=== PATIENT | female | born 1940 | race Caucasian/White ===

== ENCOUNTER 2017-11-12 10:15 | Emergency (ER) | payer MEDICARE, SELFPAY ==
[2017-11-12 10:18] VITALS: BP 130/71; PULSE 71; RESP 14; TEMP 37.1; O2SAT 95; BMI 23.9
--- NOTE | 2017-11-12 10:27 | RAD_ITS ---
STUDY: X-RAY - LEFT KNEE REASON FOR EXAM: Female, 77 years old. Painful knee. TECHNIQUE: AP and lateral view(s) of the knee. COMPARISON: None. FINDINGS: Normal visualized distal femur. Normal visualized proximal tibia and fibula. Normal proximal tibiofibular articulation. Normal medial femorotibial compartment. There is severe degenerative arthrosis of the lateral femorotibial compartment with severe joint space narrowing. There is severe degenerative arthrosis of the patellofemoral articulation. Soft tissue swelling RAD/Knee 1 or 2 Views IMPRESSION: Degenerative arthrosis. Soft tissue swelling. Electronically Signed: Zak Eden MD at 11:17 EDT Tel [phone], Service support ,
--- NOTE | 2017-11-12 10:35 | ED.DCSUM_ITS ---
- ER Visit Summary Date of Service: 11/12/17 Chief Complaint: Left knee pain status post fall History of Present Illness: The patient is a 77 F who states she was in her bedroom when her knee buckled. She experienced significant pain. She states she dislocated her patella 45 years ago. She states she was unable to get up and paramedics were summoned. She is on Coumadin. She denies head trauma. She denies headache. She denies nausea vomiting. She denies neck pain. Denies paresthesia, anesthesia moderates. She does have history of osteoporosis. Please read written note for complete detail Physical Examination: Vital signs are marked for slight elevation blood pressure 130/71. Head is atraumatic normocephalic. Pupils are equal round reactive. Extraocular muscles are intact. TMs are pearly white with landmarks noted. Nares patent with no drainage. Posterior pharynx without erythema or exudate. Uvula is midline. There is no dysphonia or dysphasia. Trachea is midline. There is no stridor with auscultation of the neck. Heart is regular without murmur, gallop or rub. S1 and S2 are normal. Lungs are clear to auscultation with good movement of air bilaterally. Examination of the lower extremities reveals swelling of the left knee. The patella is not ballotable. There may be an effusion. She has joint line tenderness. She is able to extend to 180? and hold against gravity. She is only able to flex to 160?. Unable to perform Patrick test and modified Connie's test. Attempt to perform varus valgus stress testing causes significant discomfort. There may be slight shortening of the left lower extremity. There is bilateral lymphedema with venous stasis dermatologic changes noted. Feet are warm with normal capillary refill. Pulses are diminished. Test Results: 4 view x-ray of the knee was ordered. Patient was only able to tolerate two-view x-ray. There is significant degenerative arthritis with bone on bone laterally. There is no evidence of fracture, subluxation or dislocation of the patella. Emergency Department Course and Treatment: She was medicated with 4 mg of Zofran and 4 mg morphine IV push. X-ray of the knee was obtained to evaluate for fracture. Nurse was asked to ambulate patient with walker since there is no evidence of fracture. She was able to ambulate successfully with walker. Patient was reexamined. She is now able to flex to approximately 100?. There is no laxity with varus valgus stress testing. Patrick's test was negative. Modified Connie's test was negative as well. Treatment Plan: Patient states she does not want to take getting stronger than Tylenol. She was discharged home with appropriate home-going instructions Disposition: To home in stable condition Impression: 1. Traumatic left knee injury with significant osteoarthritis This note was generated with [employer] dictation software. It may contain incorrect words, spelling, and punctuation that were not noted in review of the chart prior to signing ED Disposition - Plan for ED Patient: Disposition: Home or Assisted Living Chief Complaint: Lower Extremity Injury Instructions: ED Sprain Knee Referrals: Karen Garcia MD [Primary Care Provider] - Carlo Diamond MD [STAFF PHYSICIAN] - 1 Week if not improving
[2017-11-12] MEDS: Ondansetron 4 MG/2 ML Vial IV (10:49)
--- NOTE | 2017-11-12 11:16 | ED.RN ---
PT AMBULATES USING A WALKER TO THE RESTROOM WITH THE ASSISTANCE OF 2 RN'S. PT TAKES HER TIME BUT DOES WELL.
[2017-11-12 12:16] VITALS: BP 125/59; PULSE 86; RESP 16; O2SAT 95
== END 2017-11-12 12:17 | disposition home or self-care (01) ==
PROVIDERS: Emergency Provider Emergency Medicine; Family Provider Internal Medicine; PCP Internal Medicine
DX: M17.12 Unilateral primary osteoarthritis, left knee (principal); S89.92XA Unspecified injury of left lower leg, initial encounter; W19.XXXA Unspecified fall, initial encounter; Y93.9 Activity, unspecified; Y92.9 Unspecified place or not applicable; Y99.9 Unspecified external cause status; M25.462 Effusion, left knee; I89.0 Lymphedema, not elsewhere classified; R03.0 Elevated blood-pressure reading, without diagnosis of hypertension; M81.0 Age-related osteoporosis without current pathological fracture; Z79.01 Long term (current) use of anticoagulants; Z79.82 Long term (current) use of aspirin; Z79.899 Other long term (current) drug therapy; I25.2 Old myocardial infarction
CPT/HCPCS: 73560; 96374; 96375; 99285; A4216; J2405

== ENCOUNTER 2018-03-05 17:02 | Emergency (ER) | payer MEDICARE, SELFPAY ==
[2018-03-05 17:04] VITALS: BP 145/79; PULSE 98; RESP 16; TEMP 36.4; O2SAT 94
[2018-03-05 17:10] VITALS: BP 145/79; PULSE 97; RESP 16; TEMP 36.4; O2SAT 93; BMI 34.9
[2018-03-05 17:21] VITALS: O2SAT 91
--- NOTE | 2018-03-05 17:21 | CT_ITS ---
STUDY: CT BRAIN WITHOUT CONTRAST REASON FOR EXAM: Female, 78 years old. Fall RADIATION DOSAGE (If Supplied By Facility): CTDIvol = ( 44.99 ) mGy, DLP = ( 779.24 ) mGycm TECHNIQUE: Transaxial CT imaging of the brain was performed without administration of intravenous contrast material. Individualized dose optimization techniques were used for this CT. COMPARISON: 10/29/2016 FINDINGS: There is no acute bleed or infarct. There are stable mild chronic ischemic changes. The ventricles are normal in configuration. There is no hydrocephalus. The visualized paranasal sinuses are clear. The mastoid air cells are well aerated. There is no skull fracture. CT/Brain/Head without Contrast IMPRESSION: No acute intracranial abnormality. Stable mild chronic ischemic changes. Electronically Signed: Hugh Merritt, at 18:57 EDT Tel , Service support ,
--- NOTE | 2018-03-05 17:21 | RAD_ITS ---
STUDY: X-RAY - PELVIS AND RIGHT HIP REASON FOR EXAM: Female, 78 years old. Fall. Pain. TECHNIQUE: Radiological exam, hip, unilateral, with pelvis when performed; 2 or 3 views. COMPARISON: None. FINDINGS: There is no evidence of fracture or dislocation in the pelvis or right hip. There are mild degenerative changes noted in the lower spine and in the hips. RAD/Hip 2-3 Views with Pelvis IMPRESSION: No fracture or dislocation in the pelvis or right hip. Mild degenerative changes. Electronically Signed: Hugh Merritt, at 18:26 EDT Tel , Service support ,
--- NOTE | 2018-03-05 17:21 | EKG12_ITS ---
Test Reason : FALL Blood Pressure : / mmHG Vent. Rate : 091 BPM Atrial Rate : 091 BPM P-R Int : 146 ms QRS Dur : 088 ms QT Int : 384 ms P-R-T Axes : 041 004 000 degrees QTc Int : 472 ms Normal sinus rhythm Nonspecific ST and T wave abnormality Abnormal ECG Confirmed by RAUL RODRIGUEZ, LIZZETTE ([id number]), content editor STEFANIE CHARLES ([id number]) on 03/07/2018 3:11:01 PM Referred By: ESTRELLA Confirmed By:LIZZETTE CARTER MD
--- NOTE | 2018-03-05 17:21 | CT_ITS ---
STUDY: CT CERVICAL SPINE WITHOUT CONTRAST REASON FOR EXAM: Female, 78 years old. Fall RADIATION DOSAGE (If Supplied By Facility): CTDIvol = ( 21.26 ) mGy, DLP = ( 428.75 ) mGycm TECHNIQUE: High resolution transaxial imaging was performed without contrast material. Sagittal and coronal images were reconstructed. Individualized dose optimization techniques were used for this CT. COMPARISON: None available. FINDINGS: There is no evidence of fracture or dislocation in the cervical spine. The dens is intact. Alignment is normal. The vertebral body heights are well-maintained. There are mild multilevel degenerative changes. The visualized paraspinal soft tissues are within normal limits. CT/Spine Cervical without Contras IMPRESSION: No fracture or dislocation in the cervical spine. Mild degenerative changes. Electronically Signed: Hugh Merritt, at 19:01 EDT Tel , Service support ,
[2018-03-05] MEDS: Morphine 4 MG/ML Syringe IM (17:44)
[2018-03-05] MEDS: 0.9% Normal Saline 1,000 ML 150 ML IV (17:44)
[2018-03-05] MEDS: Ondansetron 4 MG/2 ML Vial IV (17:45)
[2018-03-05 18:04] LABS: Absolute Lymphocyte Count 1.52 X10^3/ul (0.83-4.51); Absolute Neutrophil Count 5.2 X10^3/uL (2.0-7.7); Basophil# 0.04 X10^3/uL; Basophil% 0.4 % (0-1); Eosinophil# 1.17 X10^3/uL; Eosinophils% 12.9 % (0-5); Hematocrit 40.6 % (37-47); Hemoglobin 12.8 g/dl (12.0-15.0); Lymphocyte # 1.52 X10^3/ul (4.0); Lymphocyte % 16.8 % (19-41); Mean Corp Hgb Conc 31.5 g/gl (32-36); Mean Corpuscular Hgb 29.7 pg (27.0-32.0); Mean Corpuscular Volume 94.2 fL (81-99); Mean Platelet Vol. 10.8 fl (6.2-12.0); Monocyte# 1.07 X10^3/uL; Monocyte% 11.8 % (0-10); Neutrophil # 5.24 X10^3/uL (2.7-7.7); Neutrophil % 57.8 % (47-70); POSITIVE COUNT NO; POSITIVE DIFFERENTIAL NO; POSITIVE MORPHOLOGY NO; Platelet Count 185 K/mm3 (150-450); RBC Distribution Width CV 14.8 % (11.6-14.6); RBC Distribution Width SD 49.3 fl (35.1-43.9); Red Blood Count 4.31 M/mm3 (4.2-5.4); White Blood Count 9.1 K/mm3 (4.4-11.0)
[2018-03-05 18:06] LABS: International Normalized Ratio 1.7; Prothrombin Time (Protime)PT. 19.7 SECONDS (11.7-14.9)
--- NOTE | 2018-03-05 18:10 | RAD_ITS ---
STUDY: X-RAY CHEST REASON FOR EXAM: Female, 78 years old. Fall TECHNIQUE: Frontal view of the chest COMPARISON: 06/28/2017 FINDINGS: There is a stable calcified granuloma in the right lower lobe. The lungs are otherwise clear. There are no pleural effusions. There is no pneumothorax. The heart is mildly enlarged, but stable in size. The visualized osseous structures are within normal limits. RAD/Chest 1 View (Portable) IMPRESSION: No acute thoracic pathology. Electronically Signed: Hugh Merritt, at 18:49 EDT Tel , Service support ,
[2018-03-05 18:16] LABS: Anion Gap 7 (5-15); BUN 22 mg/dL (7-18); Calcium,Total 8.2 mg/dL (8.5-10.1); Chloride 112 mmol/L (98-107); Creatinine, Serum 1.16 mg/dL (0.55-1.02); EST Glomerular Filtration Rate 48 mL/min (>60); Est Glom Filt Rate - Afr Amer 58 mL/min (>60); Estimated Creatinine Clearance 34.13 ml/min; Glucose 101 mg/dL (74-106); Potassium 3.7 mmol/L (3.5-5.1); Sodium Level 145 mmol/L (136-145)
[2018-03-05 19:16] VITALS: BP 127/72; PULSE 94; RESP 23; O2SAT 96
--- NOTE | 2018-03-05 19:16 | ED.VISSUMM ---
- ER Visit Summary Date of Service: 03/05/18 Chief Complaint: Fall History of Present Illness: The patient is a [address] Abby Garcia. She reports that she woke up from a nap and was feeling short of breath. She went to sit up in a chair and actually missed the chair and fell onto her buttocks. She reports that she did hit her head. No loss of consciousness. She is on Coumadin. She complains of neck pain Zeta 10 severity. Low back pain is 6 out of 10 severity. Right hip pain is 6 out of 10 severity. She denies any shoulder, wrist, or left hip pain. Patient reports that she has chest pain that began this morning. She reports that it comes and goes. Last proximal 15 minutes of time. It is increased with deep breaths. States is 10 out of 10 at worst and 6 out of 10 currently. Physical Examination: Vitals: Stable. Afebrile. Head: Abrasions to her forehead on the right and to her right maxilla. There is minimal dried blood in her right nare. There is no septal hematoma. Neck: Mild diffuse tenderness palpation. No point tenderness. Back: No vertebral tenderness. General: A&O x 3. NAD. Cardiovascular exam: Regular rate and rhythm with a 2 out of 6 systolic murmur. Respiratory exam: Chest nontender. No crepitus. Clear to auscultation bilaterally. No wheezes or stridor. Abdominal exam: Soft, nontender, nondistended, normal bowel sounds. No pain in RUQ or LUQ specifically. No peritoneal signs. Extremity: Mild tenderness palpation over the right greater trochanter. No pain with internal/external rotation of her hip. No pain with range of motion. Test Results: EKG is sinus at 91 with no acute changes. Is unchanged since May 2017. Troponins negative. INR is 1.7. Chem-7 more for calcium 8.2, BUN 20, creatinine 1.16, glucose 112. CBC is more for lymphocytes 17 monocytes of 12. Chest x-ray shows chronic changes. Right hip/pelvis x-ray shows degenerative changes and no acute disease. CT of the C-spine shows degenerative changes. CT brain shows stable mild chronic ischemic changes. No acute disease. Emergency Department Course and Treatment: Patient states that with a dose of morphine and Zofran IV. She is resting comfortably. Treatment Plan: Patient feels well and would like to go home. She reports that she does have known coronary disease and she is opted medical management of this. She states that she has not taken her dose of Coumadin yet today. Patient be discharged instructions to follow-up Dr. Garcia in 1-2 days if not improving. Return to the emergency department for any worsening symptoms. Disposition: To home in improved and stable condition. Impression: 1. Mechanical fall. 2. Facial abrasions. 3. Cervical strain. 4. Coagulopathy on Coumadin. 5. Atypical chest pain. This note was generated with [employer] dictation software. It may contain incorrect words, spelling, and punctuation that were not noted in review of the chart prior to signing ED Disposition - Plan for ED Patient: Disposition: Home or Assisted Living Chief Complaint: Fall Instructions: ED Mechanical Fall Referrals: Karen Garcia MD [Primary Care Provider] - 1-2 Days if not improving
[2018-03-05 19:29] VITALS: BP 127/72; PULSE 98; RESP 17; O2SAT 98
== END 2018-03-05 19:29 | disposition home or self-care (01) ==
LOC: ED 18:37
PROVIDERS: Emergency Provider Emergency Medicine; Family Provider Internal Medicine; PCP Internal Medicine
DX: S16.1XXA Strain of muscle, fascia and tendon at neck level, initial encounter (principal); S00.81XA Abrasion of other part of head, initial encounter; R07.89 Other chest pain; M25.551 Pain in right hip; M54.5 Low back pain; W07.XXXA Fall from chair, initial encounter; Y93.9 Activity, unspecified; Y92.9 Unspecified place or not applicable; Y99.9 Unspecified external cause status; R79.1 Abnormal coagulation profile; T45.515A Adverse effect of anticoagulants, initial encounter; I48.92 Unspecified atrial flutter; M19.90 Unspecified osteoarthritis, unspecified site; Z79.82 Long term (current) use of aspirin; Z79.01 Long term (current) use of anticoagulants; Z79.899 Other long term (current) drug therapy; Z86.718 Personal history of other venous thrombosis and embolism
CPT/HCPCS: 70450; 71045; 72125; 73502; 80048; 84484; 85025; 85610; 93005; 96361; 96372; 96374; 99285; J7030; J2405

== ENCOUNTER 2018-05-30 05:29 | Inpatient (IN) | payer MEDICARE, SELFPAY ==
[2018-05-30 05:30] VITALS: BP 169/88; PULSE 86; RESP 20; TEMP 36.7; O2SAT 96; BMI 30.7
--- NOTE | 2018-05-30 05:40 | EKG12_ITS ---
Test Reason : WEAKNESS Blood Pressure : / mmHG Vent. Rate : 076 BPM Atrial Rate : 076 BPM P-R Int : 150 ms QRS Dur : 080 ms QT Int : 384 ms P-R-T Axes : 029 -01 000 degrees QTc Int : 432 ms Sinus rhythm with marked sinus arrhythmia Otherwise normal ECG Confirmed by RAUL RODRIGUEZ, LIZZETTE ([id number]), editor map STEFANIE CHARLES ([id number]) on 05/31/2018 2:41:16 PM Referred By: AMOL Confirmed By:LIZZETTE CARTER MD
[2018-05-30 06:06] LABS: Bacteria 0 SEEN /hpf (None Seen); Mucous, Urine 0 SEEN /hpf (<or=2+); Red Blood Cells-Urine 0 SEEN /hpf (0-5)
[2018-05-30 06:07] LABS: Color, Urine Yellow (Yellow); Glucose, Dipstick Normal (Normal); Ketone-Dipstick Negative (Negative); Leukocyte Esterase-Dipstick 500 /ul (Negative); Nitrite-Dipstick Negative (Negative); Occult Blood-Urine 25 /ul (Negative); Protein-Dipstick 15 mg/dl (Negative); Urine Bilirubin Dipstick Negative (Negative); Urine Clarity Sl. Cloudy (Clear); Urine Urobilinogen Normal (Normal)
--- NOTE | 2018-05-30 06:08 | RAD_ITS ---
STUDY: X-RAY CHEST REASON FOR EXAM: Female, 78 years old. Weakness. TECHNIQUE: PA and lateral chest. COMPARISON: March 05, 2018. FINDINGS: Severe kyphosis. Heart is mildly enlarged. Retrocardiac density on the lateral view. No effusions. No pneumothorax. There is no demonstrated abnormality of the visualized soft tissue structures of the upper abdomen. RAD/Chest PA and Lateral IMPRESSION: Mild cardiomegaly unchanged. Cannot exclude left lower lobe pneumonia. Severe kyphosis.. Electronically Signed: Abhay Rutledge MD at 6:28 EDT , Service support ,
[2018-05-30 06:13] LABS: Absolute Lymphocyte Count 2.17 X10^3/ul (0.83-4.51); Absolute Neutrophil Count 3.5 X10^3/uL (2.0-7.7); Basophil# 0.03 X10^3/uL; Basophil% 0.4 % (0-1); Eosinophil# 0.33 X10^3/uL; Eosinophils% 4.7 % (0-5); Hematocrit 44.5 % (37-47); Lymphocyte # 2.17 X10^3/ul (4.0); Lymphocyte % 30.8 % (19-41); Mean Corp Hgb Conc 31.5 g/gl (32-36); Mean Corpuscular Hgb 29.4 pg (27.0-32.0); Mean Corpuscular Volume 93.5 fL (81-99); Mean Platelet Vol. 11.4 fl (6.2-12.0); Monocyte# 0.97 X10^3/uL; Monocyte% 13.8 % (0-10); Neutrophil # 3.54 X10^3/uL (2.7-7.7); Neutrophil % 50.3 % (47-70); Platelet Count 190 K/mm3 (150-450); RBC Distribution Width CV 14.4 % (11.6-14.6); RBC Distribution Width SD 49.3 fl (35.1-43.9); Red Blood Count 4.76 M/mm3 (4.2-5.4)
[2018-05-30 06:15] LABS: POSITIVE COUNT NO; POSITIVE DIFFERENTIAL NO; POSITIVE MORPHOLOGY NO
[2018-05-30 06:19] LABS: Squamous Epithelial Cells - UA 25-50 SEEN /hpf (5-10); White Blood Cells 25-50 SEEN /hpf (0-5)
[2018-05-30 06:21] LABS: AST(SGOT) 33 U/L (15-37); Alanine Aminotransfer ALT/SGPT 31 U/L (13-56); Albumin, Serum 3.4 g/dL (3.2-5.0); Alkaline Phosphatase 62 U/L (45-117); Anion Gap 8 (5-15); BUN 20 mg/dL (7-18); BUN/Creat Ratio 17.1 RATIO (10-20); Calcium,Total 9.2 mg/dL (8.5-10.1); Chloride 108 mmol/L (98-107); Creatinine, Serum 1.17 mg/dL (0.55-1.02); EST Glomerular Filtration Rate 48 mL/min (>60); Est Glom Filt Rate - Afr Amer 58 mL/min (>60); Estimated Creatinine Clearance 33.84 ml/min; Globulin 3.4 g/dL (2.2-4.2); Glucose 96 mg/dL (74-106); Potassium 4.4 mmol/L (3.5-5.1); Protein, Total 6.8 g/dL (6.4-8.2); Sodium Level 143 mmol/L (136-145)
--- NOTE | 2018-05-30 06:53 | ED.DCSUM_ITS ---
- ER Visit Summary Date of Service: 05/30/18 Chief Complaint: Weakness History of Present Illness: The patient is a 78 F who states that around 130 tonight she became weak. She noted some urinary frequency. She denies any pain. She states that she does not sleep well at night was already up at that time. EMS states they have run on her several times for lift assistance but rarely needs to transport her. She denies any fevers, vomiting, diarrhea, or focal weakness. Recently started on a low-sodium diet due to leg swelling. No new medications though she takes Lasix as needed. She is on Coumadin Physical Examination: Afebrile vital signs are stable Gen: Well-nourished well-developed patient keeps her eyes closed most of the time while being examined Head: Normocephalic atraumatic Eyes: Perrl EOMI ENT: TMs clear no rhinorrhea moist mucous membranes Neck: Supple no lymphadenopathy no JVD nontender CVS: Regular rate rhythm no murmurs normal S1-S2 Respiratory: No distress clear to auscultation bilaterally chest nontender Abdomen: Soft nontender nondistended normal bowel sounds no masses Back: Nontender Extremity: Nontender no edema Skin: Normal color no rash Neuro: alert orientated ?3 CN II-XII intact normal strength sensation reflexes gait cerebellar Psych: Normal affect normal mood Test Results: Troponin negative. EKG sinus rhythm at a rate of 76. Chest x-ray is read by radiology as possible infiltrate.. Urinalysis 25-50 white cells but also heavily contaminated with epithelial cells no bacteria. Emergency Department Course and Treatment: As far as the chest x-ray patient has no cough lung sounds are clear she is without fever. I do not think she has pneumonia at the current time. Urinalysis contaminated but no overt infection. Nursing had the patient set up her blood pressure was fine but the patient states she is too weak to stand. Question whether or not this could be depression as the patient does not sleep very well is up most of the night. We will be admitting for observation. Impression: 1. Weakness 2. Failure to thrive This note was generated with [employer] dictation software. It may contain incorrect words, spelling, and punctuation that were not noted in review of the chart prior to signing ED Disposition - Plan for ED Patient: Chief Complaint: Weakness Referrals: Karen Garcia MD [Primary Care Provider] -
--- NOTE | 2018-05-30 07:13 | CT_ITS ---
STUDY: CT BRAIN WITHOUT CONTRAST REASON FOR EXAM: Female, 78 years old. Weakness and dizziness. RADIATION DOSAGE (If Supplied By Facility): CTDIvol = ( 44.99 ) mGy, DLP = ( 762.36 ) mGycm TECHNIQUE: Transaxial CT imaging of the brain was performed without administration of intravenous contrast material. Individualized dose optimization techniques were used for this CT. COMPARISON: Comparison is made with prior study dated March 05, 2018. FINDINGS: Normal soft tissue structures. Normal calvarium. There is mild cerebral atrophy with widening of the extra-axial spaces and ventricular dilatation. Normal white matter tracts of the cerebral hemispheres. Normal basal ganglia and thalami. Normal brainstem. Normal cerebellum. There is no intracranial hemorrhage. There are no findings of an acute ischemic infarction. Normal visualized paranasal sinuses. CT/Brain/Head without Contrast IMPRESSION: Chronic involutional changes of the brain. Electronically Signed: Zak Eden MD at 8:19 EDT Tel [phone], Service support ,
[2018-05-30 07:27] VITALS: BP 134/68; BP 154/76; PULSE 75; PULSE 79
--- NOTE | 2018-05-30 07:51 | NURSING ---
DR RICH CARMICHAEL
--- NOTE | 2018-05-30 08:04 | NURSING ---
MED SURG FAILURE TO THRIVE RICH
--- NOTE | 2018-05-30 08:10 | HP.PCM_ITS ---
Problem List (1) General weakness Status: Acute (2) UTI Status: Acute (3) Hyperlipidemia Status: Chronic Qualifiers: Hyperlipidemia type: pure hypercholesterolemia Qualified Code(s): E78.00 - Pure hypercholesterolemia, unspecified; E78.0 - Pure hypercholesterolemia (4) Paroxysmal atrial fibrillation Status: Chronic (5) Acute embolism and thrombosis of vein Status: Chronic (6) Diastolic dysfunction Status: Acute (7) H/O eye surgery Status: Resolved (8) H/O lumpectomy Status: Resolved Comment: breast (9) History of tonsillectomy Status: Resolved (10) Atherosclerotic heart disease of [place] coronary artery without angina pectoris Status: Resolved Qualifiers: [place] vs. transplanted heart: [place] heart Qualified Code(s): I25.10 - Atherosclerotic heart disease of [place] coronary artery without angina pectoris (11) Failure to thrive Status: Acute (12) Hematoma and contusion Status: Acute (13) Syncope Status: Acute Qualifiers: Syncope type: unspecified Qualified Code(s): R55 - Syncope and collapse (14) Dizziness, nonspecific Status: Chronic (15) History of urinary calculi Status: Chronic (16) Peptic ulcer Status: Chronic (17) Osteoporosis Status: Chronic (18) History of venous thromboembolism Status: Chronic (19) SVT (supraventricular tachycardia) Status: Acute (20) NSTEMI (non-ST elevated myocardial infarction) Status: Acute (21) Angina pectoris Status: Acute (22) Osteoarthritis Status: Chronic (23) Coagulopathy Status: Acute (24) Vertebral compression fracture Status: Acute History of Present Illness Date of Admission: 05/30/18 Chief Complaint: Generalized weakness The patient is a 78 year old F with multiple comorbidities including venous thromboembolism, coronary artery disease paroxysmal A. fib, history of SVT on Coumadin, osteoarthritis/osteoporosis and peptic ulcer came to ER with generalized weakness for 2-3 days. She woke up at 1:30 AM today and started feeling increased frequency and burning micturition. She had flulike symptoms about 2-3 weeks ago that has resolved but he still has postnasal dripping and weakness. Denies fever but chills. As per EMS, she required left assistance and in ED she could not stand up. Orthostatic vitals were negative. She took 1 week of Lasix by PCP Dr. Abbott which she completed last Wednesday. She was transferred to [facility] in December 2016 for evaluation of bypass surgery for multivessel coronary artery disease she was told she is too weak and had developed venous thromboembolism too. She follows Dr. Mora, last seen about 2-3 months ago and she is not operative candidate for CABG. In ED, UA is positive of pyuria, LE positive, WBC 25-50 but epithelial cells 25- 50 too suggestive of contaminated or not optimal urine sample. [] Past Medical History Past Medical History (Chronic Problems): Chronic Problems (Last Updated 12/14/17 @ 12:54 by Josee Rojas) Hyperlipidemia (Chronic) Paroxysmal atrial fibrillation (Chronic) Acute embolism and thrombosis of vein (Chronic) Dizziness, nonspecific (Chronic) History of urinary calculi (Chronic) Peptic ulcer (Chronic) Osteoporosis (Chronic) History of venous thromboembolism (Chronic) Osteoarthritis (Chronic) Medical History: Medical History (Last Updated 12/14/17 @ 12:54 by Josee Rojas) Hyperlipidemia (Chronic) E78.5 Paroxysmal atrial fibrillation (Chronic) I48.0 Acute embolism and thrombosis of vein (Chronic) I82.90 Diastolic dysfunction (Acute) I51.9 Atherosclerotic heart disease of [place] coronary artery without angina pectoris (Resolved) I25.10 Failure to thrive (Acute) [id number] Hematoma and contusion (Acute) T14.8 Syncope (Acute) R55 Dizziness, nonspecific (Chronic) R42 History of urinary calculi (Chronic) Z87.442 Peptic ulcer (Chronic) K27.9 Osteoporosis (Chronic) M81.0 History of venous thromboembolism (Chronic) Z86.718 SVT (supraventricular tachycardia) (Acute) I47.1 NSTEMI (non-ST elevated myocardial infarction) (Acute) I21.4 Angina pectoris (Acute) I20.9 Osteoarthritis (Chronic) M19.90 Coagulopathy (Acute) Vertebral compression fracture (Acute) M48.50XA Allergies codeine Adverse Reaction (Verified 05/30/18 05:36) Other Home Medications: Ambulatory Orders Medication Instructions Recorded Ascorbic Acid [Vitamin C] 500 mg PO DAILY@0800 01/26/16 Calcium Carbonate/Vitamin D3 1 tablet PO DAILY 01/26/16 [Calcium 600-Vit D3 800 Tablet] Meclizine HCl [Antivert] 12.5 mg PO PRN PRN 01/26/16 Multivitamin [Daily Multiple 1 tab PO DAILY 01/26/16 Vitamin] Omeprazole 20 mg PO DAILY 01/26/16 Acetaminophen [Tylenol] 500 mg PO Q4H PRN PRN #30 tab 06/11/16 Cholecalciferol (Vitamin D3) 1,000 unit PO DAILY 06/11/16 [Vitamin D3] Sertraline HCl [Zoloft] 25 mg PO DAILY 11/11/16 Warfarin [Coumadin] 1 mg PO MOWEFR 11/11/16 Warfarin [Coumadin ([facility]KC)] 2 mg PO SUTUTHSA 01/07/17 Aspirin [Adult Low Dose Aspirin EC] 81 mg PO DAILY 06/28/17 Atorvastatin Calcium 80 mg PO DAILY 06/28/17 Isosorbide Mononitrate [Isosorbide 30 mg PO DAILY 06/28/17 Mononitrate ER] Metoprolol Succinate [Toprol Xl] 50 mg PO DAILY #30 tab.er.24h 06/28/17 tramadol 50 mg tablet 50 mg PO QDAY PRN tab 09/21/17 furosemide 20 mg tablet 20 mg PO QDAY PRN 02/14/18 Surgical History: Surgical History (Last Reviewed 02/14/18 @ 11:10 by Josee Rojas) H/O eye surgery (Resolved) Z98.890 H/O lumpectomy (Resolved) Z98.890 breast History of tonsillectomy (Resolved) Z90.89 Surgical History: no surgical history, tonsillectomy, - - Lumpectomy of the breast, eye muscle surgery Psychiatric History: No pertinent psych hx RATE EXAMINER History: No pertinent RATE EXAMINER history Smoking Status: Never smoker - *Family History Maternal Family History: Family History (Last Reviewed 02/14/18 @ 11:10 by Josee Rojas) Mother Diabetes Father CAD (coronary artery disease) Brother CAD (coronary artery disease) History Items: Diabetes Paternal Family History: Family History (Last Reviewed 02/14/18 @ 11:10 by Josee Rojas) Mother Diabetes Father CAD (coronary artery disease) Brother CAD (coronary artery disease) History Items: Cancer Sibling Family History: Family History (Last Reviewed 02/14/18 @ 11:10 by Josee Rojas) Mother Diabetes Father CAD (coronary artery disease) Brother CAD (coronary artery disease) History Items: DVT Review of Systems Constitutional: Reports: Chills, Malaise, Weakness HEENT: Reports: Post Nasal Drip. Denies: Head Aches, Sinus Congestion Cardiovascular: Reports: Edema. Denies: Chest Pain, Palpitations Respiratory: Reports: Cough - Tonic. Denies: Shortness of breath at rest, Sputum production Gastrointestinal: Denies: Abdominal Pain, Nausea, Vomiting Genitourinary: Reports: Dysuria, Frequency, Incontinence Musculoskeletal: Denies: Joint Pain, Joint Tenderness Skin: Denies: Rash, Wounds Neurological: Denies: Numbness, Tingling, Focal weakness Psychiatric: Denies: Anxiety, Depression, Homicidal Ideations, Suicidal Ideations Hematologic/ Lymphatic: Denies: Easy Bruising, Easy Bleeding VTE Information - Inpt Only VTE Present on Admission: No VTE Mechan Device Prophylaxis: None VTE Pharm Prophylaxis ordered?: Yes Patient Problems: Active and Suspected Problems (Last Updated 12/14/17 @ 12:54 by Josee Rojas) General weakness (Acute) UTI (Acute) - Physical Exam General: Alert, Oriented x3, Cooperative HEENT: Atraumatic, PERRLA, EOMI, Normocephalic Oral: Dry Mucosa Neck: Supple, No JVD, Negative Carotid Bruits Lungs: Clear to auscultation, No rhonchi, No wheeze, No rales, Diminished Cardiovascular: Regular rate, Regular Rhythm, Normal S1, Normal S2, No murmurs, - Abdomen: Bowel Sounds Present, Soft, Non Tender, Non-Distended Extremities: Capillary Refill Less than 3 Seconds, Edema Skin: No rashes, No breakdown Musculoskeletal: No Tenderness to Palpation of Joints or Extremities, Arthritic Changes, Muscle Wasting Neurological: Cranial nerves II-XII grossly intact, Deep Tendon Reflexes 2+/4 and Symmetrical, Neuro grossly intact Psych/Mental Status: Normal Affect, Appropriate Vital Signs Temp Pulse Resp BP Pulse Ox 98.0 F 75 20 H 134/68 H 96 05/30/18 05:30 05/30/18 07:27 05/30/18 05:30 05/30/18 07:27 05/30/18 05:30 Oxygen Delivery Method Room Air Weight: 173 lb 1.006 oz Body Mass Index (BMI) 30.7 Laboratory Tests Past 24 Hrs 05/30/18 05/30/18 05/30/18 05:38 05:38 06:00 WBC 7.0 RBC 4.76 Hgb 14.0 Hct 44.5 MCV 93.5 MCH 29.4 MCHC 31.5 L RDW 14.4 RDW Differential 49.3 H Plt Count 190 MPV 11.4 Immature Gran % (Auto) 0.000 Neut % (Auto) 50.3 Lymph % (Auto) 30.8 Martin % (Auto) 13.8 H Eos % (Auto) 4.7 Baso % (Auto) 0.4 Absolute Neuts (auto) 3.5 Absolute Lymphs (auto) 2.17 Total Counted Not Reportable Sodium 143 Potassium 4.4 Chloride 108 H Carbon Dioxide 27.0 Anion Gap 8 BUN 20 H Creatinine 1.17 H Estim Creat Clear Calc 33.84 Est GFR (MDRD) Af Amer 58 L Est GFR (MDRD) Non-Af 48 L BUN/Creatinine Ratio 17.1 Glucose 96 Calcium 9.2 Total Bilirubin 0.90 AST 33 ALT 31 Alkaline Phosphatase 62 Troponin I 0.021 Total Protein 6.8 Albumin 3.4 Globulin 3.4 Albumin/Globulin Ratio 1.0 Urine Color Yellow Urine Clarity Sl. Cloudy Urine pH 6.0 Ur Specific [place] 1.010 Urine Protein 15 H Urine Glucose (UA) Normal Urine Ketones Negative Urine Occult Blood 25 H Urine Nitrite Negative Urine Bilirubin Negative Urine Urobilinogen Normal Ur Leukocyte Esterase 500 H Urine RBC 0 SEEN Urine WBC 25-50 SEEN Ur Squamous Epith Cells 25-50 SEEN Urine Bacteria 0 SEEN Urine Mucus 0 SEEN Assessment/Plan All Active Problems (Last Updated 12/14/17 @ 12:54 by Josee Rojas) General weakness (Acute) UTI (Acute) Diastolic dysfunction (Acute) H/O eye surgery (Resolved) H/O lumpectomy (Resolved) History of tonsillectomy (Resolved) Atherosclerotic heart disease of [place] coronary artery without angina pectoris (Resolved) Failure to thrive (Acute) Hematoma and contusion (Acute) Syncope (Acute) SVT (supraventricular tachycardia) (Acute) NSTEMI (non-ST elevated myocardial infarction) (Acute) Angina pectoris (Acute) Coagulopathy (Acute) Vertebral compression fracture (Acute) The patient is a 78 year old F with multiple comorbidities including venous thromboembolism, coronary artery disease paroxysmal A. fib, history of SVT on Coumadin, osteoarthritis/osteoporosis and peptic ulcer came to ER with generalized weakness for 2-3 days. She woke up at 1:30 AM today and started feeling increased frequency and burning micturition. She had flulike symptoms about 2-3 weeks ago that has resolved but he still has postnasal dripping and weakness. Denies fever but chills. As per EMS, she required left assistance and in ED she could not stand up. Orthostatic vitals were negative in ED. She took 1 week of Lasix by PCP Dr. Abbott which she completed last Wednesday. She was transferred to [facility] in December 2016 for evaluation of bypass surgery for multivessel coronary artery disease she was told she is too weak and had developed venous thromboembolism too. She follows Dr. Mora, last seen about 2-3 months ago and she is not operative candidate for CABG. In ED, UA is positive of pyuria, LE positive, WBC 25-50 but epithelial cells 25- 50 too suggestive of contaminated or not optimal urine sample. [] 1. Generalized weakness, most probably multiple etiologies including recent treatment with Lasix, flulike symptoms and/or UTI: Patient is being admitted to regular MedSurg floor. We will treat for underlying condition. Respiratory panel ordered. IV fluid normal saline. 2. UTI: Repeat UA with urine culture probably from straight catheterization.. Start on IV ceftriaxone. Bladder scan postvoid to rule out urinary retention/postvoid residual. 3. CAD. Patient had non-STEMI in December 2016 and had cardiac cath which showed multivessel CAD. Not optimal candidate for CABG. Continue home cardiac medications. 4. PSVT/paroxysmal A. fib on Coumadin : PT/INR pending. Adjust Coumadin accordingly. Currently normal sinus rhythm. 5. Other chronic comorbidities include dyslipidemia, peptic ulcer, osteoporosis/osteoarthritis, vertebral compression fracture, history of urinary calculi: Multiple comorbidities complicates the present care and expect difficult and delay recovery DVT: Already on Coumadin. Code Visit Inpatient E&M: [id number] Init Hosp L3
[2018-05-30 08:34] LABS: International Normalized Ratio 3.3; Prothrombin Time (Protime)PT. 33.8 SECONDS (11.7-14.9)
[2018-05-30 08:52] VITALS: BMI 29.6
[2018-05-30 08:59] VITALS: BP 149/82; PULSE 80; RESP 18; TEMP 36.8; O2SAT 96
[2018-05-30 09:24] LABS: Erythrocyte Sedimentation Rate 10 mm/hr (0-30)
[2018-05-30 09:51] LABS: Mucous, Urine 0 SEEN /hpf (<or=2+); Red Blood Cells-Urine 0 SEEN /hpf (0-5)
[2018-05-30 09:53] LABS: Color, Urine Yellow (Yellow); Glucose, Dipstick Normal (Normal); Ketone-Dipstick Negative (Negative); Leukocyte Esterase-Dipstick 500 /ul (Negative); Nitrite-Dipstick Negative (Negative); Occult Blood-Urine 10 /ul (Negative); Protein-Dipstick Negative (Negative); Urine Bilirubin Dipstick Negative (Negative); Urine Clarity Sl. Cloudy (Clear); Urine Urobilinogen Normal (Normal); Urine pH 6.5 (5.0 - 8.0)
[2018-05-30 09:59] LABS: Bacteria 2+ /hpf (None Seen); Squamous Epithelial Cells - UA 0-5 SEEN /hpf (5-10); White Blood Cells 5-10 SEEN /hpf (0-5)
[2018-05-30] MEDS: 0.9% Normal Saline 1,000 ML 75 ML IV (10:37)
[2018-05-30] MEDS: 0.9% NaCl Peripheral Flush Adult/Peds IV (10:37)
[2018-05-30] MEDS: Acetaminophen 325 MG Tablet 650 MG PO (10:37)
[2018-05-30 10:50] VITALS: O2SAT 93
[2018-05-30] MEDS: Ceftriaxone 1 GM/50 ML BAG IV (11:16)
--- NOTE | 2018-05-30 11:45 | CASEMGMT ---
Addendum entered by Garima Hoffman 05/30/18 14:13: 1300: HANNA FOSTER in room to talk with pt about her wishes for discharge. Pt states she is agreeable to SNF and states she would like to go to [place], as she has been there in the past and liked it there. Pt states she is also interested in going to an Assisted Living facility after she leaves [place] and her 1st choices for AL is [facility]. Ricardo BRITO, made aware of pt's wishes. Original Note: SEE HANNA FOSTER ASSESS LINK: D/C PLAN: TBD. Home w/HHC vs SNF. Pt undecided at this time. HANNA FOSTER Face to Face with patient for initial transition planning/care coordination assessment. HANNA FOSTER introduced self and role at [facility]. Patient resting in bed, alert and oriented. Patient willing to participate in assessment and is able to answer all questions appropriately. Care providers, pharmacy, and demographics verified. Pt states she has Passport services and that she received the following: Nurse 2 x's/week, Home Health Aide 7 days a week from 8AM to 12 noon daily, and meals from [employer] 4 x's/week. Pt also reports that her neighbor comes to check on her every afternoon and her KEON/POA, Elinalina helps accounting systems manager her bills/finances. She also states she uses [facility] van for transportation. Pt states she would like to return home with continued services but she confirms that she has been falling @ home and it is becoming increasingly difficult for her @ home. Pt states she may be agreeable to going to a SNF short-term, but has concerns d/t her brother is ill and is on hospice. Pt's director of career services from [facility], Toshia Meehan, came into room while HANNA FOSTER talking with pt and informed pt that her KEON/POA, Suseke, has voiced to her concerns of pt returning home d/t she (Suseke) is unavailable to help her (patient) as much d/t her brother's illness. Pt stated she will consider SNF and does state she thinks this would be the safest for her. HANNA FOSTER informed pt she would give her some time to think about it and return to room to talk with her later. CM to follow for discharge planning needs that may arise. Crispin TOMAS RN, CM
--- NOTE | 2018-05-30 12:51 | CASEMGMT ---
Addendum entered by Mandy Shah 05/30/18 14:44: HCPOA and Living Will form placed on pt's chart. Original Note: Addendum entered by Mandy Shah 05/30/18 14:40: SW received message from Keyla at [facility] stating she is able to accept pt and will submit for pre-cert. Original Note: Social Work Note RN KRISTIN Hoffman updated this worker that pt is interested in [facility] at discharge for skilled services and then transition from [facility] for assisted living. SW faxed referral to Keyla at [facility]. Plan: [facility] pending acceptance and pre-cert Mandy Shah ELECTRICAL ENGINEERING TECHNOLOGIST, DREDGE BOAT ENGINEER
[2018-05-30 14:19] VITALS: BP 129/50; PULSE 79; RESP 16; TEMP 36.7; O2SAT 98
--- NOTE | 2018-05-30 15:00 | CASEMGMT ---
Social Work Note Per previous notes, pt's CM for [facility] is Earnestine Fang. SW placed a call to Earnestine and left her a message regarding pt's admission into [facility] and the discharge plan to get pt to [facility] pending pre-cert. Mandy Shah FURNACE ERECTOR, ERADICATOR
--- NOTE | 2018-05-30 15:40 | CHAPLAIN ---
Type of Pastoral Visit _x__ Initial Visit ___ Follow-up Visit ___ On-call Visit ___ General Patient Visit ___ Spiritual Assessment ___ Family Conference ___ Bereavement ___ Rapid Response ___ Code Blue ___ Other (describe below) Pastoral Care Referral From ___ Patient ___ Family ___ Nurse ___ Physician ___ Director Of Field Sales ___ Stage Hand ___ Other (describe below) Sacrament/Intervention ___ Active listening ___ Anointing ___ Yarsani ___ Bereavement ___ Communion ___ Taylor exploration ___ ___ Life review ___ Prayer ___ Reconciliation ___ Sacrament of Sick ___ Supportive presence ___ Wedding ___ Other (describe below) Pastoral Comments patient is asleep; calling card is left in room
[2018-05-30 20:25] VITALS: BP 150/77; PULSE 79; RESP 16; TEMP 36.6; O2SAT 96
[2018-05-30] MEDS: Atorvastatin Calcium 80 MG Tablet PO (21:27)
[2018-05-31 02:24] VITALS: BP 139/74; PULSE 82; RESP 16; TEMP 36.8; O2SAT 95
[2018-05-31] MEDS: Acetaminophen 325 MG Tablet 650 MG PO ×3 (02:31→21:08)
[2018-05-31 06:06] LABS: International Normalized Ratio 3.4; Prothrombin Time (Protime)PT. 34.2 SECONDS (11.7-14.9)
[2018-05-31 06:31] LABS: Anion Gap 9 (5-15); BUN 14 mg/dL (7-18); BUN/Creat Ratio 12.6 RATIO (10-20); Calcium,Total 8.8 mg/dL (8.5-10.1); Chloride 107 mmol/L (98-107); Creatinine, Serum 1.11 mg/dL (0.55-1.02); EST Glomerular Filtration Rate 51 mL/min (>60); Est Glom Filt Rate - Afr Amer 61 mL/min (>60); Estimated Creatinine Clearance 35.67 ml/min; Glucose 94 mg/dL (74-106); Potassium 4.2 mmol/L (3.5-5.1); Sodium Level 142 mmol/L (136-145)
[2018-05-31 07:40] VITALS: O2SAT 93
[2018-05-31 08:24] VITALS: BP 136/63; PULSE 111; RESP 16; TEMP 37.1; O2SAT 93
[2018-05-31] MEDS: Multivitamins,Therapeutic Tablet 1 TABLET PO (09:10)
[2018-05-31] MEDS: Calcium Carb/Vitamin D 1 TABLET Tablet PO (09:10)
[2018-05-31] MEDS: Ascorbic Acid 500 MG Tablet PO (09:10)
[2018-05-31] MEDS: Aspirin E.C. 81 MG Tablet PO (09:10)
[2018-05-31] MEDS: Isosorbide Mononitrate 30 MG Tablet PO (09:10)
[2018-05-31 09:11] VITALS: PULSE 110
[2018-05-31] MEDS: Pantoprazole Sodium 20 MG Tablet PO (09:11)
[2018-05-31] MEDS: Metoprolol(XL)Succ 50 MG Tablet PO (09:11)
[2018-05-31] MEDS: Sertraline 50 MG Tablet 25 MG PO (09:11)
[2018-05-31] MEDS: Ceftriaxone 1 GM/50 ML BAG IV (09:17)
[2018-05-31] MEDS: 0.9% NaCl Peripheral Flush Adult/Peds IV ×2 (09:17→21:08)
--- NOTE | 2018-05-31 09:24 | PN_ITS ---
Patient Problems: Active and Suspected Problems (Last Updated 12/14/17 @ 12:54 by Josee Rojas) General weakness (Acute) UTI (Acute) Subjective: Patient did not had fever. Patient complain of increased frequency going to bathroom every hour yesterday; most probably secondary to Lasix. Patient denies burning micturition or urgency. Respiratory panel negative. Vitals/I&O's: Vital Signs Temp Pulse Resp BP Pulse Ox 98.8 F 110 H 16 136/63 H 93 05/31/18 08:24 05/31/18 09:11 05/31/18 08:24 05/31/18 08:24 05/31/18 08:24 Oxygen Delivery Method Room Air Weight: 167 lb 5.294 oz Body Mass Index (BMI) 29.6 Intake and Output for Last 24 Hours 05/29/18 05/30/18 05/31/18 23:59 23:59 23:59 Intake Total 1144 / 1144 Output Total 75 / 75 Balance 1144 / 1144 -75 / -75 General: Alert, Oriented x3, Cooperative HEENT: Atraumatic, PERRLA, EOMI, Normocephalic Neck: Supple, No JVD, Negative Carotid Bruits Lungs: Clear to auscultation, No rhonchi, No wheeze, Diminished Cardiovascular: Regular rate, Normal S1, Normal S2, Murmur Abdomen: Bowel Sounds Present, Soft, Non Tender, Non-Distended Extremities: Capillary Refill Less than 3 Seconds, Edema Skin: No rashes, No breakdown Musculoskeletal: No Tenderness to Palpation of Joints or Extremities Neurological: Cranial nerves II-XII grossly intact Psych/Mental Status: Normal Affect, Appropriate Microbiology Past 72 Hours 05/30/18 10:55 Mucosa - Nose Respiratory Panel (PCR) - Final Laboratory Results 05/30/18 05:38: ESR 10 05/30/18 09:35: Urine Color Yellow, Urine Clarity Sl. Cloudy, Urine pH 6.5, Ur Specific [place] 1.010, Urine Protein Negative, Urine Glucose (UA) Normal, Urine Ketones Negative, Urine Occult Blood 10 H, Urine Nitrite Negative, Urine B ilirubin Negative, Urine Urobilinogen Normal, Ur Leukocyte Esterase 500 H, Urine RBC 0 SEEN, Urine WBC 5-10 SEEN, Ur Squamous Epith Cells 0-5 SEEN, Urine Bacteria 2+, Urine Mucus 0 SEEN 05/31/18 05:40: Sodium 142, Potassium 4.2, Chloride 107, Carbon Dioxide 26.0, Anion Gap 9, BUN 14, Creatinine 1.11 H, Estim Creat Clear Calc 35.67, Est GFR (MDRD) Af Amer 61, Est GFR (MDRD) Non-Af 51 L, BUN/Creatinine Ratio 12.6, Glucose 94, Calcium 8.8 05/31/18 05:40: PT 34.2 H, INR 3.4 Current Medications Acetaminophen (Tylenol) 650 mg PO Q6H PRN PRN PRN Reason: Mild Pain (scale 0-3)/T>100.7 Last Admin: 05/31/18 05:38 Dose: 325 mg Ascorbic Acid (Vitamin C) 500 mg PO DAILY@0800 [facility] Last Admin: 05/31/18 09:10 Dose: 500 mg Aspirin (Ecotrin) 81 mg PO DAILYCM [facility] Last Admin: 05/31/18 09:10 Dose: 81 mg Atorvastatin Calcium (Lipitor) 80 mg PO QHS [facility] Last Admin: 05/30/18 21:27 Dose: 80 mg Calcium/Vitamin D (Os-Sedrick 500mg + D) 1 tablet PO DAILYCM [facility] Last Admin: 05/31/18 09:10 Dose: 1 tablet Cholecalciferol (Vitamin D) 1,000 unit PO DAILY [facility] Last Admin: 05/31/18 09:11 Dose: 1,000 unit Furosemide (Lasix) 40 mg PO DAILY [facility] Last Admin: 05/31/18 09:11 Dose: Not Given Ceftriaxone Sodium (Rocephin) 1 gm in 50 mls @ 100 mls/hr IV Q24 [facility] Last Admin: 05/31/18 09:17 Dose: 100 mls/hr Influenza Virus Vaccine Quadrival (Fluarix/Fluzone) 0.5 ml IM .ONCE ONE Stop: 05/31/18 10:01 Last Admin: 05/31/18 09:16 Dose: 0.5 ml Isosorbide Mononitrate (Imdur) 30 mg PO DAILY [facility] Last Admin: 05/31/18 09:10 Dose: 30 mg Magnesium Hydroxide (Milk Of Magnesia) 30 ml PO DAILY PRN PRN PRN Reason: Constipation Meclizine HCl (Antivert) 12.5 mg PO 4X/DAY PRN PRN PRN Reason: DIZZINESS Metoprolol Succinate (Toprol Xl (Beta Vanna)) 50 mg PO DAILY [facility] Last Admin: 05/31/18 09:11 Dose: 50 mg Morphine Sulfate () 1 - 2 mg IV Q4H PRN PRN PRN Reason: Moderate Pain (pain scale 4-5) Multivitamins ([facility]itamin) [facility] Last Admin: 05/31/18 09:10 Dose: 1 tablet Ondansetron HCl (Zofran) 4 mg IV Q8H PRN PRN PRN Reason: NAUSEA Oxycodone HCl (Oxyir) 5 mg PO Q4H PRN PRN PRN Reason: Moderate Pain (pain scale 4-5) Pantoprazole Sodium (Protonix) 20 mg PO DAILY [facility] Last Admin: 05/31/18 09:11 Dose: 20 mg Promethazine HCl (Phenergan) 12.5 mg IV Q6H PRN PRN PRN Reason: NAUSEA/VOMITING Sertraline HCl (Zoloft) 25 mg PO DAILY [facility] Last Admin: 05/31/18 09:11 Dose: 25 mg Sodium Chloride () 5 - 30 ml IV UD PRN PRN Reason: SALINE FLUSH Last Admin: 05/31/18 09:17 Dose: 10 ml Tramadol HCl (Ultram) 50 mg PO DAILY PRN PRN Reason: PAIN Medical Necessity - Tobacco Use Smoking Status: Never smoker Assessment/Plan All Active Problems (Last Updated 12/14/17 @ 12:54 by Josee Rojas) General weakness (Acute) UTI (Acute) Diastolic dysfunction (Acute) H/O eye surgery (Resolved) H/O lumpectomy (Resolved) History of tonsillectomy (Resolved) Atherosclerotic heart disease of [place] coronary artery without angina pectoris (Resolved) Failure to thrive (Acute) Hematoma and contusion (Acute) Syncope (Acute) SVT (supraventricular tachycardia) (Acute) NSTEMI (non-ST elevated myocardial infarction) (Acute) Angina pectoris (Acute) Coagulopathy (Acute) Vertebral compression fracture (Acute) The patient is a 78 year old F with multiple comorbidities including venous thromboembolism, coronary artery disease paroxysmal A. fib, history of SVT on Coumadin, osteoarthritis/osteoporosis and peptic ulcer came to ER with generalized weakness for 2-3 days. She woke up at 1:30 AM today and started feeling increased frequency and burning micturition. She had flulike symptoms about 2-3 weeks ago that has resolved but he still has postnasal dripping and weakness. Denies fever but chills. As per EMS, she required left assistance and in ED she could not stand up. Orthostatic vitals were negative in ED. She took 1 week of Lasix by PCP Dr. Abbott which she completed last Wednesday. She was transferred to [facility] in December 2016 for evaluation of bypass surgery for multivessel coronary artery disease she was told she is too weak and had developed venous thromboembolism too. She follows Dr. Mora, last seen about 2-3 months ago and she is not operative candidate for CABG. In ED, UA is positive of pyuria, LE positive, WBC 25-50 but epithelial cells 25- 50 too suggestive of contaminated or not optimal urine sample. [] 1. Generalized weakness, most probably multiple etiologies including recent treatment with Lasix, flulike symptoms and/or UTI: Patient is being admitted to regular MedSurg floor. We will treat for underlying condition. Respiratory panel negative. 2. UTI: Repeat UA shows WBC 5-10 cells, bacteria 2+, negative RBC and nitrite. 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 Any IV ceftriaxone. Bladder scan postvoid to rule out urinary retention/postvoid residual. 3. CAD. Patient had non-STEMI in December 2016 and had cardiac cath which showed multivessel CAD. Not optimal candidate for CABG. Continue home cardiac medications. Chronic diastolic heart failure: 2D echo done in November 2016 shows EF 65% with a stage I diastolic dysfunction, moderate concentric LVH with no regional wall motion abnormality. Normal RV size and systolic function. Normal right and left atria. Mild to moderate MR, no aortic stenosis. Mild TR, RVSP 30 mmHg. Decrease the Lasix to 20 mg daily. 4. PSVT/paroxysmal A. fib on Coumadin : INR is still high 3.4. Adjust Coumadin accordingly. Currently normal sinus rhythm. 5. Other chronic comorbidities include dyslipidemia, peptic ulcer, osteoporosis/osteoarthritis, vertebral compression fracture, history of urinary calculi: Multiple comorbidities complicates the present care and expect difficult and delay recovery DVT prophylaxis: Already on Coumadin. Discharge planning: Precertification for SNF placement pending. Continue PT and OT. Code Visit Inpatient E&M: 99619 Subs Hosp L3
--- NOTE | 2018-05-31 09:56 | CASEMGMT ---
Social Work Note SW faxed updated clinicals to Keyla at [facility]. Plan: [facility] pending pre-cert Mandy Shah BOILER ERECTOR, GAS FITTER HELPER
[2018-05-31 13:56] VITALS: BP 102/57; PULSE 81; RESP 16; TEMP 36.6; O2SAT 95
--- NOTE | 2018-05-31 15:18 | CHAPLAIN ---
Type of Pastoral Visit _x__ Initial Visit ___ Follow-up Visit ___ On-call Visit ___ General Patient Visit ___ Spiritual Assessment ___ Family Conference ___ Bereavement ___ Rapid Response ___ Code Blue ___ Other (describe below) Pastoral Care Referral From _x__ Patient ___ Family ___ Nurse ___ Physician ___ Entry Writer ___ Tax Accounting Manager ___ Other (describe below) Sacrament/Intervention _x__ Active listening ___ Anointing ___ Catholic ___ Bereavement ___ Communion ___ Taylor exploration ___ _x__ Life review _x__ Prayer ___ Reconciliation ___ Sacrament of Sick _x__ Supportive presence ___ Wedding ___ Other (describe below) Pastoral Comments patient talks about her decisions that will be important to make in coming days - namely about selling her [place] and [place]; pt only has an elderly brother and [id number] for family; pt is member of [facility]
--- NOTE | 2018-05-31 16:26 | CASEMGMT ---
Social Work Note SW placed a call to Keyla at [facility]. Per Keyla she hasn't heard from pt's insurance yet. 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
[2018-05-31 21:00] VITALS: BP 141/74; PULSE 79; RESP 16; TEMP 36.9; O2SAT 97
[2018-05-31] MEDS: Menthol/Lanolin/Calamine/Znox 113 GM Tube 1 APPLIC TOPICAL (21:07)
[2018-05-31] MEDS: Atorvastatin Calcium 80 MG Tablet PO (21:08)
[2018-06-01 02:15] VITALS: BP 145/73; PULSE 94; RESP 16; TEMP 36.9; O2SAT 93
[2018-06-01 06:41] LABS: International Normalized Ratio 2.8; Prothrombin Time (Protime)PT. 29.4 SECONDS (11.7-14.9)
[2018-06-01] MEDS: Acetaminophen 325 MG Tablet 650 MG PO (06:46)
[2018-06-01 09:00] LABS: BNP,B-Type NATRIURETIC PEPTIDE 120.9 pg/mL (0-100)
[2018-06-01 09:04] VITALS: O2SAT 93
[2018-06-01 10:04] VITALS: BP 143/70; PULSE 97; RESP 18; TEMP 36.9; O2SAT 94
[2018-06-01 10:05] VITALS: PULSE 97
[2018-06-01] MEDS: Metoprolol(XL)Succ 50 MG Tablet PO (10:05)
[2018-06-01] MEDS: Ascorbic Acid 500 MG Tablet PO (10:05)
[2018-06-01] MEDS: Pantoprazole Sodium 20 MG Tablet PO (10:05)
[2018-06-01] MEDS: Calcium Carb/Vitamin D 1 TABLET Tablet PO (10:05)
[2018-06-01] MEDS: Isosorbide Mononitrate 30 MG Tablet PO (10:06)
[2018-06-01] MEDS: Sertraline 50 MG Tablet 25 MG PO (10:06)
[2018-06-01] MEDS: Multivitamins,Therapeutic Tablet 1 TABLET PO (10:06)
[2018-06-01] MEDS: Aspirin E.C. 81 MG Tablet PO (10:06)
[2018-06-01] MEDS: 0.9% NaCl Peripheral Flush Adult/Peds IV (10:08)
[2018-06-01] MEDS: Furosemide 20 MG Tablet PO (10:08)
[2018-06-01] MEDS: Ceftriaxone 1 GM/50 ML BAG IV (10:08)
--- NOTE | 2018-06-01 10:43 | DCINST_ITS ---
- Discharge Diagnoses Current Active Problems: Current Active and Chronic Problems (Last Updated 12/14/17 @ 12:54 by Josee Rojas) General weakness (Acute) UTI (Acute) You will use the following diet at home:: Cardiac Your food should be the consistency of: Regular Discharge Activity: May Not Drive Weight Bearing Status: Weight bearing as tolerated Call your doctor if you observe: Fever of 101 or Higher, Inability to urinate, Shortness of breath, Fainting spells, Swelling in the ankles Allergies/Adverse Reactions: Allergies codeine Adverse Reaction (Verified 05/30/18 05:36) Other Medications to take at Discharge Ascorbic Acid [Vitamin C] 500 mg PO DAILY@0800 01/26/16 Calcium Carbonate/Vitamin D3 [Calcium 600-Vit D3 800 Tablet] 1 tablet PO DAILY 01/26/16 Meclizine HCl [Antivert] 12.5 mg PO PRN PRN 01/26/16 Multivitamin [Daily Multiple Vitamin] 1 tab PO DAILY 01/26/16 Omeprazole 20 mg PO DAILY 01/26/16 Acetaminophen [Tylenol] 500 mg PO Q4H PRN PRN #30 tab 06/11/16 Cholecalciferol (Vitamin D3) [Vitamin D3] 1,000 unit PO DAILY 06/11/16 Sertraline HCl [Zoloft] 25 mg PO DAILY 11/11/16 Warfarin [Coumadin] 1 mg PO MOWEFR 11/11/16 Warfarin [Coumadin] 2 mg PO SUTUTHSA 01/07/17 Aspirin [Adult Low Dose Aspirin EC] 81 mg PO DAILY 06/28/17 Atorvastatin Calcium 80 mg PO DAILY 06/28/17 Isosorbide Mononitrate [Isosorbide Mononitrate ER] 30 mg PO DAILY 06/28/17 Metoprolol Succinate [Toprol Xl] 50 mg PO DAILY #30 tab.er.24h 06/28/17 tramadol 50 mg tablet 50 mg PO QDAY PRN tab 09/21/17 furosemide 20 mg tablet 20 mg PO QDAY PRN 02/14/18 Amoxicillin/Potassium Clav [Augmentin 500-125 Tablet] 1 each PO BID #4 tablet 06/01/18 Primary Care Physician: Karen Garcia MD [Primary Care Provider] - Please follow up with your Primary Care Physician in: in 2 weeks Test Results: Test results from this visit will be discussed in further detail at your follow- up appointment, if applicable.
--- NOTE | 2018-06-01 10:44 | PCM.DC.SUM ---
Discharge Date and Diagnosis Date of Admission: 05/30/18 Date of Discharge: 06/01/18 - Primary Discharge Diagnosis Active and Suspected Problems (Last Updated 12/14/17 @ 12:54 by Josee Rojas) General weakness (Acute) Acute E. 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 UTI (Acute) - Secondary Discharge Diagnosis Chronic Problems (Last Updated 12/14/17 @ 12:54 by Josee Rojas) Hyperlipidemia (Chronic) Paroxysmal atrial fibrillation (Chronic) Acute embolism and thrombosis of vein (Chronic) Dizziness, nonspecific (Chronic) History of urinary calculi (Chronic) Peptic ulcer (Chronic) Osteoporosis (Chronic) History of venous thromboembolism (Chronic) Osteoarthritis (Chronic) Hospital Course and Treatment Operations: None Summary of Care Provided: [] The patient is a 78 year old F with multiple comorbidities including venous thromboembolism, coronary artery disease paroxysmal A. fib, history of SVT on Coumadin, osteoarthritis/osteoporosis and peptic ulcer came to ER with generalized weakness for 2-3 days. She woke up at 1:30 AM today and started feeling increased frequency and burning micturition. She had flulike symptoms about 2-3 weeks ago that has resolved but he still has postnasal dripping and weakness. Denies fever but chills. As per EMS, she required left assistance and in ED she could not stand up. Orthostatic vitals were negative in ED. She took 1 week of Lasix by PCP Dr. Abbott which she completed last Wednesday. She was transferred to [facility] in December 2016 for evaluation of bypass surgery for multivessel coronary artery disease she was told she is too weak and had developed venous thromboembolism too. She follows Dr. Mora, last seen about 2-3 months ago and she is not operative candidate for CABG. In ED, UA is positive of pyuria, LE positive, WBC 25-50 but epithelial cells 25-50 too suggestive of contaminated or not optimal urine sample. Seen and examined today. Patient increased frequency of urination has improved. No burning micturition. Patient wants to go home and declined for SNF. Patient has history of frequent fall and she understands but is still adamant going home. Discussed with shoe parts caser. []General: Alert, Oriented x3, Cooperative HEENT: Atraumatic, PERRLA, EOMI, Normocephalic Neck: Supple, No JVD, Negative Carotid Bruits Lungs: Clear to auscultation, No rhonchi, No wheeze, Cardiovascular: Regular rate, Normal S1, Normal S2, Murmur Abdomen: Bowel Sounds Present, Soft, Non Tender, Non-Distended. No suprapubic tenderness. Extremities: Capillary Refill Less than 3 Seconds, Edema has improved. Skin: No rashes, No breakdown Musculoskeletal: No Tenderness to Palpation of Joints or Extremities Neurological: Cranial nerves II-XII grossly intact Psych/Mental Status: Normal Affect, Appropriate 1. Generalized weakness, most probably multiple etiologies including recent treatment with Lasix, flulike symptoms and/or UTI: Patient is being admitted to regular MedSur floor. We will treat for underlying condition. Respiratory panel negative. 2. UTI: Repeat UA shows WBC 5-10 cells, bacteria 2+, negative RBC and nitrite. Urine culture shows E. 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 It is sensitive to ceftriaxone. Patient discharged on Augmentin for 2 more days complete a total of 5 days of antibiotics. 3. CAD. Patient had non-STEMI in December 2016 and had cardiac cath which showed multivessel CAD. Not optimal candidate for CABG. Continue home cardiac medications. Chronic diastolic heart failure: 2D echo done in November 2016 shows EF 65% with a stage I diastolic dysfunction, moderate concentric LVH with no regional wall motion abnormality. Normal RV size and systolic function. Normal right and left atria. Mild to moderate MR, no aortic stenosis. Mild TR, RVSP 30 mmHg. Decrease the Lasix to 20 mg daily. Patient leg swelling is good on Lasix 20 mg daily. 4. PSVT/paroxysmal A. fib on Coumadin : INR is still high 3.4. Adjust Coumadin accordingly. Currently normal sinus rhythm. 5. Other chronic comorbidities include dyslipidemia, peptic ulcer, osteoporosis/osteoarthritis, vertebral compression fracture, history of urinary calculi: Multiple comorbidities complicates the present care and expect difficult and delay recovery DVT prophylaxis: Already on Coumadin. Discharge medication reconciliation done. Discharge follow-up instructions completed. Total time spent, exact 35 minutes on discharge meds reconciliation, examination, review of imaging and blood test and discussion with the patient on follow-up instructions. Discharge Activity: May Not Drive Weight Bearing Status: Weight bearing as tolerated Call your doctor if you observe: Fever of 101 or Higher, Inability to urinate, Shortness of breath, Fainting spells, Swelling in the ankles Home Medications: Medications to take at Discharge Ascorbic Acid [Vitamin C] 500 mg PO DAILY@0800 01/26/16 Calcium Carbonate/Vitamin D3 [Calcium 600-Vit D3 800 Tablet] 1 tablet PO DAILY 01/26/16 Meclizine HCl [Antivert] 12.5 mg PO PRN PRN 01/26/16 Multivitamin [Daily Multiple Vitamin] 1 tab PO DAILY 01/26/16 Omeprazole 20 mg PO DAILY 01/26/16 Acetaminophen [Tylenol] 500 mg PO Q4H PRN PRN #30 tab 06/11/16 Cholecalciferol (Vitamin D3) [Vitamin D3] 1,000 unit PO DAILY 06/11/16 Sertraline HCl [Zoloft] 25 mg PO DAILY 11/11/16 Warfarin [Coumadin] 1 mg PO MOWEFR 11/11/16 Warfarin [Coumadin] 2 mg PO SUTUTHSA 01/07/17 Aspirin [Adult Low Dose Aspirin EC] 81 mg PO DAILY 06/28/17 Atorvastatin Calcium 80 mg PO DAILY 06/28/17 Isosorbide Mononitrate [Isosorbide Mononitrate ER] 30 mg PO DAILY 06/28/17 Metoprolol Succinate [Toprol Xl] 50 mg PO DAILY #30 tab.er.24h 06/28/17 tramadol 50 mg tablet 50 mg PO QDAY PRN tab 09/21/17 furosemide 20 mg tablet 20 mg PO QDAY PRN 02/14/18 Amoxicillin/Potassium Clav [Augmentin 500-125 Tablet] 1 each PO BID #4 tablet 06/01/18 Following Prescrptions Were Given to Patient: Amoxicillin/Potassium Clav [Augmentin 500-125 Tablet] 1 each PO BID #4 tablet Primary Care Physician: Karen Garcia MD [Primary Care Provider] - Please follow up with your Primary Care Physician in: in 2 weeks Medical Necessity - Tobacco Use Smoking Status: Never smoker Meaningful Use Info Meaningful Use Diagnoses (Choose all that apply): None applicable Code Visit Inpatient E&M: 80244 Disch Hosp
--- NOTE | 2018-06-01 11:01 | CASEMGMT ---
Addendum entered by Aurora Cantrell 06/01/18 11:29: Call to [facility] van services and transportation set with [facility] for 11:45 slate picker. Pt is aware and agreeable of d/c plan. Nursing notified. Pt sister in law Jerome notified of d/c plan and agreeable. CARMEN Tafoya Original Note: Social Work SW met with pt in room. Pt stating that she has considered her options and has changed her mind and wants to return home. SW spoke with pt regarding concerns about recent falls at home. Pt acknowledges that this has been a problem but that her brother is very ill and she wants to be home. SW reminded pt that her sister in previously stated she cannot provide assist at this time due to ill health of . Pt is aware of this but feels that passport services already in place and neighbors help are adequate amount of assistance. With permission from pt, phone call placed to in law [place]. Informed of pt change of plans. Jerome verbalizes understanding of pt desires and states pt is able to make her own decisions. Dr. Fong aware and d/c planned for today. Pt and Jerome aware. Pt is receiving home health care home from [facility] to [facility] home health and is agreeable to add PT/OT. Referral made to Aliya at [facility] to [facility] and they are able to provide home health SN/PT/OT. Phone call to Ruba at [facility] and notified of d/c home with request to restart aid services tomorrow 06/02/18. Message left with Earnestine Carrillo and Mendez Melendrez at [facility] informing of pt d/c home today. Phone call to Keyla at [facility] and informed that pt is planning on returning home. Pt sister in law Lolly is unable to provide transportation. Pt states she has used the hospital van in the past or will use a taxi to return home. SW will followup for transportation when d/c orders obtained. Plan: Home with home health SN/PT/OT, passport aides CARMEN Tafoya
--- NOTE | 2018-06-02 16:10 | CASEMGMT ---
HANNA CM DC CALL NOTE DC DATE: 06/01/18 DISPOSITION: Home with Passport services LACE/STRATA: 07/02 Call to pt's phone. Message left with call back information if pt has questions re: dc instructions, prescriptions or f/u. A.Sean BSN RN AC
== END 2018-06-01 11:41 | disposition home health service (06) | DRG 690 ==
LOC: ED 06:20 → MS3 08:14
PROVIDERS: Admitting Provider Internal Medicine; Emergency Provider Emergency Medicine; Family Provider Internal Medicine; PCP Internal Medicine; Visit Provider Internal Medicine
DX: N39.0 Urinary tract infection, site not specified (principal); I50.32 Chronic diastolic (congestive) heart failure; B96.20 Unspecified Escherichia coli [E. coli] as the cause of diseases classified elsewhere; Z23 Encounter for immunization; I25.10 Atherosclerotic heart disease of native coronary artery without angina pectoris; E78.5 Hyperlipidemia, unspecified; R42 Dizziness and giddiness; M19.90 Unspecified osteoarthritis, unspecified site; R53.1 Weakness; I48.0 Paroxysmal atrial fibrillation; M81.0 Age-related osteoporosis without current pathological fracture; Z86.718 Personal history of other venous thrombosis and embolism; I25.2 Old myocardial infarction; Z79.01 Long term (current) use of anticoagulants; Z87.442 Personal history of urinary calculi; K27.9 Peptic ulcer, site unspecified, unspecified as acute or chronic, without hemorrhage or perforation
CPT/HCPCS: 36415; 70450; 71046; 80048; 80053; 81001; 83880; 84484; 85025; 85610; 85652; 87077; 87086; 87088; 87186; 87493; 87633; 93005; 97162; 97165; 97530; 99285; J7030; 90686; A4216; G8978; G8979; G8987; G8988

== ENCOUNTER 2019-05-28 10:48 | Observation (INO) | payer MEDICARE, SELFPAY ==
[2019-03-10 10:55] VITALS: BMI 29.7
[2019-05-28 10:50] VITALS: BP 109/73; PULSE 72; RESP 16; TEMP 36.8; O2SAT 95; BMI 31.1
--- NOTE | 2019-05-28 11:06 | RAD_ITS ---
STUDY: X-RAY - LEFT KNEE REASON FOR EXAM: Female, 79 years old. Pain, limited range of motion. No known injury. TECHNIQUE: 4 view(s) of the knee. COMPARISON: 2 views of the left knee November 12, 2017. FINDINGS: There is periarticular spurring of the lateral femoral condyle. In at least 1 view, this becomes confluent with inferolateral periarticular osteophytes of the patella, such that it is difficult to exclude actual bridging osteophytes between the femoral condyle and patella. Paratracheal or spurring of the lateral tibial plateau is less conspicuous today, likely due to difference in positioning compared to prior study. Normal visualized proximal fibula. Periarticular spurring also seen at the base of the patella, and there is cortical spurring at the patellar insertion of the quadriceps tendon. There is no demonstrated destructive osseous lesion or acute fracture. Normal medial femorotibial compartment. There is stable degenerative arthrosis of the lateral femorotibial compartment with severe joint space narrowing. There is stable severe degenerative arthrosis of the patellofemoral articulation and stable lateral patellar subluxation relative to the intercondylar notch. Normal proximal tibiofibular articulation. There is a soft tissue prominence in the suprapatellar region suggesting a small volume joint effusion. 2 small degenerative calcifications are noted in the tissues along the anterolateral margin of the patella. There are also small calcifications in the subcutaneous tissues anterior to the proximal tibia that are mildly increased in size. RAD/Knee 4 or More Views IMPRESSION: Degenerative arthrosis of left knee, as described, again most prominent in the lateral femorotibial and femoral patellar compartments. A small suprapatellar joint effusion is suggested. Electronically Signed: Hemant Fraser MD at 13:29 EDT , Service support ,
--- NOTE | 2019-05-28 11:08 | ED.VISSUMM ---
- ER Visit Summary Date of Service: 05/28/19 Chief Complaint: Left knee pain History of Present Illness: The patient is a 79 F who presents to the emergency department with left knee pain. This is been ongoing issue for greater than 5 years. She was told to have a knee replacement and she declined. She tells me she typically uses a walker and takes Tylenol for her arthritis. She does not take any immunosuppressive's. She is on Coumadin for prior DVT/A. fib. She has not had any recent trauma to the knee. She states yesterday she is able to ambulate on it but today she cannot. Physical Examination: Afebrile vital signs stable Gen: Well-nourished well-developed Head: Normocephalic atraumatic Eyes: Perrl EOMI ENT: TMs clear no rhinorrhea moist mucous membranes Neck: Supple no lymphadenopathy no JVD nontender CVS: Regular rate rhythm no murmurs normal S1-S2 Respiratory: No distress clear to auscultation bilaterally chest nontender Abdomen: Soft nontender nondistended normal bowel sounds no masses Back: Nontender Extremity: Arthritic changes to the hands. There is no significant swelling that is different from the left side to the right side. Patient flinches with pain when I placed my hand lightly on the skin stating that it is very painful for me to do that. There are no rashes. Skin: Normal color no rash Neuro: alert orientated ?3 CN II-XII intact normal strength sensation Psych: Normal affect normal mood Test Results: INR was 3.3. X-rays of the knee were obtained. This demonstrated significant arthritic and degenerative changes. Emergency Department Course and Treatment: She received a dose IM Toradol. I asked that she hold her Coumadin tonight. Its been 3 years since she last saw orthopedics. I recommend that she follow-up with them again discussed options for her knee. We will place her on prednisone as well as a few [place] if she chooses to use it recommend that she continue to rest the knee and use her walker. I did discuss potential side effects of the medications with her. Spoke with the patient at least 3 times and asked if she felt comfortable going home and each time she assured me that she did. She listed several reasons as to how she would feel safe and the care that she would be able to have. Neighbor arrives who tells me that she has a lot of concerns about her going home such as how she going to get to the bathroom and get up and feed herself. I informed the neighbor that I also had shared his concerns but the patient did not wish to stay in the hospital. Now the patient does wish to stay. Patient was informed that she will need to meet with social work in the morning to discuss options such as 24-hour in-home care versus snf/rehab. Impression: 1. Left knee osteoarthritis 2. Coumadin coagulopathy This note was generated with [employer] dictation software. It may contain incorrect words, spelling, and punctuation that were not noted in review of the chart prior to signing ED Disposition - Plan for ED Patient: Disposition: Home or Assisted Living Prescriptions: Prednisone [Deltasone] 40 mg PO DAILY #10 tab Transmission Status: [id number] Hydrocodone Bitart/Apap 5-325 [[place] 5MG-325MG] 1 tab PO Q6H PRN PRN 3 Days #10 tab PRN Reason: Pain Transmission Status: Re[id number] Referrals: Karen Garcia MD [Primary Care Provider] - 3-5 Days if not improving Additional Instructions: Your INR today was 3.3. I recommend that you hold your Coumadin dose tonight. Take the prednisone with food. I would make an appointment with your orthopedic surgeon to discuss options for your knee Follow-up with Dr. Garcia to recheck your INR I would call them tomorrow.
[2019-05-28 11:43] LABS: International Normalized Ratio 3.3; Prothrombin Time (Protime)PT. 33.6 SECONDS (11.7-14.9)
[2019-05-28] MEDS: Ketorolac 30 MG/ML Syringe IM (12:41)
[2019-05-28 12:42] VITALS: BP 124/73; PULSE 85; RESP 16; O2SAT 95
--- NOTE | 2019-05-28 12:50 | ED.RN ---
Aundrea called on behalf of pt to pick her up. Aundrea asked about pt mobility in the home. She was told that due to not have permission to discuss medical information I couldn't discuss that with her. She was instructed that once she arrived we could discuss that with the patient present. Aundrea stated i'll be on my way. rafy perez, rn [id number]
[2019-05-28 13:40] VITALS: BP 109/57; PULSE 84; RESP 16; O2SAT 98
--- NOTE | 2019-05-28 13:40 | ED.RN ---
Aundrea arrives with concerns for patient mobility. rn urology and dr villa. rafy perez, rn [id number]
[2019-05-28 14:23] VITALS: BP 112/85; PULSE 89; RESP 16; O2SAT 95
[2019-05-28 15:12] VITALS: BMI 28.7
[2019-05-28 15:21] VITALS: BP 123/84; PULSE 71; RESP 16; TEMP 36.8; O2SAT 97
[2019-05-28] MEDS: Acetaminophen 500 MG Tablet PO ×2 (15:42→21:45)
[2019-05-28] MEDS: Warfarin 0.5 MG Tablet PO (17:15)
--- NOTE | 2019-05-28 17:43 | HP.PCM_ITS ---
Problem List (1) Left knee pain Status: Acute (2) Debility Status: Acute History of Present Illness Date of Admission: 05/28/19 Chief Complaint: Left knee pain, debility The patient is a 79 year old F who was seen in the emergency room at [facility] after being brought in due to left knee pain and inability to bear weight on the left knee. Patient denied any trauma to the left knee or any injury to the left knee. She states the left knee has been causing her arthritic pain for quite some time and today she was not able to ambulate. Patient lives by herself and has kettle room helper come in to help her during the day but there is no one to stay with the patient 24 hours a day. Work-up in the emergency room included x-rays of the left knee which showed degenerative arthrosis of the left knee most prominent in the lateral femorotibial and femoral patellar compartments. Only an INR was obtained due to the fact the patient was on Coumadin-this was elevated at 3.3. Discussions were carried out with the patient and her caregiver, patient agreed she could no longer stay by herself at home and agreed to be placed in the hospital for short-term mcfp placement. Patient was placed in observation status on MedSur 3, she will be seen by for consultation regarding her left knee. He was notified by phone and will see the patient tomorrow. Past Medical History Past Medical History (Chronic Problems): Chronic Problems (Last Updated 05/28/19 @ 17:57 by John Washburn DO) Pure hypercholesterolemia (Chronic) Ischemic cardiomyopathy (Chronic) Paroxysmal atrial fibrillation (Chronic) Diastolic dysfunction (Chronic) Dizziness, nonspecific (Chronic) Peptic ulcer (Chronic) Osteoporosis (Chronic) SVT (supraventricular tachycardia) (Chronic) Osteoarthritis (Chronic) Coagulopathy (Chronic) Medical History: Medical History (Last Reviewed 03/10/19 @ 10:56 by Corinne Watson) Pure hypercholesterolemia (Chronic) E78.00 Ischemic cardiomyopathy (Chronic) I25.5 Paroxysmal atrial fibrillation (Chronic) I48.0 Diastolic dysfunction (Chronic) I51.9 Atherosclerotic heart disease of [place] coronary artery without angina pectoris (Resolved) I25.10 Failure to thrive (Resolved) [id number] Syncope (Resolved) R55 Dizziness, nonspecific (Chronic) R42 Peptic ulcer (Chronic) K27.9 Osteoporosis (Chronic) M81.0 SVT (supraventricular tachycardia) (Chronic) I47.1 NSTEMI (non-ST elevated myocardial infarction) (Resolved) I21.4 Angina pectoris (Resolved) I20.9 Osteoarthritis (Chronic) M19.90 Coagulopathy (Chronic) Vertebral compression fracture (Resolved) M48.50XA History of urinary calculi Z87.442 History of venous thromboembolism Z86.718 Acute embolism and thrombosis of vein (Resolved) I82.90 Hematoma and contusion (Resolved) T14.8 Allergies codeine Adverse Reaction (Verified 03/10/19 10:55) Other Home Medications: Ambulatory Orders Medication Instructions Recorded Ascorbic Acid [Vitamin C] 500 mg PO DAILY@0800 01/26/16 Calcium Carbonate/Vitamin D3 1 tab PO DAILY 01/26/16 [Calcium 600-Vit D3 800 Tablet] Meclizine HCl [Antivert] 12.5 mg PO PRN PRN 01/26/16 Multivitamin [Daily Multiple 1 tab PO DAILY 01/26/16 Vitamin] Omeprazole 20 mg PO DAILY 01/26/16 Acetaminophen [Tylenol] 500 mg PO Q4H PRN PRN #30 tab 06/11/16 Cholecalciferol (Vitamin D3) 1,000 unit PO DAILY 06/11/16 [Vitamin D3] Sertraline HCl [Zoloft] 25 mg PO DAILY 11/11/16 Warfarin [Coumadin] 1 mg PO MOWEFR 11/11/16 Warfarin [Coumadin] 2 mg PO SUTUTHSA 01/07/17 Aspirin [Adult Low Dose Aspirin EC] 81 mg PO DAILY 06/28/17 Atorvastatin Calcium 80 mg PO DAILY 06/28/17 Isosorbide Mononitrate [Isosorbide 30 mg PO DAILY 06/28/17 Mononitrate ER] Metoprolol Succinate [Toprol Xl] 50 mg PO DAILY #30 tab.er.24h 06/28/17 tramadol 50 mg tablet 50 mg PO QDAY PRN tab 09/21/17 furosemide 20 mg tablet 20 mg PO QDAY PRN 02/14/18 Hydrocodone Bitart/Apap 5-325 1 tab PO Q6H PRN PRN 3 Days #10 tab 05/28/19 [[place] 5MG-325MG] Prednisone [Deltasone] 40 mg PO DAILY #10 tab 05/28/19 Surgical History: Surgical History (Last Reviewed 03/10/19 @ 10:56 by Corinne Watson) H/O eye surgery Z98.890 H/O lumpectomy Z98.890 breast History of tonsillectomy Z90.89 Surgical History: no surgical history, tonsillectomy, - - Lumpectomy of the breast, eye muscle surgery Psychiatric History: No pertinent psych hx DEPARTURE CLERK History: No pertinent DEPARTURE CLERK history Lives: Alone Smoking Status: Never smoker Tobacco Use: Non-smoker Alcohol: None Drugs: None - *Family History Maternal Family History: Family History (Last Reviewed 03/10/19 @ 10:56 by Corinne Watson) Mother Diabetes Father CAD (coronary artery disease) Brother CAD (coronary artery disease) History Items: Diabetes Paternal Family History: Family History (Last Reviewed 03/10/19 @ 10:56 by Corinne Watson) Mother Diabetes Father CAD (coronary artery disease) Brother CAD (coronary artery disease) History Items: Cancer Sibling Family History: Family History (Last Reviewed 03/10/19 @ 10:56 by Corinne Watson) Mother Diabetes Father CAD (coronary artery disease) Brother CAD (coronary artery disease) History Items: DVT Review of Systems Constitutional: Denies: Anorexia, Chills, Fever, Night Sweats, Weakness, Weight Change Eyes: Denies: Blurred vision, Cataracts, Conjunctivae Inflammation, Double vision, Drainage HEENT: Denies: Difficulty Swallowing, Dysphasia, Ear Pain, Eye Pain, Hearing Changes, Nasal bleeding, Nasal Congestion, Post Nasal Drip Cardiovascular: Denies: Chest Pain, Claudication, Chest Pressure, Chest Tightness, Edema, Heaviness, Palpitations Respiratory: Denies: Cough, Hemoptysis, Pleuritic Pain, Shortness of Breath, Shortness of breath at rest, Shortness of breath upon exertion Gastrointestinal: Denies: Abdominal Pain, Constipation, Diarrhea, Hematemesis, Hematochezia, Nausea, Melena, Vomiting Genitourinary: Denies: Dysuria, Frequency, Hematuria, Hesitancy, Urgency Musculoskeletal: Reports: Joint Pain - Left knee pain, Joint stiffness - Left knee stiffness, Joint Tenderness - Left knee tenderness. Denies: Back Pain, Foot Pain, Hand Pain, Joint swelling Skin: Denies: Dryness, Pruritis, Rash Neurological: Denies: Blurred vision, Double vision, Slurred speech, Difficulty swallowing, Focal weakness, Headaches, Numbness, Tingling Psychiatric: Denies: Anxiety, Depression, Homicidal Ideations, Suicidal Ideations Endocrine: Denies: Change in Body Habitus, Heat/ Cold Intolerance, Polydipsia, Polyuria Hematologic/ Lymphatic: Denies: Adenopathy, Anemia, Easy Bruising, Easy Bleeding, Petechiae, Purpura VTE Information - Inpt Only VTE Present on Admission: No VTE Mechan Device Prophylaxis: None VTE Pharm Prophylaxis ordered?: No Reason prophylaxis not ordered:: Treatment Not Indicated - Patient on chronic Coumadin Patient Problems: Active and Suspected Problems (Last Updated 05/28/19 @ 17:57 by John Washburn DO) Left knee pain (Acute) Debility (Acute) - Physical Exam General: Alert, Oriented x3, Cooperative, No apparent distress, Well developed, Well nourished HEENT: Atraumatic, PERRLA, EOMI, Normocephalic Oral: Moist Mucosa Neck: Supple, No JVD, Negative Carotid Bruits, Trachea Midline, Thyroid Normal Size and Texture Lungs: Clear to auscultation, Normal air movement, No rhonchi, No wheeze, No rales Cardiovascular: No murmurs, PMI Normal, Irregular Rate, No rub noted Abdomen: Bowel Sounds Present, Soft, Non Tender, Non-Distended, No hernias noted Extremities: No clubbing, No cyanosis, No edema, Capillary Refill Less than 3 Seconds Skin: No rashes, No breakdown Musculoskeletal: Arthritic Changes - Arthritic changes are noted over the left knee, Tenderness - Left knee is tender to palpation, enlargement of the left knee is noted in keeping with chronic arthritis, - - There is decreased range of motion to flexion in the left knee due to pain Neurological: Cranial nerves II-XII grossly intact, Neuro grossly intact, Sensory exam intact to light touch and pain Psych/Mental Status: Normal Affect, Appropriate, Alert and oriented to time, place, person, mood and affect Vital Signs Temp Pulse Resp BP Pulse Ox 98.3 F 71 16 123/84 H 97 05/28/19 15:21 05/28/19 15:21 05/28/19 15:21 05/28/19 15:21 05/28/19 15:21 Oxygen Delivery Method Room Air Weight: 73.55 kg Body Mass Index (BMI) 28.7 Laboratory Tests Past 24 Hrs 05/28/19 11:25 PT 33.6 H INR 3.3 Assessment/Plan All Active Problems (Last Updated 05/28/19 @ 17:57 by John Washburn DO) Left knee pain (Acute) Debility (Acute) General weakness (Acute) Atherosclerotic heart disease of [place] coronary artery without angina pectoris (Resolved) Failure to thrive (Resolved) Syncope (Resolved) NSTEMI (non-ST elevated myocardial infarction) (Resolved) Angina pectoris (Resolved) Vertebral compression fracture (Resolved) Acute embolism and thrombosis of vein (Resolved) Hematoma and contusion (Resolved) UTI (Resolved) #1 severe osteoarthritis of the left knee with inability to perform ADLs at home-patient will be placed in the observation status on MedSurg 3, she will be seen by PT and OT, she will need temporary placement in a mcfp facility-patient is agreed to go to [facility] for skilled care if they have an opening there. Patient will be seen in consultation by Dr. Jimenez and I talked with him by phone today and he will see the patient sometime tomorrow. We will place the patient on IV Decadron to see if this helps her knee pain. #2 chronic atrial fibrillation-patient is on warfarin chronically, I have adjusted her dose and will recheck her INR tomorrow #3 hyperlipidemia #4 coronary artery disease-patient is not a surgical candidate for intervention- patient had a stress test in December 2016 which was negative for stress-induced myocardial ischemia, reported ejection fraction at that time was 60%. Patient follows up with Dr. Mora #5 ischemic cardiomyopathy #6 chronic debility secondary to severe osteoarthritis-PT and OT will see the patient, she will need temporary placement in a mcfp facility Final note: I discussed the patient's CODE STATUS with her, she would like to be a DNR CC arrest with no intubation. Code Visit OBSV E&M: 43302 Initial observation care L3
[2019-05-28 21:41] VITALS: BP 104/50; PULSE 72; RESP 18; TEMP 36.7; O2SAT 94
[2019-05-28] MEDS: dexAMETHasone 4 MG/ML Vial IV (21:45)
[2019-05-29 04:12] VITALS: BP 144/76; PULSE 87; RESP 16; TEMP 36.8; O2SAT 94
[2019-05-29] MEDS: Acetaminophen 500 MG Tablet PO (04:20)
[2019-05-29] MEDS: dexAMETHasone 4 MG/ML Vial IV ×2 (05:20→14:24)
[2019-05-29] MEDS: 0.9% NaCl Peripheral Flush Adult/Peds IV ×2 (05:21→14:24)
[2019-05-29 05:34] LABS: Absolute Lymphocyte Count 0.62 X10^3/uL (0.83-4.51); Absolute Neutrophil Count 5.3 X10^3/uL (2.0-7.7); Basophil# 0.01 X10^3/uL; Basophil% 0.2 % (0-1); Eosinophil# 0.01 X10^3/uL; Eosinophils% 0.2 % (0-5); Hematocrit 43.8 % (37-47); Hemoglobin 13.9 g/dL (12.0-15.0); Lymphocyte # 0.62 X10^3/ul (4.0); Lymphocyte % 10.1 % (19-41); Mean Corp Hgb Conc 31.7 g/dL (32-36); Mean Corpuscular Hgb 30.3 pg (27.0-32.0); Mean Corpuscular Volume 95.4 fL (81-99); Mean Platelet Vol. 10.7 fl (6.2-12.0); Monocyte# 0.14 X10^3/uL; Monocyte% 2.3 % (0-10); NRBC Flagged by Analyzer 0 % (0-5); Neutrophil # 5.34 X10^3/uL (2.7-7.7); Neutrophil % 86.9 % (47-70); Platelet Count 179 K/mm3 (150-450); RBC Distribution Width CV 13.1 % (11.6-14.6); RBC Distribution Width SD 46.1 fl (35.1-43.9); Red Blood Count 4.59 M/mm3 (4.2-5.4); White Blood Count 6.1 K/mm3 (4.4-11.0)
[2019-05-29 05:44] LABS: Prothrombin Time (Protime)PT. 37.2 SECONDS (11.7-14.9)
[2019-05-29 06:17] LABS: AST(SGOT) 26 U/L (15-37); Alanine Aminotransfer ALT/SGPT 20 U/L (13-56); Alkaline Phosphatase 56 U/L (45-117); Anion Gap 7 (5-15); BUN 23 mg/dL (7-18); BUN/Creat Ratio 20.4 RATIO (10-20); Calcium,Total 9.1 mg/dL (8.5-10.1); Chloride 110 mmol/L (98-107); Creatinine, Serum 1.13 mg/dL (0.55-1.02); EST Glomerular Filtration Rate 50 mL/min (>60); Est Glom Filt Rate - Afr Amer 60 mL/min (>60); Estimated Creatinine Clearance 34.49 ml/min; Globulin 3.1 g/dL (2.2-4.2); Glucose 139 mg/dL (74-106); Potassium 4.5 mmol/L (3.5-5.1); Protein, Total 6.1 g/dL (6.4-8.2); Sodium Level 141 mmol/L (136-145)
[2019-05-29 06:22] LABS: International Normalized Ratio 3.7
[2019-05-29] MEDS: Aspirin E.C. 81 MG Tablet PO (08:04)
[2019-05-29] MEDS: Atorvastatin Calcium 80 MG Tablet PO (08:04)
[2019-05-29] MEDS: Isosorbide Mononitrate 30 MG Tablet PO (08:04)
[2019-05-29] MEDS: Pantoprazole Sodium 20 MG Tablet PO (08:04)
[2019-05-29] MEDS: Sertraline 50 MG Tablet 25 MG PO (08:05)
[2019-05-29 08:06] VITALS: PULSE 93
[2019-05-29] MEDS: Metoprolol(XL)Succ 50 MG Tablet PO (08:06)
[2019-05-29 08:07] VITALS: BP 134/81; PULSE 91; RESP 18; TEMP 36.8; O2SAT 96
[2019-05-29 08:26] VITALS: RESP 16; O2SAT 95
[2019-05-29 08:39] VITALS: BP 126/57; PULSE 95; RESP 16; TEMP 36.8; O2SAT 96
--- NOTE | 2019-05-29 09:38 | CASEMGMT ---
Addendum entered by Mandy Shah 05/29/19 12:10: SW received call from Josee at [facility] stating she is able to accept pt and has submitted for pre-cert. Pt updated. Plan: [facility] pending pre-cert Addendum entered by Mandy Shah 05/29/19 11:00: SW faxed PT/OT evaluations to [facility] Addendum entered by Mandy Sahh 05/29/19 10:39: SW met with pt to confirm discharge plans. SW introduced self and role at [facility]. Pt is alert and orientated x3. Pt confirms that he would like to go to SNF for short term rehabilitation. Pt states her first choice is [facility]. SW provided pt with list of SNF that accept pt's insurance and informed pt that this worker will have to check with [facility] to determine if they accept pt's insurance. Pt states that if [facility] doesn't accept pt's insurance than her second choice is [facility]. SW explained referral process and that pt will need pre-cert. Pt states understanding. SW placed a call to Josee at [facility] and updated her on referral. SW faxed referral to [facility] and will fax PT/OT evaluations once available. Plan: SNF pending acceptance and pre-cert Original Note: Social Work Note Pt received call from Nancy Arriola pt's CM at [facility]. DARYL updated Nancy that pt was admitted to [facility] on 05/28/2019 with Debility. Nancy asked to be contacted when pt is discharge and provided number [phone]. Mandy Shah IMPROVEMENT SPECIALIST, [employer]
--- NOTE | 2019-05-29 11:25 | PCM.CONS.GEN ---
Reason for Consult Date of Consultation: 05/29/19 Reason for Consultation: Left knee pain History of Present Illness: The patient is a 79 year old F [with chronic left knee pain secondary to OA, was unable to bear weight on knee this weekend due to pain even though she uses a walker at home. She denies F/C/N/V. She reports that on Wednesday, the pain was excruciating and radiated down her leg. She denies previous injections. She was admitted to the hospital by the hospitalist due to inability to care for herself and orthopedic consult was sought. At the time of my evaluation, she was sitting in a chair eating lunch. She has been up with PT this morning and said that went relatively well.] Past Medical History Past Medical History (Chronic Problems): Chronic Problems (Last Updated 05/28/19 @ 17:57 by John Washburn DO) Pure hypercholesterolemia (Chronic) Ischemic cardiomyopathy (Chronic) Paroxysmal atrial fibrillation (Chronic) Diastolic dysfunction (Chronic) Dizziness, nonspecific (Chronic) Peptic ulcer (Chronic) Osteoporosis (Chronic) SVT (supraventricular tachycardia) (Chronic) Osteoarthritis (Chronic) Coagulopathy (Chronic) Medical History: Medical History (Last Updated 05/28/19 @ 17:57 by John Washburn DO) Pure hypercholesterolemia (Chronic) E78.00 Ischemic cardiomyopathy (Chronic) I25.5 Paroxysmal atrial fibrillation (Chronic) I48.0 Diastolic dysfunction (Chronic) I51.9 Atherosclerotic heart disease of [place] coronary artery without angina pectoris (Resolved) I25.10 Failure to thrive (Resolved) [id number] Syncope (Resolved) R55 Dizziness, nonspecific (Chronic) R42 Peptic ulcer (Chronic) K27.9 Osteoporosis (Chronic) M81.0 SVT (supraventricular tachycardia) (Chronic) I47.1 NSTEMI (non-ST elevated myocardial infarction) (Resolved) I21.4 Angina pectoris (Resolved) I20.9 Osteoarthritis (Chronic) M19.90 Coagulopathy (Chronic) Vertebral compression fracture (Resolved) M48.50XA History of urinary calculi Z87.442 History of venous thromboembolism Z86.718 Acute embolism and thrombosis of vein (Resolved) I82.90 Hematoma and contusion (Resolved) T14.8 Allergies codeine Adverse Reaction (Verified 03/10/19 10:55) Other Home Medications: Ambulatory Orders Medication Instructions Recorded Ascorbic Acid [Vitamin C] 500 mg PO DAILY@0800 01/26/16 Calcium Carbonate/Vitamin D3 1 tab PO DAILY 01/26/16 [Calcium 600-Vit D3 800 Tablet] Meclizine HCl [Antivert] 12.5 mg PO PRN PRN 01/26/16 Multivitamin [Daily Multiple 1 tab PO DAILY 01/26/16 Vitamin] Omeprazole 20 mg PO DAILY 01/26/16 Acetaminophen [Tylenol] 500 mg PO Q4H PRN PRN #30 tab 06/11/16 Cholecalciferol (Vitamin D3) 1,000 unit PO DAILY 06/11/16 [Vitamin D3] Sertraline HCl [Zoloft] 25 mg PO DAILY 11/11/16 Warfarin [Coumadin] 1 mg PO MOWEFR 11/11/16 Warfarin [Coumadin] 2 mg PO SUTUTHSA 01/07/17 Aspirin [Adult Low Dose Aspirin EC] 81 mg PO DAILY 06/28/17 Atorvastatin Calcium 80 mg PO DAILY 06/28/17 Isosorbide Mononitrate [Isosorbide 30 mg PO DAILY 06/28/17 Mononitrate ER] Metoprolol Succinate [Toprol Xl] 50 mg PO DAILY #30 tab.er.24h 06/28/17 tramadol 50 mg tablet 50 mg PO QDAY PRN tab 09/21/17 furosemide 20 mg tablet 20 mg PO QDAY PRN 02/14/18 Hydrocodone Bitart/Apap 5-325 1 tab PO Q6H PRN PRN 3 Days #10 tab 05/28/19 [[place] 5MG-325MG] Prednisone [Deltasone] 40 mg PO DAILY #10 tab 05/28/19 Surgical History: Surgical History (Last Reviewed 03/10/19 @ 10:56 by Corinne Watson) H/O eye surgery Z98.890 H/O lumpectomy Z98.890 breast History of tonsillectomy Z90.89 Surgical History: no surgical history, tonsillectomy, - - Lumpectomy of the breast, eye muscle surgery Psychiatric History: No pertinent psych hx 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: No pertinent BONSAI CULTURIST history Lives: Alone Smoking Status: Never smoker Tobacco Use: Non-smoker Alcohol: None Drugs: None - *Family History Maternal Family History: Family History (Last Reviewed 03/10/19 @ 10:56 by Corinne Watson) Mother Diabetes Father CAD (coronary artery disease) Brother CAD (coronary artery disease) History Items: Diabetes Paternal Family History: Family History (Last Reviewed 03/10/19 @ 10:56 by Corinne Watson) Mother Diabetes Father CAD (coronary artery disease) Brother CAD (coronary artery disease) History Items: Cancer Sibling Family History: Family History (Last Reviewed 03/10/19 @ 10:56 by Corinne Watson) Mother Diabetes Father CAD (coronary artery disease) Brother CAD (coronary artery disease) History Items: DVT Patient Problems: Active and Suspected Problems (Last Updated 05/28/19 @ 17:57 by John Washburn DO) Left knee pain (Acute) Debility (Acute) Objective: PMHx, PSHx, Family Hx, ROS, Allergies and medications reviewed as per the intake H&P. - Physical Exam General: Alert, Oriented x3, No apparent distress Musculoskeletal: Tenderness - diffusely about the left knee. ROM 0-80. No warmth, erythema or significant effusion Neurological: Neuro grossly intact Comment: Radiographs of left knee reviewed Vital Signs Temp Pulse Resp BP Pulse Ox 98.3 F 95 16 126/57 H 96 05/29/19 08:39 05/29/19 08:39 05/29/19 08:39 05/29/19 08:39 05/29/19 08:39 Oxygen Delivery Method Room Air Weight: 162 lb 2.389 oz Body Mass Index (BMI) 28.7 Intake and Output for Last 24 Hours 05/27/19 05/28/19 05/29/19 23:59 23:59 23:59 Intake Total 200 / 450 450 / 450 Balance 200 / 450 450 / 450 Laboratory Tests Past 24 Hrs 05/28/19 05/29/19 05/29/19 11:25 05:20 05:20 WBC 6.1 RBC 4.59 Hgb 13.9 Hct 43.8 MCV 95.4 MCH 30.3 MCHC 31.7 L RDW Std Deviation 46.1 H RDW Coeff of [place] 13.1 Plt Count 179 MPV 10.7 Immature Gran % (Auto) 0.300 Neut % (Auto) 86.9 H Lymph % (Auto) 10.1 L [place] % (Auto) 2.3 Eos % (Auto) 0.2 Baso % (Auto) 0.2 Absolute Neuts (auto) 5.3 Absolute Lymphs (auto) 0.62 L Nucleated RBC % 0 PT 33.6 H 37.2 H INR 3.3 3.7 H* Sodium Potassium Chloride Carbon Dioxide Anion Gap BUN Creatinine Estim Creat Clear Calc Est GFR (MDRD) Af Amer Est GFR (MDRD) Non-Af BUN/Creatinine Ratio Glucose Calcium Total Bilirubin AST ALT Alkaline Phosphatase Total Protein Albumin Globulin Albumin/Globulin Ratio 05/29/19 05:20 WBC RBC Hgb Hct MCV MCH MCHC RDW Std Deviation RDW Coeff of [place] Plt Count MPV Immature Gran % (Auto) Neut % (Auto) Lymph % (Auto) [place] % (Auto) Eos % (Auto) Baso % (Auto) Absolute Neuts (auto) Absolute Lymphs (auto) Nucleated RBC % PT INR Sodium 141 Potassium 4.5 Chloride 110 H Carbon Dioxide 24.0 Anion Gap 7 BUN 23 H Creatinine 1.13 H Estim Creat Clear Calc 34.49 Est GFR (MDRD) Af Amer 60 Est GFR (MDRD) Non-Af 50 L BUN/Creatinine Ratio 20.4 H Glucose 139 H Calcium 9.1 Total Bilirubin 0.80 AST 26 ALT 20 Alkaline Phosphatase 56 Total Protein 6.1 L Albumin 3.0 L Globulin 3.1 Albumin/Globulin Ratio 1.0 Assessment/Plan All Active Problems (Last Updated 05/28/19 @ 17:57 by John Washburn DO) Left knee pain (Acute) Debility (Acute) General weakness (Acute) Atherosclerotic heart disease of [place] coronary artery without angina pectoris (Resolved) Failure to thrive (Resolved) Syncope (Resolved) NSTEMI (non-ST elevated myocardial infarction) (Resolved) Angina pectoris (Resolved) Vertebral compression fracture (Resolved) Acute embolism and thrombosis of vein (Resolved) Hematoma and contusion (Resolved) UTI (Resolved) Acute exacerbation of severe lateral and patellofemoral OA left knee, moderate medial compartment OA Continue pain management, PT and walker ambulation with plans for ECF placement Ultimately, the patient would probably benefit from a TKR. However, she has multiple co-morbidities which may preclude elective TKR Will follow as an outpatient and consider options.
--- NOTE | 2019-05-29 11:43 | PCM.PN.HOSP ---
Patient Problems: Active and Suspected Problems (Last Updated 05/28/19 @ 17:57 by John Washburn DO) Left knee pain (Acute) Debility (Acute) Subjective: Patient pain is better. Patient has been up from the bed to recliner. Patient did well with physical therapist. Vitals/I&O's: Vital Signs Temp Pulse Resp BP Pulse Ox 98.3 F 95 16 126/57 H 96 05/29/19 08:39 05/29/19 08:39 05/29/19 08:39 05/29/19 08:39 05/29/19 08:39 Oxygen Delivery Method Room Air Weight: 162 lb 2.389 oz Body Mass Index (BMI) 28.7 Intake and Output for Last 24 Hours 05/27/19 05/28/19 05/29/19 23:59 23:59 23:59 Intake Total 200 / 450 450 / 450 Balance 200 / 450 450 / 450 General: Alert, Oriented x3, Cooperative HEENT: Atraumatic, PERRLA, EOMI, Normocephalic Neck: Supple, No JVD, Negative Carotid Bruits Lungs: Clear to auscultation, Normal air movement, No rhonchi, No wheeze, No rales Cardiovascular: Regular rate, Regular Rhythm, Normal S1, Normal S2, No murmurs Abdomen: Bowel Sounds Present, Soft, Non Tender, Non-Distended Extremities: No edema, Capillary Refill Less than 3 Seconds Skin: No rashes, No breakdown Musculoskeletal: Arthritic Changes, Tenderness - Tenderness present on the left knee over patella and lateral aspect. Radiation to greater trochanter of left hip. Neurological: Cranial nerves II-XII grossly intact, Deep Tendon Reflexes 2+/4 and Symmetrical, Neuro grossly intact Psych/Mental Status: Normal Affect, Appropriate Laboratory Results 05/28/19 11:25: PT 33.6 H, INR 3.3 05/29/19 05:20: WBC 6.1, RBC 4.59, Hgb 13.9, Hct 43.8, MCV 95.4, MCH 30.3, MCHC 31.7 L, RDW Std Deviation 46.1 H, RDW Coeff of Porfirio 13.1, Plt Count 179, MPV 10.7, Immature Gran % (Auto) 0.300, Neut % (Auto) 86.9 H, Lymph % (Auto) 10.1 L, Gilmer % (Auto) 2.3, Eos % (Auto) 0.2, Baso % (Auto) 0.2, Absolute Neuts (auto) 5.3, Absolute Lymphs (auto) 0.62 L, Nucleated RBC % 0 05/29/19 05:20: PT 37.2 H, INR 3.7 H* 05/29/19 05:20: Sodium 141, Potassium 4.5, Chloride 110 H, Carbon Dioxide 24.0, Anion Gap 7, BUN 23 H, Creatinine 1.13 H, Estim Creat Clear Calc 34.49, Est GFR (MDRD) Af Amer 60, Est GFR (MDRD) Non-Af 50 L, BUN/Creatinine Ratio 20.4 H, Glucose 139 H, Calcium 9.1, Total Bilirubin 0.80, AST 26, ALT 20, Alkaline Phosphatase 56, Total Protein 6.1 L, Albumin 3.0 L, Globulin 3.1, Albumin/Globulin Ratio 1.0 Current Medications Acetaminophen (Tylenol) 500 mg PO Q4H PRN PRN PRN Reason: Pain Score 1-10/10 Last Admin: 05/29/19 04:20 Dose: 500 mg Documented by: Aspirin (Ecotrin) 81 mg PO DAILY@0800 [facility] Last Admin: 05/29/19 08:04 Dose: 81 mg Documented by: Atorvastatin Calcium (Lipitor) 80 mg PO DAILY [facility] Last Admin: 05/29/19 08:04 Dose: 80 mg Documented by: Calcium/Vitamin D (Os-Sedrick 500mg + D) 1 tablet PO DAILY@1200 [facility] Dexamethasone Sodium Phosphate (Decadron) 4 mg IV Q8 [facility] Last Admin: 05/29/19 05:20 Dose: 4 mg Documented by: Furosemide (Lasix) 20 mg PO DAILY PRN PRN PRN Reason: edema Isosorbide Mononitrate (Imdur) 30 mg PO DAILY [facility] Last Admin: 05/29/19 08:04 Dose: 30 mg Documented by: Metoprolol Succinate (Toprol Xl (Beta Vanna)) 50 mg PO DAILY [facility] Last Admin: 05/29/19 08:06 Dose: 50 mg Documented by: Pantoprazole Sodium (Protonix) 20 mg PO DAILY [facility] Last Admin: 05/29/19 08:04 Dose: 20 mg Documented by: Sertraline HCl (Zoloft) 25 mg PO DAILY [facility] Last Admin: 05/29/19 08:05 Dose: 25 mg Documented by: Sodium Chloride () 10 - 40 ml IV UD PRN PRN Reason: SALINE FLUSH Last Admin: 05/29/19 05:21 Dose: 10 ml Documented by: Tramadol HCl (Ultram) 50 mg PO Q6H PRN PRN PRN Reason: Pain Score 4-5/10 Medical Necessity - Tobacco Use Smoking Status: Never smoker Tobacco Use: Non-smoker Assessment/Plan All Active Problems (Last Updated 05/28/19 @ 17:57 by John Washburn DO) Left knee pain (Acute) Debility (Acute) General weakness (Acute) Atherosclerotic heart disease of douglas coronary artery without angina pectoris (Resolved) Failure to thrive (Resolved) Syncope (Resolved) NSTEMI (non-ST elevated myocardial infarction) (Resolved) Angina pectoris (Resolved) Vertebral compression fracture (Resolved) Acute embolism and thrombosis of vein (Resolved) Hematoma and contusion (Resolved) UTI (Resolved) This is a 79-year-old female who was admitted for severe left knee pain, inability to bear weight even on walker. Says she lost her balance but held the sink and hung over it to prevent fall. Due to inability to take care for herself and severe pain she was admitted. Left knee x-ray shows severe lateral femorotibial and femoral patellar compartment and moderate medial femorotibial compartment. #1 severe osteoarthritis of the left knee, and with inability to perform ADLs at home-patient is being admitted on MedSurg. PT and OT. Patient seen by Dr. Jimenez. Advised to follow-up in the office for further discuss other options but seems ultimately will need TKR. Discussed with the social security specialist and disability case manager. Pre-CERT applied for SNF placement #2 chronic atrial fibrillation-INR 3.7. Hold Coumadin. #3 hyperlipidemia #4 coronary artery disease-patient is not a surgical candidate for intervention-patient had a stress test in December 2016 which was negative for stress-induced myocardial ischemia, reported ejection fraction at that time was 60%. Patient follows up with Dr. Mora #5 ischemic cardiomyopathy DVT prophylaxis: INR supratherapeutic. Advanced directive/CODE STATUS: Patient is DNR CC arrest with no intubation. Code Visit Inpatient E&M: 77377 Subs Hosp L2
[2019-05-29] MEDS: Calcium Carb/Vitamin D 1 TABLET Tablet PO (12:03)
--- NOTE | 2019-05-29 13:59 | CHAPLAIN ---
Type of Pastoral Visit _x__ Initial Visit ___ Follow-up Visit ___ On-call Visit ___ General Patient Visit ___ Spiritual Assessment ___ Family Conference ___ Bereavement ___ Rapid Response ___ Code Blue ___ Other (describe below) Pastoral Care Referral From _x__ Patient ___ Family ___ Nurse ___ Physician ___ Loan Collector ___ Pet Food Deboner ___ Other (describe below) Sacrament/Intervention _x__ Active listening ___ Anointing ___ Anabaptist ___ Bereavement ___ Communion ___ Taylor exploration ___ _x__ Life review _x__ Prayer ___ Reconciliation ___ Sacrament of Sick _x__ Supportive presence ___ Wedding ___ Other (describe below) Pastoral Comments
[2019-05-29 14:02] VITALS: BP 105/55; PULSE 87; RESP 18; TEMP 36.7; O2SAT 96
--- NOTE | 2019-05-29 15:47 | CASEMGMT ---
Case Management Progress Note: This travel writer to bedside and introduced self and role. Explained and reviewed ZAMORA form with patient in regards to treatment for Mechanical Fall. Notified and made aware that outpatient billing is determined by her insurance policy and status during hospital stay is reviewed for changes in condition that may warrant inpatient stay. Patient states understanding and form was signed and placed in patient chart. Copy provided to patient, denies any questions or concerns. Lashae Lazar RNCM
--- NOTE | 2019-05-29 15:48 | PCM.TXEXTCAR ---
- Diet 05/28/19 15:12 Diet: Regular Diet Food consistency:: Regular Liquid Consistency:: Regular/Thin - Routine Orders/Code Status Suppository Type: Dulcolax 10mg Suppository Frequency: Daily PRN Routine Lab Work: INR - daily from 05/30/19 until INR is 2.5 AND then resume coumadin lower dose than patient's usual home dose - Therapies Weight Bearing: Weight bearing as tolerated Extremity Affected:: Bilateral Lower Physical Therapy: Eval and Treat Occupational Therapy: Eval and Treat - Allergies/Procedures Done in Hospital Allergies/Adverse Reactions: Allergies codeine Adverse Reaction (Verified 03/10/19 10:55) Other - Type of Care/Length of Stay Estimated LOS: Convalescent Care Less Than 30 days Type of Care Needed: Skilled Rehab Potential: Good Prognosis: Good - Additional Orders/Day of Discharge Day of Discharge: 05/29/19 - Dietary and Speech Recommendations Dietitian Recommendations/Changes: Rec diet change to Cardiac d/t pmhx - Follow Up Care Primary Care Physician: Karen Garcia MD [Primary Care Provider] - 3-5 Days if not improving Please follow up with your Primary Care Physician in: in 1-2 week Please Follow Up With: Ankit Jimenez, When: in 2 week
--- NOTE | 2019-05-29 15:50 | PCM.DC.SUM ---
Discharge Date and Diagnosis - Problem List Patient Problems: Active and Suspected Problems (Last Updated 05/28/19 @ 17:57 by John Washburn DO) Left knee pain (Acute) Debility (Acute) Date of Admission: 05/28/19 Date of Discharge: 05/29/19 - Primary Discharge Diagnosis Active and Suspected Problems (Last Updated 05/28/19 @ 17:57 by John Washburn DO) Left knee pain (Acute) Debility (Acute) - Secondary Discharge Diagnosis Chronic Problems (Last Updated 05/28/19 @ 17:57 by John Washburn DO) Pure hypercholesterolemia (Chronic) Ischemic cardiomyopathy (Chronic) Paroxysmal atrial fibrillation (Chronic) Diastolic dysfunction (Chronic) Dizziness, nonspecific (Chronic) Peptic ulcer (Chronic) Osteoporosis (Chronic) SVT (supraventricular tachycardia) (Chronic) Osteoarthritis (Chronic) Coagulopathy (Chronic) Hospital Course and Treatment Operations: None Summary of Care Provided: [] This is a 79-year-old female who was admitted for severe left knee pain, inability to bear weight even on walker. Says she lost her balance but held the sink and hung over it to prevent fall. Due to inability to take care for herself and severe pain she was admitted. Left knee x-ray shows severe lateral femorotibial and femoral patellar compartment and moderate medial femorotibial compartment. #1 severe osteoarthritis of the left knee, and with inability to perform ADLs at home-patient is being admitted on MedSurg. PT and OT. Patient seen by Dr. Jimenez. Advised to follow-up in the office for further discuss other options but seems ultimately will need TKR. Discussed with the social work nurse and medical case manager. Patient was a started on IV Decadron, pain medication, Tylenol and tramadol. Patient got pre-CERT for SNF. #2 chronic atrial fibrillation-INR 3.7. Hold Coumadin. #3 hyperlipidemia #4 coronary artery disease-patient is not a surgical candidate for intervention-patient had a stress test in December 2016 which was negative for stress-induced myocardial ischemia, reported ejection fraction at that time was 60%. Patient follows up with Dr. Mora #5 ischemic cardiomyopathy DVT prophylaxis: INR supratherapeutic. Advanced directive/CODE STATUS: Patient is DNR CC arrest with no intubation. Discharge medication reconciliation done. Discharge follow-up instructions completed. Discharge process discussed with the patient and all questions were answered to patient's satisfaction. Patient already had prescription for Brightwaters sent to [facility] pharmacy by ER physician. Prescription given for tapering dose of prednisone. Follow-up with orthopedic surgeon, Dr. Jimenez in 2 weeks. Total time spent, exact 35 minutes on discharge meds reconciliation, examination, review of imaging and blood test and discussion with the patient on follow-up instructions. Patient Problems: Active and Suspected Problems (Last Updated 05/28/19 @ 17:57 by John Washburn DO) Left knee pain (Acute) Debility (Acute) Subjective: please see progress note of today. - Physical Exam Vital Signs Temp Pulse Resp BP Pulse Ox 98.1 F 87 18 105/55 L 96 05/29/19 14:02 05/29/19 14:02 05/29/19 14:02 05/29/19 14:02 05/29/19 14:02 Oxygen Delivery Method Room Air Weight: 162 lb 2.389 oz Body Mass Index (BMI) 28.7 Intake and Output for Last 24 Hours 05/27/19 05/28/19 05/29/19 23:59 23:59 23:59 Intake Total 200 / 450 950 / 950 Balance 200 / 450 950 / 950 Laboratory Tests Past 24 Hrs 05/29/19 05/29/19 05/29/19 05:20 05:20 05:20 WBC 6.1 RBC 4.59 Hgb 13.9 Hct 43.8 MCV 95.4 MCH 30.3 MCHC 31.7 L RDW Std Deviation 46.1 H RDW Coeff of Porfirio 13.1 Plt Count 179 MPV 10.7 Immature Gran % (Auto) 0.300 Neut % (Auto) 86.9 H Lymph % (Auto) 10.1 L Routt % (Auto) 2.3 Eos % (Auto) 0.2 Baso % (Auto) 0.2 Absolute Neuts (auto) 5.3 Absolute Lymphs (auto) 0.62 L Nucleated RBC % 0 PT 37.2 H INR 3.7 H* Sodium 141 Potassium 4.5 Chloride 110 H Carbon Dioxide 24.0 Anion Gap 7 BUN 23 H Creatinine 1.13 H Estim Creat Clear Calc 34.49 Est GFR (MDRD) Af Amer 60 Est GFR (MDRD) Non-Af 50 L BUN/Creatinine Ratio 20.4 H Glucose 139 H Calcium 9.1 Total Bilirubin 0.80 AST 26 ALT 20 Alkaline Phosphatase 56 Total Protein 6.1 L Albumin 3.0 L Globulin 3.1 Albumin/Globulin Ratio 1.0 Home Medications: Medications to take at Discharge Ascorbic Acid [Vitamin C] 500 mg PO DAILY@0800 01/26/16 Calcium Carbonate/Vitamin D3 [Calcium 600-Vit D3 800 Tablet] 1 tab PO DAILY 01/26/16 Meclizine HCl [Antivert] 12.5 mg PO PRN PRN 01/26/16 Multivitamin [Daily Multiple Vitamin] 1 tab PO DAILY 01/26/16 Omeprazole 20 mg PO DAILY 01/26/16 Acetaminophen [Tylenol] 500 mg PO Q4H PRN PRN #30 tab 06/11/16 Cholecalciferol (Vitamin D3) [Vitamin D3] 1,000 unit PO DAILY 06/11/16 Sertraline HCl [Zoloft] 25 mg PO DAILY 11/11/16 Aspirin [Adult Low Dose Aspirin EC] 81 mg PO DAILY 06/28/17 Atorvastatin Calcium 80 mg PO DAILY 06/28/17 Isosorbide Mononitrate [Isosorbide Mononitrate ER] 30 mg PO DAILY 06/28/17 Metoprolol Succinate [Toprol Xl] 50 mg PO DAILY #30 tab.er.24h 06/28/17 tramadol 50 mg tablet 50 mg PO QDAY PRN tab 09/21/17 furosemide 20 mg tablet 20 mg PO QDAY PRN 02/14/18 Hydrocodone Bitart/Apap 5-325 [Brightwaters 5MG-325MG] 1 tab PO Q6H PRN PRN 3 Days #10 tab 05/28/19 Prednisone 10 mg PO DAILY #30 tab 05/29/19 Warfarin [Coumadin] 1 mg PO MOWEFR #0 05/29/19 Warfarin [Coumadin] 2 mg PO SUTUTHSA #0 05/29/19 Following Prescrptions Were Given to Patient: Hydrocodone Bitart/Apap 5-325 [Brightwaters 5MG-325MG] 1 tab PO Q6H PRN PRN 3 Days #10 tab PRN Reason: Pain Transmission Status: Received by [id number] Prednisone 10 mg PO DAILY #30 tab Prescription Printed Primary Care Physician: Karen Garcia MD [Primary Care Provider] - 3-5 Days if not improving Please follow up with your Primary Care Physician in: in 1-2 week Please Follow Up With: Ankit Jimenez, DO When: in 2 week Medical Necessity - Tobacco Use Smoking Status: Never smoker Tobacco Use: Non-smoker Meaningful Use Info Meaningful Use Diagnoses (Choose all that apply): None applicable Code Visit Inpatient E&M: 57699 Disch Hosp
--- NOTE | 2019-05-29 16:09 | CASEMGMT ---
Social Work Note SW received message from Josee at [facility] stating pre-cert has been obtained and pt can discharge to SNF today. Physician updated. Pt is discharging to [facility] today. SW in to update pt on approval to go to [facility] today. DARYL asked pt about transportation. DARYL informed pt that pt could be transported medically by Wheelchair van but wheelchair vans are usually done running by this time of day and it would be private pay. SW informed pt that cot could be arranged but pt would get bigger bill as cot is not medically needed for transport. Pt asked this worker to call her neighbor/friend Hawa. SW placed a call to pt's friend Hawa. Hawa states she works till around 7:00pm tonight and wouldn't be able to transport pt until after that time. DARYL explained that pt will get billed for either cot or wheelchair van transport and it is unlikely that wheelchair van will be available at this time. Hawa states she will call her Orion to see if he is able to transport and give this worker a call back. DARYL faxed discharge paperwork to [facility] including transfer to extended care facility, signed medication list and any scripts. Original in SNF folder and copy on pt's chart. DARYL completed PAS/RR in HENS and original in SNF folder and copy on pt's chart. DARYL received call from pt's friend Hawa who states her Orion also works late tonight and won't be able to transport pt. Hawa informed this worker that pt's sister in law Holly may be able to transport pt and provided number [phone]. DARYL in to speak with pt. DARYL asked pt about [facility] transporting pt. Pt states Holly is on medications right now and she is not able to transport pt. DARYL placed a call to [facility] and their transportation has left for the day. DARYL placed a call to [facility] and their wheelchair vans have left for the day. DARYL placed a call to Josee at [facility] and her transportation has left for the day. DARYL placed a call back to Hawa and updated her that Holly is not able to transport pt and that this worker is not able to find transportation for pt. Hawa states she gets off work around 7:00pm and she will come to [facility] to transport pt around 7:30-8:00pm kristine. SW placed a call to Josee at [facility] and updated her on transportation time. RN updated on transportation time. Plan: Pt to discharge to [facility] today skilled with pt's friend transporting around 7:30-8:00pm kristine BARAKAT, WETLAND SCIENTIST
--- NOTE | 2019-05-29 16:17 | NURSING ---
[facility] placed to [facility], report given to nurse whom will be taking over care for this patient
--- NOTE | 2019-05-30 09:34 | CASEMGMT ---
Social Work Note SW placed a call to pt's CM Nancy Arriola at [facility] and left her a message informing her that pt was discharged to [facility] yesterday. Mandy Shha PERFORATING MACHINE OPERATOR, LEAD PERFORMANCE SUPPORT ANALYST
== END 2019-05-29 17:45 | disposition skilled nursing facility (03) ==
LOC: ED 12:19 → MS3 14:36
PROVIDERS: Admitting Provider Internal Medicine; Emergency Provider Emergency Medicine; Family Provider Internal Medicine; PCP Internal Medicine; Referring Provider Internal Medicine; Visit Provider Internal Medicine
DX: M25.562 Pain in left knee (principal); E78.00 Pure hypercholesterolemia, unspecified; I48.0 Paroxysmal atrial fibrillation; D68.8 Other specified coagulation defects; M17.12 Unilateral primary osteoarthritis, left knee; I25.10 Atherosclerotic heart disease of native coronary artery without angina pectoris; I25.2 Old myocardial infarction; Z86.718 Personal history of other venous thrombosis and embolism; Z79.01 Long term (current) use of anticoagulants; Z79.899 Other long term (current) drug therapy; Z79.82 Long term (current) use of aspirin; I25.5 Ischemic cardiomyopathy
CPT/HCPCS: 36415; 73564; 80053; 85025; 85610; 96372; 96374; 96376; 97162; 97166; 97802; 99218; 99285; A4216; G0378

== ENCOUNTER 2019-07-03 04:27 | Emergency (ER) | payer MEDICARE, SELFPAY ==
[2019-05-28 15:12] VITALS: BMI 28.7
[2019-07-03 04:30] VITALS: BP 142/71; PULSE 105; RESP 21; TEMP 36.7; O2SAT 92; BMI 28.8
[2019-07-03 04:35] VITALS: BP 147/76; PULSE 94; RESP 21; TEMP 36.8; O2SAT 95
[2019-07-03 04:36] VITALS: BMI 28.8
--- NOTE | 2019-07-03 04:37 | NURSING ---
discussed with MD about pt coming in for stroke like symptoms. MD stated no need to activate stroke alert at this time.
--- NOTE | 2019-07-03 04:37 | ED.RN ---
called [facility] for [facility] paperwork, [facility] staff nurse, stated they will fax it over
[2019-07-03 04:41] LABS: Bedside Glucose 90 mg/dL (70-110)
--- NOTE | 2019-07-03 04:54 | RAD_ITS ---
STUDY: X-RAY CHEST REASON FOR EXAM: Female, 79 years old. Weakness, facial droop TECHNIQUE: Portable chest COMPARISON: 05/30/2018 FINDINGS: There is a stable moderate-sized hiatal hernia. There is scattered mild pulmonary scarring unchanged. There is no demonstrated pleural abnormality. Normal size heart. Normal mediastinum and jarrett. Normal visualized pulmonary arteries. Normal visualized aortic arch and descending thoracic aorta. There is significant generalized osteopenia. There is thoracic kyphosis. There are multilevel mid thoracic spine compression deformities evaluation is limited since a lateral view was not performed. There is no demonstrated abnormality of the visualized soft tissue structures of the upper abdomen. RAD/Chest 1 View (Portable) IMPRESSION: No change from prior Moderate-sized hiatal hernia Scattered pulmonary scarring Generalized osteopenia, thoracic kyphosis with multilevel mid thoracic spine compression deformities, evaluation is limited since a lateral view was not performed Electronically Signed: Luis Kimble, at 5:26 EST Tel , Service support ,
--- NOTE | 2019-07-03 04:54 | CT_ITS ---
STUDY: CT BRAIN WITHOUT CONTRAST REASON FOR EXAM: Female, 79 years old. Left arm weakness, facial droop, drowsiness RADIATION DOSAGE (If Supplied By Facility): CTDIvol = ( 44.99 ) mGy, DLP = ( 796.11 ) mGycm TECHNIQUE: Transaxial CT imaging of the brain was performed without administration of intravenous contrast material. Individualized dose optimization techniques were used for this CT. COMPARISON: CT head 05/30/2018 FINDINGS: Normal soft tissue structures. Normal calvarium. There are stable mild central and cortical involutional changes. Normal white matter tracts of the cerebral hemispheres. Normal basal ganglia and thalami. Normal brainstem. Normal cerebellum. There is no intracranial hemorrhage. There are no findings of an acute ischemic infarction. Normal visualized paranasal sinuses. There are stable significant degenerative changes at C1-C2. There is mild hypertrophy of the transverse ligament, mild basilar invagination. There is stable mild effacement on the brainstem. CT/Brain/Head without Contrast IMPRESSION: Stable central and cortical involutional changes, if there is clinical concern for acute infarct MRI brain follow-up could be performed stable significant degenerative changes at C1-C2. There is mild hypertrophy of the transverse ligament, mild basilar invagination, stable mild effacement on the brainstem. Electronically Signed: Luis Kimble, at 5:38 EST Tel , Service support ,
--- NOTE | 2019-07-03 04:55 | EKG12_ITS ---
Test Reason : CP Blood Pressure : / mmHG Vent. Rate : 101 BPM Atrial Rate : 101 BPM P-R Int : 144 ms QRS Dur : 078 ms QT Int : 358 ms P-R-T Axes : 033 010 006 degrees QTc Int : 464 ms Sinus tachycardia Otherwise normal ECG Confirmed by SAROJ RODRIGUEZ, ROSELINE ([id number]), material expeditor LACEY SANTOS ([id number]) on 07/05/2019 11:00:20 AM Referred By: IESHA Confirmed By:ROSELINE KYLE MD
[2019-07-03] MEDS: 0.9% Normal Saline 1,000 ML 1000 ML IV (05:03)
[2019-07-03 05:04] LABS: Absolute Lymphocyte Count 1.63 X10^3/uL (0.83-4.51); Absolute Neutrophil Count 5.2 X10^3/uL (2.0-7.7); Basophil# 0.05 X10^3/uL; Basophil% 0.6 % (0-1); Eosinophil# 0.38 X10^3/uL; Eosinophils% 4.5 % (0-5); Hematocrit 38.4 % (37-47); Hemoglobin 12.4 g/dL (12.0-15.0); Lymphocyte # 1.63 X10^3/ul (4.0); Lymphocyte % 19.5 % (19-41); Mean Corp Hgb Conc 32.3 g/dL (32-36); Mean Corpuscular Hgb 30.8 pg (27.0-32.0); Mean Corpuscular Volume 95.5 fL (81-99); Mean Platelet Vol. 9.8 fl (6.2-12.0); Monocyte# 1.07 X10^3/uL; Monocyte% 12.8 % (0-10); NRBC Flagged by Analyzer 0 % (0-5); Platelet Count 221 K/mm3 (150-450); RBC Distribution Width CV 13.5 % (11.6-14.6); RBC Distribution Width SD 47.5 fl (35.1-43.9); Red Blood Count 4.02 M/mm3 (4.2-5.4); White Blood Count 8.4 K/mm3 (4.4-11.0)
[2019-07-03 05:24] LABS: Anion Gap 7 (5-15); BUN 19 mg/dL (7-18); BUN/Creat Ratio 18.8 RATIO (10-20); Calcium,Total 8.3 mg/dL (8.5-10.1); Chloride 110 mmol/L (98-107); Creatinine, Serum 1.01 mg/dL (0.55-1.02); EST Glomerular Filtration Rate 56 mL/min (>60); Est Glom Filt Rate - Afr Amer 68 mL/min (>60); Estimated Creatinine Clearance 38.59 ml/min; Glucose 93 mg/dL (74-106); Potassium 3.9 mmol/L (3.5-5.1); Sodium Level 145 mmol/L (136-145)
[2019-07-03 05:27] LABS: International Normalized Ratio 1.5
--- NOTE | 2019-07-03 05:30 | ED.RN ---
stated DNRCC is not valid at this time bec it is not signed by a physician.
--- NOTE | 2019-07-03 05:30 | ED.RN ---
verified with if NIH assessment is needed; stated NIH assessments are not necessary at this time.
[2019-07-03 05:33] LABS: Color, Urine Yellow (Yellow); Glucose, Dipstick Normal (Normal); Ketone-Dipstick Negative (Negative); Leukocyte Esterase-Dipstick 500 /ul (Negative); Mucous, Urine 0 SEEN /hpf (<or=2+); Nitrite-Dipstick Negative (Negative); Occult Blood-Urine 25 /ul (Negative); Protein-Dipstick 15 mg/dl (Negative); Urine Bilirubin Dipstick Negative (Negative); Urine Clarity Sl. Cloudy (Clear); Urine Urobilinogen Normal (Normal)
[2019-07-03 05:35] VITALS: BP 145/71; PULSE 94; RESP 19; TEMP 36.8; O2SAT 95
[2019-07-03 05:43] LABS: Red Blood Cells-Urine 0-5 SEEN /hpf (0-5); Squamous Epithelial Cells - UA 5-10 SEEN /hpf (5-10); White Blood Cells 25-50 SEEN /hpf (0-5)
[2019-07-03 05:44] LABS: Bacteria 3+ /hpf (None Seen)
[2019-07-03 06:00] VITALS: BP 149/74; PULSE 93; RESP 20; TEMP 36.8; O2SAT 98
--- NOTE | 2019-07-03 06:22 | ED.DCSUM_ITS ---
- ER Visit Summary Date of Service: 07/03/19 Chief Complaint: Patient states her left arm was tingling. History of Present Illness: The patient is a 79 F history of A. fib and kidney stones. She is a DNR Comfort Care status. She is reportedly on Coumadin. Sent in from the shelter for evaluation. Patient herself denies any significant complaints there is some tingling in her left arm. Physical Examination: Older female no acute distress vital signs stable afebrile. Initial blood pressure 142/71. She does not look septic or toxic. Pulse ox 90% on room air no hypoxia. H EENT exam unremarkable. Moist wheeze members. Questionable facial droop but I think this is why she is holding her mouth. Neck nontender no lymphadenopathy. Lungs clear to auscultation. Heart regular rhythm no murmur. Abdomen is soft and nontender normal bowel sounds no peritoneal signs. Extremities moves all 4. She does have 1+ edema bilaterally. Nontender. Neurologically she is awake and alert. She is moving all 4 extremities. She has no focal weakness. Her NIH score is 0. Test Results: Chest x-ray no acute abnormality. Hiatal hernia chronic changes read both by myself and the radiologist. CT scan of the brain without contrast shows chronic changes. No acute stroke or bleed. EKG sinus tachycardia rate of 101 no acute signs of OK or ischemia. CBC White count 8. Hemoglobin 12. No bands. Electrolytes unremarkable normal creatinine and gap. PT/INR INR 1.5. UA 25-50 whites no reds 5 depth 0 cells 3+ bacteria culture will be sent she had no urinary symptoms I am not apt to treat this at this time. This may be contaminant. Troponin normal. Emergency Department Course and Treatment: Patient treated with IV fluids. I did speak to the shelter facility and 1 of their nurses. They stated that she had a transient mental status change was in her baseline is why they sent her and be evaluated. She is reportedly a DNR Comfort Care. Patient is baseline currently she is awake and alert she is talking she is moving all of her extremities her neurologic exam remains normal here. Account with her being discharged back to the extended care facility. I discussed all that with the nurse there. Family is at this time is not showing up yet. Treatment Plan: Follow-up with her primary care physician and/or the medical records auditor of the shelter. Disposition: Discharge Impression: Transient mental status change uncertain etiology resolved This note was generated with Heartbeat dictation software. It may contain incorrect words, spelling, and punctuation that were not noted in review of the chart prior to signing ED Disposition - Plan for ED Patient: Referrals: Karen Garcia MD [Primary Care Provider] -
--- NOTE | 2019-07-03 06:33 | ED.DEP ---
ED Disposition - Plan for ED Patient: Disposition: Home or Assisted Living Referrals: Karen Garcia MD [Primary Care Provider] - As soon as possible Additional Instructions: Fluids and rest. Follow-up with your primary care physician or the medical territory manager in the next 1 to 2 days to ensure she is doing well. Continue her current medications.
--- NOTE | 2019-07-03 06:42 | ED.RN ---
[facility], spoke with Leah pt's dayshift nurse. discharge instructions are fluids, rest, and follow up with PCP. pt's condition has improved since arrival.
== END 2019-07-03 07:47 | disposition home or self-care (01) ==
PROVIDERS: Emergency Provider Emergency Medicine; Family Provider Internal Medicine; PCP Internal Medicine
DX: R41.82 Altered mental status, unspecified (principal); R60.0 Localized edema; R00.0 Tachycardia, unspecified; K44.9 Diaphragmatic hernia without obstruction or gangrene; I48.91 Unspecified atrial fibrillation; Z79.01 Long term (current) use of anticoagulants; Z79.82 Long term (current) use of aspirin; Z79.899 Other long term (current) drug therapy; Z87.442 Personal history of urinary calculi; Z66 Do not resuscitate
CPT/HCPCS: 36415; 70450; 71045; 80048; 81001; 82962; 84484; 85025; 85610; 93005; 96360; 99285; J7030; P9612

== ENCOUNTER 2019-09-26 15:48 | Observation (INO) | payer MEDICARE, MEDICAID, SELFPAY ==
[2019-09-22 15:45] VITALS: BMI 30.9
[2019-09-26] VITALS (13 sets, daily range): BP systolic 113–143; BP diastolic 58–82; PULSE 76–83; RESP 16–20; TEMP 36.4–36.7; O2SAT 91–98; BMI 31.3; BMI 29.9
--- NOTE | 2019-09-26 15:53 | CT_ITS ---
STUDY: CT BRAIN WITHOUT CONTRAST REASON FOR EXAM: Female, 79 years old. POSS STROKE. LKW: 1 HOUR AGO. SLUMPED TO RIGHT. RADIATION DOSAGE (If Supplied By Facility): CTDIvol = ( 44.99 ) mGy, DLP = ( 762.36 ) mGycm TECHNIQUE: Transaxial CT imaging of the brain was performed without administration of intravenous contrast material. Individualized dose optimization techniques were used for this CT. COMPARISON: Comparison is made with prior study dated July 03, 2019. FINDINGS: Normal soft tissue structures. There is hyperostosis frontalis internus. There is mild cerebral atrophy with widening of the extra-axial spaces and ventricular dilatation. Normal white matter tracts of the cerebral hemispheres. Normal basal ganglia and thalami. Normal brainstem. Normal cerebellum. There is no intracranial hemorrhage. There are no findings of an acute ischemic infarction. Atherosclerotic calcification of the cavernous portions of the internal carotid arteries bilaterally. Normal visualized paranasal sinuses. CT/Brain/Head without Contrast IMPRESSION: Chronic involutional changes of the brain. N.B. : The above information has been verbally conveyed by Zak Eden to Era Diez on 09/26/2019 16:07:17 (ET). Electronically Signed: Zak Eden, at 16:09 EST , Service support ,
--- NOTE | 2019-09-26 15:53 | EKG12_ITS ---
Test Reason : STROKE TEAM Blood Pressure : / mmHG Vent. Rate : 074 BPM Atrial Rate : 074 BPM P-R Int : 158 ms QRS Dur : 084 ms QT Int : 410 ms P-R-T Axes : 034 012 011 degrees QTc Int : 455 ms Normal sinus rhythm with sinus arrhythmia Normal ECG Confirmed by MELISSA ARIAS ([id number]), editor continuity and script RUDOLPH DAVIS ([id number]) on 09/28/2019 10:34:36 AM Referred By: MARYURI Confirmed By:MELISSA ARIAS
--- NOTE | 2019-09-26 16:08 | NURSING ---
STROKE ALERT CALLED [id number]
[2019-09-26 16:12] LABS: Absolute Lymphocyte Count 1.91 X10^3/uL (0.83-4.51); Absolute Neutrophil Count 5.4 X10^3/uL (2.0-7.7); Basophil# 0.04 X10^3/uL; Basophil% 0.4 % (0-1); Eosinophil# 0.24 X10^3/uL; Eosinophils% 2.7 % (0-5); Hematocrit 40.1 % (37-47); Hemoglobin 12.5 g/dL (12.0-15.0); Lymphocyte # 1.91 X10^3/ul (4.0); Lymphocyte % 21.3 % (19-41); Mean Corp Hgb Conc 31.2 g/dL (32-36); Mean Corpuscular Hgb 29.8 pg (27.0-32.0); Mean Corpuscular Volume 95.5 fL (81-99); Mean Platelet Vol. 11.3 fl (6.2-12.0); Monocyte# 1.37 X10^3/uL; Monocyte% 15.3 % (0-10); NRBC Flagged by Analyzer 0 % (0-5); Neutrophil # 5.36 X10^3/uL (2.7-7.7); Platelet Count 193 K/mm3 (150-450); RBC Distribution Width CV 13.6 % (11.6-14.6); RBC Distribution Width SD 47.7 fl (35.1-43.9)
--- NOTE | 2019-09-26 16:24 | CHAPLAIN ---
responded to offer support for this Stroke Alert; pt came in from [facility] and there are no family members present
[2019-09-26 16:26] LABS: Anion Gap 3 (5-15); BUN 20 mg/dL (7-18); Calcium,Total 8.8 mg/dL (8.5-10.1); Chloride 108 mmol/L (98-107); Creatinine, Serum 1.11 mg/dL (0.55-1.02); EST Glomerular Filtration Rate 51 mL/min (>60); Est Glom Filt Rate - Afr Amer 61 mL/min (>60); Estimated Creatinine Clearance 36.65 ml/min; Glucose 101 mg/dL (74-106); Potassium 4.3 mmol/L (3.5-5.1); Sodium Level 142 mmol/L (136-145)
[2019-09-26 16:29] LABS: International Normalized Ratio 2.5; Partial Thromboplast Time 33.1 Seconds (24.1-36.2); Prothrombin Time (Protime)PT. 27.1 SECONDS (11.7-14.9)
--- NOTE | 2019-09-26 16:40 | ED.RN ---
RN GOT IN TOUCH WITH SISTER IN LAW SHAWANDA AT [phone]. PHONE TRANSFERRED TO DR. WAHL TO DISCUSS PLAN OF CARE.
--- NOTE | 2019-09-26 16:44 | ED.DCSUM_ITS ---
History of Present Illness Chief Complaint: Neuro S/Sx Informant: [employer], SN[facility] Onset: Today Context: Sudden Onset Timing: Continuous Quality and Location: Right Facial Droop, Expressive Aphasia Narrative: Patient is a 79-year-old female presenting from the [facility] for concern of a stroke. Patient was seen normal at 3 PM for afternoon rounds. A nurse went by her room about 30 minutes after that and saw that she was slumped over in her chair. Patient had a significant facial droop was not speaking. 911 was called and patient was brought to the emergency room. Of note patient does have a DNR CC but nursing facility cannot get a hold of her sister who is her next of kin so they brought her to the emergency room. 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 Surgical History: no surgical history, tonsillectomy, - - Lumpectomy of the breast, eye muscle surgery Lives: [facility] Smoking Status: Never smoker - Family History Maternal Family History: Family History (Last Reviewed 09/26/19 @ 17:24 by NADYA Vazquez) Mother Diabetes Father CAD (coronary artery disease) Brother CAD (coronary artery disease) Family History: Reports: Diabetes Paternal Family History: Family History (Last Reviewed 09/26/19 @ 17:24 by NADYA Vazquez) Mother Diabetes Father CAD (coronary artery disease) Brother CAD (coronary artery disease) Family History: Reports: Cancer Sibling Family History: Family History (Last Reviewed 09/26/19 @ 17:24 by NADYA Vazquez) Mother Diabetes Father CAD (coronary artery disease) Brother CAD (coronary artery disease) Family History: Reports: DVT Review of Systems ROS: Unable to Obtain - Patient nonverbal STROKE Vital Signs/Narrative: Vital Signs Temp Pulse Resp BP Pulse Ox 09/26/19 16:09 98 09/26/19 16:07 18 98 09/26/19 16:05 98.1 F 77 20 H 142/76 H 98 09/26/19 15:51 76 20 H 142/76 H 94 Inital Vital Signs reviewed: Yes - NIHSS Initial 1a Level of Consciousness: 0 1b LOC Questions (Score 2 if aphasic/stupor): 2 1c LOC Commands (Only score 1st attempt): 0 2 Best Gaze (If aphasic, use reflexive mvmts.): 0 3 Visual: 0 - Blinks to threat 4 Facial Palsy: 2 - right 5 Motor Arm Right (UN = amputation/fusion): 1 5 Motor Arm Left: 0 6 Motor Leg Right: 3 6 Motor Leg Left: 2 7 Limb ataxia (Only + if out of proportion): 0 8 Sensory (Aphasia/stupor=0 or 1, coma=2): 0 9 Best Language: 3 10 Dysarthria (mute, coma=2, intubated=UN): 0 11 Extinction and Inattention (only scored if +): 0 Total Score: 13 General: Well nourished, Well developed, - - Patient listing to the right Head: Normocephalic, Atraumatic Eyes: Perrl, EOMI ENT: Moist mucous membranes, No rhinorrhea, TM's clear Neck: Supple, Nontender Cardiovascular: Regular rate, Regular rhythm, No murmurs Respiratory: No distress, CTA bilaterally, Chest nontender Abdomen: Soft, Nontender, Nondistended, Normal bowel sounds Back: Nontender, Normal Inspection Extremities: Nontender, No edema Skin: Normal color, No rash Neurological: Alert, Right side facial droop, - - Patient is unable to state any words, she has some sounds that she makes to try to answer questions that are incomprehensible. See NIH above Diagnostic/Tx/Re-eval Clinical Impression(s) from Imaging Studies Brain CT 09/26/19 15:53 IMPRESSION: Chronic involutional changes of the brain. N.B. : The above information has been verbally conveyed by Zak Eden to Era Diez on 09/26/2019 16:07:17 (ET). Electronically Signed: Zak Eden, at 16:09 EST , Service support , ADDENDUM: 09/26/19 1616 IMPRESSION: Chronic involutional changes of the brain. N.B. : The above information has been verbally conveyed by Zak Eden to Era Diez on 09/26/2019 16:07:17 (ET). Electronically Signed: Zak Karey, at 16:09 EST , Service support , Laboratory Data 09/26/19 09/26/19 09/26/19 15:52 15:52 15:52 WBC 9.0 RBC 4.20 Hgb 12.5 Hct 40.1 MCV 95.5 MCH 29.8 MCHC 31.2 L RDW Std Deviation 47.7 H RDW Coeff of Porfirio 13.6 Plt Count 193 MPV 11.3 Immature Gran % (Auto) 0.300 Neut % (Auto) 60.0 Lymph % (Auto) 21.3 Toombs % (Auto) 15.3 H Eos % (Auto) 2.7 Baso % (Auto) 0.4 Absolute Neuts (auto) 5.4 Absolute Lymphs (auto) 1.91 Nucleated RBC % 0 PT 27.1 H INR 2.5 APTT 33.1 Sodium 142 Potassium 4.3 Chloride 108 H Carbon Dioxide 31.0 Anion Gap 3 L BUN 20 H Creatinine 1.11 H Estim Creat Clear Calc 36.65 Est GFR (MDRD) Af Amer 61 Est GFR (MDRD) Non-Af 51 L BUN/Creatinine Ratio 18.0 Glucose 101 Calcium 8.8 Troponin I < 0.015 Chest X-Ray - ED: 1 View - Rhythm Strip Rhythm Strip: Sinus Rhythm Rate: 74 Ectopy: None - EKG Initial EKG Interpretation: Sinus Rhythm - Medical Decision Making Stroke Team Activated: Yes Reviewed Inclusion/Exclusion criteria: Yes IV Alteplase (t-PA) Administered: No - Patient not a TPA candidate secondary to INR of 2.5 from Coumadin therapy She is evaluated for mental status change. She has a right-sided facial droop, expressive aphasia and weakness of her right arm and bilateral legs. I think some of her NIH is elevated because of her difficulty following commands. Her NIH initially for me is 13. Stroke alert is called. CT brain does not show any acute infarct. Discussed with neurologist at 1615 who recommends TPA only if patient's INR is below 1.7. I did get a hold of patient's sister who is her only living relative and medical power of [place] attorney. She states that patient is a DNR CC. She would like the patient to be evaluated further for her stroke but does not want her to have TPA or other invasive procedures. I think this is reasonable. Given patient's significant neurologic deficits on presentation patient might also ultimately require a hospice evaluation. Patient does not have any changes while in the emergency room however when she goes up to the medical floor she is started to have improvement of her NIH. Patient is given aspirin in the emergency room. Patient is otherwise stable in the emergency room. She is admitted to Dr. Fong ED Disposition - Plan for ED Patient: Disposition: [facility] Diagnosis: CVA (cerebral vascular accident)
[2019-09-26] MEDS: Aspirin 300 MG Suppository RECTAL ×2 (16:52→17:11)
--- NOTE | 2019-09-26 16:56 | NURSING ---
DR VILLANUEVA FOR DR WAHL
--- NOTE | 2019-09-26 17:01 | NURSING ---
PCU STROKE RICH
--- NOTE | 2019-09-26 17:17 | PCM.HP.STD ---
<Ariel Grant - Last Filed: 09/26/19 17:17> Problem List (1) CVA (cerebral vascular accident) Status: Acute (2) Ischemic cardiomyopathy Status: Chronic (3) Paroxysmal atrial fibrillation Status: Chronic (4) Peptic ulcer Status: Chronic (5) Osteoporosis Status: Chronic (6) SVT (supraventricular tachycardia) Status: Chronic (7) Vertebral compression fracture Status: Resolved History of Present Illness Date of Admission: 09/26/19 Chief Complaint: right sided weakness The patient is a 79 year old F with pmhx of CAD, SVT, pAfib, VTE, osteoarthritis, compression fracture, who presented to the ER from SNF after being found to be slumped over in a chair at about 3pm today. She was nonresponsive with right facial droop. In the ER CT was obtained with no stroke, [facility] tele stroke was consulted and deemed her not a TPA candidate. She is anticoagulated with warfarin with INR 2.5 and she is on aspirin. Currently she is miminally response. She is A/Ox1. She c/o right eye blurry vision and back pain. She has right facial droop and upper and lower right extremity weakness. Pt is DNRCC at the SNF, Sister is POA and wants her admitted and worked up for stroke. [] Past Medical History Past Medical History (Chronic Problems): Chronic Problems (Last Reviewed 09/22/19 @ 16:01 by Shanell Zayas) Pure hypercholesterolemia (Chronic) Ischemic cardiomyopathy (Chronic) Paroxysmal atrial fibrillation (Chronic) Diastolic dysfunction (Chronic) Dizziness, nonspecific (Chronic) Peptic ulcer (Chronic) Osteoporosis (Chronic) SVT (supraventricular tachycardia) (Chronic) Osteoarthritis (Chronic) Coagulopathy (Chronic) Medical History: Medical History (Last Reviewed 09/22/19 @ 16:01 by Shanell Zayas) Pure hypercholesterolemia (Chronic) E78.00 Ischemic cardiomyopathy (Chronic) I25.5 Paroxysmal atrial fibrillation (Chronic) I48.0 Diastolic dysfunction (Chronic) I51.9 Atherosclerotic heart disease of torres martinez coronary artery without angina pectoris (Resolved) I25.10 Failure to thrive (Resolved) [id number] Syncope (Resolved) R55 Dizziness, nonspecific (Chronic) R42 Peptic ulcer (Chronic) K27.9 Osteoporosis (Chronic) M81.0 SVT (supraventricular tachycardia) (Chronic) I47.1 NSTEMI (non-ST elevated myocardial infarction) (Resolved) I21.4 Angina pectoris (Resolved) I20.9 Osteoarthritis (Chronic) M19.90 Coagulopathy (Chronic) Vertebral compression fracture (Resolved) M48.50XA History of urinary calculi Z87.442 History of venous thromboembolism Z86.718 Acute embolism and thrombosis of vein (Resolved) I82.90 Hematoma and contusion (Resolved) T14.8 Allergies codeine Adverse Reaction (Verified 09/26/19 16:05) Other Home Medications: Ambulatory Orders Medication Instructions Recorded Ascorbic Acid [Vitamin C] 500 mg PO DAILY@0800 01/26/16 Acetaminophen [Tylenol] 500 mg PO Q4H PRN PRN #30 tab 06/11/16 Cholecalciferol (Vitamin D3) 1,000 unit PO DAILY 06/11/16 [Vitamin D3] Aspirin [Adult Low Dose Aspirin EC] 81 mg PO DAILY 06/28/17 Isosorbide Mononitrate [Isosorbide 30 mg PO DAILY 06/28/17 Mononitrate ER] furosemide 20 mg tablet 20 mg PO DAILY 09/22/19 hydrocodone 5 mg-acetaminophen 325 1 tab PO Q6H PRN PRN 09/22/19 mg tablet sertraline 50 mg tablet 50 mg PO DAILY 09/22/19 Atorvastatin Calcium 80 mg PO QHS 09/26/19 Calcium Carbonate/Vitamin D3 1 tab PO DAILY 09/26/19 [Calcium 600 + Vit D Caplet] Metoprolol Succinate [Toprol Xl] 50 mg PO DAILY 09/26/19 Mv-Min/Iron/Folic/Calcium/Vitk 1 tab PO DAILY 09/26/19 [Women's Multivitamin Tablet] Omeprazole 20 mg PO DAILY 09/26/19 Warfarin [Coumadin] 1 mg PO SUTUTHSA 09/26/19 Warfarin [Coumadin] 2 mg PO MOWEFR 09/26/19 Surgical History: Surgical History (Last Reviewed 09/22/19 @ 16:01 by Shanell Zayas) H/O eye surgery Z98.890 H/O lumpectomy Z98.890 breast History of tonsillectomy Z90.89 Surgical History: no surgical history, tonsillectomy, - - Lumpectomy of the breast, eye muscle surgery Psychiatric History: No pertinent psych hx ENVIRONMENTAL 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 SCIENTIST History: No pertinent ENVIRONMENTAL RESEARCH SCIENTIST history Lives: [facility] Smoking Status: Never smoker Tobacco Use: Non-smoker Alcohol: None Drugs: None - *Family History Maternal Family History: Family History (Last Reviewed 09/26/19 @ 17:24 by NADYA Vazquez) Mother Diabetes Father CAD (coronary artery disease) Brother CAD (coronary artery disease) History Items: Diabetes Paternal Family History: Family History (Last Reviewed 09/26/19 @ 17:24 by NADYA Vazquez) Mother Diabetes Father CAD (coronary artery disease) Brother CAD (coronary artery disease) History Items: Cancer Sibling Family History: Family History (Last Reviewed 09/26/19 @ 17:24 by NADYA Vazquez) Mother Diabetes Father CAD (coronary artery disease) Brother CAD (coronary artery disease) History Items: DVT Review of Systems Constitutional: Denies: Chills, Fever, Weight Change Eyes: Reports: Blurred vision, Vision Change. Denies: Double vision HEENT: Denies: Head Aches, Sinus Congestion, Sinus Drainage Cardiovascular: Denies: Chest Pain, Palpitations Respiratory: Denies: Cough, Shortness of breath at rest, Sputum production Gastrointestinal: Denies: Abdominal Pain, Nausea, Vomiting Genitourinary: Denies: Dysuria Musculoskeletal: Reports: Back Pain. Denies: Joint Pain, Joint Tenderness Skin: Denies: Rash, Wounds Neurological: Reports: Blurred vision, Confusion, Focal weakness. Denies: Headaches Psychiatric: Denies: Anxiety, Depression, Homicidal Ideations, Suicidal Ideations Hematologic/ Lymphatic: Denies: Easy Bruising, Easy Bleeding VTE Information - Inpt Only VTE Present on Admission: No VTE Mechan Device Prophylaxis: None VTE Pharm Prophylaxis ordered?: Yes Patient Problems: Active and Suspected Problems (Last Reviewed 09/22/19 @ 16:01 by Shanell Zayas) CVA (cerebral vascular accident) (Acute) - Physical Exam Vitals/I&O's: Vital Signs Temp Pulse Resp BP Pulse Ox 98.1 F 77 18 139/77 H 98 09/26/19 16:05 09/26/19 16:30 09/26/19 16:30 09/26/19 16:30 09/26/19 16:30 Oxygen Flow Rate (L/min) 2 Oxygen Delivery Method Nasal Cannula Weight: 182 lb 8.684 oz Body Mass Index (BMI) 31.3 Finger Stick Blood Glucose 109 General: Alert, Cooperative, Confused, Lethargic HEENT: Atraumatic, PERRLA, EOMI, Normocephalic Neck: Supple, No JVD, Negative Carotid Bruits Lungs: Clear to auscultation, Normal air movement Cardiovascular: Regular rate, No murmurs Abdomen: Bowel Sounds Present, Soft, Non Tender Extremities: Capillary Refill Less than 3 Seconds, Edema - BL LE edema Skin: No rashes, No breakdown Musculoskeletal: No Tenderness to Palpation of Joints or Extremities Neurological: Facial Droop, Slurred Speech, - - severe right upper and lower extremity weakness, 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 Psych/Mental Status: Normal Affect, Appropriate, - - lethargic, a/ox1 Laboratory Results 09/26/19 15:52: WBC 9.0, RBC 4.20, Hgb 12.5, Hct 40.1, MCV 95.5, MCH 29.8, MCHC 31.2 L, RDW Std Deviation 47.7 H, RDW Coeff of Porfirio 13.6, Plt Count 193, MPV 11.3, Immature Gran % (Auto) 0.300, Neut % (Auto) 60.0, Lymph % (Auto) 21.3, Hopkins % (Auto) 15.3 H, Eos % (Auto) 2.7, Baso % (Auto) 0.4, Absolute Neuts (auto) 5.4, Absolute Lymphs (auto) 1.91, Nucleated RBC % 0 09/26/19 15:52: PT 27.1 H, INR 2.5, APTT 33.1 09/26/19 15:52: Sodium 142, Potassium 4.3, Chloride 108 H, Carbon Dioxide 31.0, Anion Gap 3 L, BUN 20 H, Creatinine 1.11 H, Estim Creat Clear Calc 36.65, Est GFR (MDRD) Af Amer 61, Est GFR (MDRD) Non-Af 51 L, BUN/Creatinine Ratio 18.0, Glucose 101, Calcium 8.8, Troponin I < 0.015 Assessment/Plan All Active Problems (Last Reviewed 09/22/19 @ 16:01 by Shanell Zayas) CVA (cerebral vascular accident) (Acute) Left knee pain (Acute) Debility (Acute) General weakness (Acute) Atherosclerotic heart disease of torres martinez coronary artery without angina pectoris (Resolved) Failure to thrive (Resolved) Syncope (Resolved) NSTEMI (non-ST elevated myocardial infarction) (Resolved) Angina pectoris (Resolved) Vertebral compression fracture (Resolved) Acute embolism and thrombosis of vein (Resolved) Hematoma and contusion (Resolved) UTI (Resolved) 1. Acute CVA - marked right sided weakness, right blurry vision, right facial droop, confused, minimally responsive. Pt INR 2.5., on aspirin. Obtain MRI brain, MRA head and neck, echo. PTOTST evals. Sister: BARBARA wants her worked up for stroke. continue asa/statin/coumadin 2. Hx pAfib - EKG with sinus arrhythmia. coumadin therapeutic. somewhat tachy in ER. Continue coumadin, metoprolol 3. Hx pSVT - as above 4. Hx DVT - on coumadin, therapeutic 5. Hx CAD, ischemic CM - asprin/statin/imdur/lasix/metoprolol 6. HLD - statin DVT ppx: INR therapeutic DC planning: return to SNF, consider hospice depending on her clinical course This patient was seen by Ariel Grant PA-C under the supervision of Dr. Fong. <Josias Fong - Last Filed: 09/26/19 18:43> History of Present Illness The patient is a 79 year old F with multiple comorbidities as mentioned above including paroxysmal A. fib on Coumadin was brought in to ER from [facility] for right-sided weakness, aphasia and facial droop. Patient is DNR CC at SNF. In ED, she was noted to have NIH stroke scale 15 and [facility] Tele-neurologist consulted. Patient is not candidate for TPA because of INR 2.5, DNR CC as confirmed by patient's [id number] by ER physician. Patient herself does not want TPA. Patient is further admitted. Patient has right-sided blurry vision, chronic and wears glasses. Past Medical History Medical History: Medical History (Last Reviewed 09/22/19 @ 16:01 by Shanell Zayas) Pure hypercholesterolemia (Chronic) E78.00 Ischemic cardiomyopathy (Chronic) I25.5 Paroxysmal atrial fibrillation (Chronic) I48.0 Diastolic dysfunction (Chronic) I51.9 Atherosclerotic heart disease of torres martinez coronary artery without angina pectoris (Resolved) I25.10 Failure to thrive (Resolved) [id number] Syncope (Resolved) R55 Dizziness, nonspecific (Chronic) R42 Peptic ulcer (Chronic) K27.9 Osteoporosis (Chronic) M81.0 SVT (supraventricular tachycardia) (Chronic) I47.1 NSTEMI (non-ST elevated myocardial infarction) (Resolved) I21.4 Angina pectoris (Resolved) I20.9 Osteoarthritis (Chronic) M19.90 Coagulopathy (Chronic) Vertebral compression fracture (Resolved) M48.50XA History of urinary calculi Z87.442 History of venous thromboembolism Z86.718 Acute embolism and thrombosis of vein (Resolved) I82.90 Hematoma and contusion (Resolved) T14.8 Allergies codeine Adverse Reaction (Verified 09/26/19 18:30) makes my mouth sore Surgical History: Surgical History (Last Reviewed 09/22/19 @ 16:01 by Shanell Zayas) H/O eye surgery Z98.890 H/O lumpectomy Z98.890 breast History of tonsillectomy Z90.89 - *Family History Maternal Family History: Family History (Last Reviewed 09/26/19 @ 17:24 by NADYA Vazquez) Mother Diabetes Father CAD (coronary artery disease) Brother CAD (coronary artery disease) Paternal Family History: Family History (Last Reviewed 09/26/19 @ 17:24 by NADYA Vazquez) Mother Diabetes Father CAD (coronary artery disease) Brother CAD (coronary artery disease) Sibling Family History: Family History (Last Reviewed 09/26/19 @ 17:24 by NADYA Vazquez) Mother Diabetes Father CAD (coronary artery disease) Brother CAD (coronary artery disease) Review of Systems Unable to obtain accurate/complete ROS d/t: Drowsy, lethargy VTE Information - Inpt Only VTE Present on Admission: - Drowsy, lethargy. VTE Mechan Device Prophylaxis: None VTE Pharm Prophylaxis ordered?: Yes - Physical Exam Vitals/I&O's: Vital Signs Temp Pulse Resp BP Pulse Ox 98.1 F 82 18 143/82 H 97 09/26/19 16:05 09/26/19 17:22 09/26/19 17:22 09/26/19 17:22 09/26/19 17:22 Oxygen Flow Rate (L/min) 2 Oxygen Delivery Method Room Air Weight: 169 lb 3.2 oz Body Mass Index (BMI) 29.9 Finger Stick Blood Glucose 109 General: No apparent distress, Confused, Disoriented, Lethargic HEENT: Atraumatic, PERRLA, EOMI, Normocephalic, - - On 1 to 1 visual confrontation, there is decreased acuity of vision on the right side visual field but seems chronic as wears glassed. There is no obvious loss of vision. Neck: Supple, No JVD, Negative Carotid Bruits Lungs: Clear to auscultation, No rhonchi, No wheeze, No rales, Diminished - Entry diminished in bilateral lung bases Cardiovascular: Regular rate, Normal S1, Normal S2, No murmurs, Irregular Rate - Sinus arrhythmia on EKG Abdomen: Bowel Sounds Present, Soft, Non Tender, Non-Distended Extremities: No clubbing, Edema Neurological: - - severe right upper and lower extremity weakness, 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 On floor, NIH stroke scale was done. NIHSS 9. Mainly severe aphasia and mild to moderate dysarthria Laboratory Results 09/26/19 15:52: WBC 9.0, RBC 4.20, Hgb 12.5, Hct 40.1, MCV 95.5, MCH 29.8, MCHC 31.2 L, RDW Std Deviation 47.7 H, RDW Coeff of Porfirio 13.6, Plt Count 193, MPV 11.3, Immature Gran % (Auto) 0.300, Neut % (Auto) 60.0, Lymph % (Auto) 21.3, Hopkins % (Auto) 15.3 H, Eos % (Auto) 2.7, Baso % (Auto) 0.4, Absolute Neuts (auto) 5.4, Absolute Lymphs (auto) 1.91, Nucleated RBC % 0 09/26/19 15:52: PT 27.1 H, INR 2.5, APTT 33.1 09/26/19 15:52: Sodium 142, Potassium 4.3, Chloride 108 H, Carbon Dioxide 31.0, Anion Gap 3 L, BUN 20 H, Creatinine 1.11 H, Estim Creat Clear Calc 36.65, Est GFR (MDRD) Af Amer 61, Est GFR (MDRD) Non-Af 51 L, BUN/Creatinine Ratio 18.0, Glucose 101, Calcium 8.8, Troponin I < 0.015 Current Medications Acetaminophen (Tylenol) 500 mg PO Q4H PRN PRN PRN Reason: Pain Score 1-10/10 Aspirin (Aspirin) 300 mg RECTAL DAILY PRN PRN Reason: IF UNABLE TO TAKE PO ASPIRIN Aspirin (Ecotrin) 81 mg PO DAILY@0800 [facility] Atorvastatin Calcium (Lipitor) 80 mg PO QHS [facility] Furosemide (Lasix) 20 mg PO DAILY [facility] Glucagon () 1 mg IM .X1 PRN PRN Reason: Hypoglycemia Sodium Chloride () 1,000 mls @ 100 mls/hr IV .Q10H [facility] Dextrose (Dextrose 10%-Water) 250 mls @ 999 mls/hr IV .Q16M PRN; Protocol PRN Reason: HYPOGLYCEMIA Morphine Sulfate () 1 mg IV Q3H PRN PRN PRN Reason: Pain Score 6-10/10 Ondansetron HCl (Zofran) 4 mg IV Q6H PRN PRN PRN Reason: NAUSEA Pantoprazole Sodium (Protonix) 20 mg PO DAILY [facility] Sertraline HCl (Zoloft) 50 mg PO DAILY [facility] Sodium Chloride () 10 - 40 ml IV UD PRN PRN Reason: SALINE FLUSH Warfarin Sodium (Coumadin (Pbkc)) 1 mg PO SuTuThSa@1700 [facility] Warfarin Sodium (Coumadin (Pbkc)) 2 mg PO MoWeFr@1700 [facility] Assessment/Plan This patient was seen in conjunction with Ariel COVINGTON. I have independently interviewed and examined the patient and reviewed pertinent history, examination findings, laboratory and plan of management. I have reviewed the note and agree with the documented findings with the few additional points. In brief, patient is admitted for right-sided weakness, severe aphasia and dysarthria. Patient has left-sided facial droop and angle of the mouth pulled on the right side. Continue aspirin statin and Coumadin as patient has history of paroxysmal A. fib. Stroke protocol with PT, OT and speech evaluation. Patient failed initial swallow evaluation. Will keep n.p.o. EKG reviewed. Normal sinus rhythm with sinus arrhythmia at 74 bpm. Previous EKG of 07/03/2019 sinus tachycardia. I have discussed my assessment with Ariel COVINGTON and orders have been reviewed. Living will/CODE STATUS/advance directive: Patient has prison paper which shows DNR CC. Patient later on woke up on PCU floor and confirmed that she is DNR CC and does not artificial life support including intubation, tube feed, ventilator and/chest compression. Patient is DNR CC. Code Visit Inpatient E&M: 77837 Init Hosp L3
--- NOTE | 2019-09-26 17:18 | RAD_ITS ---
STUDY: X-RAY CHEST REASON FOR EXAM: Female, 79 years old. WEAKNESS TECHNIQUE: Single AP portable view of the chest. COMPARISON: Prior study of 07/03/2019 FINDINGS: There is a limited inspiration. There is a small calcified granuloma of the right lung base. There is no demonstrated pleural abnormality. There is mild cardiac enlargement. There are calcified right hilar nodes. There is a retrocardiac double density suggestive of hiatal hernia. Normal visualized pulmonary arteries. Normal visualized aortic arch and descending thoracic aorta. Normal visualized thoracic spine. Normal visualized ribs, clavicles, and shoulders. There is no demonstrated abnormality of the visualized soft tissue structures of the upper abdomen. RAD/Chest 1 View IMPRESSION: Limited inspiration. Small calcified granuloma of the right lung base. Calcified right hilar nodes. There is a retrocardiac double density suggestive of hiatal hernia. No acute cardiopulmonary disease process is seen. Findings are stable in interval. Electronically Signed: Zuhair Medina MD at 18:11 EST , Service support ,
--- NOTE | 2019-09-26 18:07 | ECHOD_ITS ---
Reason For Study: TIA/CVA Procedure This was a 2D Doppler, Color Flow transthoracic echocardiogram. Exam performed portable in patient room. Left Ventricle Severe concentric left ventricular hypertrophy. The estimated ejection fraction is 75 %. Stage 2 diastolic dysfunction. No regional wall motion abnormalities noted. Right Ventricle Normal size and thickness. Normal systolic function. Atria The left atrium is severely enlarged. The right atrium is moderately enlarged. Normal atrial septum. Bubble contrast study negative for right to left interatrial shunt. Mitral Valve Mild diffuse mitral valve thickening. Moderate mitral annular calcification extending into the posterior leaflet. Trivial mitral valve insufficiency. Tricuspid Valve Normal tricuspid valve. Mild (1+) tricuspid valve insufficiency. Right ventricular systolic pressure estimated to be 42 mmHg. Mild pulmonary hypertension. Aortic Valve Trisinus/trileaflet aortic valve. Mild diffuse aortic valve thickening. Pulmonic Valve Normal pulmonic valve. Trivial pulmonic valve insufficiency. Great Vessels Normal aortic root. Normal arch. Normal inferior vena cava. Inferior vena cava collapse with sniff. Pericardium/Pleural No pericardial effusion. Medication Performed a rapid injection of agitated mix of 9 cc saline and 1cc air to assess for atrial septal defect. MMode/2D Measurements & Calculations LVIDd: 4.0 cm IVSd: 1.8 cm LVOT diam: 2.0 cm LVIDs: 2.3 cm LVPWd: 1.1 cm RVDd: 3.3 cm FS: 40.9 % LVOT area: 3.0 cm2 Ao root diam: 3.0 cm LAV(MOD-bp): 116.1 ml LA A4 area: 33.8 cm2 LAV(MOD-bp) Indexed: 63.8 ml/m2 LAV(MOD-sp2): 90.1 ml LAV(MOD-sp4): 135.3 ml LA dimension(2D): 4.9 cm RA A4 area: 21.3 cm2 Time Measurements MV dec time: 0.14 sec Doppler Measurements & Calculations MV E max damir: 104.4 cm/sec Lat Peak E' Damir: 8.0 cm/sec Med Peak E' Damir: 5.0 cm/sec MV A max damir: 74.5 cm/sec E/E' lat: 13.1 E/E' med: 20.7 MV E/A: 1.4 Ao V2 max: 186.2 cm/sec LV V1 max: 142.5 cm/sec SV(LVOT): 83.8 ml Ao max P.9 mmHg LV V1 max P.1 mmHg Ao V2 mean: 124.7 cm/sec LV V1 mean P.0 mmHg Ao mean P.0 mmHg LV V1 mean: 93.3 cm/sec Ao V2 VTI: 37.9 cm LV V1 VTI: 27.9 cm PAPITO(I,D): 2.2 cm2 PAPITO(V,D): 2.3 cm2 PA V2 max: 111.8 cm/sec TR max damir: 295.7 cm/sec TR max P.1 mmHg Interpretation Summary Severe concentric left ventricular hypertrophy. The estimated ejection fraction is 75 %. Stage 2 diastolic dysfunction. The left atrium is severely enlarged. The right atrium is moderately enlarged. Bubble contrast study negative for right to left interatrial shunt. Mild diffuse mitral valve thickening. Trivial mitral valve insufficiency. Mild (1+) tricuspid valve insufficiency. Right ventricular systolic pressure estimated to be 42 mmHg. Mild pulmonary hypertension. Compared to echo report dated 01/07/2017, LV function has remained the same, but RVSP has increasd from 33 to 42 mm Hg. Ordering Physician: Ariel Grant Referring Physician: Karen Garcia Performed By: Marry White, RENAY, RVT
--- NOTE | 2019-09-26 18:07 | MRI_ITS ---
HISTORY: STROKE. New RIGHT facial droop and weakness TECHNIQUE: Routine brain MR protocol was performed without gadolinium. Nondiagnostic series. 283 images. COMPARISON: Most recent comparison CT scan of the brain is from 3-1/2 hours earlier. FINDINGS: # of images incl. paperwork: 283 Brain volume is mildly atrophic. Periventricular deep and subcortical white matter disease is minimal. Cerebellar tonsils extend 4-10 mm below the foramen magnum behind the medulla and cervical cord.. No acute stroke is present. Paranasal sinuses are clear. There are no masses, herniations, nor deviations. Orbits and globes are normal. The pituitary and sella turcica are not enlarged. Flow is present within major central intracranial arteries. MRI/Brain without Contrast IMPRESSION: No acute intracranial ischemia. Mild sequelae of chronic microvascular ischemia. 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 at 0414 Reported and signed by: Mike Rodriguez MD Electronically Signed: Mike Rodriguez MD at 4:13 EST Tel , Service support ,
[2019-09-26 19:06] LABS: Thyroid Stim Hormone (TSH) 0.96 uIU/mL (0.358-3.74)
[2019-09-26 20:36] LABS: Bedside Glucose 94 mg/dL (70-110)
[2019-09-26] MEDS: 0.9% Normal Saline 1,000 ML 100 ML IV (20:46)
[2019-09-26] MEDS: 0.9% Saline Lock 10 ML Syringe IV (20:47)
[2019-09-27] VITALS (7 sets, daily range): BP systolic 118–138; BP diastolic 56–72; PULSE 73–87; RESP 16; TEMP 36.4–37; O2SAT 93–95
[2019-09-27 01:15] LABS: Bedside Glucose 92 mg/dL (70-110)
[2019-09-27] MEDS: Acetaminophen 650 MG Suppository RECTAL (05:16)
[2019-09-27] MEDS: 0.9% Normal Saline 1,000 ML 100 ML IV (05:55)
[2019-09-27 06:07] LABS: International Normalized Ratio 2.7; Prothrombin Time (Protime)PT. 28.7 SECONDS (11.7-14.9)
[2019-09-27 06:21] LABS: Bedside Glucose 89 mg/dL (70-110)
[2019-09-27 06:35] LABS: Anion Gap 5 (5-15); BUN 15 mg/dL (7-18); BUN/Creat Ratio 16.7 RATIO (10-20); Calcium,Total 8.4 mg/dL (8.5-10.1); Chloride 111 mmol/L (98-107); Cholesterol 109 mg/dL (200); EST Glomerular Filtration Rate 65 mL/min (>60); Est Glom Filt Rate - Afr Amer 78 mL/min (>60); Glucose 86 mg/dL (74-106); High Density Lipoprotein 75 mg/dL; Potassium 3.9 mmol/L (3.5-5.1); Sodium Level 142 mmol/L (136-145); Triglycerides 65 mg/dL; Very Low Density Lipoprotein 13 mg/dL (5-40)
--- NOTE | 2019-09-27 09:18 | CASEMGMT ---
DARYL noted patient is from [place]. DARYL called Josee at [place] and patient is there on her Medicaid. She does not need a pre-cert to return. DARYL faxed updates to [place]. Plan: d/c back to [place] under intermediate level of care. Adwoa FIGUEROA SCIENCE INSTRUCTOR
[2019-09-27] MEDS: Furosemide 20 MG Tablet PO (11:08)
[2019-09-27] MEDS: Aspirin E.C. 81 MG Tablet PO (11:08)
[2019-09-27] MEDS: Sertraline 50 MG Tablet PO (11:08)
[2019-09-27] MEDS: Pantoprazole Sodium 20 MG Tablet PO (11:08)
[2019-09-27 11:31] LABS: Bedside Glucose 109 mg/dL (70-110)
--- NOTE | 2019-09-27 11:33 | CASEMGMT ---
LW/POA forms in echart, SW printed and will place in paper chart to be scanned into summary tab of [facility]. Pt's healthcare POA is Raphael Last. KAITLYNN Blanco
--- NOTE | 2019-09-27 11:37 | PCM.EXTCARCO ---
- Diet 09/27/19 11:04 Diet: Cardiac/Low Cholesterol Food consistency:: Puree Liquid Consistency:: Regular/Thin Is pt able to select menu?: Yes Diet Comments: seated@90 degrees during&30-60 min after intake, sm. bite/sip, slow rate - Routine Orders/Code Status Suppository Type: Dulcolax 10mg Suppository Frequency: Daily PRN Routine Lab Work: CBC - 5 days, BMP - 5 days Code Status: DNRCC - Therapies Physical Therapy: Eval and Treat Occupational Therapy: Eval and Treat Speech Therapy: Eval and Treat - Problem/Diagnosis (1) CVA (cerebral vascular accident) Status: Acute Current Visit: Yes (2) Ischemic cardiomyopathy Status: Chronic Current Visit: No (3) Paroxysmal atrial fibrillation Status: Chronic Current Visit: No (4) Peptic ulcer Status: Chronic Current Visit: No (5) Osteoporosis Status: Chronic Current Visit: No (6) SVT (supraventricular tachycardia) Status: Chronic Current Visit: No (7) Vertebral compression fracture Status: Resolved Current Visit: No - Allergies/Procedures Done in Hospital Allergies/Adverse Reactions: Allergies codeine Adverse Reaction (Verified 09/26/19 18:30) makes my mouth sore Procedures: None - Type of Care/Length of Stay Estimated LOS: Convalescent Care Less Than 30 days Type of Care Needed: Skilled Rehab Potential: Fair Prognosis: Fair - Additional Orders/Day of Discharge Day of Discharge: 09/27/19 - Dietary and Speech Recommendations Speech Linguistic Eval Summary: The patient is a 79 year old female with a past medical history significant for CAD, SVT, pAfib, VTE, osteoarthritis, compression fracture, who presented to the ED from SNF after being found to be slumped over in a chair, unresponsive w/ a right facial droop. MRI 09/26/2019 IMPRESSION: No acute intracranial ischemia. Mild sequelae of chronic microvascular ischemia. 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 Pt is alert and fully oriented to all except date/day of week (within one day +/-). Answered yes/no ?s w/ 7/8 accuracy, able to correct error w/ rewording. Executed single and multistep commands accurately. Auditory comprehension WNL. Able to name 19 items per category w/in a 60 second time constraint. No instances of anomia in conversation. No apraxia, aphasia or anomia identified. Mild dysarthria evident w/ imprecise slurred speech although fully intelligible. Reading comprehension at the word and sentence level both WNL. Patient initially indicated inability to recall, but was able to repeat back 02/14 details from a short story immediately after hearing it w/ prompting to attempt retelling and was able to answer yes/no ?s re: story w/ 02/02 accuracy, suggesting sufficient comprehesion/recall. Will follow for skilled intervention targeting oral motor strengthening and strategy use for improved speech intelligibility and facial symmetry. - Follow Up Care Primary Care Physician: Karen Garcia MD [Primary Care Provider] - Please follow up with your Primary Care Physician in: 1-2 weeks
--- NOTE | 2019-09-27 11:56 | PHA.DC.MR ---
Pharmacy Service has performed discharge medication reconciliation for this patient. Home Medications Ascorbic Acid [Vitamin C] 500 mg PO DAILY@0800 01/26/16 Acetaminophen [Tylenol] 500 mg PO Q4H PRN PRN #30 tab 06/11/16 Cholecalciferol (Vitamin D3) [Vitamin D3] 1,000 unit PO DAILY 06/11/16 Aspirin [Adult Low Dose Aspirin EC] 81 mg PO DAILY 06/28/17 Isosorbide Mononitrate [Isosorbide Mononitrate ER] 30 mg PO DAILY 06/28/17 furosemide 20 mg tablet 20 mg PO DAILY 09/22/19 hydrocodone 5 mg-acetaminophen 325 mg tablet 1 tab PO Q6H PRN PRN 09/22/19 sertraline 50 mg tablet 50 mg PO DAILY 09/22/19 Atorvastatin Calcium 80 mg PO QHS 09/26/19 Calcium Carbonate/Vitamin D3 [Calcium 600-Vit D3 400 Caplet] 1 tab PO DAILY 09/26/19 Metoprolol Succinate [Toprol Xl] 50 mg PO DAILY 09/26/19 Mv-Min/Iron/Folic/Calcium/Vitk [Women's Multivitamin Tablet] 1 tab PO DAILY 09/26/19 Omeprazole 20 mg PO DAILY 09/26/19 Warfarin [Coumadin] 1 mg PO SUTUTHSA 09/26/19 Warfarin [Coumadin] 2 mg PO MOWEFR 09/26/19 The patient's discharge medication list was reviewed for discrepancies and discrepancies were resolved.
--- NOTE | 2019-09-27 14:19 | CHAPLAIN ---
Type of Pastoral Visit _x__ Initial Visit ___ Follow-up Visit ___ On-call Visit ___ General Patient Visit ___ Spiritual Assessment ___ Family Conference ___ Bereavement ___ Rapid Response ___ Code Blue ___ Other (describe below) Pastoral Care Referral From _x__ Patient ___ Family ___ Nurse ___ Physician ___ Folder Seamer Automatic ___ Library Circulation Clerk ___ Other (describe below) Sacrament/Intervention _x__ Active listening ___ Anointing ___ Jewish ___ Bereavement ___ Communion ___ Taylor exploration ___ _x__ Life review _x__ Prayer ___ Reconciliation ___ Sacrament of Sick _x__ Supportive presence ___ Wedding ___ Other (describe below) Pastoral Comments
--- NOTE | 2019-09-27 14:35 | DS.PCM_ITS ---
Discharge Date and Diagnosis - Problem List Patient Problems: Active and Suspected Problems (Last Reviewed 09/22/19 @ 16:01 by Shanell No) CVA (cerebral vascular accident) (Acute) Date of Admission: 09/26/19 Date of Discharge: 09/27/19 - Primary Discharge Diagnosis Active and Suspected Problems (Last Reviewed 09/22/19 @ 16:01 by Shanell No) TIA pAfib hx SVT Hx Ischemic CM Hx CAD Hx VTE - Secondary Discharge Diagnosis Chronic Problems (Last Reviewed 09/22/19 @ 16:01 by Shanell No) Pure hypercholesterolemia (Chronic) Ischemic cardiomyopathy (Chronic) Paroxysmal atrial fibrillation (Chronic) Diastolic dysfunction (Chronic) Dizziness, nonspecific (Chronic) Peptic ulcer (Chronic) Osteoporosis (Chronic) SVT (supraventricular tachycardia) (Chronic) Osteoarthritis (Chronic) Coagulopathy (Chronic) Hospital Course and Treatment Imaging Results: Echo: Interpretation Summary Severe concentric left ventricular hypertrophy. The estimated ejection fraction is 75 %. Stage 2 diastolic dysfunction. The left atrium is severely enlarged. The right atrium is moderately enlarged. Bubble contrast study negative for right to left interatrial shunt. Mild diffuse mitral valve thickening. Trivial mitral valve insufficiency. Mild (1+) tricuspid valve insufficiency. Right ventricular systolic pressure estimated to be 42 mmHg. Mild pulmonary hypertension. Compared to echo report dated 01/07/2017, LV function has remained the same, but RVSP has increasd from [address]/Brain/Head without Contrast IMPRESSION: Chronic involutional changes of the brain. N.B. : The above information has been verbally conveyed by Zak Eden to Era Diez on 09/26/2019 16:07:17 (ET). RAD/Chest 1 View IMPRESSION: Limited inspiration. Small calcified granuloma of the right lung base. Calcified right hilar nodes. There is a retrocardiac double density suggestive of hiatal hernia. No acute cardiopulmonary disease process is seen. Findings are stable in interval. MRI/Brain without Contrast IMPRESSION: No acute intracranial ischemia. Mild sequelae of chronic microvascular ischemia. 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 Operations: None Procedures: 2-D Echocardiogram Summary of Care Provided: Hospital Course: The patient is a 79 year old F with pmhx as above, notably she is a SNF resident who is DNRCC who was [facility] and with right sided weakness, right facial droop, and unresponsive. She was brought to the ER by squad. Her sister expressed that despite her DNR CC status she wanted to determine if she had a stroke in order to help in the decision making process regarding her care. In the ER she was the same. She was on warfarin which was therapeutic and aspirin and was felt to not be a TPA candidate. CT head was negative. She was admitted for suspected stroke. She began to become more alert and regain her right sided weakness overnight. In the AM she had an MRI brain that did not show stroke. Echo was as above. In the morning she appeared near baseline. She was alert and oriented with improved right sided strength. She had residual right facial droop. She was felt to likely have had TIA. As she was properly anticoagulated on warfarin and already on aspirin, and on statin, so medications remained the same. Speech therapy recommended Pureed textures and thin liquids. She was discharged back to SNF in stable condition. She will need follow up with her PCP in 1-2 weeks. This patient was seen by Ariel Grant PA-C under the supervision of Dr. Trevino. [] Patient Problems: Active and Suspected Problems (Last Reviewed 09/22/19 @ 16:01 by Shanell Zayas) CVA (cerebral vascular accident) (Acute) - Physical Exam Vitals/I&O's: Vital Signs Temp Pulse Resp BP Pulse Ox 98.0 F 73 16 128/64 H 95 09/27/19 11:39 09/27/19 11:39 09/27/19 11:39 09/27/19 11:39 09/27/19 11:39 Oxygen Flow Rate (L/min) 2 Oxygen Delivery Method Room Air Weight: 169 lb 3.206 oz Body Mass Index (BMI) 29.9 Finger Stick Blood Glucose 109 Intake and Output for Last 24 Hours 09/25/19 09/26/19 09/27/19 23:59 23:59 23:59 Intake Total 0 / 0 1481.67 / 1481.67 Balance 0 / 0 1481.67 / 1481.67 General: Alert, Oriented x3, Cooperative HEENT: Atraumatic, PERRLA, EOMI, Normocephalic Neck: Supple, No JVD, Negative Carotid Bruits Lungs: Clear to auscultation, Normal air movement Cardiovascular: Regular rate, No murmurs Abdomen: Bowel Sounds Present, Soft, Non Tender Extremities: No edema, Capillary Refill Less than 3 Seconds Skin: No rashes, No breakdown Musculoskeletal: No Tenderness to Palpation of Joints or Extremities Neurological: Facial Droop, - - right facial droop Psych/Mental Status: Normal Affect, Appropriate Laboratory Results 09/26/19 15:52: WBC 9.0, RBC 4.20, Hgb 12.5, Hct 40.1, MCV 95.5, MCH 29.8, MCHC 31.2 L, RDW Std Deviation 47.7 H, RDW Coeff of Porfirio 13.6, Plt Count 193, MPV 11.3, Immature Gran % (Auto) 0.300, Neut % (Auto) 60.0, Lymph % (Auto) 21.3, [place] % (Auto) 15.3 H, Eos % (Auto) 2.7, Baso % (Auto) 0.4, Absolute Neuts (auto) 5.4, Absolute Lymphs (auto) 1.91, Nucleated RBC % 0 09/26/19 15:52: PT 27.1 H, INR 2.5, APTT 33.1 09/26/19 15:52: Sodium 142, Potassium 4.3, Chloride 108 H, Carbon Dioxide 31.0, Anion Gap 3 L, BUN 20 H, Creatinine 1.11 H, Estim Creat Clear Calc 36.65, Est GFR (MDRD) Af Amer 61, Est GFR (MDRD) Non-Af 51 L, BUN/Creatinine Ratio 18.0, Glucose 101, Calcium 8.8, Troponin I < 0.015 09/26/19 15:52: TSH 0.96 09/26/19 20:33: POC Glucose 94 09/27/19 01:11: POC Glucose 92 09/27/19 05:30: PT 28.7 H, INR 2.7 09/27/19 05:30: Sodium 142, Potassium 3.9, Chloride 111 H, Carbon Dioxide 26.0, Anion Gap 5, BUN 15, Creatinine 0.90, Estim Creat Clear Calc 43.30, Est GFR (MDRD) Af Amer 78, Est GFR (MDRD) Non-Af 65, BUN/Creatinine Ratio 16.7, Glucose 86, Calcium 8.4 L, Triglycerides 65, Cholesterol 109, LDL Cholesterol 21, VLDL Cholesterol 13, HDL Cholesterol 75 09/27/19 06:17: POC Glucose 89 09/27/19 11:24: POC Glucose 109 Current Medications Acetaminophen (Tylenol) 500 mg PO Q4H PRN PRN PRN Reason: Pain Score 1-10/10 Aspirin (Aspirin) 300 mg RECTAL DAILY PRN PRN Reason: IF UNABLE TO TAKE PO ASPIRIN Aspirin (Ecotrin) 81 mg PO DAILY@0800 [facility] Last Admin: 09/27/19 11:08 Dose: 81 mg Documented by: Atorvastatin Calcium (Lipitor) 80 mg PO QHS [facility] Last Admin: 09/26/19 21:18 Dose: Not Given Documented by: Furosemide (Lasix) 20 mg PO DAILY [facility] Last Admin: 09/27/19 11:08 Dose: 20 mg Documented by: Glucagon () 1 mg IM .X1 PRN PRN Reason: Hypoglycemia Dextrose (Dextrose 10%-Water) 250 mls @ 999 mls/hr IV .Q16M PRN; Protocol PRN Reason: HYPOGLYCEMIA Morphine Sulfate () 1 mg IV Q3H PRN PRN PRN Reason: Pain Score 6-10/10 Ondansetron HCl (Zofran) 4 mg IV Q6H PRN PRN PRN Reason: NAUSEA Pantoprazole Sodium (Protonix) 20 mg PO DAILY [facility] Last Admin: 09/27/19 11:08 Dose: 20 mg Documented by: Sertraline HCl (Zoloft) 50 mg PO DAILY [facility] Last Admin: 09/27/19 11:08 Dose: 50 mg Documented by: Sodium Chloride () 10 - 40 ml IV UD PRN PRN Reason: SALINE FLUSH Last Admin: 09/26/19 20:47 Dose: 10 ml Documented by: Warfarin Sodium (Coumadin (Pbkc)) 1 mg PO SuTuThSa@1700 [facility] Warfarin Sodium (Coumadin (Pbkc)) 2 mg PO MoWeFr@1700 [facility] Discharge Diet: Low fat/ Low Cholesterol, 2000 mg Sodium Diet Discharge Activity: Return to Normal Activity Home Medications: Medications to take at Discharge Ascorbic Acid [Vitamin C] 500 mg PO DAILY@0800 01/26/16 Acetaminophen [Tylenol] 500 mg PO Q4H PRN PRN #30 tab 06/11/16 Cholecalciferol (Vitamin D3) [Vitamin D3] 1,000 unit PO DAILY 06/11/16 Aspirin [Adult Low Dose Aspirin EC] 81 mg PO DAILY 06/28/17 Isosorbide Mononitrate [Isosorbide Mononitrate ER] 30 mg PO DAILY 06/28/17 furosemide 20 mg tablet 20 mg PO DAILY 09/22/19 hydrocodone 5 mg-acetaminophen 325 mg tablet 1 tab PO Q6H PRN PRN 09/22/19 sertraline 50 mg tablet 50 mg PO DAILY 09/22/19 Atorvastatin Calcium 80 mg PO QHS 09/26/19 Calcium Carbonate/Vitamin D3 [Calcium 600-Vit D3 400 Caplet] 1 tab PO DAILY 09/26/19 Metoprolol Succinate [Toprol Xl] 50 mg PO DAILY 09/26/19 Mv-Min/Iron/Folic/Calcium/Vitk [Women's Multivitamin Tablet] 1 tab PO DAILY 09/26/19 Omeprazole 20 mg PO DAILY 09/26/19 Warfarin [Coumadin] 1 mg PO SUTUTHSA 09/26/19 Warfarin [Coumadin] 2 mg PO MOWEFR 09/26/19 Primary Care Physician: Karen Garcia MD [Primary Care Provider] - Please follow up with your Primary Care Physician in: 1-2 weeks Disposition: Halfway facility Minutes spent on discharge:: 35 Patient Condition:: Stable Medical Necessity - Tobacco Use Smoking Status: Never smoker Tobacco Use: Non-smoker Meaningful Use Info Meaningful Use Diagnoses (Choose all that apply): None applicable
--- NOTE | 2019-09-27 14:40 | CASEMGMT ---
Patient is ready for discharge back to [facility]. DARYL faxed orders to [facility]. Called [facility] and they are going to pick patient up in the next half hour. DARYL notified patient, RN, and left a message for patient's friend listed on the demographics sheet. Plan: d/c back to [facility] under intermediate level of care. [facility] transported patient. Adwoa FIGUEROA MSW
--- NOTE | 2019-09-27 14:58 | NURSING ---
attempted to call report [facility] with no answer, message left to return call.
== END 2019-09-27 14:56 | disposition skilled nursing facility (03) ==
LOC: ED 16:14 → PCU 18:07
PROVIDERS: Physician Assistant; Admitting Provider Internal Medicine; Emergency Provider Emergency Medicine; PCP Internal Medicine; Visit Provider Family Medicine
DX: G45.9 Transient cerebral ischemic attack, unspecified (principal); R53.1 Weakness; H53.8 Other visual disturbances; R29.810 Facial weakness; R41.0 Disorientation, unspecified; I48.0 Paroxysmal atrial fibrillation; K21.9 Gastro-esophageal reflux disease without esophagitis; E78.5 Hyperlipidemia, unspecified; I25.2 Old myocardial infarction; I10 Essential (primary) hypertension; I08.1 Rheumatic disorders of both mitral and tricuspid valves; R47.01 Aphasia; I25.5 Ischemic cardiomyopathy; R29.713 NIHSS score 13; I25.10 Atherosclerotic heart disease of native coronary artery without angina pectoris; I47.1 Supraventricular tachycardia; G89.29 Other chronic pain; Z79.01 Long term (current) use of anticoagulants; Z79.82 Long term (current) use of aspirin; Z79.899 Other long term (current) drug therapy; Z86.718 Personal history of other venous thrombosis and embolism; M19.90 Unspecified osteoarthritis, unspecified site; Z87.11 Personal history of peptic ulcer disease
CPT/HCPCS: 36415; 70450; 70551; 71045; 80048; 80061; 82962; 84443; 84484; 85025; 85610; 85730; 92523; 92610; 93005; 93306; 94762; 96360; 96361; 97802; 99218; 99251; 99285; J7030; A4216; G0378; G0463

== ENCOUNTER 2020-04-27 08:37 | Emergency (ER) | payer MEDICARE, MEDICAID, SELFPAY ==
[2019-09-26 18:14] VITALS: BMI 29.9
[2020-04-27] VITALS (10 sets, daily range): BP systolic 107–130; BP diastolic 64–100; PULSE 78–145; RESP 19–26; TEMP 36.8; O2SAT 89–95; BMI 27.6
--- NOTE | 2020-04-27 08:44 | EKG12_ITS ---
Test Reason : Blood Pressure : / mmHG Vent. Rate : 091 BPM Atrial Rate : 091 BPM P-R Int : 120 ms QRS Dur : 076 ms QT Int : 382 ms P-R-T Axes : 046 009 002 degrees QTc Int : 469 ms Sinus rhythm with Premature supraventricular complexes Nonspecific T wave abnormality Prolonged QT Abnormal ECG Confirmed by SAROJ RODRIGUEZ, ROSELINE ([id number]), editor at large LACEY SANTOS ([id number]) on 04/29/2020 2:00:25 PM Referred By: Confirmed By:ROSELINE KYLE MD
--- NOTE | 2020-04-27 08:45 | ED.DCSUM_ITS ---
- ER Visit Summary Date of Service: 04/27/20 Chief Complaint: Chest pain History of Present Illness: The patient is a 80 F who presents with chest pain. Started when she woke up 2 and half hours ago. She describes a tightness in the left parasternal left chest area. Nothing really makes it worse and aspirin usually makes it better but not today. She does feel short of breath. She has had a recent cough with white sputum. She denies fevers. The pain in her chest radiates to her left arm. She does take Coumadin for paroxysmal A. fib. She lives in a long term and has been getting her medications as prescribed. Physical Examination: Vital signs reviewed. HEENT exam unremarkable. Heart is irregularly irregular without murmurs. Lungs are clear to auscultation but diminished sounds in the bases bilaterally. Abdomen is soft and nontender. Extremities reveal no edema. Peripheral pulses are equal. Skin exam normal. Neurologic exam normal. Test Results: EKG is sinus rhythm with rate of 91. There are nonspecific ST-T wave changes. Chest x-ray shows a right upper lobe infiltrate. White blood cell count normal. Troponin normal. INR 2.2. COVID testing negative. Emergency Department Course and Treatment: The patient was given aspirin by EMS. I gave her nitroglycerin here. Her chest x-ray does show evidence of an infiltrate. I will give her IV Levaquin. She did have an episode of supra ventricular tachycardia with a rate in the 140s. EKG does confirm a supraventricular tachycardia with PVCs. No ischemic changes. The patient self converted without any medications. I took her off oxygen as she was 89% on room air upon arrival. She is now 93 to 94% on room air. She has a DNR comfort care only in place. I feel it be prudent to get her back to the facility. I spoke with Dr. Rao, on-call for Dr. Dawson today. She would agree with this plan. I will give her oral Levaquin to take at the long term. She will follow-up with the physician there Treatment Plan: [] Disposition: Discharge Impression: Chest pain, right upper lobe pneumonia This note was generated with [employer] software. It may contain incorrect words, spelling, and punctuation that were not noted in review of the chart prior to signing ED Disposition - Plan for ED Patient: Disposition: Home or Assisted Living Instructions: ED Chest Pain NonCardiac Prescriptions: Levofloxacin [Levaquin] 750 mg PO DAILY #4 tab Prescription Printed Referrals: Karen Garcia MD [STAFF PHYSICIAN] -
[2020-04-27] MEDS: Nitroglycerin SL (ED/IMG/CATH) 0.4 MG TABLET SUBLINGUAL ×3 (08:59→09:19)
--- NOTE | 2020-04-27 09:00 | RAD_ITS ---
STUDY: X-RAY CHEST REASON FOR EXAM: Female, 80 years old. Chest pain that radiates down lt arm, lt breast. TECHNIQUE: Single AP portable view of the chest. COMPARISON: 09/26/2019 FINDINGS: Alveolar opacity in the upper right lung worrisome for right upper lobe pneumonia. There is no demonstrated pleural abnormality. Normal size heart. Large hiatal hernia. Normal visualized pulmonary arteries. Normal visualized aortic arch and descending thoracic aorta. Normal visualized thoracic spine. Normal visualized ribs, clavicles, and shoulders. There is no demonstrated abnormality of the visualized soft tissue structures of the upper abdomen. RAD/Chest 1 View (Portable) IMPRESSION: Suspect right upper lobe pneumonia. Electronically Signed: Charles Houston MD at 9:19 EDT Tel , Service support ,
[2020-04-27 09:01] LABS: Absolute Lymphocyte Count 2.23 X10^3/uL (0.83-4.51); Absolute Neutrophil Count 5.5 X10^3/uL (2.0-7.7); Basophil# 0.03 X10^3/uL; Basophil% 0.3 % (0-1); Eosinophil# 0.27 X10^3/uL; Eosinophils% 2.9 % (0-5); Hematocrit 41.2 % (37-47); Hemoglobin 13.1 g/dL (12.0-15.0); Lymphocyte # 2.23 X10^3/ul (4.0); Mean Corp Hgb Conc 31.8 g/dL (32-36); Mean Corpuscular Hgb 29.3 pg (27.0-32.0); Mean Corpuscular Volume 92.2 fL (81-99); Mean Platelet Vol. 11.4 fl (6.2-12.0); Monocyte# 1.22 X10^3/uL; Monocyte% 13.1 % (0-10); NRBC Flagged by Analyzer 0 % (0-5); Neutrophil # 5.53 X10^3/uL (2.7-7.7); Neutrophil % 59.5 % (47-70); Platelet Count 190 K/mm3 (150-450); RBC Distribution Width CV 13.5 % (11.6-14.6); RBC Distribution Width SD 46.3 fl (35.1-43.9); Red Blood Count 4.47 M/mm3 (4.2-5.4); White Blood Count 9.3 K/mm3 (4.4-11.0)
[2020-04-27 09:15] LABS: Anion Gap 5 (5-15); BUN 14 mg/dL (7-18); BUN/Creat Ratio 14.2 RATIO (10-20); Calcium,Total 8.7 mg/dL (8.5-10.1); Chloride 110 mmol/L (98-107); Creatinine, Serum 0.99 mg/dL (0.55-1.02); EST Glomerular Filtration Rate 58 mL/min (>60); Est Glom Filt Rate - Afr Amer 70 mL/min (>60); Estimated Creatinine Clearance 38.74 ml/min; Glucose 118 mg/dL (74-106); Potassium 3.6 mmol/L (3.5-5.1); Sodium Level 141 mmol/L (136-145)
[2020-04-27 09:20] LABS: International Normalized Ratio 2.2; Prothrombin Time (Protime)PT. 23.5 SECONDS (11.7-14.9)
[2020-04-27 10:14] LABS: Probe Check PASS; Specimen Processing Control PASS
--- NOTE | 2020-04-27 10:35 | EKG12_ITS ---
Test Reason : REPEAT Blood Pressure : / mmHG Vent. Rate : 142 BPM Atrial Rate : 150 BPM P-R Int : 000 ms QRS Dur : 088 ms QT Int : 314 ms P-R-T Axes : 000 007 -64 degrees QTc Int : 483 ms Supraventricular tachycardia with occasional Premature ventricular complexes Nonspecific ST and T wave abnormality Abnormal ECG Confirmed by SAROJ RODRIGUEZ, ROSELINE ([id number]), acquisitions editor STEFANIE CHARLES ([id number]) on 05/01/2020 8:54:17 AM Referred By: EMELINA Confirmed By:ROSELINE KYLE MD
[2020-04-27] MEDS: levoFLOXacin IV 750 MG/150 ML BAG 100 MG IV (10:51)
--- NOTE | 2020-04-27 11:39 | ED.RN ---
report called to anastasi[facility]. explained that it will be at least an hour before the pt returns, that there is an atb currently infusing and that the pt will return with a prescription to be filled.
== END 2020-04-27 13:05 | disposition home or self-care (01) ==
PROVIDERS: Emergency Provider Emergency Medicine; PCP Family Medicine
DX: R07.9 Chest pain, unspecified (principal); J18.9 Pneumonia, unspecified organism; I48.0 Paroxysmal atrial fibrillation; K21.9 Gastro-esophageal reflux disease without esophagitis; Z79.01 Long term (current) use of anticoagulants; Z79.82 Long term (current) use of aspirin; Z79.899 Other long term (current) drug therapy
CPT/HCPCS: 71045; 80048; 84484; 85025; 85610; 87635; 93005; 94799; 96365; 96366; 99285; J7050; U0003

== ENCOUNTER 2020-07-05 12:19 | Emergency (ER) | payer MEDICARE, MEDICAID, SELFPAY ==
[2020-06-25 10:06] VITALS: BMI 27.6
[2020-07-05 12:20] VITALS: BP 116/61; PULSE 78; RESP 16; TEMP 36.6; O2SAT 94; BMI 29.4
[2020-07-05 12:30] VITALS: BP 112/59; PULSE 74; O2SAT 94
--- NOTE | 2020-07-05 12:44 | EKG12_ITS ---
Test Reason : FALL Blood Pressure : / mmHG Vent. Rate : 072 BPM Atrial Rate : 072 BPM P-R Int : 146 ms QRS Dur : 082 ms QT Int : 390 ms P-R-T Axes : 098 037 010 degrees QTc Int : 427 ms Normal sinus rhythm Normal ECG Confirmed by SAROJ RODRIGUEZ, ROSELINE ([id number]), publications editor RUDOLPH DAVIS ([id number]) on 07/08/2020 2:33:27 PM Referred By: MR Confirmed By:ROSELINE KYLE MD
--- NOTE | 2020-07-05 12:44 | CT_ITS ---
STUDY: CT BRAIN WITHOUT CONTRAST REASON FOR EXAM: Female, 80 years old. LEFT SIDE WEAKNESS,RECENT FALL HX-CVA RADIATION DOSAGE (If Supplied By Facility): CTDIvol = ( 44.99 ) mGy, DLP = ( 779.24 ) mGycm TECHNIQUE: Transaxial CT imaging of the brain was performed without administration of intravenous contrast material. Individualized dose optimization techniques were used for this CT. COMPARISON: Comparison is made with prior study dated 09/18/2019. FINDINGS: Normal soft tissue structures. There is hyperostosis frontalis internus. There is mild cerebral atrophy with widening of the extra-axial spaces and ventricular dilatation. There are areas of decreased attenuation within the white matter tracts of the supratentorial brain, consistent with microvascular disease changes. Normal basal ganglia and thalami. Normal brainstem. Normal cerebellum. There is no intracranial hemorrhage. There are no findings of an acute ischemic infarction. Atherosclerotic calcification of the cavernous portions of the internal carotid arteries bilaterally. Normal visualized paranasal sinuses. CT/Brain/Head without Contrast IMPRESSION: Chronic involutional changes of the brain. Electronically Signed: Zak Eden, at 14:46 EST , Service support ,
[2020-07-05 13:57] VITALS: O2SAT 95
[2020-07-05 14:02] LABS: Absolute Lymphocyte Count 1.94 X10^3/uL (0.83-4.51); Absolute Neutrophil Count 5.7 X10^3/uL (2.0-7.7); Basophil# 0.04 X10^3/uL; Basophil% 0.4 % (0-1); Eosinophil# 0.22 X10^3/uL; Eosinophils% 2.4 % (0-5); Hematocrit 41.8 % (37-47); Hemoglobin 13.1 g/dL (12.0-15.0); Lymphocyte # 1.94 X10^3/ul (4.0); Lymphocyte % 21.6 % (19-41); Mean Corp Hgb Conc 31.3 g/dL (32-36); Mean Corpuscular Hgb 29.6 pg (27.0-32.0); Mean Corpuscular Volume 94.6 fL (81-99); Mean Platelet Vol. 10.8 fl (6.2-12.0); Monocyte# 1.06 X10^3/uL; Monocyte% 11.8 % (0-10); NRBC Flagged by Analyzer 0 % (0-5); Neutrophil % 63.5 % (47-70); Platelet Count 216 K/mm3 (150-450); RBC Distribution Width CV 14.3 % (11.6-14.6); RBC Distribution Width SD 50.1 fl (35.1-43.9); Red Blood Count 4.42 M/mm3 (4.2-5.4)
[2020-07-05 14:12] LABS: International Normalized Ratio 2.2; Prothrombin Time (Protime)PT. 23.6 SECONDS (11.7-14.9)
[2020-07-05 14:13] LABS: Partial Thromboplast Time 32.7 Seconds (24.1-36.2)
[2020-07-05 14:29] LABS: Anion Gap 2 (5-15); BUN 20 mg/dL (7-18); BUN/Creat Ratio 16.9 RATIO (10-20); Calcium,Total 9.1 mg/dL (8.5-10.1); Chloride 108 mmol/L (98-107); Creatinine, Serum 1.18 mg/dL (0.55-1.02); EST Glomerular Filtration Rate 47 mL/min (>60); Est Glom Filt Rate - Afr Amer 57 mL/min (>60); Estimated Creatinine Clearance 31.08 ml/min; Glucose 108 mg/dL (74-106); Sodium Level 141 mmol/L (136-145)
[2020-07-05 14:31] VITALS: BP 112/40; PULSE 70; RESP 18; O2SAT 96
--- NOTE | 2020-07-05 14:46 | ED.DCSUM_ITS ---
History of Present Illness Chief Complaint: Fall Narrative: Patient presenting for evaluation secondary to a fall with some left-sided weakness. Patient has an underlying history of ischemic cardiomyopathy A. fib she is anticoagulated with Coumadin. Patient reports that over the course of the last 2 weeks she has been dealing with some left-sided weakness. Associated with mainly in her arm. Patient has chronic debility and difficulty ambulating and is chronically in a wheelchair. Patient states that today she suffered a fall from her wheelchair. She was trying to readjust so that they could bring her her food tray, and she suffered a low-energy fall where she fell onto her bottom. She denies that she hit her head. There is no loss of consciousness. There was no presyncope associated with this, no chest pain, no shortness of breath. Patient denies any visual changes or speech difficulty. Patient does state that over the course of the last couple of days she has been dealing with intermittent mild epistaxis. This coming from her bilateral nostrils. She has not reported that she has had supratherapeutic INR as recently. Review of systems otherwise negative. Past Medical History - Allergies and Home Meds Allergies/Adverse Reactions: Allergies codeine Adverse Reaction (Verified 06/25/20 10:04) makes my mouth sore Primary Care Physician: Fawad Dawson MD [Primary Care Provider] - Past Medical History: - - Ischemic cardiomyopathy, A. fib, prior history of TIA Surgical History: no surgical history, tonsillectomy, - - Lumpectomy of the breast, eye muscle surgery Lives: Snf Smoking Status: Never smoker Alcohol: None Drugs: None - Family History Maternal Family History: Family History (Last Reviewed 06/25/20 @ 10:26 by Corinne COVINGTON PA) Mother Diabetes Father CAD (coronary artery disease) Brother CAD (coronary artery disease) Family History: Reports: Diabetes Paternal Family History: Family History (Last Reviewed 06/25/20 @ 10:26 by Corinne COVINGTON PA) Mother Diabetes Father CAD (coronary artery disease) Brother CAD (coronary artery disease) Family History: Reports: Cancer Sibling Family History: Family History (Last Reviewed 06/25/20 @ 10:26 by Corinne COVINGTON, PA) Mother Diabetes Father CAD (coronary artery disease) Brother CAD (coronary artery disease) Family History: Reports: DVT Review of Systems All systems negative except as indicated General: Denies: Chills, Fever, Sweats Eyes: Denies: Visual changes - bilaterally, Diplopia ENT: Reports: - - Epistaxis. Denies: Rhinorrhea, Sore throat Cardiovascular: Denies: Chest pain, Palpitations Respiratory: Denies: Dyspnea, Cough, Dyspnea on exertion Gastrointestinal: Denies: Abdominal pain, Nausea, Vomiting, Diarrhea, Melena, Hematochezia Genitourinary: Denies: Dysuria, Hematuria, Frequency Musculoskeletal: Denies: Back pain, Extremity Pain Skin: Denies: Rash, Wounds Neurological: Reports: Weakness Physical Exam Vital Signs/Narrative: Vital Signs Temp Pulse Resp BP Pulse Ox 07/05/20 14:31 70 18 112/40 L 96 07/05/20 13:57 95 07/05/20 12:30 74 112/59 L 94 07/05/20 12:20 97.8 F 78 16 116/61 94 Inital Vital Signs reviewed: Yes General: Well nourished, Well developed, No Acute Distress Head: Normocephalic, Atraumatic Eyes: Perrl, EOMI ENT: Moist mucous membranes, No rhinorrhea, - - No evidence of active bleeding Neck: Supple, Nontender, - - Or range of motion Cardiovascular: Regular rate, Regular rhythm, - - 2+ radial pulses bilaterally symmetric Respiratory: No distress, CTA bilaterally, Chest nontender Abdomen: Soft, Nontender, Nondistended, Normal bowel sounds Back: Nontender, Normal Inspection Extremities: Nontender, No edema Skin: Normal color, No rash Neurological: Alert, Oriented x3, - - NIH stroke scale is 1 secondary to left arm drift Psychological: Normal affect Diagnostic/Tx/Re-eval Clinical Impression(s) from Imaging Studies Brain CT 07/05/20 12:44 IMPRESSION: Chronic involutional changes of the brain. Electronically Signed: Zak Eden, at 14:46 EST , Service support , Laboratory Data 07/05/20 07/05/20 07/05/20 13:53 13:53 13:53 WBC 9.0 RBC 4.42 Hgb 13.1 Hct 41.8 MCV 94.6 MCH 29.6 MCHC 31.3 L RDW Std Deviation 50.1 H RDW Coeff of Porfirio 14.3 Plt Count 216 MPV 10.8 Immature Gran % (Auto) 0.300 Neut % (Auto) 63.5 Lymph % (Auto) 21.6 [place] % (Auto) 11.8 H Eos % (Auto) 2.4 Baso % (Auto) 0.4 Absolute Neuts (auto) 5.7 Absolute Lymphs (auto) 1.94 Nucleated RBC % 0 PT 23.6 H INR 2.2 APTT 32.7 Sodium 141 Potassium 4.0 Chloride 108 H Carbon Dioxide 31.0 Anion Gap 2 L BUN 20 H Creatinine 1.18 H Estim Creat Clear Calc 31.08 Est GFR (MDRD) Af Amer 57 L Est GFR (MDRD) Non-Af 47 L BUN/Creatinine Ratio 16.9 Glucose 108 H Calcium 9.1 Troponin I 0.037 - EKG Initial EKG Interpretation: - - Sinus rhythm at [address] segments, isolated T wave inversion noted in lead III, no other evidence of acute changes. No acute ischemia or arrhythmia. - Medical Decision Making Patient presented secondary to a fall with 2 weeks of left-sided weakness. Work-up was obtained. CT imaging per radiology shows chronic involutional changes, nothing acute. Laboratory work-up was found to be unremarkable, EKG unremarkable. Patient's INR was found to be therapeutic. Patient is DNR comfort care. She does have a mild amount of left-sided weakness she was in the hospital around a year ago with a full stroke work-up and she is on maximal medical therapy with Coumadin. I do not feel that she requires admission at this time. Patient will follow-up with primary care. Patient was discharged in stable condition. ED Disposition - Plan for ED Patient: Disposition: Home or Assisted Living Diagnosis: Left-sided weakness Instructions: ED Weakness [facility] Referrals: Fawad Dawson MD [Primary Care Provider] - As soon as possible
[2020-07-05 15:37] VITALS: BP 113/61; PULSE 67; RESP 16; O2SAT 96
[2020-07-05 16:09] VITALS: BP 113/61; PULSE 68; RESP 16; O2SAT 95
== END 2020-07-05 17:03 | disposition home or self-care (01) ==
PROVIDERS: Emergency Provider Emergency Medicine; PCP Family Medicine
DX: R53.1 Weakness (principal); R26.2 Difficulty in walking, not elsewhere classified; R53.81 Other malaise; W05.0XXA Fall from non-moving wheelchair, initial encounter; I48.91 Unspecified atrial fibrillation; I25.5 Ischemic cardiomyopathy; Z79.01 Long term (current) use of anticoagulants; Z79.82 Long term (current) use of aspirin; Z79.899 Other long term (current) drug therapy; Z86.73 Personal history of transient ischemic attack (TIA), and cerebral infarction without residual deficits
CPT/HCPCS: 70450; 80048; 84484; 85025; 85610; 85730; 93005; 99285

== ENCOUNTER 2020-07-26 05:29 | Inpatient (IN) | payer MEDICARE, MEDICAID, SELFPAY ==
[2020-07-26] VITALS (19 sets, daily range): BP systolic 88–129; BP diastolic 35–101; PULSE 86–137; RESP 16–20; TEMP 36.3–37.2; O2SAT 93–97; BMI 29.2; BMI 28.1; BMI 28.2
--- NOTE | 2020-07-26 05:45 | EKG12_ITS ---
Test Reason : DYSRHYTHMIA Blood Pressure : / mmHG Vent. Rate : 130 BPM Atrial Rate : 130 BPM P-R Int : 160 ms QRS Dur : 078 ms QT Int : 318 ms P-R-T Axes : 000 050 -55 degrees QTc Int : [address] & T wave abnormality, consider inferior ischemia Abnormal ECG Confirmed by RAUL RODRIGUEZ, LIZZETTE ([id number]), editorial assistant LACEY SANTOS ([id number]) on 07/30/2020 9:06:52 AM Referred By: Confirmed By:LIZZETTE CARTER MD
--- NOTE | 2020-07-26 05:48 | ED.DCSUM_ITS ---
- ER Visit Summary Date of Service: 07/26/20 Chief Complaint: Black stool History of Present Illness: The patient is a 80 F presenting with black stool. She states she has had multiple bowel movements in the past 24 hours that have been loose black stool. She had nausea and vomiting as well. She denies blood in her emesis. Denies abdominal pain. She states she feels mildly short of breath with cough. She has had lightheadedness with no syncope. She denies chest pain. Denies fever. Denies other complaints. She is on Coumadin for history of A. fib. Physical Examination: Blood pressure 88/74, temperature 97.6, heart rate 132, respiratory rate 18. Pulse ox 94% on room air. Alert no acute distress. HEENT exam pale conjunctive Neck is supple. Lungs are clear and equal bilaterally. Heart is irregular tachycardic Abdomen is soft nontender nondistended. No guarding or rebound Extremities are unremarkable. Skin is warm and dry. No focal neurologic deficit. Remainder of exam is unremarkable. Emergency Department Course and Treatment: Patient was given IV fluids. EKG is sinus tachycardia rate of [address] depression inferior laterally. CBC shows white count 11.6, hemoglobin 8.5, previous hemoglobin 13.1. BUN 55. INR 1.9. Troponin 0.09. Stool positive for occult blood. She was typed and crossed for 2 units PRBC. Her Covid is negative. She is given Protonix IV. Discussed with Dr Keene and hospitalist for admission. Disposition: Admission Impression: GI bleed This note was generated with [employer] dictation software. It may contain incorrect words, spelling, and punctuation that were not noted in review of the chart prior to signing ED Disposition - Plan for ED Patient: Referrals: Fawad Dawson MD [Primary Care Provider] -
[2020-07-26] MEDS: 0.9% Normal Saline 1,000 ML 1000 ML IV (05:57)
[2020-07-26 06:07] LABS: Absolute Lymphocyte Count 1.95 X10^3/uL (0.83-4.51); Absolute Neutrophil Count 8.2 X10^3/uL (2.0-7.7); Basophil# 0.03 X10^3/uL; Basophil% 0.3 % (0-1); Eosinophil# 0.16 X10^3/uL; Eosinophils% 1.4 % (0-5); Hematocrit 28.5 % (37-47); Hemoglobin 8.5 g/dL (12.0-15.0); Lymphocyte # 1.95 X10^3/ul (4.0); Lymphocyte % 16.8 % (19-41); Mean Corp Hgb Conc 29.8 g/dL (32-36); Mean Corpuscular Hgb 29.3 pg (27.0-32.0); Mean Corpuscular Volume 98.3 fL (81-99); Mean Platelet Vol. 10.6 fl (6.2-12.0); Monocyte# 1.24 X10^3/uL; Monocyte% 10.7 % (0-10); NRBC Flagged by Analyzer 0 % (0-5); Neutrophil # 8.22 X10^3/uL (2.7-7.7); Neutrophil % 70.5 % (47-70); Platelet Count 235 K/mm3 (150-450); RBC Distribution Width CV 14.4 % (11.6-14.6); RBC Distribution Width SD 51.8 fl (35.1-43.9); White Blood Count 11.6 K/mm3 (4.4-11.0)
[2020-07-26 06:30] LABS: International Normalized Ratio 1.9; Prothrombin Time (Protime)PT. 21.6 SECONDS (11.7-14.9)
[2020-07-26 06:39] LABS: ALB/GLOB Ratio 0.7 RATIO (0.9-2.4); AST(SGOT) 25 U/L (15-37); Alanine Aminotransfer ALT/SGPT 27 U/L (13-56); Albumin, Serum 2.5 g/dL (3.2-5.0); Alkaline Phosphatase 47 U/L (45-117); Anion Gap 5 (5-15); BUN 55 mg/dL (7-18); BUN/Creat Ratio 56.1 RATIO (10-20); Calcium,Total 8.5 mg/dL (8.5-10.1); Chloride 112 mmol/L (98-107); Creatinine, Serum 0.98 mg/dL (0.55-1.02); EST Glomerular Filtration Rate 58 mL/min (>60); Est Glom Filt Rate - Afr Amer 70 mL/min (>60); Estimated Creatinine Clearance 39.14 ml/min; Globulin 3.4 g/dL (2.2-4.2); Glucose 102 mg/dL (74-106); Potassium 5.1 mmol/L (3.5-5.1); Protein, Total 5.9 g/dL (6.4-8.2); Sodium Level 143 mmol/L (136-145)
[2020-07-26] MEDS: Ondansetron 4 MG/2 ML Vial IV (07:51)
--- NOTE | 2020-07-26 07:53 | PCM.HP.STD ---
Problem List (1) GI bleed Status: Acute Qualifiers: GI bleed type/associated pathology: anorectal hemorrhage Qualified Code(s): K62.5 - Hemorrhage of anus and rectum (2) Acute blood loss anemia Status: Acute (3) CVA (cerebral vascular accident) Status: Chronic Qualifiers: CVA mechanism: unspecified Qualified Code(s): I63.9 - Cerebral infarction, unspecified (4) Left knee pain Status: Chronic Qualifiers: Chronicity: chronic Qualified Code(s): M25.562 - Pain in left knee; G89.29 - Other chronic pain (5) Debility Status: Chronic (6) Pure hypercholesterolemia Status: Chronic (7) General weakness Status: Chronic (8) Ischemic cardiomyopathy Status: Chronic (9) Paroxysmal atrial fibrillation Status: Chronic (10) Diastolic dysfunction Status: Chronic (11) 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 Qualifiers: (12) Failure to thrive Status: Resolved Qualifiers: Failure to thrive age range: in adult Qualified Code(s): R62.7 - Adult failure to thrive (13) Syncope Status: Inactive Qualifiers: Syncope type: unspecified Qualified Code(s): R55 - Syncope and collapse (14) Dizziness, nonspecific Status: Chronic (15) Peptic ulcer Status: Chronic (16) Osteoporosis Status: Chronic (17) SVT (supraventricular tachycardia) Status: Chronic (18) NSTEMI (non-ST elevated myocardial infarction) Status: Resolved (19) Angina pectoris Status: Resolved (20) Osteoarthritis Status: Chronic (21) Coagulopathy Status: Chronic (22) Vertebral compression fracture Status: Resolved History of Present Illness Date of Admission: 07/26/20 Chief Complaint: melena The patient is a 80 year old F presents with black stool. Began yesterday patient has had 3 episodes. Last episode was around 5 AM. Wound was noted to be 8.5, back on July 05, hemoglobin was 13.1. Patient denies any abdominal pain, is feeling chilled. She does have a chronic shortness of breath but unchanged. Patient was checked for COVID-19 here and was negative. Patient is on warfarin and her INR was 1.9. Patient was ordered 2 units of packed red blood cells. Dr. Keene, general surgery, was contacted to the emergency room and would agree to see patient on consult. Patient was hypotensive in the emergency room but did respond to IV fluids. Patient does have a history of paroxysmal atrial fibrillation and has not yet taken her medications today. Patient denies any consumption of NSAIDs. [] Past Medical History Past Medical History (Chronic Problems): Chronic Problems (Last Reviewed 06/25/20 @ 10:26 by Corinne Hollis PA, PA) CVA (cerebral vascular accident) (Chronic) Left knee pain (Chronic) Debility (Chronic) Pure hypercholesterolemia (Chronic) General weakness (Chronic) Ischemic cardiomyopathy (Chronic) Paroxysmal atrial fibrillation (Chronic) Diastolic dysfunction (Chronic) Dizziness, nonspecific (Chronic) Peptic ulcer (Chronic) Osteoporosis (Chronic) SVT (supraventricular tachycardia) (Chronic) Osteoarthritis (Chronic) Coagulopathy (Chronic) Medical History: Medical History (Last Reviewed 07/26/20 @ 07:[address] Issa Holliday, DO) Pure hypercholesterolemia (Chronic) E78.00 Ischemic cardiomyopathy (Chronic) I25.5 Paroxysmal atrial fibrillation (Chronic) I48.0 Diastolic dysfunction (Chronic) I51.9 Atherosclerotic heart disease of [place] coronary artery without angina pectoris (Resolved) I25.10 Failure to thrive (Resolved) [id number] Syncope (Resolved) R55 Dizziness, nonspecific (Chronic) R42 Peptic ulcer (Chronic) K27.9 Osteoporosis (Chronic) M81.0 SVT (supraventricular tachycardia) (Chronic) I47.1 NSTEMI (non-ST elevated myocardial infarction) (Resolved) I21.4 Angina pectoris (Resolved) I20.9 Osteoarthritis (Chronic) M19.90 Coagulopathy (Chronic) Vertebral compression fracture (Resolved) M48.50XA History of urinary calculi Z87.442 History of venous thromboembolism Z86.718 Acute embolism and thrombosis of vein (Resolved) I82.90 Hematoma and contusion (Resolved) T14.8 Allergies codeine Adverse Reaction (Verified 07/26/20 05:30) makes my mouth sore Home Medications: Ambulatory Orders Medication Instructions Recorded Ascorbic Acid [Vitamin C] 500 mg PO DAILY@0800 01/26/16 Acetaminophen [Tylenol] 500 mg PO Q4H PRN PRN #30 tab 06/11/16 Aspirin [Adult Low Dose Aspirin EC] 81 mg PO DAILY 06/28/17 Isosorbide Mononitrate [Isosorbide 30 mg PO DAILY 06/28/17 Mononitrate ER] furosemide 20 mg tablet 20 mg PO DAILY 09/22/19 sertraline 50 mg tablet 50 mg PO DAILY 09/22/19 Atorvastatin Calcium 80 mg PO QHS 09/26/19 Calcium Carbonate/Vitamin D3 1 tab PO DAILY 09/26/19 [Calcium 600-Vit D3 400 Caplet] Metoprolol Succinate [Toprol Xl] 50 mg PO BID 09/26/19 Mv-Min/Iron/Folic/Calcium/Vitk 1 tab PO DAILY 09/26/19 [Women's Multivitamin Tablet] Omeprazole 20 mg PO DAILY 09/26/19 Warfarin [Coumadin] 1 mg PO SUMOWEFRSA 09/26/19 bisacodyl 10 mg rectal suppository 10 mg RC DAILY PRN 05/03/20 Lactobacillus Rhamnosus GG 1 ea PO BID 07/26/20 [Culturelle] Nitroglycerin 0.4 mg SL PRN PRN 07/26/20 Warfarin [Coumadin ([facility])] 1.5 mg PO TUTH 07/26/20 Surgical History: Surgical History (Last Reviewed 07/26/20 @ 07:[address] 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 Issa Holliday DO) Mother Diabetes Father CAD (coronary artery disease) Brother CAD (coronary artery disease) History Items: Diabetes Paternal Family History: Family History (Last Reviewed 07/26/20 @ 07:[address] Issa Holliday DO) Mother Diabetes Father CAD (coronary artery disease) Brother CAD (coronary artery disease) History Items: Cancer Sibling Family History: Family History (Last Reviewed 07/26/20 @ 07:[address] Issa Holliday DO) Mother Diabetes Father CAD (coronary artery disease) Brother CAD (coronary artery disease) History Items: DVT Review of Systems Constitutional: Denies: Anorexia, Night Sweats Eyes: Denies: Blurred vision, Double vision HEENT: Denies: Head Aches, Sinus Congestion, Sinus Drainage Cardiovascular: Denies: Chest Pain, Palpitations Respiratory: Reports: Cough - chronic, Shortness of Breath - chronic. Denies: Sputum production Gastrointestinal: Reports: Nausea, Melena. Denies: Abdominal Pain, Hematemesis, Hematochezia, Vomiting Genitourinary: Denies: Hematuria Musculoskeletal: Denies: Joint Pain, Joint Tenderness Skin: Denies: Rash, Wounds Hematologic/ Lymphatic: Reports: Easy Bruising, Hx of blood clot Comment: Patient also has a chronic debility and history of recurrent falls which is why she resides in a shelter. All review of systems were negative except as mentioned above in the history of present illness and the other review of systems. VTE Information - Inpt Only VTE Present on Admission: No VTE Mechan Device Prophylaxis: SCD's VTE Pharm Prophylaxis ordered?: No Reason prophylaxis not ordered:: Medical Contraindication - Physical Exam Vitals/I&O's: Vital Signs Temp Pulse Resp BP Pulse Ox 36.6 C 133 H 20 H 116/101 H 97 07/26/20 07:09 07/26/20 07:09 07/26/20 07:09 07/26/20 07:09 07/26/20 07:09 Oxygen Delivery Method Room Air Weight: 74.8 kg Body Mass Index (BMI) 29.2 Finger Stick Blood Glucose 108 Intake and Output for Last 24 Hours 07/24/20 07/25/20 07/26/20 23:59 23:59 23:59 Intake Total 1000 / 1000 Balance 1000 / 1000 General: Alert, Cooperative, No apparent distress, - - pale HEENT: Atraumatic, Normocephalic, - - no icterus Oral: Moist Mucosa, No Gingival or Mucosal Lesions/ Ulcerations Neck: No Nodes, Thyroid Normal Size and Texture Lungs: Clear to auscultation, Normal air movement, No rhonchi, No wheeze, No rales Cardiovascular: Regular rate, Regular Rhythm, Normal S1, Normal S2, No murmurs Abdomen: Bowel Sounds Present, Soft, Non Tender, Non-Distended, No Hepato-splenomegaly Extremities: No edema, No Calf Tenderness Skin: No rashes, No breakdown Musculoskeletal: No Tenderness to Palpation of Joints or Extremities, No Muscle Wasting Neurological: Muscle tone normal, - - no clonus Psych/Mental Status: Normal Affect, Appropriate Microbiology Past 72 Hours 07/26/20 05:55 Mucosa - Nose SARS-CoV-2 Antigen (Rapid) - Final 07/26/20 05:50 Stool Stool Occult Blood (PHAM) - Final Occult Blood Positive Laboratory Results 07/26/20 05:50: Crossmatch See Detail 07/26/20 05:55: WBC 11.6 H, RBC 2.90 L, Hgb 8.5 L, Hct 28.5 L, MCV 98.3, MCH 29.3, MCHC 29.8 L, RDW Std Deviation 51.8 H, RDW Coeff of Porfirio 14.4, Plt Count 235, MPV 10.6, Immature Gran % (Auto) 0.300, Neut % (Auto) 70.5 H, Lymph % (Auto) 16.8 L, [place] % (Auto) 10.7 H, Eos % (Auto) 1.4, Baso % (Auto) 0.3, Absolute Neuts (auto) 8.2 H, Absolute Lymphs (auto) 1.95, Nucleated RBC % 0 07/26/20 05:55: PT 21.6 H, INR 1.9 07/26/20 05:55: Sodium 143, Potassium 5.1, Chloride 112 H, Carbon Dioxide 26.0, Anion Gap 5, BUN 55 H, Creatinine 0.98, Estim Creat Clear Calc 39.14, Est GFR (MDRD) Af Amer 70, Est GFR (MDRD) Non-Af 58 L, BUN/Creatinine Ratio 56.1 H, Glucose 102, Calcium 8.5, Total Bilirubin 0.60, AST 25, ALT 27, Alkaline Phosphatase 47, Troponin I 0.090 H, Total Protein 5.9 L, Albumin 2.5 L, Globulin 3.4, Albumin/Globulin Ratio 0.7 L 07/26/20 05:55: Blood Type A POSITIVE, Antibody Screen NEGATIVE Assessment/Plan All Active Problems (Last Reviewed 06/25/20 @ 10:26 by Corinne Hollis PA, PA) GI bleed (Acute) Acute blood loss anemia (Acute) Atherosclerotic heart disease of [place] coronary artery without angina pectoris (Resolved) Failure to thrive (Resolved) NSTEMI (non-ST elevated myocardial infarction) (Resolved) Angina pectoris (Resolved) Vertebral compression fracture (Resolved) Acute embolism and thrombosis of vein (Resolved) Hematoma and contusion (Resolved) UTI (Resolved) 1. GI bleed: Has not had any since 5 AM with a melena. Patient does have a known history of peptic ulcer disease which could be recurrent but complicated by the patient's warfarin usage. INR was slightly subtherapeutic at 1.9. Given her coagulopathy, will give the patient 5 mg of vitamin K. Patient has already been started on pantoprazole IV and will continue with bolus dosing for now. General surgery on consultation and anticipate endoscopy with EGD at the minimum. 2. Acute blood loss anemia: Patient 1 from 13-8.5 within the month. Likely secondary to the acute GI bleed that she has sustained. Patient ordered 2 units of packed red blood cells in the emergency room. Will only transfuse 1 and monitor. We will cycle her H&H every 6 hours and transfuse additional as necessary. Goal hemoglobin would be above 8. 3. Coagulopathy: Secondary to warfarin. Vitamin K. 4. Likely exacerbated due to the GI bleed. Patient to resume her metoprolol succinate. Will have additional IV metoprolol as needed. 5. VTE prophylaxis: SCDs as chemical prophylaxis contraindicated in light of acute hemorrhage. 6 advanced care planning: At the patient's shelter she is DNR comfort care. Clarify with patient that she is not hospice. Specified more specifically if she would want CPR or intubation if this became necessary to which she said that she would not. Therefore I feel a more appropriate DNR status is DNR Comfort Care arrest no intubation and that is what she will be during this hospitalization. Inpatient E&M: [id number] Init Hosp L3
[2020-07-26] MEDS: Metoprolol(XL)Succ 50 MG Tablet PO (09:23)
[2020-07-26] MEDS: Acetaminophen 325 MG Tablet 650 MG PO (09:23)
--- NOTE | 2020-07-26 10:13 | PCM.CONS.GEN ---
Reason for Consult Date of Consultation: 07/26/20 History of Present Illness: The patient is a 80 year old F presented to the ER from assisted due to melena and was initially hypotensive did respond with fluids. Patient heart rate was also in the 130s patient also has A. fib. Patient was found to have a hemoglobin of 8.1 on admit prior to that was 13. Patient reports melanotic stools since yesterday. Patient denies ever having this in the past. Patient also denies any family history of colon cancer or previous EGD or colonoscopy. Patient denies any chronic abdominal pain nausea or vomiting. Patient was started on Protonix IV in the ER and is continued on the floor. Patient got 1 unit packed red blood cells and repeat hemoglobin scheduled. Past Medical History Past Medical History (Chronic Problems): Chronic Problems (Last Reviewed 07/26/20 @ 07:[address] Issa Holliday DO) CVA (cerebral vascular accident) (Chronic) Left knee pain (Chronic) Debility (Chronic) Pure hypercholesterolemia (Chronic) General weakness (Chronic) Ischemic cardiomyopathy (Chronic) Paroxysmal atrial fibrillation (Chronic) Diastolic dysfunction (Chronic) Dizziness, nonspecific (Chronic) Peptic ulcer (Chronic) Osteoporosis (Chronic) SVT (supraventricular tachycardia) (Chronic) Osteoarthritis (Chronic) Coagulopathy (Chronic) Medical History: Medical History (Last Reviewed 07/26/20 @ 07:[address] 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) I25.10 Failure to thrive (Resolved) [id number] Dizziness, nonspecific (Chronic) R42 Peptic ulcer (Chronic) K27.9 Osteoporosis (Chronic) M81.0 SVT (supraventricular tachycardia) (Chronic) I47.1 NSTEMI (non-ST elevated myocardial infarction) (Resolved) I21.4 Angina pectoris (Resolved) I20.9 Osteoarthritis (Chronic) M19.90 Coagulopathy (Chronic) Vertebral compression fracture (Resolved) M48.50XA Syncope (Inactive) R55 History of urinary calculi Z87.442 History of venous thromboembolism Z86.718 Acute embolism and thrombosis of vein (Resolved) I82.90 Hematoma and contusion (Resolved) T14.8 Allergies codeine Adverse Reaction (Verified 07/26/20 05:30) makes my mouth sore Home Medications: Ambulatory Orders Medication Instructions Recorded Ascorbic Acid [Vitamin C] 500 mg PO DAILY@0800 01/26/16 Acetaminophen [Tylenol] 500 mg PO Q4H PRN PRN #30 tab 06/11/16 Aspirin [Adult Low Dose Aspirin EC] 81 mg PO DAILY 06/28/17 Isosorbide Mononitrate [Isosorbide 30 mg PO DAILY 06/28/17 Mononitrate ER] furosemide 20 mg tablet 20 mg PO DAILY 09/22/19 sertraline 50 mg tablet 50 mg PO DAILY 09/22/19 Atorvastatin Calcium 80 mg PO QHS 09/26/19 Calcium Carbonate/Vitamin D3 1 tab PO DAILY 09/26/19 [Calcium 600-Vit D3 400 Caplet] Metoprolol Succinate [Toprol Xl] 50 mg PO BID 09/26/19 Mv-Min/Iron/Folic/Calcium/Vitk 1 tab PO DAILY 09/26/19 [Women's Multivitamin Tablet] Omeprazole 20 mg PO DAILY 09/26/19 Warfarin [Coumadin] 1 mg PO SUMOWEFRSA 09/26/19 Lactobacillus Rhamnosus GG 1 ea PO BID 07/26/20 [Culturelle] Nitroglycerin 0.4 mg SL PRN PRN 07/26/20 Warfarin [Coumadin (PBKC)] 1.5 mg PO TUTH 07/26/20 Surgical History: Surgical History (Last Reviewed 07/26/20 @ 07:[address] Issa Holliday DO) H/O eye surgery Z98.890 H/O lumpectomy Z98.890 breast History of tonsillectomy Z90.89 Surgical History: tonsillectomy, - - Lumpectomy of the breast, eye muscle surgery Psychiatric History: No pertinent psych hx [employer] History: No pertinent [employer] history Smoking Status: Never smoker - *Family History Maternal Family History: Family History (Last Reviewed 07/26/20 @ 07:[address] Issa Holliday DO) Mother Diabetes Father CAD (coronary artery disease) Brother CAD (coronary artery disease) History Items: Diabetes Paternal Family History: Family History (Last Reviewed 07/26/20 @ 07:[address] Issa Holliday DO) Mother Diabetes Father CAD (coronary artery disease) Brother CAD (coronary artery disease) History Items: Cancer Sibling Family History: Family History (Last Reviewed 07/26/20 @ 07:[address] Issa Holliday DO) Mother Diabetes Father CAD (coronary artery disease) Brother CAD (coronary artery disease) History Items: DVT Review of Systems Constitutional: Denies: Anorexia Eyes: Denies: Blurred vision HEENT: Denies: Difficulty Swallowing Cardiovascular: Denies: Chest Pain Respiratory: Denies: Cough Gastrointestinal: Reports: Melena. Denies: Abdominal Pain, Nausea, Vomiting Genitourinary: Denies: Dysuria Skin: Denies: Jaundice Neurological: Denies: Confusion Psychiatric: Denies: Depression Hematologic/ Lymphatic: Reports: Hx of blood clot Patient Problems: Active and Suspected Problems (Last Reviewed 07/26/20 @ 07:[address] Issa Holliday DO) GI bleed (Acute) Acute blood loss anemia (Acute) - Physical Exam Vitals/I&O's: Vital Signs Temp Pulse Resp BP Pulse Ox 98.4 F 133 H 20 H 123/85 H 94 07/26/20 09:17 07/26/20 09:24 07/26/20 09:17 07/26/20 09:17 07/26/20 09:17 Oxygen Delivery Method Room Air Weight: 158 lb 15.253 oz Body Mass Index (BMI) 28.1 Finger Stick Blood Glucose 108 Intake and Output for Last 24 Hours 07/24/20 07/25/20 07/26/20 23:59 23:59 23:59 Intake Total 1025 / 1025 Balance 1025 / 1025 General: Alert, Oriented x3, Cooperative, No apparent distress HEENT: Atraumatic Lungs: Normal air movement Cardiovascular: Regular rate Abdomen: Soft, Non Tender, Non-Distended, - - Rectal inspection did show melanotic stool Extremities: No clubbing, No cyanosis Neurological: Cranial nerves II-XII grossly intact Psych/Mental Status: Normal Affect Microbiology Past 72 Hours 07/26/20 05:55 Mucosa - Nose SARS-CoV-2 Antigen (Rapid) - Final 07/26/20 05:50 Stool Stool Occult Blood (PHAM) - Final Occult Blood Positive Laboratory Results 07/26/20 05:50: Crossmatch See Detail 07/26/20 05:55: WBC 11.6 H, RBC 2.90 L, Hgb 8.5 L, Hct 28.5 L, MCV 98.3, MCH 29.3, MCHC 29.8 L, RDW Std Deviation 51.8 H, RDW Coeff of Porfirio 14.4, Plt Count 235, MPV 10.6, Immature Gran % (Auto) 0.300, Neut % (Auto) 70.5 H, Lymph % (Auto) 16.8 L, Cochran % (Auto) 10.7 H, Eos % (Auto) 1.4, Baso % (Auto) 0.3, Absolute Neuts (auto) 8.2 H, Absolute Lymphs (auto) 1.95, Nucleated RBC % 0 07/26/20 05:55: PT 21.6 H, INR 1.9 07/26/20 05:55: Sodium 143, Potassium 5.1, Chloride 112 H, Carbon Dioxide 26.0, Anion Gap 5, BUN 55 H, Creatinine 0.98, Estim Creat Clear Calc 39.14, Est GFR (MDRD) Af Amer 70, Est GFR (MDRD) Non-Af 58 L, BUN/Creatinine Ratio 56.1 H, Glucose 102, Calcium 8.5, Total Bilirubin 0.60, AST 25, ALT 27, Alkaline Phosphatase 47, Troponin I 0.090 H, Total Protein 5.9 L, Albumin 2.5 L, Globulin 3.4, Albumin/Globulin Ratio 0.7 L 07/26/20 05:55: Blood Type A POSITIVE, Antibody Screen NEGATIVE Current Medications Acetaminophen (Acetaminophen 325 Mg Tablet) 650 mg PO Q6H PRN PRN PRN Reason: Pain Score 1-10/Temp > 100.7 F Last Admin: 07/26/20 09:23 Dose: 650 mg Documented by: Pantoprazole Sodium 40 mg/ (Sodium Chloride) 110 mls @ 330 mls/hr IV Q12 STANISLAW Sodium Chloride () 500 mls @ 15 mls/hr IV PRN PRN PRN Reason: Blood Transfusion Sodium Chloride () 250 mls @ 15 mls/hr IV .[id number] PRN PRN Reason: Saline Flush Sodium Chloride () 250 mls @ 15 mls/hr IV .[id number] PRN PRN Reason: Additional IVPB Infusion Metoprolol Succinate (Metoprolol(Xl)Succ 50 Mg Tablet) 50 mg PO BID STANISLAW Last Admin: 07/26/20 09:23 Dose: 50 mg Documented by: Metoprolol Tartrate (Metoprolol Tartrate 5 Mg/5 Ml Vial) 5 mg IV Q6H PRN PRN PRN Reason: HR greater than 120 Ondansetron HCl (Ondansetron 4 Mg/2 Ml Vial) 4 mg IV Q8H PRN PRN PRN Reason: NAUSEA/VOMITING Sodium Chloride (0.9% Saline Lock 10 Ml Syringe) 10 - 40 ml IV UD PRN PRN Reason: SALINE FLUSH Assessment/Plan All Active Problems (Last Reviewed 07/26/20 @ 07:[address] 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 Patient got 1 unit packed red blood cells hemoglobin was low 8 on admit, recheck pending. Patient's INR on admit was 1.9 she did receive some vitamin K. Plan to do an EGD tomorrow 8 AM. Discussed procedure with patient she was agreeable to proceed. Also discussed with patient that if better not finding of an EGD would plan for colonoscopy?patient states she has never had a colonoscopy. Continue Protonix IV. I have discussed the above with the patient. I have offered the patient EGD for evaluation. I have explained the risks/benefits of the procedure and described the procedure. I have discussed the risks with the patient, including but not limited to: infection, bleeding, perforation of the GI tract requiring emergency surgery, inability to complete the procedure, injury to any internal organs, complications of anesthesia, etc. - the patient understands and agrees to proceed. I have answered all the patient's questions to the patient's satisfaction and the patient has no further questions. Shruthi Keene M.D. Pager: [phone] [facility] [address] [place] [address], [address] [place] [address] Office: [phone] Procedure Criteria Procedure Type: Elective COVID Risk Discussion: The surgeon/proceduralist and patient have discussed in detail the risk of exposure to and/or potential harm posed by the COVID-19 virus with having a surgery/procedure at this time versus the risk of delaying the surgery/procedure. It is not possible to know either the risk of delaying the surgery or procedure or chance of getting an infection with perfect accuracy, but a joint decision was made between the patient and the surgeon/proceduralist to proceed at this time with the scheduled surgery/procedure as indicated on the consent form. Inpatient E&M: 11383 Init Hosp L3
[2020-07-26] MEDS: Phytonadione (Vit K1) 5 MG TABLET PO (10:22)
--- NOTE | 2020-07-26 12:02 | CASEMGMT ---
DARYL reviewed chart, pt is here from [facility]. DARYL called [facility], spoke w/Josee in admissions. She confirms pt is a shelter resident, precert not needed for her to return as it is waived at this time due to the COVID pandemic. DARYL faxed updates to Josee. Pt will need a negative COVID test within 72 hours of discharge. DARYL spoke w/pt, confirmed w/her the plan is for her to return to [facility] at discharge. Green sheet along with COVID form and transport forms placed on chart in event pt can discharge on the weekend. KAITLYNN Blanco
--- NOTE | 2020-07-26 12:05 | CASEMGMT ---
LW/POA forms scanned into summary tab of [facility] is listed as pt's POA for Healthcare. KAITLYNN Blanco
[2020-07-26 12:06] LABS: Hematocrit 29.7 % (37-47); Hemoglobin 9.1 g/dL (12.0-15.0); Mean Corp Hgb Conc 30.6 g/dL (32-36); Mean Corpuscular Hgb 29.8 pg (27.0-32.0); Mean Corpuscular Volume 97.4 fL (81-99); Platelet Count 201 K/mm3 (150-450); RBC Distribution Width CV 14.4 % (11.6-14.6); RBC Distribution Width SD 50.6 fl (35.1-43.9); Red Blood Count 3.05 M/mm3 (4.2-5.4); White Blood Count 12.2 K/mm3 (4.4-11.0)
[2020-07-26] MEDS: 0.9% Saline Lock 10 ML Syringe IV ×2 (13:26→21:05)
[2020-07-26] MEDS: Metoprolol Tartrate 5 MG/5 ML Vial IV (13:26)
[2020-07-26 15:27] LABS: Hematocrit 27.9 % (37-47); Hemoglobin 8.8 g/dL (12.0-15.0); Mean Corp Hgb Conc 31.5 g/dL (32-36); Mean Corpuscular Hgb 29.9 pg (27.0-32.0); Mean Corpuscular Volume 94.9 fL (81-99); Mean Platelet Vol. 10.6 fl (6.2-12.0); Platelet Count 188 K/mm3 (150-450); RBC Distribution Width CV 14.4 % (11.6-14.6); RBC Distribution Width SD 49.5 fl (35.1-43.9); Red Blood Count 2.94 M/mm3 (4.2-5.4); White Blood Count 11.5 K/mm3 (4.4-11.0)
[2020-07-26 21:15] LABS: Hematocrit 27.2 % (37-47); Hemoglobin 8.6 g/dL (12.0-15.0); Mean Corp Hgb Conc 31.6 g/dL (32-36); Mean Corpuscular Hgb 29.8 pg (27.0-32.0); Mean Corpuscular Volume 94.1 fL (81-99); Mean Platelet Vol. 10.6 fl (6.2-12.0); Platelet Count 199 K/mm3 (150-450); RBC Distribution Width CV 14.6 % (11.6-14.6); RBC Distribution Width SD 50.3 fl (35.1-43.9); Red Blood Count 2.89 M/mm3 (4.2-5.4); White Blood Count 9.8 K/mm3 (4.4-11.0)
[2020-07-27] VITALS (25 sets, daily range): BP systolic 101–129; BP diastolic 43–77; PULSE 72–136; RESP 16–22; TEMP 36.2–37; O2SAT 93–99
[2020-07-27 07:10] LABS: Anion Gap 5 (5-15); BUN 39 mg/dL (7-18); BUN/Creat Ratio 39.8 RATIO (10-20); Calcium,Total 8.1 mg/dL (8.5-10.1); Chloride 115 mmol/L (98-107); Creatinine, Serum 0.98 mg/dL (0.55-1.02); EST Glomerular Filtration Rate 58 mL/min (>60); Est Glom Filt Rate - Afr Amer 71 mL/min (>60); Estimated Creatinine Clearance 39.14 ml/min; Glucose 84 mg/dL (74-106); International Normalized Ratio 1.7; Partial Thromboplast Time 21.4 Seconds (24.1-36.2); Potassium 4.1 mmol/L (3.5-5.1); Prothrombin Time (Protime)PT. 19.7 SECONDS (11.7-14.9); Sodium Level 144 mmol/L (136-145)
[2020-07-27] MEDS: Lactated Ringers 1,000 ML 100 ML IV (07:58)
[2020-07-27 08:41] LABS: Absolute Lymphocyte Count 2.11 X10^3/uL (0.83-4.51); Absolute Neutrophil Count 5.8 X10^3/uL (2.0-7.7); Basophil# 0.03 X10^3/uL; Basophil% 0.3 % (0-1); Eosinophil# 0.18 X10^3/uL; Hematocrit 27.3 % (37-47); Hemoglobin 8.4 g/dL (12.0-15.0); Lymphocyte # 2.11 X10^3/ul (4.0); Lymphocyte % 23.1 % (19-41); Mean Corp Hgb Conc 30.8 g/dL (32-36); Mean Corpuscular Hgb 30.5 pg (27.0-32.0); Mean Corpuscular Volume 99.3 fL (81-99); Mean Platelet Vol. 11.3 fl (6.2-12.0); Monocyte# 0.98 X10^3/uL; Monocyte% 10.7 % (0-10); NRBC Flagged by Analyzer 0 % (0-5); Neutrophil # 5.79 X10^3/uL (2.7-7.7); Neutrophil % 63.5 % (47-70); Platelet Count 208 K/mm3 (150-450); RBC Distribution Width CV 14.8 % (11.6-14.6); RBC Distribution Width SD 52.3 fl (35.1-43.9); Red Blood Count 2.75 M/mm3 (4.2-5.4); White Blood Count 9.1 K/mm3 (4.4-11.0)
--- NOTE | 2020-07-27 08:52 | OP.CCLET_ITS ---
07/27/2020 Fawad Dawson MD [address] [id number] Re : Upper GI endoscopy procedure for Aminah Franciser Dear Dr. Dawson This procedure was performed on Monday, July 27, 2020. My impressions and recommendations are as follows: Impressions : - Z-line variable, 30 cm from the incisors. - Normal examined duodenum. - Erythematous mucosa in the gastric body. - 6 cm hiatal hernia superficial erosions at diaphragmatic narrowing. - No specimens collected. Recommendations : - [facility]. - Clear liquid diet. - Clear liquid diet. - Perform a colonoscopy tomorrow. - No aspirin, ibuprofen, naproxen, or other non-steroidal anti-inflammatory drugs. My findings are described in the full procedure note, which is enclosed. If I can be of further assistance, please feel free to contact me at Doctor phone number(s): , Work: . Sincerely, MD Shruthi Snow MD 07/27/2020 8:51:07 AM This report has been signed electronically.
--- NOTE | 2020-07-27 08:52 | OP.EGD_ITS ---
Patient Name: Aminah Last Procedure Date: 07/27/2020 7:38 AM Date of : 1940 Age: 80 Procedure: Upper GI endoscopy Indications: Melena Providers: Shruthi Keene MD Medicines: Monitored Anesthesia Care Patient Profile: This is a 80 year old female. Complications: No immediate complications. Procedure: Pre-Anesthesia Assessment: - Prior to the procedure, a History and Physical was performed, and patient medications and allergies were reviewed. The patient's tolerance of previous anesthesia was also reviewed. The risks and benefits of the procedure and the sedation options and risks were discussed with the patient. All questions were answered, and informed consent was obtained. Prior Anticoagulants: The patient has taken Coumadin (warfarin), last dose was 2 days prior to procedure. ASA Grade Assessment: Per anesthesia. After reviewing the risks and benefits, the patient was deemed in satisfactory condition to undergo the procedure. After obtaining informed consent, the endoscope was passed under direct vision. Throughout the procedure, the patient's blood pressure, pulse, and oxygen saturations were monitored continuously. The Endoscope was introduced through the mouth, and advanced to the second part of duodenum. 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 The patient tolerated the procedure well. Scope In: 8:03:05 AM Scope Out: 8:17:33 AM Total Procedure Duration Time 0 hours 14 minutes 28 seconds Findings: The Z-line was variable and was found 30 cm from the incisors. The examined duodenum was normal. Mildly erythematous mucosa without bleeding was found in the gastric body. A 6 cm hiatal hernia was found couple of superficial erosions at diaphragmatic narrowing. The proximal extent of the gastric folds (end of tubular esophagus) was 35 cm from the incisors. The hiatal narrowing was 30 cm from the incisors. The Z-line was 30 cm from the incisors. Impression: - Z-line variable, 30 cm from the incisors. - Normal examined duodenum. - Erythematous mucosa in the gastric body. - 6 cm hiatal hernia superficial erosions at diaphragmatic narrowing. - No specimens collected. Recommendation: - [facility]. - Clear liquid diet. - Clear liquid diet. - Perform a colonoscopy tomorrow. - No aspirin, ibuprofen, naproxen, or other non-steroidal anti-inflammatory drugs. Procedure Code(s): --- Professional --- 70310, Esophagogastroduodenoscopy, flexible, transoral; diagnostic, including collection of specimen(s) by brushing or washing, when performed (separate procedure) Diagnosis Code(s): --- Professional --- K22.8, Other specified diseases of esophagus K31.89, Other diseases of stomach and duodenum K44.9, Diaphragmatic hernia without obstruction or gangrene K25.9, Gastric ulcer, unspecified as acute or chronic, without hemorrhage or perforation K92.1, Melena (includes Hematochezia) CPT copyright 2017 [employer]. All rights reserved. The codes documented in this report are preliminary and upon belt conveyor drier review may be revised to meet current compliance requirements. MD Shruhti Snow MD 07/27/2020 8:51:07 AM This report has been signed electronically. Number of Addenda: 0 Note Initiated On: 07/27/2020 7:38 AM
[2020-07-27] MEDS: 0.9% Saline Lock 10 ML Syringe IV ×2 (09:13→13:00)
[2020-07-27] MEDS: Metoprolol(XL)Succ 50 MG Tablet PO ×2 (09:23→22:21)
[2020-07-27] MEDS: Phytonadione (Vit K1) 5 MG TABLET PO ×2 (09:58→15:32)
--- NOTE | 2020-07-27 11:19 | PN_ITS ---
<Ariel Grant - Last Filed: 07/27/20 11:19> Patient Problems: Active and Suspected Problems (Last Reviewed 07/26/20 @ 07:[address] Issa Holliday DO) GI bleed (Acute) Acute blood loss anemia (Acute) Reason for Visit: anemia Subjective: Patient resting comfortably in bed no acute distress post EGD. She does complain of mild shortness of breath and lightheadedness. She has no chest pain, abdominal pain, nausea, vomiting, fevers or chills. Vitals/I&O's: Vital Signs Temp Pulse Resp BP Pulse Ox 98.4 F 72 20 H 111/43 L 93 07/27/20 09:10 07/27/20 09:23 07/27/20 09:10 07/27/20 09:23 07/27/20 09:10 Oxygen Flow Rate (L/min) 2 Oxygen Delivery Method Room Air Weight: 157 lb 3.033 oz Body Mass Index (BMI) 28.1 Finger Stick Blood Glucose 108 Intake and Output for Last 24 Hours 07/25/20 07/26/20 07/27/20 23:59 23:59 23:59 Intake Total 1595.25 / 1595.25 653.75 / 653.75 Balance 1595.25 / 1595.25 653.75 / 653.75 General: Alert, Oriented x3, Cooperative HEENT: Atraumatic, PERRLA, EOMI, Normocephalic Neck: Supple, No JVD, Negative Carotid Bruits Lungs: Clear to auscultation, Normal air movement Cardiovascular: Regular rate, No murmurs Abdomen: Bowel Sounds Present, Soft, Non Tender Extremities: No edema, Capillary Refill Less than 3 Seconds Skin: No rashes, No breakdown, - - Generalized pallor Musculoskeletal: No Tenderness to Palpation of Joints or Extremities Neurological: Cranial nerves II-XII grossly intact Psych/Mental Status: Normal Affect, Appropriate, Alert and oriented to time, place, person, mood and affect Microbiology Past 72 Hours 07/26/20 05:55 Mucosa - Nose SARS-CoV-2 Antigen (Rapid) - Final 07/26/20 05:50 Stool Stool Occult Blood (PHAM) - Final Occult Blood Positive Laboratory Results 07/26/20 11:35: WBC 12.2 H, RBC 3.05 L, Hgb 9.1 L, Hct 29.7 L, MCV 97.4, MCH 29.8, MCHC 30.6 L, RDW Std Deviation 50.6 H, RDW Coeff of Porfirio 14.4, Plt Count 201, MPV 11.0 07/26/20 15:11: WBC 11.5 H, RBC 2.94 L, Hgb 8.8 L, Hct 27.9 L, MCV 94.9, MCH 29.9, MCHC 31.5 L, RDW Std Deviation 49.5 H, RDW Coeff of Porfirio 14.4, Plt Count 188, MPV 10.6 07/26/20 20:59: WBC 9.8, RBC 2.89 L, Hgb 8.6 L, Hct 27.2 L, MCV 94.1, MCH 29.8, MCHC 31.6 L, RDW Std Deviation 50.3 H, RDW Coeff of Porfirio 14.6, Plt Count 199, MPV 10.6 07/27/20 05:58: WBC 9.1, RBC 2.75 L, Hgb 8.4 L, Hct 27.3 L, MCV 99.3 H D, MCH 30.5, MCHC 30.8 L, RDW Std Deviation 52.3 H, RDW Coeff of Porfirio 14.8 H, Plt Count 208, MPV 11.3, Immature Gran % (Auto) 0.400, Neut % (Auto) 63.5, Lymph % (Auto) 23.1, Mitchell % (Auto) 10.7 H, Eos % (Auto) 2.0, Baso % (Auto) 0.3, Absolute Neuts (auto) 5.8, Absolute Lymphs (auto) 2.11, Nucleated RBC % 0 07/27/20 05:58: PT 19.7 H, INR 1.7, APTT 21.4 L 07/27/20 05:58: Sodium 144, Potassium 4.1, Chloride 115 H, Carbon Dioxide 24.0, Anion Gap 5, BUN 39 H, Creatinine 0.98, Estim Creat Clear Calc 39.14, Est GFR (MDRD) Af Amer 71, Est GFR (MDRD) Non-Af 58 L, BUN/Creatinine Ratio 39.8 H, Glucose 84, Calcium 8.1 L Current Medications Acetaminophen (Acetaminophen 325 Mg Tablet) 650 mg PO Q6H PRN PRN PRN Reason: Pain Score 1-10/Temp > 100.7 F Last Admin: 07/26/20 09:23 Dose: 650 mg Documented by: Bisacodyl (Bisacodyl 5 Mg Tablet) 20 mg PO 1400 ONE Stop: 07/27/20 12:01 Pantoprazole Sodium 40 mg/ (Sodium Chloride) 110 mls @ 330 mls/hr IV Q12 [facility] Last Infusion: 07/27/20 10:00 Dose: Infused Documented by: Sodium Chloride () 500 mls @ 15 mls/hr IV PRN PRN PRN Reason: Blood Transfusion Sodium Chloride () 250 mls @ 15 mls/hr IV .[id number] PRN PRN Reason: Saline Flush Last Infusion: 07/27/20 00:20 Dose: 0 mls/hr Documented by: Sodium Chloride () 250 mls @ 15 mls/hr IV .[id number] PRN PRN Reason: Additional IVPB Infusion Lactated Ringer's () 1,000 mls @ 100 mls/hr IV .Q10H [facility] Last Infusion: 07/27/20 08:49 Dose: Infused Documented by: Metoprolol Succinate (Metoprolol(Xl)Succ 50 Mg Tablet) 50 mg PO BID [facility] Last Admin: 07/27/20 09:23 Dose: 50 mg Documented by: Metoprolol Tartrate (Metoprolol Tartrate 5 Mg/5 Ml Vial) 5 mg IV Q6H PRN PRN PRN Reason: HR greater than 120 Last Admin: 07/26/20 13:26 Dose: 5 mg Documented by: Ondansetron HCl (Ondansetron 4 Mg/2 Ml Vial) 4 mg IV Q8H PRN PRN PRN Reason: NAUSEA/VOMITING Polyethylene Glycol (Polyethylene Glycol 3350 Bowel Prep) 0 bottle PO X1 ONE Stop: 07/27/20 14:01 Sodium Chloride (0.9% Saline Lock 10 Ml Syringe) 10 - 40 ml IV UD PRN PRN Reason: SALINE FLUSH Last Admin: 07/27/20 09:13 Dose: 10 ml Documented by: STROKE Vital Signs/Narrative: Vital Signs Temp Pulse Resp BP Pulse Ox 07/27/20 09:23 72 111/43 L 07/27/20 09:10 98.4 F 72 20 H 111/43 L 93 07/27/20 08:45 98.6 F 81 18 108/53 L 93 07/27/20 08:40 126 H 18 113/50 L 94 07/27/20 08:35 91 16 110/77 94 07/27/20 08:30 127 H 16 117/76 95 07/27/20 08:25 98.5 F 125 H 16 110/54 L 93 Medical Necessity - Tobacco Use Smoking Status: Never smoker Assessment/Plan All Active Problems (Last Reviewed 07/26/20 @ 07:[address] Issa Holliday, DO) GI bleed (Acute) Acute blood loss anemia (Acute) Atherosclerotic heart disease of [place] coronary artery without angina pectoris (Resolved) Failure to thrive (Resolved) NSTEMI (non-ST elevated myocardial infarction) (Resolved) Angina pectoris (Resolved) Vertebral compression fracture (Resolved) Acute embolism and thrombosis of vein (Resolved) Hematoma and contusion (Resolved) UTI (Resolved) 1. Acute blood loss anemia secondary to suspected lower GI bleed-occult positive. EGD performed and demonstrates erythematous stomach and hiatal hernia. She has a known history of hiatal hernia. She has been transfused with 1 unit of packed red blood cells at this point. Continue IV PPI. Patient is still symptomatic with lightheadedness and mild shortness of breath. Her aspirin and warfarin are discontinued. -Colonoscopy tomorrow -Indeterminate troponin likely secondary to demand ischemia due to significant anemia. 2. Coumadin coagulopathy-Coumadin is held and she has been given 2 doses of vitamin K to optimize her INR prior to colonoscopy. 3. History of CVA-aspirin held. Resume statin at discharge. 4. History of paroxysmal atrial fibrillation-as above warfarin held. Mild tachycardia, continue metoprolol. 5. History of CAD, ischemic cardiomyopathy-Lasix held, Imdur held, continue metoprolol. 6. History of ulcer-continue PPI, patient has been on omeprazole 20 mg daily as an outpatient. DVT prophylaxis: SCDs This patient was seen by Ariel Grant PA-C under the supervision of Doctor Mg. <Issa Holliday - Last Filed: 07/27/20 12:56> Subjective: No further melena/hematochezia. Vitals/I&O's: Vital Signs Temp Pulse Resp BP Pulse Ox 36.8 C 85 20 H 116/57 L 93 07/27/20 12:43 07/27/20 12:43 07/27/20 12:43 07/27/20 12:43 07/27/20 12:43 Oxygen Flow Rate (L/min) 2 Oxygen Delivery Method Room Air Weight: 71.3 kg Body Mass Index (BMI) 28.1 Finger Stick Blood Glucose 108 Intake and Output for Last 24 Hours 07/25/20 07/26/20 07/27/20 23:59 23:59 23:59 Intake Total 1595.25 / 1595.25 653.75 / 653.75 Balance 1595.25 / 1595.25 653.75 / 653.75 General: Alert, Cooperative HEENT: Atraumatic, Normocephalic Lungs: Clear to auscultation, Normal air movement, No rhonchi, No wheeze Cardiovascular: Regular rate, Regular Rhythm, Normal S1, Normal S2, No murmurs Abdomen: Bowel Sounds Present, Soft, Non Tender, Non-Distended Extremities: No edema, No Calf Tenderness Skin: No rashes, No breakdown, - Psych/Mental Status: Normal Affect, Appropriate Microbiology Past 72 Hours 07/26/20 05:55 Mucosa - Nose SARS-CoV-2 Antigen (Rapid) - Final 07/26/20 05:50 Stool Stool Occult Blood (PHAM) - Final Occult Blood Positive Laboratory Results 07/26/20 15:11: WBC 11.5 H, RBC 2.94 L, Hgb 8.8 L, Hct 27.9 L, MCV 94.9, MCH 29 .9, MCHC 31.5 L, RDW Std Deviation 49.5 H, RDW Coeff of Porfirio 14.4, Plt Count 188, MPV 10.6 07/26/20 20:59: WBC 9.8, RBC 2.89 L, Hgb 8.6 L, Hct 27.2 L, MCV 94.1, MCH 29.8, MCHC 31.6 L, RDW Std Deviation 50.3 H, RDW Coeff of Porfirio 14.6, Plt Count 199, MPV 10.6 07/27/20 05:58: WBC 9.1, RBC 2.75 L, Hgb 8.4 L, Hct 27.3 L, MCV 99.3 H D, MCH 30.5, MCHC 30.8 L, RDW Std Deviation 52.3 H, RDW Coeff of Porfirio 14.8 H, Plt Count 208, MPV 11.3, Immature Gran % (Auto) 0.400, Neut % (Auto) 63.5, Lymph % (Auto) 23.1, Mitchell % (Auto) 10.7 H, Eos % (Auto) 2.0, Baso % (Auto) 0.3, Absolute Neuts (auto) 5.8, Absolute Lymphs (auto) 2.11, Nucleated RBC % 0 07/27/20 05:58: PT 19.7 H, INR 1.7, APTT 21.4 L 07/27/20 05:58: Sodium 144, Potassium 4.1, Chloride 115 H, Carbon Dioxide 24.0, Anion Gap 5, BUN 39 H, Creatinine 0.98, Estim Creat Clear Calc 39.14, Est GFR (MDRD) Af Amer 71, Est GFR (MDRD) Non-Af 58 L, BUN/Creatinine Ratio 39.8 H, Glucose 84, Calcium 8.1 L Current Medications Acetaminophen (Acetaminophen 325 Mg Tablet) 650 mg PO Q6H PRN PRN PRN Reason: Pain Score 1-10/Temp > 100.7 F Last Admin: 07/27/20 11:39 Dose: 650 mg Documented by: Pantoprazole Sodium 40 mg/ (Sodium Chloride) 110 mls @ 330 mls/hr IV Q12 [facility] Last Infusion: 07/27/20 10:00 Dose: Infused Documented by: Sodium Chloride () 500 mls @ 15 mls/hr IV PRN PRN PRN Reason: Blood Transfusion Sodium Chloride () 250 mls @ 15 mls/hr IV .[id number] PRN PRN Reason: Saline Flush Last Infusion: 07/27/20 00:20 Dose: 0 mls/hr Documented by: Sodium Chloride () 250 mls @ 15 mls/hr IV .[id number] PRN PRN Reason: Additional IVPB Infusion Lactated Ringer's () 1,000 mls @ 100 mls/hr IV .Q10H [facility] Last Infusion: 07/27/20 08:49 Dose: Infused Documented by: Metoprolol Succinate (Metoprolol(Xl)Succ 50 Mg Tablet) 50 mg PO BID [facility] Last Admin: 07/27/20 09:23 Dose: 50 mg Documented by: Metoprolol Tartrate (Metoprolol Tartrate 5 Mg/5 Ml Vial) 5 mg IV Q6H PRN PRN PRN Reason: HR greater than 120 Last Admin: 07/26/20 13:26 Dose: 5 mg Documented by: Ondansetron HCl (Ondansetron 4 Mg/2 Ml Vial) 4 mg IV Q8H PRN PRN PRN Reason: NAUSEA/VOMITING Polyethylene Glycol (Polyethylene Glycol 3350 Bowel Prep) 0 bottle PO X1 ONE Stop: 07/27/20 14:01 Sodium Chloride (0.9% Saline Lock 10 Ml Syringe) 10 - 40 ml IV UD PRN PRN Reason: SALINE FLUSH Last Admin: 07/27/20 09:13 Dose: 10 ml Documented by: STROKE Vital Signs/Narrative: Vital Signs Temp Pulse Resp BP Pulse Ox 07/27/20 12:43 36.8 C 85 20 H 116/57 L 93 07/27/20 12:13 36.8 C 131 H 18 114/62 93 07/27/20 09:23 72 111/43 L 07/27/20 09:15 93 07/27/20 09:10 36.9 C 72 20 H 111/43 L 93 Assessment/Plan Patient seen and examined independently. Data reviewed. I agree with the above note by the physician doctor assistant. 1. GI bleed: * 07/27: EGD showed erythematous mucosa in gastric body and superficial erosions, but no clear bleeding source to explain a 5 g drop in Hg. Plan for colonscopy on 07/28 * Bleeding certainly exacerbated by coagulopathy, 2. Acute blood loss anemia: * stable * Patient 1 from 13-8.5 within the month. Likely secondary to the acute GI bleed that she has sustained. Patient ordered 2 units of packed red blood cells in the emergency room. Will only transfuse 1 and monitor. We will cycle her H&H every 6 hours and transfuse additional as necessary. * Goal hemoglobin would be above 8. 3. Coagulopathy: * Secondary to warfarin. Vitamin K. * Goal for colonoscopy on 07/28 will be 1.5 4. Afib w RVR * Improved * Likely exacerbated due to the acute anemia. * Patient to resume her metoprolol succinate. Will have additional IV metoprolol as needed. 5. VTE prophylaxis: SCDs as chemical prophylaxis contraindicated in light of acute hemorrhage. 6 advanced care planning: At the patient's skilled nursing she is DNR comfort care. Clarify with patient that she is not hospice. Specified more specifically if she would want CPR or intubation if this became necessary to which she said that she would not. Therefore I feel a more appropriate DNR status is DNR Comfort Care arrest no intubation and that is what she will be during this hospitalization. Inpatient E&M: 10270 Subs Hosp L2
[2020-07-27] MEDS: Acetaminophen 325 MG Tablet 650 MG PO ×2 (11:39→20:16)
[2020-07-27] MEDS: Bisacodyl 5 MG Tablet 20 MG PO (11:42)
[2020-07-27] MEDS: Metoprolol Tartrate 5 MG/5 ML Vial IV (13:00)
[2020-07-27 14:03] LABS: International Normalized Ratio 1.7; Prothrombin Time (Protime)PT. 19.1 SECONDS (11.7-14.9)
[2020-07-27] MEDS: Polyethylene Glycol 3350 BOWEL PREP PO (14:10)
[2020-07-27 18:34] LABS: Hematocrit 30.3 % (37-47); Hemoglobin 9.3 g/dL (12.0-15.0)
[2020-07-28] VITALS (13 sets, daily range): BP systolic 95–129; BP diastolic 34–70; PULSE 78–90; RESP 16–18; TEMP 36.2–37.1; O2SAT 92–100; BMI 27.8
--- NOTE | 2020-07-28 05:55 | EKG12_ITS ---
Test Reason : AM EKG Blood Pressure : / mmHG Vent. Rate : 082 BPM Atrial Rate : 082 BPM P-R Int : 144 ms QRS Dur : 082 ms QT Int : 390 ms P-R-T Axes : 058 044 009 degrees QTc Int : 455 ms Normal sinus rhythm Normal ECG Confirmed by SAROJ RODRIGUEZ, ROSELINE ([id number]), technical writer and editor LACEY SANTOS ([id number]) on 07/31/2020 9:52:47 AM Referred By: DR HURD Confirmed By:ROSELINE KYLE MD
[2020-07-28 06:14] LABS: Absolute Lymphocyte Count 1.64 X10^3/uL (0.83-4.51); Absolute Neutrophil Count 7.4 X10^3/uL (2.0-7.7); Basophil# 0.04 X10^3/uL; Basophil% 0.4 % (0-1); Eosinophil# 0.21 X10^3/uL; Eosinophils% 2.1 % (0-5); Hematocrit 29.3 % (37-47); Hemoglobin 9.1 g/dL (12.0-15.0); Lymphocyte # 1.64 X10^3/ul (4.0); Lymphocyte % 16.3 % (19-41); Mean Corp Hgb Conc 31.1 g/dL (32-36); Mean Corpuscular Hgb 29.7 pg (27.0-32.0); Mean Corpuscular Volume 95.8 fL (81-99); Mean Platelet Vol. 10.9 fl (6.2-12.0); Monocyte# 0.76 X10^3/uL; Monocyte% 7.5 % (0-10); NRBC Flagged by Analyzer 0 % (0-5); Neutrophil # 7.41 X10^3/uL (2.7-7.7); Neutrophil % 73.4 % (47-70); Platelet Count 187 K/mm3 (150-450); RBC Distribution Width CV 14.6 % (11.6-14.6); RBC Distribution Width SD 50.6 fl (35.1-43.9); Red Blood Count 3.06 M/mm3 (4.2-5.4); White Blood Count 10.1 K/mm3 (4.4-11.0)
[2020-07-28 06:23] LABS: International Normalized Ratio 1.5; Prothrombin Time (Protime)PT. 17.9 SECONDS (11.7-14.9)
[2020-07-28 06:24] LABS: Partial Thromboplast Time 27.2 Seconds (24.1-36.2)
--- NOTE | 2020-07-28 06:41 | PN.SURG_ITS ---
Patient Problems: Active and Suspected Problems (Last Reviewed 07/26/20 @ 07:[address] Issa Holliday, DO) GI bleed (Acute) Acute blood loss anemia (Acute) Subjective: Patient tolerated prep no more further bleeding, hemoglobin stable - Physical Exam Vitals/I&O's: Vital Signs Temp Pulse Resp BP Pulse Ox 98.8 F 90 18 100/51 L 92 07/28/20 05:40 07/28/20 05:40 07/28/20 05:40 07/28/20 05:40 07/28/20 05:40 Oxygen Flow Rate (L/min) 2 Oxygen Delivery Method Room Air Weight: 157 lb 3.033 oz Body Mass Index (BMI) 27.8 Finger Stick Blood Glucose 108 Intake and Output for Last 24 Hours 07/26/20 07/27/20 07/28/20 23:59 23:59 23:59 Intake Total 1595.25 / 1595.25 2203.75 / 2203.75 0 / 0 Balance 1595.25 / 1595.25 2203.75 / 2203.75 0 / 0 General: Alert, Cooperative, No apparent distress HEENT: Atraumatic Lungs: Normal air movement Cardiovascular: Tachycardic Abdomen: Soft, Non Tender, Non-Distended Extremities: No clubbing, No cyanosis, No edema Microbiology Past 72 Hours 07/26/20 05:55 Mucosa - Nose SARS-CoV-2 Antigen (Rapid) - Final 07/26/20 05:50 Stool Stool Occult Blood (PHAM) - Final Occult Blood Positive Laboratory Results 07/27/20 05:58: WBC 9.1, RBC 2.75 L, Hgb 8.4 L, Hct 27.3 L, MCV 99.3 H D, MCH 30.5, MCHC 30.8 L, RDW Std Deviation 52.3 H, RDW Coeff of Porfirio 14.8 H, Plt Count 208, MPV 11.3, Immature Gran % (Auto) 0.400, Neut % (Auto) 63.5, Lymph % (Auto) 23.1, Cherry % (Auto) 10.7 H, Eos % (Auto) 2.0, Baso % (Auto) 0.3, Absolute Neuts (auto) 5.8, Absolute Lymphs (auto) 2.11, Nucleated RBC % 0 07/27/20 05:58: PT 19.7 H, INR 1.7, APTT 21.4 L 07/27/20 05:58: Sodium 144, Potassium 4.1, Chloride 115 H, Carbon Dioxide 24.0, Anion Gap 5, BUN 39 H, Creatinine 0.98, Estim Creat Clear Calc 39.14, Est GFR (MDRD) Af Amer 71, Est GFR (MDRD) Non-Af 58 L, BUN/Creatinine Ratio 39.8 H, Glucose 84, Calcium 8.1 L 07/27/20 13:29: PT 19.1 H, INR 1.7 07/27/20 18:30: Hgb 9.3 L, Hct 30.3 L 07/28/20 05:52: WBC 10.1, RBC 3.06 L, Hgb 9.1 L, Hct 29.3 L, MCV 95.8, MCH 29.7, MCHC 31.1 L, RDW Std Deviation 50.6 H, RDW Coeff of Porfirio 14.6, Plt Count 187, MPV 10.9, Immature Gran % (Auto) 0.300, Neut % (Auto) 73.4 H, Lymph % (Auto) 16.3 L, Cherry % (Auto) 7.5, Eos % (Auto) 2.1, Baso % (Auto) 0.4, Absolute Neuts (auto) 7.4, Absolute Lymphs (auto) 1.64, Nucleated RBC % 0 07/28/20 05:52: Sodium Pending, Potassium Pending, Chloride Pending, Carbon Dioxide Pending, Anion Gap Pending, BUN Pending, Creatinine Pending, Est GFR (MDRD) Af Amer Pending, Est GFR (MDRD) Non-Af Pending, BUN/Creatinine Ratio Pending, Glucose Pending, Calcium Pending 07/28/20 05:52: PT 17.9 H, INR 1.5, APTT 27.2 Current Medications Acetaminophen (Acetaminophen 325 Mg Tablet) 650 mg PO Q6H PRN PRN PRN Reason: Pain Score 1-10/Temp > 100.7 F Last Admin: 07/27/20 20:16 Dose: 325 mg Documented by: Pantoprazole Sodium 40 mg/ (Sodium Chloride) 110 mls @ 330 mls/hr IV Q12 [facility] Last Infusion: 07/27/20 22:36 Dose: Infused Documented by: Sodium Chloride () 500 mls @ 15 mls/hr IV PRN PRN PRN Reason: Blood Transfusion Sodium Chloride () 250 mls @ 15 mls/hr IV .[id number] PRN PRN Reason: Saline Flush Last Infusion: 07/27/20 00:20 Dose: 0 mls/hr Documented by: Sodium Chloride () 250 mls @ 15 mls/hr IV .[id number] PRN PRN Reason: Additional IVPB Infusion Metoprolol Succinate (Metoprolol(Xl)Succ 50 Mg Tablet) 50 mg PO BID [facility] Last Admin: 07/27/20 22:21 Dose: 50 mg Documented by: Metoprolol Tartrate (Metoprolol Tartrate 5 Mg/5 Ml Vial) 5 mg IV Q6H PRN PRN PRN Reason: HR greater than 120 Last Admin: 07/26/20 13:26 Dose: 5 mg Documented by: Ondansetron HCl (Ondansetron 4 Mg/2 Ml Vial) 4 mg IV Q8H PRN PRN PRN Reason: NAUSEA/VOMITING Sodium Chloride (0.9% Saline Lock 10 Ml Syringe) 10 - 40 ml IV UD PRN PRN Reason: SALINE FLUSH Last Admin: 07/27/20 13:00 Dose: 10 ml Documented by: Medical Necessity - Tobacco Use Smoking Status: Never smoker Assessment/Plan All Active Problems (Last Reviewed 07/26/20 @ 07:[address] Issa Holliday, DO) GI bleed (Acute) Acute blood loss anemia (Acute) Atherosclerotic heart disease of [place] coronary artery without angina pectoris (Resolved) Failure to thrive (Resolved) NSTEMI (non-ST elevated myocardial infarction) (Resolved) Angina pectoris (Resolved) Vertebral compression fracture (Resolved) Acute embolism and thrombosis of vein (Resolved) Hematoma and contusion (Resolved) UTI (Resolved) 80-year-old female with melena, anemia, on Coumadin due to blood clots 1. Patient did complete her prep. We will proceed with colonoscopy today. As EGD did show some superficial irritation that may have bled at the diaphragm of her hiatal hernia, but was already healing during EGD. Shruthi Keene M.D. Pager: [phone] [facility] [address] [place] [address], [address] [place] [address] Office: [phone]
[2020-07-28 06:42] LABS: Anion Gap 5 (5-15); BUN 18 mg/dL (7-18); BUN/Creat Ratio 21.2 RATIO (10-20); Calcium,Total 8.5 mg/dL (8.5-10.1); Chloride 113 mmol/L (98-107); Creatinine, Serum 0.85 mg/dL (0.55-1.02); EST Glomerular Filtration Rate 69 mL/min (>60); Est Glom Filt Rate - Afr Amer 83 mL/min (>60); Estimated Creatinine Clearance 45.12 ml/min; Glucose 97 mg/dL (74-106); Potassium 3.6 mmol/L (3.5-5.1); Sodium Level 143 mmol/L (136-145)
[2020-07-28] MEDS: Lactated Ringers 1,000 ML 100 ML IV ×3 (08:00→10:37)
--- NOTE | 2020-07-28 09:20 | OP.CCLET_ITS ---
07/28/2020 Fawad Dawson MD [address] [phone] Re : Colonoscopy procedure for Aminah Wrightterer Dear Dr. Dawson This procedure was performed on Tuesday, July 28, 2020. My impressions and recommendations are as follows: Impressions : - Hemorrhoids found on perianal exam. - Diverticulosis in the sigmoid colon, in the descending colon, in the transverse colon and in the ascending colon. - Non-bleeding internal hemorrhoids. - The examination was otherwise normal. - No specimens collected. Recommendations : - [facility] same [facility]. - Resume previous diet. - Continue present medications. - No repeat colonoscopy due to current age (66 years or older). My findings are described in the full procedure note, which is enclosed. If I can be of further assistance, please feel free to contact me at Doctor phone number(s): , Work: . Sincerely, MD Shruthi Snow MD 07/28/2020 9:20:16 AM This report has been signed electronically.
--- NOTE | 2020-07-28 09:20 | OP.COLON_ITS ---
Patient Name: Aminah Last Procedure Date: 07/28/2020 7:09 AM Date of : 1940 Age: 80 Procedure: Colonoscopy Indications: Melena Providers: Shruthi Keene MD Medicines: Monitored Anesthesia Care Patient Profile: This is a 80 year old female. Last Colonoscopy: none. The patient's first colonoscopy is today. Complications: No immediate complications. Procedure: Pre-Anesthesia Assessment: - Prior to the procedure, a History and Physical was performed, and patient medications and allergies were reviewed. The patient's tolerance of previous anesthesia was also reviewed. The risks and benefits of the procedure and the sedation options and risks were discussed with the patient. All questions were answered, and informed consent was obtained. Prior Anticoagulants: The patient has taken Coumadin (warfarin), last dose was 3 days prior to procedure. ASA Grade Assessment: Per anesthesia. After reviewing the risks and benefits, the patient was deemed in satisfactory condition to undergo the procedure. After I obtained informed consent, the scope was passed under direct vision. Throughout the procedure, the patient's blood pressure, pulse, and oxygen saturations were monitored continuously. The colonoscope was introduced through the anus and advanced to the cecum, identified by the appendiceal orifice, ileocecal valve and palpation. The colonoscopy was technically difficult and complex due to a tortuous colon. The patient tolerated the procedure well. The quality of the bowel preparation was good. Scope In: 8:10:01 AM Scope Withdrawal Time 0 hours 10 minutes 30 seconds Scope Out: 8:50:58 AM Total Procedure Duration Time 0 hours 40 minutes 57 seconds Findings: Hemorrhoids were found on perianal exam. Many small and large-mouthed diverticula were found in the sigmoid colon, descending colon, transverse colon and ascending colon. Non-bleeding internal hemorrhoids were found. The hemorrhoids were Grade I (internal hemorrhoids that do not prolapse). The exam was otherwise without abnormality. Impression: - Hemorrhoids found on perianal exam. - Diverticulosis in the sigmoid colon, in the descending colon, in the transverse colon and in the ascending colon. - Non-bleeding internal hemorrhoids. - The examination was otherwise normal. - No specimens collected. Recommendation: - [facility] same day. - Resume previous diet. - Continue present medications. - No repeat colonoscopy due to current age (66 years or older). Procedure Code(s): --- Professional --- 36383, Colonoscopy, flexible; diagnostic, including collection of specimen(s) by brushing or washing, when performed (separate procedure) Diagnosis Code(s): --- Professional --- K64.0, First degree hemorrhoids K92.1, Melena (includes Hematochezia) K57.30, Diverticulosis of large intestine without perforation or abscess without bleeding CPT copyright 2017 [employer]. All rights reserved. The codes documented in this report are preliminary and upon television receiver analyzer review may be revised to meet current compliance requirements. MD Shruthi Snow MD 07/28/2020 9:20:16 AM This report has been signed electronically. Number of Addenda: 0 Note Initiated On: 07/28/2020 7:09 AM
[2020-07-28] MEDS: Metoprolol(XL)Succ 50 MG Tablet PO (09:36)
--- NOTE | 2020-07-28 13:16 | DCINST_ITS ---
- Discharge Diagnoses Current Active Problems: Current Active and Chronic Problems (Last Reviewed 07/26/20 @ 07:[address] Issa Holliday, DO) CVA (cerebral vascular accident) (Chronic) GI bleed (Acute) Acute blood loss anemia (Acute) Left knee pain (Chronic) Debility (Chronic) Pure hypercholesterolemia (Chronic) General weakness (Chronic) Ischemic cardiomyopathy (Chronic) Paroxysmal atrial fibrillation (Chronic) Diastolic dysfunction (Chronic) Dizziness, nonspecific (Chronic) Peptic ulcer (Chronic) Osteoporosis (Chronic) SVT (supraventricular tachycardia) (Chronic) Osteoarthritis (Chronic) Coagulopathy (Chronic) You will use the following diet at home:: Cardiac Your food should be the consistency of: Regular Discharge Activity: Return to Normal Activity Call your doctor if you observe: Fever of 101 or Higher, - - blood in stool. dark tarry stools Allergies/Adverse Reactions: Allergies codeine Adverse Reaction (Verified 07/26/20 05:30) makes my mouth sore Medications to take at Discharge Ascorbic Acid [Vitamin C] 500 mg PO DAILY@0800 01/26/16 Acetaminophen [Tylenol] 500 mg PO Q4H PRN PRN #30 tab 06/11/16 Isosorbide Mononitrate [Isosorbide Mononitrate ER] 30 mg PO DAILY 06/28/17 furosemide 20 mg tablet 20 mg PO DAILY 09/22/19 sertraline 50 mg tablet 50 mg PO DAILY 09/22/19 Atorvastatin Calcium 80 mg PO QHS 09/26/19 Calcium Carbonate/Vitamin D3 [Calcium 600-Vit D3 400 Caplet] 1 tab PO DAILY 09/26/19 Metoprolol Succinate [Toprol Xl] 50 mg PO BID 09/26/19 Mv-Min/Iron/Folic/Calcium/Vitk [Women's Multivitamin Tablet] 1 tab PO DAILY 09/26/19 Omeprazole 20 mg PO DAILY 09/26/19 Lactobacillus Rhamnosus GG [Culturelle] 1 ea PO BID 07/26/20 Nitroglycerin 0.4 mg SL PRN PRN 07/26/20 Pantoprazole Sodium [Protonix] 40 mg PO DAILY #30 tab 07/28/20 Warfarin [Coumadin] 1 mg PO SUMOWEFRSA #0 07/28/20 Warfarin [Coumadin] 1.5 mg PO TUTH #0 07/28/20 The following prescriptions were given: Pantoprazole Sodium [Protonix] 40 mg PO DAILY #30 tab Transmission Status: Pending to [facility]/pharmacy #[id number] Primary Care Physician: Fawad Dawson MD [Primary Care Provider] - Within 2 Weeks Test Results: Test results from this visit will be discussed in further detail at your follow- up appointment, if applicable. Proposed Discharge Date: 07/28/20
--- NOTE | 2020-07-28 13:17 | DS.PCM_ITS ---
Discharge Date and Diagnosis - Problem List Patient Problems: Active and Suspected Problems (Last Reviewed 07/26/20 @ 07:[address] Issa Holliday DO) GI bleed (Acute) Acute blood loss anemia (Acute) Date of Admission: 07/26/20 Date of Discharge: 07/28/20 - Primary Discharge Diagnosis Acute Problems: Active Problems (Last Reviewed 07/26/20 @ 07:[address] Issa Holliday DO) GI bleed (Acute) Acute blood loss anemia (Acute) - Secondary Discharge Diagnosis Chronic Problems: Chronic Problems (Last Reviewed 07/26/20 @ 07:[address] Issa Holliday DO) CVA (cerebral vascular accident) (Chronic) Left knee pain (Chronic) Debility (Chronic) Pure hypercholesterolemia (Chronic) General weakness (Chronic) Ischemic cardiomyopathy (Chronic) Paroxysmal atrial fibrillation (Chronic) Diastolic dysfunction (Chronic) Dizziness, nonspecific (Chronic) Peptic ulcer (Chronic) Osteoporosis (Chronic) SVT (supraventricular tachycardia) (Chronic) Osteoarthritis (Chronic) Coagulopathy (Chronic) Hospital Course and [facility] general [facility] Operations: None Procedures: Colonoscopy - Hemorrhoids. Diverticulosis throughout the colon. Internal hemorrhoids., EGD - Erythematous mucosa in the gastric body. Sick centimeter hiatal hernia with a superficial erosions. Summary of Care Provided: The patient is a 80 year old F presents with melena. Patient's hemoglobin dropped from 13.1-8.5. Patient was transfused 1 unit of packed red blood cells. Hemoglobin remained stable during this hospitalization and she had no further bleeding. Patient was started on pantoprazole. Patient was seen by general surgery performed an EGD and colonoscopy that showed no acute bleeding. Is unclear whether the patient may have bled from but certainly was exacerbated by the patient's underlying warfarin usage. Patient will remain off of warfarin for the next 2 weeks given the traumatic blood loss that she did sustain.. Patient will need follow-up CBC checks as outpatient. Otherwise patient is doing well and we discharged home in stable condition. [] Patient Problems: Active and Suspected Problems (Last Reviewed 07/26/20 @ 07:[address] Issa Holliday DO) GI bleed (Acute) Acute blood loss anemia (Acute) - Physical Exam Vitals/I&O's: Vital Signs Temp Pulse Resp BP Pulse Ox 36.4 C L 80 18 111/55 L 93 11/29/20 09:30 07/28/20 09:36 07/28/20 09:30 07/28/20 09:36 07/28/20 09:30 Oxygen Flow Rate (L/min) 2 Oxygen Delivery Method Room Air Weight: 71.3 kg Body Mass Index (BMI) 27.8 Finger Stick Blood Glucose 108 Intake and Output for Last 24 Hours 07/26/20 07/27/20 07/28/20 23:59 23:59 23:59 Intake Total 1595.25 / 1595.25 2203.75 / 2203.75 1746.67 / 1746.67 Output Total 50 / 50 Balance 1595.25 / 1595.25 2203.75 / 2203.75 1696.67 / 1696.67 General: Alert, No apparent distress HEENT: Atraumatic, Normocephalic Oral: Moist Mucosa, No Gingival or Mucosal Lesions/ Ulcerations Neck: No Nodes, Thyroid Normal Size and Texture Lungs: Clear to auscultation, Normal air movement, No rhonchi, No wheeze Cardiovascular: Regular rate, Regular Rhythm, Normal S1, Normal S2 Abdomen: Bowel Sounds Present, Soft, Non Tender, Non-Distended Microbiology Past 72 Hours 07/26/20 05:55 Mucosa - Nose SARS-CoV-2 Antigen (Rapid) - Final 07/26/20 05:50 Stool Stool Occult Blood (PHAM) - Final Occult Blood Positive Laboratory Results 07/27/20 13:29: PT 19.1 H, INR 1.7 07/27/20 18:30: Hgb 9.3 L, Hct 30.3 L 07/28/20 05:52: WBC 10.1, RBC 3.06 L, Hgb 9.1 L, Hct 29.3 L, MCV 95.8, MCH 29.7, MCHC 31.1 L, RDW Std Deviation 50.6 H, RDW Coeff of Porfirio 14.6, Plt Count 187, MPV 10.9, Immature Gran % (Auto) 0.300, Neut % (Auto) 73.4 H, Lymph % (Auto) 16.3 L, Gregg % (Auto) 7.5, Eos % (Auto) 2.1, Baso % (Auto) 0.4, Absolute Neuts (auto) 7.4, Absolute Lymphs (auto) 1.64, Nucleated RBC % 0 07/28/20 05:52: Sodium 143, Potassium 3.6, Chloride 113 H, Carbon Dioxide 25.0, Anion Gap 5, BUN 18, Creatinine 0.85, Estim Creat Clear Calc 45.12, Est GFR (MDRD) Af Amer 83, Est GFR (MDRD) Non-Af 69, BUN/Creatinine Ratio 21.2 H, Glucose 97, Calcium 8.5 07/28/20 05:52: PT 17.9 H, INR 1.5, APTT 27.2 Current Medications Acetaminophen (Acetaminophen 325 Mg Tablet) 650 mg PO Q6H PRN PRN PRN Reason: Pain Score 1-10/Temp > 100.7 F Last Admin: 07/27/20 20:16 Dose: 325 mg Documented by: Pantoprazole Sodium 40 mg/ (Sodium Chloride) 110 mls @ 330 mls/hr IV Q12 [facility] Last Infusion: 07/28/20 09:55 Dose: Infused Documented by: Sodium Chloride () 500 mls @ 15 mls/hr IV PRN PRN PRN Reason: Blood Transfusion Sodium Chloride () 250 mls @ 15 mls/hr IV .[id number] PRN PRN Reason: Saline Flush Last Infusion: 07/27/20 00:20 Dose: 0 mls/hr Documented by: Sodium Chloride () 250 mls @ 15 mls/hr IV .[id number] PRN PRN Reason: Additional IVPB Infusion Lactated Ringer's () 1,000 mls @ 100 mls/hr IV .Q10H [facility] Last Infusion: 07/28/20 11:59 Dose: 100 mls/hr Documented by: Metoprolol Succinate (Metoprolol(Xl)Succ 50 Mg Tablet) 50 mg PO BID [facility] Last Admin: 07/28/20 09:36 Dose: 50 mg Documented by: Metoprolol Tartrate (Metoprolol Tartrate 5 Mg/5 Ml Vial) 5 mg IV Q6H PRN PRN PRN Reason: HR greater than 120 Last Admin: 07/26/20 13:26 Dose: 5 mg Documented by: Ondansetron HCl (Ondansetron 4 Mg/2 Ml Vial) 4 mg IV Q8H PRN PRN PRN Reason: NAUSEA/VOMITING Sodium Chloride (0.9% Saline Lock 10 Ml Syringe) 10 - 40 ml IV UD PRN PRN Reason: SALINE FLUSH Last Admin: 07/27/20 13:00 Dose: 10 ml Documented by: Discharge Diet: Low fat/ Low Cholesterol Discharge Activity: Return to Normal Activity Call your doctor if you observe: Fever of 101 or Higher, - - blood in stool. dark tarry stools Home Medications: Medications to take at Discharge Ascorbic Acid [Vitamin C] 500 mg PO DAILY@0800 01/26/16 Acetaminophen [Tylenol] 500 mg PO Q4H PRN PRN #30 tab 06/11/16 Isosorbide Mononitrate [Isosorbide Mononitrate ER] 30 mg PO DAILY 06/28/17 furosemide 20 mg tablet 20 mg PO DAILY 09/22/19 sertraline 50 mg tablet 50 mg PO DAILY 09/22/19 Atorvastatin Calcium 80 mg PO QHS 09/26/19 Calcium Carbonate/Vitamin D3 [Calcium 600-Vit D3 400 Caplet] 1 tab PO DAILY 09/26/19 Metoprolol Succinate [Toprol Xl] 50 mg PO BID 09/26/19 Mv-Min/Iron/Folic/Calcium/Vitk [Women's Multivitamin Tablet] 1 tab PO DAILY 09/26/19 Omeprazole 20 mg PO DAILY 09/26/19 Lactobacillus Rhamnosus GG [Culturelle] 1 ea PO BID 07/26/20 Nitroglycerin 0.4 mg SL PRN PRN 07/26/20 Pantoprazole Sodium [Protonix] 40 mg PO DAILY #30 tab 07/28/20 Warfarin [Coumadin] 1 mg PO SUMOWEFRSA #0 07/28/20 Warfarin [Coumadin] 1.5 mg PO TUTH #0 07/28/20 Following Prescriptions Were Given to Patient: Pantoprazole Sodium [Protonix] 40 mg PO DAILY #30 tab Transmission Status: Pending to [id number] Primary Care Physician: Fawad Dawson MD [Primary Care Provider] - Within 2 Weeks Disposition: Home Minutes spent on discharge:: 32 Patient Condition:: Good Medical Necessity - Tobacco Use Smoking Status: Never smoker Meaningful Use Info Meaningful Use Diagnoses (Choose all that apply): None applicable Inpatient E&M: 18263 Disch Hosp
--- NOTE | 2020-07-28 13:27 | PCM.TXEXTCAR ---
- Diet 07/28/20 09:22 Diet: Cardiac - Heart Healthy Is pt able to select menu?: Yes Diet Comments: except medication - Routine Orders/Code Status Code Status: DNRCC-A - no intubation - Problem/Diagnosis (1) GI bleed Status: Acute (2) Acute blood loss anemia Status: Acute (3) CVA (cerebral vascular accident) Status: Chronic (4) Left knee pain Status: Chronic (5) Debility Status: Chronic (6) Pure hypercholesterolemia Status: Chronic (7) General weakness Status: Chronic (8) Ischemic cardiomyopathy Status: Chronic (9) Paroxysmal atrial fibrillation Status: Chronic (10) Diastolic dysfunction Status: Chronic (11) Atherosclerotic heart disease of [place] coronary artery without angina pectoris Status: Resolved (12) Failure to thrive Status: Resolved (13) Dizziness, nonspecific Status: Chronic (14) Peptic ulcer Status: Chronic (15) Osteoporosis Status: Chronic (16) SVT (supraventricular tachycardia) Status: Chronic (17) NSTEMI (non-ST elevated myocardial infarction) Status: Resolved (18) Angina pectoris Status: Resolved (19) Osteoarthritis Status: Chronic (20) Coagulopathy Status: Chronic (21) Vertebral compression fracture Status: Resolved - Allergies/Procedures Done in Hospital Allergies/Adverse Reactions: Allergies codeine Adverse Reaction (Verified 07/26/20 05:30) makes my mouth sore Procedures: Colonoscopy, EGD - Type of Care/Length of Stay Estimated LOS: More Than 30 Days Type of Care Needed: Intermediate/Assisted Living Rehab Potential: Fair Prognosis: Fair - Additional Orders/Day of Discharge Day of Discharge: 07/28/20 - Follow Up Care Primary Care Physician: Fawad Dawson MD [Primary Care Provider] - Within 2 Weeks
--- NOTE | 2020-07-28 13:28 | NURSING ---
Tolu Last notified of return to [place] today.
--- NOTE | 2020-08-11 02:25 | ED.RN ---
CHART OPENED TO PRINT STICKERS FOR THE [facility] REPORT
== END 2020-07-28 15:15 | disposition intermediate care facility (04) | DRG 378 ==
LOC: ED 06:32 → PCU 07:38
PROVIDERS: Physician Assistant; Surgery; Emergency Provider Emergency Medicine; PCP Family Medicine
PROC: 0DJ08ZZ Inspection of Upper Intestinal Tract, Via Natural or Artificial Opening Endoscopic (ICD-10-PCS; CPT 43235; principal; 2020-07-27 07:55)
PROC: 0DJD8ZZ Inspection of Lower Intestinal Tract, Via Natural or Artificial Opening Endoscopic (ICD-10-PCS; CPT 45378; principal; 2020-07-28 08:00)
DX: K25.4 Chronic or unspecified gastric ulcer with hemorrhage (principal); D62 Acute posthemorrhagic anemia; I47.1 Supraventricular tachycardia; D68.9 Coagulation defect, unspecified; K44.9 Diaphragmatic hernia without obstruction or gangrene; K57.30 Diverticulosis of large intestine without perforation or abscess without bleeding; K64.0 First degree hemorrhoids; Z79.01 Long term (current) use of anticoagulants; I48.0 Paroxysmal atrial fibrillation; I25.5 Ischemic cardiomyopathy; I25.119 Atherosclerotic heart disease of native coronary artery with unspecified angina pectoris; E78.00 Pure hypercholesterolemia, unspecified; I25.2 Old myocardial infarction; R62.7 Adult failure to thrive; M19.90 Unspecified osteoarthritis, unspecified site; T45.515A Adverse effect of anticoagulants, initial encounter; Z66 Do not resuscitate
CPT/HCPCS: 36415; 80048; 80053; 82274; 84484; 85014; 85018; 85025; 85027; 85610; 85730; 86850; 86900; 86901; 86920; 87426; 93005; 97162; 97530; 99285; J7030; J7050; J7120; P9016; A4216; J2405; J3490

== ENCOUNTER 2021-08-20 23:14 | Inpatient (IN) | payer MEDICARE, MEDICAID, SELFPAY ==
[2021-08-20 23:15] VITALS: BP 121/75; PULSE 94; RESP 20; TEMP 36.7; O2SAT 94; BMI 24.9
--- NOTE | 2021-08-20 23:22 | CT_ITS ---
STUDY: CT BRAIN WITHOUT CONTRAST REASON FOR EXAM: Female, 81 years old. Altered level of consciousness RADIATION DOSAGE (If Supplied By Facility): CTDIvol = ( 44.99 ) mGy, DLP = ( 762.36 ) mGycm TECHNIQUE: Transaxial CT imaging of the brain was performed without administration of intravenous contrast material. Individualized dose optimization techniques were used for this CT. COMPARISON: 07/05/2020 FINDINGS: Normal soft tissue structures. Normal calvarium. Normal size ventricles and extra-axial spaces for the patient''s age. Normal white matter tracts of the cerebral hemispheres. Normal basal ganglia and thalami. Normal brainstem. Normal cerebellum. There is no intracranial hemorrhage. There are no findings of an acute ischemic infarction. Normal visualized paranasal sinuses. CT/Brain/Head without Contrast IMPRESSION: No acute abnormal intracranial finding. Electronically Signed: Fawad Schilling MD at 23:55 EST Tel , Service support ,
--- NOTE | 2021-08-20 23:23 | EKG12_ITS ---
Test Reason : ALT LOC Blood Pressure : / mmHG Vent. Rate : 092 BPM Atrial Rate : 092 BPM P-R Int : 166 ms QRS Dur : 082 ms QT Int : 380 ms P-R-T Axes : 065 027 -02 degrees QTc Int : 469 ms Sinus rhythm with Premature atrial complexes Nonspecific ST abnormality Abnormal ECG Confirmed by SAROJ RODRIGUEZ, ROSELINE ([id number]), production editor LACEY SANTOS ([id number]) on 08/25/2021 10:16:11 AM Referred By: VIANCA Confirmed By:ROSELINE KYLE MD
--- NOTE | 2021-08-20 23:24 | EX.ED.DYSGE1 ---
HPI History of Present Illness Chief Complaint: Alt LOC Detail of Chief Complaint: Chest pain and altered level of consciousness Informant: patient and EMS Narrative Narrative: Patient presents to the emergency department via EMS from detention. Patient started complaining of chest pain about an hour ago. She complained of some numbness in her left hand. On EMS arrival she was unresponsive and would not awaken to sternal rub. On arrival of the emergency department she is answering questions. She complains of a headache. She has mild chest discomfort. Still has numbness of the left hand. Patient has no prior history of stroke and is currently anticoagulated with apixaban. She denies urinary symptoms. She denies abdominal pain. Prior similar symptoms: No PFSH [facility] Medical History (Updated 08/21/21 @ 01:[address] Kallie Louis, ) Acute embolism and thrombosis of vein Angina pectoris Anxiety Atherosclerotic heart disease of [place] coronary artery without angina pectoris Cerebral ischemia Coagulopathy Combined forms of age-related cataract, bilateral Congestive heart disease Diastolic dysfunction Dizziness, nonspecific Failure to thrive Gastro-esophageal reflux disease without esophagitis Hematoma and contusion Hemiplegia and hemiparesis following cerebral infarction affecting right dominant side History of urinary calculi History of venous thromboembolism Hypertensive heart disease with heart failure Ischemic cardiomyopathy Major depression Non-ST elevation (NSTEMI) myocardial infarction NSTEMI (non-ST elevated myocardial infarction) Osteoarthritis Osteoporosis Paroxysmal atrial fibrillation Peptic ulcer Pure hypercholesterolemia SVT (supraventricular tachycardia) Syncope Ventricular tachycardia Vertebral compression fracture Home Medications acetaminophen 500 mg PO Q4H PRN PRN #30 tab 06/11/16 [Rx Last Taken 09/24/19] isosorbide mononitrate 30 mg PO DAILY 06/28/17 [History Last Taken 07/25/20] furosemide 20 mg tablet 20 mg PO DAILY 09/22/19 [History Last Taken 07/25/20] sertraline 50 mg tablet 25 mg PO DAILY 09/22/19 [History Last Taken 07/25/20] atorvastatin 80 mg PO QHS 09/26/19 [History Last Taken 07/25/20] calcium carbonate-vitamin D3 1 tab PO DAILY 09/26/19 [History Last Taken 07/25/20] lj-la-tsvv-FA-Ca carb-vit K 1 tab PO DAILY 09/26/19 [History Last Taken 07/25/20] nitroglycerin 0.4 mg SL PRN PRN 07/26/20 [History Last Taken Unknown] pantoprazole 40 mg PO DAILY #30 tab 07/28/20 [Rx Last Taken Unknown] ferrous sulfate 325 mg (65 mg iron) tablet,delayed release 325 mg PO DAILY 10/09/20 [History Last Taken Unknown] sodium chloride 3 % nasal mist 2 spray INTRANASAL PRN PRN 10/09/20 [History Last Taken Unknown] apixaban 5 mg tablet 5 mg PO BID 04/08/21 [History Last Taken Unknown] metoprolol succinate 25 mg tablet,extended release 24 hr 25 mg PO BID #180 tab 04/08/21 [Rx Last Taken Unknown] Allergy/AdvReac Type Severity Reaction Status Date / Time codeine AdvReac makes my Verified 08/20/21 23:32 mouth sore Family History (Reviewed 04/08/21 @ 10:44 by Ivan Michaud [employer]OULDER [employer]ER, LOCKSTITCH SHOULDER JOINER-C) Mother Diabetes Father CAD (coronary artery disease) Brother CAD (coronary artery disease) Surgical History (Reviewed 04/08/21 @ 10:44 by Ivan Michaud [employer] SHOULDER [employer]ER, LOCKSTITCH SHOULDER JOINER-C) H/O eye surgery H/O lumpectomy History of tonsillectomy Social History Smoking Status: Never smoker alcohol intake: never caffeine: No ROS ROS ED Constitutional Constitutional ED: Reports systems reviewed and no addt'l complaints, except as documented; Denies body ache(s), change in weight or chills Eyes Eyes: Denies acute decrease in peripheral vision, change in vision, double vision or loss of vision ENT ENT ED: Reports none; Denies ear pain, lip swelling, loss taste/smell, neck pain, otalgia or sore throat Cardiovascular Cardiovascular: Reports none and chest pain; Denies abdominal pain, chest pain with activity, leg edema, lightheadedness, palpitations, rapid heart rate or syncope Respiratory/Chest Respiratory/Chest: Reports none; Denies change in mental status, dry cough, dyspnea, hemoptysis, shortness of breath at rest or shortness of breath with exertion Gastrointestinal Gastrointestinal: Reports none; Denies abdominal pain, change in stool character, diarrhea, hematemesis, hematochezia, melena, rectal bleeding or vomiting Genitourinary Genitourinary ED: Reports none; Denies abdominal discomfort, anuria, dysuria, genital pain or polyuria Musculoskeletal Musculoskeletal: Reports none; Denies arthralgias, back pain, difficulty walking, extremity pain, muscle weakness or myalgias Integumentary Reports none; Denies abscess or rash Neurologic Neurologic: Reports none, headache(s) and paresthesias; Denies abnormal gait, confusion, focal weakness, frequent falls, loss of vision, numbness, radicular pain, vertigo or weakness Psychiatric Psychiatric: Reports systems reviewed and no addt'l complaints, except as documented and none; Denies behavioral changes, confusion, difficulty concentrating, hallucinations, suicidal ideation, tactile hallucinations or visual hallucinations Endocrine Endocrinology: Denies none, cold intolerance, excessive sweating, fatigue or heat intolerance Hematologic/Lymphatic Hematologic/Lymphatic: Reports none; Denies anemia, easy bleeding or easy bruising Allergic/Immunologic Allergic/Immunologic ED: Denies as per HPI, none, lip swelling, mouth swelling, throat swelling, tongue swelling or hives EXAM Physical Exam Const Vital Signs: 08/20/21 23:15 08/21/21 00:14 08/21/21 01:00 Temperature 98.1 F 97.7 F L Temperature Source Temporal Temporal Pulse Rate 94 103 H 96 Respiratory Rate 20 H 21 H 20 H Blood Pressure 121/75 H 128/69 H 128/75 H Blood Pressure Mean 90 88 92 Pulse Ox 94 97 95 Oxygen Delivery Method Room Air Room Air Room Air Positive well nourished and well developed General Appearance ED: well developed and NAD HEENT Reports TM's clear and moist mucous membranes normocephalic and atraumatic; Negative for trauma or tenderness Tympanic Membrane ED: Yes TM's clear Eyes PERRL and EOMs intact bilaterally General Eye ED: Negative for pale conjunctiva or scleral icterus Neck no lymphadenopathy, supple and no JVD General: Negative for tenderness Chest Wall inspection of chest normal and palpation of chest normal Chest: Negative for tenderness Resp normal respiratory effort and clear to auscultation bilaterally Effort and Inspection: Negative for respiratory distress or pain with movement Auscultation: Negative for rhonchi, wheezes or diminished lung sounds Cardio regular rate, regular rhythm, S1 normal heart sound, S2 normal heart sound and no murmurs Peripheral Pulses: pulses 2+ throughout GI normal to inspection, nondistended, normoactive bowel sounds, soft to palpation, non-tender, non-distended and no masses Back/Spine no CVA tenderness and no thoracic nor lumbar tenderness Extremity normal to inspection General Extremety ED: Negative for edema General Extremity: Negative for edema Neuro oriented x3, CN's II-XII intact bilaterally, no sensory deficits noted and gait normal Neuro Narrative: No facial droop noted. No obvious focal weakness noted. Sensorium / Orientation: awake, alert, oriented to person, oriented to place and oriented to time Motor Exam: strength 5/5 throughout and strength abnormal Psych mental status grossly normal Skin no rashes or lesions noted and no wounds MDM MDM MDM Narrative Medical decision making narrative: IV line established on arrival. Patient placed on a residential monitor. Lab work-up unremarkable. Heart score was a 7. Clinically I feel patient does not have pneumonia. Lab Data Attestation: I reviewed the patient's lab results. Labs: Laboratory Results - last 24 hr 08/20/21 08/20/21 08/21/21 23:00 23:00 01:30 WBC 9.8 RBC 4.34 Hgb 10.4 L Hct 34.5 L MCV 79.5 L MCH 24.0 L MCHC 30.1 L RDW Std Deviation 52.5 H RDW Coeff of Porfirio 18.0 H Plt Count 212 MPV 11.1 Immature Gran % (Auto) 0.300 Neut % (Auto) 50.1 Lymph % (Auto) 34.5 [place] % (Auto) 12.5 H Eos % (Auto) 2.2 Baso % (Auto) 0.4 Absolute Neuts (auto) 4.9 Absolute Lymphs (auto) 3.39 Nucleated RBC % 0 Sodium 143 Potassium 4.1 Chloride 109 H Carbon Dioxide 25.0 Anion Gap 9 BUN 19 H Creatinine 1.02 Estim Creat Clear Calc 43.49 Est GFR (MDRD) Af Amer 67 Est GFR (MDRD) Non-Af 56 L BUN/Creatinine Ratio 18.6 Glucose 85 Calcium 8.6 Troponin I High Sens 18 Urine Color Red Urine Clarity Turbid Urine pH 6.0 Ur Specific [place] 1.020 Urine Protein 500 H Urine Glucose (UA) Normal Urine Ketones Negative Urine Occult Blood 250 H Urine Nitrite Negative Urine Bilirubin Negative Urine Urobilinogen Normal Ur Leukocyte Esterase 500 H Urine RBC > 100 SEEN Urine WBC >100 SEEN Ur Squamous Epith Cells 0-5 SEEN Ur Transition Epith Cell 0-5 SEEN Urine Bacteria 3+ Hyaline Casts 0-5 SEEN Urine Mucus 0 SEEN Radiography Chest X-Ray - ED: 1 View Diagnostic Testing: Clinical Impression(s) from Imaging Studies Brain CT 08/20/21 23:22 IMPRESSION: No acute abnormal intracranial finding. Electronically Signed: Fawad Schilling MD at 23:55 EST Tel , Service support , Chest X-Ray 08/20/21 23:40 IMPRESSION: Findings suggest left lower lung pneumonia and small pleural effusion. Electronically Signed: Fawad Schilling MD at 23:58 EST Tel , Service support , 1 view chest x-ray obtained interpreted by myself as increased markings to the left lower lobe. Radiology felt left lower lobe findings suggest pneumonia and small pleural effusion. EKG Initial EKG: Attestation: I personally reviewed and interpreted this EKG as follows: Interpretation: Sinus Rhythm Comments: Sinus rhythm with a ventricular rate of 92 bpm with no specific changes noted in inferior leads. When compared with prior EKG from July 28, 2020 no significant changes noted. Prior EKG tracings: available for review Prior: Unchanged Discharge Plan Dx/Rx/DC Orders Clinical Impression: Chest pain, Acute alteration in mental status, Acute UTI Disposition Disposition: Acute Care [facility]
--- NOTE | 2021-08-20 23:40 | RAD_ITS ---
STUDY: X-RAY CHEST REASON FOR EXAM: Female, 81 years old. Chest pain TECHNIQUE: Portable, upright, AP chest radiograph COMPARISON: 04/27/2020 FINDINGS: Dense left lung base and retrocardiac opacification. Right lung calcified granulomas. Small left pleural effusion. There is borderline cardiomegaly. Normal mediastinum and jarrett. There is prominence of the pulmonary hilar arteries and peripheral pulmonary arteries, consistent with congestive heart failure (CHF). Normal visualized aortic arch and descending thoracic aorta. There is no demonstrated abnormality of the visualized soft tissue structures of the upper abdomen. RAD/Chest 1 View (Portable) IMPRESSION: Findings suggest left lower lung pneumonia and small pleural effusion. Electronically Signed: Fawad Schilling MD at 23:58 EST Tel , Service support ,
[2021-08-20 23:44] LABS: Absolute Lymphocyte Count 3.39 X10^3/uL (0.83-4.51); Absolute Neutrophil Count 4.9 X10^3/uL (2.0-7.7); Basophil# 0.04 X10^3/uL; Basophil% 0.4 % (0-1); Eosinophil# 0.22 X10^3/uL; Eosinophils% 2.2 % (0-5); Hematocrit 34.5 % (37-47); Hemoglobin 10.4 g/dL (12.0-15.0); Lymphocyte # 3.39 X10^3/ul (0.83-4.51); Lymphocyte % 34.5 % (19-41); Mean Corp Hgb Conc 30.1 g/dL (32-36); Mean Corpuscular Volume 79.5 fL (81-99); Mean Platelet Vol. 11.1 fl (6.2-12.0); Monocyte# 1.23 X10^3/uL; Monocyte% 12.5 % (0-10); NRBC Flagged by Analyzer 0 % (0-5); Neutrophil # 4.91 X10^3/uL (2.7-7.7); Neutrophil % 50.1 % (47-70); Platelet Count 212 K/mm3 (150-450); RBC Distribution Width SD 52.5 fl (35.1-43.9); Red Blood Count 4.34 M/mm3 (4.2-5.4); White Blood Count 9.8 K/mm3 (4.4-11.0)
--- NOTE | 2021-08-20 23:45 | ED.RN ---
patients poa made aware of patient condition and status at this time
[2021-08-20 23:50] LABS: Anion Gap 9 (5-15); BUN 19 mg/dL (7-18); BUN/Creat Ratio 18.6 RATIO (10-20); Calcium,Total 8.6 mg/dL (8.5-10.1); Chloride 109 mmol/L (98-107); Creatinine, Serum 1.02 mg/dL (0.55-1.02); EST Glomerular Filtration Rate 56 mL/min (>60); Est Glom Filt Rate - Afr Amer 67 mL/min (>60); Estimated Creatinine Clearance 43.49 ml/min; Glucose 85 mg/dL (74-106); Potassium 4.1 mmol/L (3.5-5.1); Sodium Level 143 mmol/L (136-145); Troponin-I HS 18 pg/mL (3.0-54.0)
[2021-08-20] MEDS: 0.9% Normal Saline 1,000 ML 150 ML IV (23:50)
[2021-08-21] VITALS (16 sets, daily range): BP systolic 108–128; BP diastolic 54–75; PULSE 78–103; RESP 16–21; TEMP 36.5–37.1; O2SAT 92–97; BMI 27.5
[2021-08-21 01:35] LABS: Mucous, Urine 0 SEEN /hpf (<or=2+)
[2021-08-21 01:42] LABS: Glucose, Dipstick Normal (Normal); Ketone-Dipstick Negative (Negative); Leukocyte Esterase-Dipstick 500 /ul (Negative); Nitrite-Dipstick Negative (Negative); Occult Blood-Urine 250 /ul (Negative); Protein-Dipstick 500 mg/dl (Negative); Urine Bilirubin Dipstick Negative (Negative); Urine Urobilinogen Normal (Normal)
[2021-08-21 01:47] LABS: Color, Urine Red (Yellow); Urine Clarity Turbid (Clear)
[2021-08-21 01:49] LABS: Bacteria 3+ /hpf (None Seen); Hyaline Cast 0-5 SEEN /lpf (0-5); Red Blood Cells-Urine > 100 SEEN /hpf (0-5); Squamous Epithelial Cells - UA 0-5 SEEN /hpf (5-10); Transitional Epithelial - Ur 0-5 SEEN /hpf (0-5); White Blood Cells >100 SEEN /hpf (0-5)
--- NOTE | 2021-08-21 01:59 | PCM.HP.STD ---
HPI - General General Date of Admission: 08/21/21 HPI Narrative MARC DEAN, is a 81 F with a significant history of DVT; ischemic cardiomyopathy and paroxysmal A. fib who presents to the emergency department with excruciating left-sided chest pain that started few hours before presentation. She described the pain as sharp. The pain radiated to her left arm and to her left shoulder. She denies any aggravating factors. Reportedly Tylenol helped improved her pain. Patient lives at the [facility]. When paramedics arrived reportedly patient was unresponsive even to sternal rubs. At the emergency department attempt was made to get urine via catheterization x3. Eventually urine was obtained. Reportedly the urine looked bloody. Upon questioning patient reported that she has burning with urination. She reported she has increased frequency of urination but she attributes this to possibly the senior living pushing fluids on her. [facility] Medical History Acute embolism and thrombosis of vein Angina pectoris Anxiety Atherosclerotic heart disease of [place] coronary artery without angina pectoris Cerebral ischemia Coagulopathy Combined forms of age-related cataract, bilateral Congestive heart disease Diastolic dysfunction Dizziness, nonspecific Failure to thrive Gastro-esophageal reflux disease without esophagitis Hematoma and contusion Hemiplegia and hemiparesis following cerebral infarction affecting right dominant side History of urinary calculi History of venous thromboembolism Hypertensive heart disease with heart failure Ischemic cardiomyopathy Major depression Non-ST elevation (NSTEMI) myocardial infarction NSTEMI (non-ST elevated myocardial infarction) Osteoarthritis Osteoporosis Paroxysmal atrial fibrillation Peptic ulcer Pure hypercholesterolemia SVT (supraventricular tachycardia) Syncope Ventricular tachycardia Vertebral compression fracture Home Medications acetaminophen 500 mg PO Q4H PRN PRN #30 tab 06/11/16 [Rx Last Taken 09/24/19] isosorbide mononitrate 30 mg PO DAILY 06/28/17 [History Last Taken 07/25/20] furosemide 20 mg tablet 20 mg PO DAILY 09/22/19 [History Last Taken 07/25/20] sertraline 50 mg tablet 25 mg PO DAILY 09/22/19 [History Last Taken 07/25/20] atorvastatin 80 mg PO QHS 09/26/19 [History Last Taken 07/25/20] calcium carbonate-vitamin D3 1 tab PO DAILY 09/26/19 [History Last Taken 07/25/20] ls-un-vaws-FA-Ca carb-vit K 1 tab PO DAILY 09/26/19 [History Last Taken 07/25/20] nitroglycerin 0.4 mg SL PRN PRN 07/26/20 [History Last Taken Unknown] pantoprazole 40 mg PO DAILY #30 tab 07/28/20 [Rx Last Taken Unknown] ferrous sulfate 325 mg (65 mg iron) tablet,delayed release 325 mg PO DAILY 10/09/20 [History Last Taken Unknown] sodium chloride 3 % nasal mist 2 spray INTRANASAL PRN PRN 10/09/20 [History Last Taken Unknown] apixaban 5 mg tablet 5 mg PO BID 04/08/21 [History Last Taken Unknown] metoprolol succinate 25 mg tablet,extended release 24 hr 25 mg PO BID #180 tab 04/08/21 [Rx Last Taken Unknown] Allergy/AdvReac Type Severity Reaction Status Date / Time codeine AdvReac makes my Verified 08/20/21 23:32 mouth sore Family History Mother Diabetes Father CAD (coronary artery disease) Brother CAD (coronary artery disease) Surgical History H/O eye surgery H/O lumpectomy History of tonsillectomy Social History Smoking Status: Never smoker alcohol intake: never caffeine: No ROS ROS Narrative Constitutional: Denies fever, chills, fatigue, anorexia and change in weight Eyes: Denies blurry vision, change in eye color, change in vision, discharge from eye(s), double vision, erythema, eye pain, loss of vision or other HEENT: Denies abnormal hearing, dysphagia, ear pain, epistaxis, headache(s), hearing loss, nasal congestion, nasal discharge, post nasal drip, sinus pressure, sore throat or other Cardiovascular: Reports chest pain. Denies dyspnea on exertion, orthopnea and paroxysmal nocturnal dyspnea Respiratory/Chest: Denies cough, excessive phlegm production, shortness of breath with exertion and wheezing Gastrointestinal: Denies abdominal pain, coffee ground emesis, constipation, diarrhea, dyspepsia, hematemesis, hematochezia, loose stools, melena, nausea, vomiting or other. Genitourinary: Reports burning urination. Reports increased frequency of urination. Musculoskeletal: Reports left arm pain; and left shoulder pain. Neurologic: Denies abnormal gait, abnormal speech, confusion, disequilibrium, dizziness, focal weakness, headache(s), numbness, paresthesias, seizure-like activity, seizures, syncope, tingling, tremor(s) or other Psychiatric: Denies anxiety, depression, homicidal ideation, suicidal ideation or other Endocrinology: Denies change in body appearance, cold intolerance, excessive sweating, heat intolerance, polydipsia, polyuria or other Hematologic/Lymphatic: Denies anemia, easy bleeding, easy bruising, lymphadenopathy or other Integumentary: Denies rashes Allergic/Immunologic: Denies rhinitis, hives, eczema, asthma or other Vital Signs Vital Signs Vital Signs: 08/20/21 23:15 08/21/21 00:14 08/21/21 01:00 Temperature 98.1 F 97.7 F L Temperature Source Temporal Temporal Pulse Rate 94 103 H 96 Respiratory Rate 20 H 21 H 20 H Blood Pressure 121/75 H 128/69 H 128/75 H Blood Pressure Mean 90 88 92 Pulse Ox 94 97 95 Oxygen Delivery Method Room Air Room Air Room Air Weight Weight: 72.1 kg Body Mass Index (BMI) 24.9 Physical Exam Narrative Physical exam: General: Well-nourished, well-developed. Head: Normocephalic, atraumatic, no tenderness Eyes: PERRLA, EOMI ENT, no trauma, moist mucous membranes, no rhinorrhea Neck: Nontender, full range of motion, no spinal tenderness, deformities, step-off CVS: Regular rate and rhythm. S1-S2 present. No murmur, gallop or rub. Respiratory : clear to auscultation bilaterally, chest wall nontender, no wheezing Abdomen: Soft, nontender, nondistended, normal bowel sounds, no masses : Deferred Back: Nontender, no CVA tenderness, no midline spinal tenderness, deformities, step-offs Extremities: Deformed toes of left foot. Nontender full range of motion, no trauma Skin: Normal color, no trauma, abrasions Neuro: Alert, oriented, cranial nerves II through XII grossly intact. Psychiatry: Normal mood. Normal affect. Not depressed. Not anxious. Results Lab / Micro Data Result Diagrams: 08/20/21 23:00 08/20/21 23:00 Labs: Laboratory Results - last 24 hr 08/20/21 23:00: WBC 9.8, RBC 4.34, Hgb 10.4 L, Hct 34.5 L, MCV 79.5 L, MCH 24.0 L, MCHC 30.1 L, RDW Std Deviation 52.5 H, RDW Coeff of Porfirio 18.0 H, Plt Count 212, MPV 11.1, Immature Gran % (Auto) 0.300, Neut % (Auto) 50.1, Lymph % (Auto) 34.5, [place] % (Auto) 12.5 H, Eos % (Auto) 2.2, Baso % (Auto) 0.4, Absolute Neuts (auto) 4.9, Absolute Lymphs (auto) 3.39, Nucleated RBC % 0 08/20/21 23:00: Sodium 143, Potassium 4.1, Chloride 109 H, Carbon Dioxide 25.0, Anion Gap 9, BUN 19 H, Creatinine 1.02, Estim Creat Clear Calc 43.49, Est GFR (MDRD) Af Amer 67, Est GFR (MDRD) Non-Af 56 L, BUN/Creatinine Ratio 18.6, Glucose 85, Calcium 8.6, Troponin I High Sens 18 08/21/21 01:30: Urine Color Red, Urine Clarity Turbid, Urine pH 6.0, Ur Specific [place] 1.020, Urine Protein 500 H, Urine Glucose (UA) Normal, Urine Ketones Negative, Urine Occult Blood 250 H, Urine Nitrite Negative, Urine Bilirubin Negative, Urine Urobilinogen Normal, Ur Leukocyte Esterase 500 H, Urine RBC > 100 SEEN, Urine WBC >100 SEEN, Ur Squamous Epith Cells 0-5 SEEN, Ur Transition Epith Cell 0-5 SEEN, Urine Bacteria 3+, Hyaline Casts 0-5 SEEN, Urine Mucus 0 SEEN Micro: Microbiology 08/21/21 00:50 Nasal Secretion SARS-CoV-2 Antigen (Rapid) - Final Radiology Impression Brain CT 08/20/21 23:22 IMPRESSION: No acute abnormal intracranial finding. Electronically Signed: Fawad Schilling MD at 23:55 EST Tel , Service support , Chest X-Ray 08/20/21 23:40 IMPRESSION: Findings suggest left lower lung pneumonia and small pleural effusion. Electronically Signed: Fawad Schilling MD at 23:58 EST Tel , Service support , Assessment & Plan Assessment/Plan (1) Chest pain: QUALIFIERS: Chest pain type: unspecified Qualified Code(s): R07.9 - Chest pain, unspecified (2) Acute UTI: (3) Encephalopathy acute: PLAN: Chest Pain Place on a monitored bed at PCU Chest x-ray impression by radiologist: Findings suggestive of left lower lung pneumonia and small pleural effusion. Actual CXR image was independently visualized. I agree with opacity at the left lower base. However, patient has no leukocytosis, fever or shortness of breath. No acute cardiopulmonary process was noted. Actual EKG tracing was independently visualized. EKG tracing showed sinus rhythm with PACs; and non-specific T wave abnormalities noted Patient is allergic to ASA. Plavix was ordered at the ED. Also patient received Heparin at the ED ASA 81 mg p.o. daily ordered SL NTG 0.4 mg prn as needed for chest pain ordered Morphine as needed for pain ordered We will check lipid panel. Cardiology notes on 04/08/2021 and 11/06/2020 was reviewed. Of note cardiology notes patient was not deemed a candidate for CABG. And patient chose medical therapy over PCI. Would not pursue stress test at this time since the endpoints would be PCI or CABG. We will add Ranexa to her regimen. Imdur and metoprolol continued. Lisinopril 2.5 mg daily ordered. Acute UTI Review of urinalysis at the emergency department showed occult blood of 250 (could be traumatic); a positive leukocyte Estrace of 500; urine WBC more than 100; urine bacteria 3+. Squamous cell 0-5. Nitrite was negative. Started emergency department on ceftriaxone and continued. Acute encephalopathy Likely infectious. Brain CT image was independently interpreted. And I agree with radiologist interpretation as above. Resolved at the emergency department even before antibiotics was started for UTI. Clinical monitoring. Paroxysmal A. fib Patient in sinus rhythm at this time. Metoprolol and Eliquis continued. DVT prophylaxis: SCD ordered Charges/Coding Visit Charges OBSV E&M: 28492 Initial observation care L3
[2021-08-21] MEDS: Ceftriaxone 1 GM/50 ML BAG IV ×2 (02:03→21:03)
--- NOTE | 2021-08-21 02:21 | ED.RN ---
updated sister shey and staff at [facility] on pt's admission.
--- NOTE | 2021-08-21 03:13 | EKG12_ITS ---
Test Reason : CP ADMISSION Blood Pressure : / mmHG Vent. Rate : 091 BPM Atrial Rate : 091 BPM P-R Int : 174 ms QRS Dur : 090 ms QT Int : 384 ms P-R-T Axes : 063 040 005 degrees QTc Int : 472 ms Normal sinus rhythm Nonspecific T wave abnormality Confirmed by SAROJ RODRIGUEZ, ROSELINE ([id number]), content editor LACEY SANTOS ([id number]) on 08/25/2021 10:22:49 AM Referred By: CATHERINE Confirmed By:ROSELINE KYLE MD
[2021-08-21 04:04] LABS: Troponin-I HS 34 pg/mL (3.0-54.0)
[2021-08-21] MEDS: Ranolazine 500 MG Tablet PO ×3 (04:12→21:05)
--- NOTE | 2021-08-21 04:29 | PCS.PANDOC ---
PANDEMIC DOCUMENTATION INITIATED: Date: 04/14/2021 Time: 190
[2021-08-21 07:56] LABS: Hematocrit 33.8 % (37-47); Hemoglobin 10.1 g/dL (12.0-15.0); Mean Corp Hgb Conc 29.9 g/dL (32-36); Mean Corpuscular Hgb 23.8 pg (27.0-32.0); Mean Corpuscular Volume 79.5 fL (81-99); Mean Platelet Vol. 11.2 fl (6.2-12.0); Platelet Count 207 K/mm3 (150-450); Red Blood Count 4.25 M/mm3 (4.2-5.4); White Blood Count 8.4 K/mm3 (4.4-11.0)
[2021-08-21 08:25] LABS: ALB/GLOB Ratio 0.6 RATIO (0.9-2.4); AST(SGOT) 19 U/L (15-37); Alanine Aminotransfer ALT/SGPT 20 U/L (13-56); Albumin, Serum 2.6 g/dL (3.2-5.0); Alkaline Phosphatase 57 U/L (45-117); Anion Gap 6 (5-15); BUN 16 mg/dL (7-18); BUN/Creat Ratio 16.5 RATIO (10-20); Calcium,Total 8.2 mg/dL (8.5-10.1); Chloride 113 mmol/L (98-107); Cholesterol 104 mg/dL (200); Creatinine, Serum 0.97 mg/dL (0.55-1.02); EST Glomerular Filtration Rate 59 mL/min (>60); Est Glom Filt Rate - Afr Amer 71 mL/min (>60); Estimated Creatinine Clearance 37.19 ml/min; Globulin 4.1 g/dL (2.2-4.2); Glucose 98 mg/dL (74-106); High Density Lipoprotein 66 mg/dL; Potassium 3.6 mmol/L (3.5-5.1); Protein, Total 6.7 g/dL (6.4-8.2); Sodium Level 144 mmol/L (136-145); Triglycerides 69 mg/dL; Troponin-I HS 131 pg/mL (3.0-54.0); Very Low Density Lipoprotein 14 mg/dL (5-40)
[2021-08-21] MEDS: Metoprolol(XL)Succ 25 MG Tablet PO ×2 (09:10→21:05)
[2021-08-21] MEDS: APIXABAN 5 MG TABLET PO ×2 (09:11→21:05)
[2021-08-21] MEDS: Isosorbide Mononitrate 30 MG Tablet PO (09:11)
[2021-08-21] MEDS: Furosemide 20 MG Tablet PO (09:11)
[2021-08-21] MEDS: Calcium Carb/Vitamin D 1 TABLET Tablet PO (09:11)
[2021-08-21] MEDS: Sertraline 50 MG Tablet 25 MG PO (09:11)
[2021-08-21] MEDS: Pantoprazole Sodium 40 MG Tablet PO (09:12)
[2021-08-21] MEDS: Multivitamins,Ther W-Minerals Tablet 1 TABLET PO (09:12)
[2021-08-21] MEDS: Lisinopril 2.5 MG Tablet PO (09:15)
--- NOTE | 2021-08-21 09:34 | CASEMGMT ---
Insurance review for hospitals In-network with [facility] Insurance if transfer is recommended is as follows: [facility], [place], [facility], [facility], [facility], [facility]), and . Crispin MEDINAN RN CM
[2021-08-21] MEDS: Ferrous Sulfate 325 MG Tablet PO (10:57)
--- NOTE | 2021-08-21 11:12 | CASEMGMT ---
Patient is from [facility]. DARYL faxed information to [facility]. Adwoa Childers CRIMINAL LEGAL ASSISTANT HENRY
--- NOTE | 2021-08-21 11:24 | PCM.PN.BLA ---
Progress Note Continues to have mild chest pain though she states it is a little bit improved. Chest x-ray demonstrates a left lower lobe infiltrate with pleural effusion as well as a possible UTI. Urine culture is pending, will continue with IV Rocephin and monitor. She was having some burning with urination prior to placing the Jackman which is grossly bloody likely traumatic. It does appear that her encephalopathy has resolved on my evaluation however her troponins continued to climb. Per noted by the admitting physician, stand clarified by myself, she does not want any aggressive intervention from a cardiac standpoint as she does not want to have any open heart surgery or any type of cardiac catheterization therefore I do agree that stress test at this point is unnecessary. We will consult cardiology to maximize medical therapy prior to discharge.
--- NOTE | 2021-08-21 16:37 | CASEMGMT ---
DARYL spoke with Josee at [facility] and patient can return whenever ready. Green sheet on chart. Plan: d/c back to [facility] under intermediate level of care. Adwoa Benavides
[2021-08-21] MEDS: Atorvastatin Calcium 80 MG Tablet PO (21:05)
[2021-08-21 23:01] LABS: Bedside Glucose 145 mg/dL (70-110)
[2021-08-22] VITALS (11 sets, daily range): BP systolic 101–141; BP diastolic 57–68; PULSE 71–80; RESP 16–18; TEMP 36.1–36.8; O2SAT 94–96
[2021-08-22] MEDS: 0.9% Saline Lock 10 ML Syringe IV (04:34)
[2021-08-22] MEDS: Haloperidol Lactate 5 MG/ML Vial 4 MG IV (04:34)
[2021-08-22 07:10] LABS: Absolute Lymphocyte Count 1.49 X10^3/uL (0.83-4.51); Absolute Neutrophil Count 6.3 X10^3/uL (2.0-7.7); Basophil# 0.03 X10^3/uL; Basophil% 0.3 % (0-1); Eosinophil# 0.17 X10^3/uL; Eosinophils% 1.9 % (0-5); Hematocrit 33.4 % (37-47); Lymphocyte # 1.49 X10^3/ul (0.83-4.51); Lymphocyte % 16.3 % (19-41); Mean Corp Hgb Conc 29.9 g/dL (32-36); Mean Corpuscular Hgb 23.8 pg (27.0-32.0); Mean Corpuscular Volume 79.5 fL (81-99); Mean Platelet Vol. 10.8 fl (6.2-12.0); Monocyte# 1.13 X10^3/uL; Monocyte% 12.4 % (0-10); NRBC Flagged by Analyzer 0 % (0-5); Neutrophil # 6.28 X10^3/uL (2.7-7.7); Neutrophil % 68.8 % (47-70); Platelet Count 194 K/mm3 (150-450); RBC Distribution Width CV 17.9 % (11.6-14.6); RBC Distribution Width SD 51.7 fl (35.1-43.9); White Blood Count 9.1 K/mm3 (4.4-11.0)
[2021-08-22 07:33] LABS: Anion Gap 4 (5-15); BUN 13 mg/dL (7-18); BUN/Creat Ratio 12.3 RATIO (10-20); Calcium,Total 8.7 mg/dL (8.5-10.1); Chloride 109 mmol/L (98-107); Creatinine, Serum 1.06 mg/dL (0.55-1.02); EST Glomerular Filtration Rate 53 mL/min (>60); Est Glom Filt Rate - Afr Amer 64 mL/min (>60); Estimated Creatinine Clearance 34.04 ml/min; Glucose 91 mg/dL (74-106); Sodium Level 143 mmol/L (136-145)
--- NOTE | 2021-08-22 09:31 | CASEMGMT ---
HANNA CM in to complete ZAMORA Form with patient. RN KRISTIN explained ZAMORA form to patient, patient voiced understanding. Patient signed ZAMORA form and filed in chart. Patient provided with copy of signed ZAMORA form. Patient had no further questions or concerns.
[2021-08-22] MEDS: Metoprolol(XL)Succ 25 MG Tablet PO (09:36)
[2021-08-22] MEDS: Isosorbide Mononitrate 30 MG Tablet PO (09:36)
[2021-08-22] MEDS: Lisinopril 2.5 MG Tablet PO (09:37)
[2021-08-22] MEDS: Ranolazine 500 MG Tablet PO ×2 (09:37→21:28)
[2021-08-22] MEDS: Calcium Carb/Vitamin D 1 TABLET Tablet PO (09:37)
[2021-08-22] MEDS: Multivitamins,Ther W-Minerals Tablet 1 TABLET PO (09:37)
[2021-08-22] MEDS: Pantoprazole Sodium 40 MG Tablet PO (09:37)
[2021-08-22] MEDS: Furosemide 20 MG Tablet PO (09:37)
[2021-08-22] MEDS: APIXABAN 5 MG TABLET PO ×2 (09:37→21:28)
[2021-08-22] MEDS: Sertraline 50 MG Tablet 25 MG PO (09:37)
[2021-08-22] MEDS: 0.9% Normal Saline 1,000 ML 100 ML IV ×2 (10:00→17:05)
[2021-08-22] MEDS: Ferrous Sulfate 325 MG Tablet PO (12:24)
--- NOTE | 2021-08-22 14:02 | PCM.CONS.C ---
Assessment & Plan Assessment/Plan (1) Acute UTI: (2) CVA (cerebral vascular accident): QUALIFIERS: CVA mechanism: unspecified Qualified Code(s): I63.9 - Cerebral infarction, unspecified (3) Pure hypercholesterolemia: (4) Ischemic cardiomyopathy: (5) Paroxysmal atrial fibrillation: (6) NSTEMI (non-ST elevated myocardial infarction): PLAN: This 81-year-old patient with known history of CAD Prior cardiac catheterization showed multivessel CAD with preserved LV function ejection fraction around 55 Patient deemed to be a candidate for bypass surgery and decision was made for medical therapy and patient declined PCI On this presentation she had symptoms of chest pain and she had a very mild elevation of cardiac biomarker high sensitive troponin I Patient is well had a history of paroxysmal atrial fibrillation. Cardiac care plan and recommendations; 1. I reviewed the current medication and evaluation I would agree with the current plan of beta-xavier, long-acting nitrate and antianginal medication with Ranexa 2. Patient primary satellite manager Dr. Mora and once stable she can follow-up with an outpatient To discuss further cardiac care plan. HPI Consult Data Date of Consult: 08/22/21 HPI Narrative Reason for Consultation: multivessel coronary atherosclerosis/Presented with chest pain HPI Narrative: MARC DEAN, is a 81 F who presents [facility] Medical History Acute embolism and thrombosis of vein Angina pectoris Anxiety Atherosclerotic heart disease of [place] coronary artery without angina pectoris Cerebral ischemia Coagulopathy Combined forms of age-related cataract, bilateral Congestive heart disease Diastolic dysfunction Dizziness, nonspecific Failure to thrive Gastro-esophageal reflux disease without esophagitis Hematoma and contusion Hemiplegia and hemiparesis following cerebral infarction affecting right dominant side History of urinary calculi History of venous thromboembolism Hypertensive heart disease with heart failure Ischemic cardiomyopathy Major depression Non-ST elevation (NSTEMI) myocardial infarction NSTEMI (non-ST elevated myocardial infarction) Osteoarthritis Osteoporosis Paroxysmal atrial fibrillation Peptic ulcer Pure hypercholesterolemia SVT (supraventricular tachycardia) Syncope Ventricular tachycardia Vertebral compression fracture Home Medications acetaminophen 500 mg PO Q4H PRN PRN #30 tab 06/11/16 [Rx Last Taken 09/24/19] isosorbide mononitrate 30 mg PO DAILY 06/28/17 [History Last Taken 07/25/20] furosemide 20 mg tablet 20 mg PO DAILY 09/22/19 [History Last Taken 07/25/20] sertraline 50 mg tablet 25 mg PO DAILY 09/22/19 [History Last Taken 07/25/20] atorvastatin 80 mg PO QHS 09/26/19 [History Last Taken 07/25/20] calcium carbonate-vitamin D3 1 tab PO DAILY 09/26/19 [History Last Taken 07/25/20] st-ld-wvjt-FA-Ca carb-vit K 1 tab PO DAILY 09/26/19 [History Last Taken 07/25/20] nitroglycerin 0.4 mg SL PRN PRN 07/26/20 [History Last Taken Unknown] pantoprazole 40 mg PO DAILY #30 tab 07/28/20 [Rx Last Taken Unknown] ferrous sulfate 325 mg (65 mg iron) tablet,delayed release 325 mg PO DAILY 10/09/20 [History Last Taken Unknown] sodium chloride 3 % nasal mist 2 spray INTRANASAL PRN PRN 10/09/20 [History Last Taken Unknown] apixaban 5 mg tablet 5 mg PO BID 04/08/21 [History Last Taken Unknown] metoprolol succinate 25 mg tablet,extended release 24 hr 25 mg PO BID #180 tab 04/08/21 [Rx Last Taken Unknown] Allergy/AdvReac Type Severity Reaction Status Date / Time codeine AdvReac makes my Verified 08/20/21 23:32 mouth sore Family History Mother Diabetes Father CAD (coronary artery disease) Brother CAD (coronary artery disease) Surgical History H/O eye surgery H/O lumpectomy History of tonsillectomy Social History Smoking Status: Never smoker alcohol intake: never caffeine: No Physical Exam Narrative Patient seen today No symptoms of chest pain reported and no event from last night Review of the telemetry normal sinus rhythm Cardiovascular exam S1-S2 regular, soft systolic murmur heard in the aortic area no diastolic murmur no pericardial rub or gallop Chest examination clear to auscultation bilaterally. Risk Stratification Risk Stratification Applicable: Yes Age >/= 65: Yes >/= 3 CAD Risk Factors (HTN, HLD, DM, family hx of CAD, or current smoker): Yes Aspirin Use in the Past 7 Days: No Severe Angina (>/= episodes in 24 hours): No EKG ST Changes >/= 0.5mm: Yes Positive Cardiac Marker: Yes ORTIZ Risk Stratification Score: 4 ORTIZ % Risk: 20% Risk Objective Data Vital Signs: Vital Signs Temp Pulse Resp BP Pulse Ox 97.0 F L 78 16 141/68 H 94 08/22/21 09:30 08/22/21 09:36 08/22/21 09:30 08/22/21 09:30 08/22/21 09:30 Oxygen Delivery Method Room Air Weight: 150 lb 5.684 oz Body Mass Index (BMI) 27.5 Intake & Output: Intake and Output for Last 24 Hours 08/20/21 08/21/21 08/22/21 23:59 23:59 23:59 Intake Total 1920 / 1920 240 / 240 Output Total 1350 / 1350 1100 / 1100 Balance 570 / 570 -860 / -860 Lab / Micro Data Result Diagrams: 08/22/21 06:55 08/22/21 06:55 Labs: Laboratory Results - last 24 hr 08/21/21 21:00: POC Glucose 145 H 08/22/21 06:55: WBC 9.1, RBC 4.20, Hgb 10.0 L, Hct 33.4 L, MCV 79.5 L, MCH 23.8 L, MCHC 29.9 L, RDW Std Deviation 51.7 H, RDW Coeff of Porfirio 17.9 H, Plt Count 194, MPV 10.8, Immature Gran % (Auto) 0.300, Neut % (Auto) 68.8, Lymph % (Auto) 16.3 L, [place] % (Auto) 12.4 H, Eos % (Auto) 1.9, Baso % (Auto) 0.3, Absolute Neuts (auto) 6.3, Absolute Lymphs (auto) 1.49, Nucleated RBC % 0 08/22/21 06:55: Sodium 143, Potassium 4.0, Chloride 109 H, Carbon Dioxide 30.0, Anion Gap 4 L, BUN 13, Creatinine 1.06 H, Estim Creat Clear Calc 34.04, Est GFR (MDRD) Af Amer 64, Est GFR (MDRD) Non-Af 53 L, BUN/Creatinine Ratio 12.3, Glucose 91, Calcium 8.7 Micro: Microbiology 08/21/21 01:30 Urine Catheter - Jackman Urine Culture - Preliminary GNR lactose process engineering technician Cardiology Labs/Tests 08/22/21 06:55: WBC 9.1, RBC 4.20, Hgb 10.0 L, Hct 33.4 L, MCV 79.5 L, MCH 23.8 L, MCHC 29.9 L, Plt Count 194, MPV 10.8, Immature Gran % (Auto) 0.300, Neut % (Auto) 68.8, Lymph % (Auto) 16.3 L, [place] % (Auto) 12.4 H, Eos % (Auto) 1.9, Baso % (Auto) 0.3, Absolute Neuts (auto) 6.3, Nucleated RBC % 0 08/22/21 06:55: Sodium 143, Potassium 4.0, Chloride 109 H, Carbon Dioxide 30.0, Anion Gap 4 L, BUN 13, Creatinine 1.06 H, Est GFR (MDRD) Af Amer 64, Est GFR (MDRD) Non-Af 53 L, BUN/Creatinine Ratio 12.3, Glucose 91, Calcium 8.7 Rhythm: Normal sinus rhythm EKG: Sinus rhythm with nonspecific ST-T change
--- NOTE | 2021-08-22 14:06 | PN.HOSP_ITS ---
Subjective Subjective Patient seen and examined. She had no active complaints. Patient was able to communicate with me but I was informed by her nurse that patient was subsequently quite confused. She was admitted with a complaint of chest pain. She had no chest pain at time I reviewed her and she stated that she did not want any work-up for the chest pain. She was also found to have a UTI. Patient's urine is very dark and concentrated. Review of systems otherwise negative. Objective Data Objective Data Vital Signs: Vital Signs Temp Pulse Resp BP Pulse Ox 97.0 F L 78 16 141/68 H 94 08/22/21 09:30 08/22/21 09:36 08/22/21 09:30 08/22/21 09:30 08/22/21 09:30 Oxygen Delivery Method Room Air Weight: 150 lb 5.684 oz Body Mass Index (BMI) 27.5 Intake & Output: Intake and Output for Last 24 Hours 08/20/21 08/21/21 08/22/21 23:59 23:59 23:59 Intake Total 1920 / 1920 240 / 240 Output Total 1350 / 1350 1100 / 1100 Balance 570 / 570 -860 / -860 Lab / Micro Data Result Diagrams: 08/22/21 06:55 08/22/21 06:55 Labs: Laboratory Results - last 24 hr 08/21/21 21:00: POC Glucose 145 H 08/22/21 06:55: WBC 9.1, RBC 4.20, Hgb 10.0 L, Hct 33.4 L, MCV 79.5 L, MCH 23.8 L, MCHC 29.9 L, RDW Std Deviation 51.7 H, RDW Coeff of Porfirio 17.9 H, Plt Count 194, MPV 10.8, Immature Gran % (Auto) 0.300, Neut % (Auto) 68.8, Lymph % (Auto) 16.3 L, [place] % (Auto) 12.4 H, Eos % (Auto) 1.9, Baso % (Auto) 0.3, Absolute Neuts (auto) 6.3, Absolute Lymphs (auto) 1.49, Nucleated RBC % 0 08/22/21 06:55: Sodium 143, Potassium 4.0, Chloride 109 H, Carbon Dioxide 30.0, Anion Gap 4 L, BUN 13, Creatinine 1.06 H, Estim Creat Clear Calc 34.04, Est GFR (MDRD) Af Amer 64, Est GFR (MDRD) Non-Af 53 L, BUN/Creatinine Ratio 12.3, Glucose 91, Calcium 8.7 Micro: Microbiology 08/21/21 01:30 Urine Catheter - Jackman Urine Culture - Preliminary GNR lactose floorleader 08/21/21 00:50 Nasal Secretion SARS-CoV-2 Antigen (Rapid) - Final Physical Exam Const alert and no apparent distress Exam Limitations: no limitations HEENT head/scalp atraumatic Head and Scalp: normocephalic Mouth: dry mucous membranes Eyes PERRL, EOMs intact bilaterally and conjunctivae normal Neck no lymphadenopathy Resp normal respiratory effort, no retractions, no use of accessory muscles and clear to auscultation bilaterally Cardio regular rate, regular rhythm, S1 normal heart sound, S2 normal heart sound and no murmurs GI normal to inspection, nondistended, normoactive bowel sounds, soft to palpation, non-tender and non-distended GI Narrative: very dark, concentrated urine in catheter tubing and urine bag Extremity normal to inspection, full ROM and no clubbing, cyanosis or edema Peripheral Pulses: Yes pulses 2+ throughout Skin no rashes or lesions noted Neuro CN's II-XII intact bilaterally and moves all extremities Sensorium / Orientation: awake and alert Psych affect normal Assessment & Plan Assessment/Plan (1) Encephalopathy acute: (2) Acute UTI: PLAN: #Acute metabolic encephalopathy * due to UTI and community acquired pneumonia * CXR also showed a left lower lobe pneumonia and small pleural effusion * on IV ceftriazone and azithromycin * hydrate gently with IVF * blood and urine cultures ordered and pending * #UTI: as above #Chest pain: * patient;s chest pain has resolved, * she says she doesnt want any further workup for it, as she wouldnt want to havae a cardiac cath if needed. * cardiology consulted; await rec;s #paroxysmal afib: on metoprolol. Also on eliquis. #Hyperlipidemia: on atorvastatin #Hypertension: on lisinopril and metoprolol. #Ischemic cardiomyopathy: on statin, lisinopril and metoprolol as well as imdur. DVT prophylaxis: not indicated as patient is on eliquis. Charges/Coding Visit Charges Inpatient E&M: 29799 Subs Hosp L2
[2021-08-22] MEDS: Ceftriaxone 1 GM/50 ML BAG IV (21:27)
[2021-08-22] MEDS: Atorvastatin Calcium 80 MG Tablet PO (21:28)
[2021-08-23] VITALS (11 sets, daily range): BP systolic 103–135; BP diastolic 50–68; PULSE 81–98; RESP 16–18; TEMP 36.4–36.9; O2SAT 93–95
[2021-08-23] MEDS: 0.9% Normal Saline 1,000 ML 100 ML IV ×3 (03:44→23:10)
[2021-08-23 06:57] LABS: Absolute Neutrophil Count 5.3 X10^3/uL (2.0-7.7); Basophil# 0.04 X10^3/uL; Basophil% 0.5 % (0-1); Eosinophil# 0.21 X10^3/uL; Eosinophils% 2.6 % (0-5); Hematocrit 32.7 % (37-47); Hemoglobin 9.9 g/dL (12.0-15.0); Lymphocyte % 18.3 % (19-41); Mean Corp Hgb Conc 30.3 g/dL (32-36); Mean Corpuscular Hgb 24.2 pg (27.0-32.0); Mean Platelet Vol. 10.8 fl (6.2-12.0); Monocyte# 1.11 X10^3/uL; Monocyte% 13.6 % (0-10); NRBC Flagged by Analyzer 0 % (0-5); Neutrophil % 64.8 % (47-70); Platelet Count 188 K/mm3 (150-450); RBC Distribution Width CV 18.4 % (11.6-14.6); RBC Distribution Width SD 53.1 fl (35.1-43.9); Red Blood Count 4.09 M/mm3 (4.2-5.4); White Blood Count 8.2 K/mm3 (4.4-11.0)
[2021-08-23 07:23] LABS: Anion Gap 6 (5-15); BUN 12 mg/dL (7-18); BUN/Creat Ratio 10.6 RATIO (10-20); Calcium,Total 8.4 mg/dL (8.5-10.1); Chloride 109 mmol/L (98-107); Creatinine, Serum 1.13 mg/dL (0.55-1.02); EST Glomerular Filtration Rate 49 mL/min (>60); Est Glom Filt Rate - Afr Amer 60 mL/min (>60); Estimated Creatinine Clearance 31.93 ml/min; Glucose 95 mg/dL (74-106); Potassium 3.8 mmol/L (3.5-5.1); Sodium Level 141 mmol/L (136-145)
[2021-08-23] MEDS: APIXABAN 5 MG TABLET PO ×2 (09:43→20:10)
[2021-08-23] MEDS: Pantoprazole Sodium 40 MG Tablet PO (09:43)
[2021-08-23] MEDS: Ranolazine 500 MG Tablet PO ×2 (09:44→20:10)
[2021-08-23] MEDS: Isosorbide Mononitrate 30 MG Tablet PO (09:44)
[2021-08-23] MEDS: Furosemide 20 MG Tablet PO (09:44)
[2021-08-23] MEDS: Multivitamins,Ther W-Minerals Tablet 1 TABLET PO (09:44)
[2021-08-23] MEDS: Calcium Carb/Vitamin D 1 TABLET Tablet PO (09:44)
[2021-08-23] MEDS: Sertraline 50 MG Tablet 25 MG PO (09:45)
[2021-08-23] MEDS: Metoprolol(XL)Succ 25 MG Tablet PO ×2 (09:45→20:10)
[2021-08-23] MEDS: Ferrous Sulfate 325 MG Tablet PO (09:46)
--- NOTE | 2021-08-23 09:57 | PN.HOSP_ITS ---
Subjective Subjective Patient seen and examined. She has no active complaints. She was alert and oriented to person, but not place and time. Review of systems is otherwise negative. She has remained hemodynamically stable. Objective Data Objective Data Vital Signs: Vital Signs Temp Pulse Resp BP Pulse Ox 98.5 F 94 16 104/62 93 08/23/21 09:40 08/23/21 09:45 08/23/21 09:40 08/23/21 09:40 08/23/21 09:40 Oxygen Delivery Method Room Air Weight: 150 lb 5.684 oz Body Mass Index (BMI) 27.5 Intake & Output: Intake and Output for Last 24 Hours 08/21/21 08/22/21 08/23/21 23:59 23:59 23:59 Intake Total 1920 / 1920 1678.33 / 1678.33 1000 / 1000 Output Total 1350 / 1350 2175 / 2175 350 / 350 Balance 570 / 570 -496.67 / -496.67 650 / 650 Lab / Micro Data Result Diagrams: 08/23/21 06:43 08/23/21 06:43 Labs: Laboratory Results - last 24 hr 08/23/21 06:43: WBC 8.2, RBC 4.09 L, Hgb 9.9 L, Hct 32.7 L, MCV 80.0 L, MCH 24.2 L, MCHC 30.3 L, RDW Std Deviation 53.1 H, RDW Coeff of Porfirio 18.4 H, Plt Count 188, MPV 10.8, Immature Gran % (Auto) 0.200, Neut % (Auto) 64.8, Lymph % (Auto) 18.3 L, [place] % (Auto) 13.6 H, Eos % (Auto) 2.6, Baso % (Auto) 0.5, Absolute Neuts (auto) 5.3, Absolute Lymphs (auto) 1.50, Nucleated RBC % 0 08/23/21 06:43: Sodium 141, Potassium 3.8, Chloride 109 H, Carbon Dioxide 26.0, Anion Gap 6, BUN 12, Creatinine 1.13 H, Estim Creat Clear Calc 31.93, Est GFR (MDRD) Af Amer 60, Est GFR (MDRD) Non-Af 49 L, BUN/Creatinine Ratio 10.6, Glucose 95, Calcium 8.4 L Micro: Microbiology 08/21/21 01:30 Urine Catheter - Jackman Urine Culture - Final Escherichia coli 08/21/21 00:50 Nasal Secretion SARS-CoV-2 Antigen (Rapid) - Final Physical Exam Const alert, oriented x3 and no apparent distress Exam Limitations: no limitations HEENT head/scalp atraumatic Head and Scalp: normocephalic Eyes PERRL, EOMs intact bilaterally and conjunctivae normal Neck no lymphadenopathy Resp normal respiratory effort, no retractions, no use of accessory muscles and clear to auscultation bilaterally Cardio regular rate, regular rhythm, S1 normal heart sound, S2 normal heart sound and no murmurs GI normal to inspection, nondistended, normoactive bowel sounds, soft to palpation, non-tender and non-distended GI Narrative: urine still dark and blood tinged. Extremity normal to inspection, full ROM and no clubbing, cyanosis or edema Peripheral Pulses: Yes pulses 2+ throughout Skin no rashes or lesions noted Neuro CN's II-XII intact bilaterally and moves all extremities Sensorium / Orientation: awake and alert Psych affect normal Assessment & Plan Assessment/Plan (1) Encephalopathy acute: (2) Acute UTI: PLAN: #Acute metabolic encephalopathy * due to UTI and community acquired pneumonia * CXR also showed a left lower lobe pneumonia and small pleural effusion * on IV ceftriazone and azithromycin * hydrate gently with IVF * blood and urine cultures ordered and pending * #UTI: as above #Chest pain: * patient's chest pain has resolved, * she says she doesnt want any further workup for it, as she wouldnt want to have a cardiac cath if needed. * cardiology consulted; recommends continuing metoprolol, imdur and ranexa. to follow up with her outpatient engineer design and construction upon discharge. #paroxysmal afib: on metoprolol. Also on eliquis. #Hyperlipidemia: on atorvastatin #Hypertension: on lisinopril and metoprolol. #Ischemic cardiomyopathy: on statin, lisinopril and metoprolol as well as imdur. DVT prophylaxis: not indicated as patient is on eliquis. Charges/Coding Visit Charges Inpatient E&M: 25227 Subs Hosp L2
[2021-08-23] MEDS: Acetaminophen 325 MG Tablet 650 MG PO (10:20)
--- NOTE | 2021-08-23 13:49 | PN.CARD_ITS ---
Subjective Subjective Patient seen and evaluated today and discussed with the nursing patient seen and elevated today Still having mild symptoms of left-sided chest discomfort Objective Data Vital Signs: Vital Signs Temp Pulse Resp BP Pulse Ox 98.5 F 94 16 104/62 93 08/23/21 09:40 08/23/21 09:45 08/23/21 09:40 08/23/21 09:40 08/23/21 09:40 Oxygen Delivery Method Room Air Weight: 150 lb 5.684 oz Body Mass Index (BMI) 27.5 Intake & Output: Intake and Output for Last 24 Hours 08/21/21 08/22/21 08/23/21 23:59 23:59 23:59 Intake Total 1920 / 1920 1678.33 / 1678.33 1240 / 1240 Output Total 1350 / 1350 2175 / 2175 775 / 775 Balance 570 / 570 -496.67 / -496.67 465 / 465 Lab / Micro Data Result Diagrams: 08/23/21 06:43 08/23/21 06:43 Labs: Laboratory Results - last 24 hr 08/23/21 06:43: WBC 8.2, RBC 4.09 L, Hgb 9.9 L, Hct 32.7 L, MCV 80.0 L, MCH 24.2 L, MCHC 30.3 L, RDW Std Deviation 53.1 H, RDW Coeff of Porfirio 18.4 H, Plt Count 188, MPV 10.8, Immature Gran % (Auto) 0.200, Neut % (Auto) 64.8, Lymph % (Auto) 18.3 L, [place] % (Auto) 13.6 H, Eos % (Auto) 2.6, Baso % (Auto) 0.5, Absolute Neuts (auto) 5.3, Absolute Lymphs (auto) 1.50, Nucleated RBC % 0 08/23/21 06:43: Sodium 141, Potassium 3.8, Chloride 109 H, Carbon Dioxide 26.0, Anion Gap 6, BUN 12, Creatinine 1.13 H, Estim Creat Clear Calc 31.93, Est GFR (MDRD) Af Amer 60, Est GFR (MDRD) Non-Af 49 L, BUN/Creatinine Ratio 10.6, Glucose 95, Calcium 8.4 L Micro: Microbiology 08/21/21 01:30 Urine Catheter - Jackman Urine Culture - Final Escherichia coli Cardiology Labs/Tests 08/23/21 06:43: WBC 8.2, RBC 4.09 L, Hgb 9.9 L, Hct 32.7 L, MCV 80.0 L, MCH 24.2 L, MCHC 30.3 L, Plt Count 188, MPV 10.8, Immature Gran % (Auto) 0.200, Neut % (Auto) 64.8, Lymph % (Auto) 18.3 L, [place] % (Auto) 13.6 H, Eos % (Auto) 2.6, Baso % (Auto) 0.5, Absolute Neuts (auto) 5.3, Nucleated RBC % 0 08/23/21 06:43: Sodium 141, Potassium 3.8, Chloride 109 H, Carbon Dioxide 26.0, Anion Gap 6, BUN 12, Creatinine 1.13 H, Est GFR (MDRD) Af Amer 60, Est GFR (MDRD) Non-Af 49 L, BUN/Creatinine Ratio 10.6, Glucose 95, Calcium 8.4 L Rhythm: Review of telemetry reveals normal sinus rhythm. Physical Exam Narrative Alert oriented x3 no apparent distress HEENT; Head/scalp atraumatic, normocephalic Cardiovascular examination; S1-S2 normal, soft systolic murmur in the aortic valve area, no diastolic murmur No pericardial rub or gallop Respiratory system examination; Normal air entry bilateral GI exam; normal to inspection, not distended Examination lower extremity no clubbing no cyanosis no lower extremity edema. Assessment & Plan Assessment/Plan (1) CVA (cerebral vascular accident): QUALIFIERS: CVA mechanism: unspecified Qualified Code(s): I63.9 - Cerebral infarction, unspecified (2) Acute UTI: (3) Encephalopathy acute: (4) Paroxysmal atrial fibrillation: (5) Atherosclerotic heart disease of [place] coronary artery without angina pectoris: (6) NSTEMI (non-ST elevated myocardial infarction): PLAN: 81-year-old patient known coronary atherosclerosis with multivessel CAD, not candidate for CABG Patient declined PCI and has been on medical therapy As symptoms of chest pain which is very minimal. Today I discussed with the patient to evaluate further with cardiac cath and to discuss further for possibility of PCI She declined and she would like to continue medical therapy Cardiac recommendation plan; 1. Agree with the current medical treatment with antianginal medication long- acting nitrate, Ranexa, beta-xavier metoprolol 2. Patient had paroxysmal atrial fibrillation and has been on anticoagulation with Eliquis 3. Hyperlipidemia patient has been on a statin. 4 ischemic cardiomyopathy she has been on LIZZY inhibitor in addition to beta- xavier. Other medical problem include acute metabolic encephalopathy with acute UTI and I will defer to the medical team for management 5. For continuation of cardiac care plan recommendation would recommend to follow-up with the primary sprinkling system irrigator on discharge/Dr. Mora
[2021-08-23] MEDS: Atorvastatin Calcium 80 MG Tablet PO (20:11)
[2021-08-23] MEDS: Ceftriaxone 1 GM/50 ML BAG IV (21:56)
[2021-08-24] VITALS (12 sets, daily range): BP systolic 106–155; BP diastolic 60–108; PULSE 70–91; RESP 15–18; TEMP 36.4–36.7; O2SAT 92–95
[2021-08-24 07:09] LABS: Absolute Lymphocyte Count 1.42 X10^3/uL (0.83-4.51); Basophil# 0.05 X10^3/uL; Basophil% 0.8 % (0-1); Eosinophil# 0.26 X10^3/uL; Eosinophils% 3.9 % (0-5); Hematocrit 30.6 % (37-47); Hemoglobin 9.4 g/dL (12.0-15.0); Lymphocyte # 1.42 X10^3/ul (0.83-4.51); Lymphocyte % 21.5 % (19-41); Mean Corp Hgb Conc 30.7 g/dL (32-36); Mean Corpuscular Hgb 24.2 pg (27.0-32.0); Mean Corpuscular Volume 78.9 fL (81-99); Mean Platelet Vol. 10.5 fl (6.2-12.0); Monocyte# 0.88 X10^3/uL; Monocyte% 13.4 % (0-10); NRBC Flagged by Analyzer 0 % (0-5); Neutrophil # 3.96 X10^3/uL (2.7-7.7); Neutrophil % 60.1 % (47-70); Platelet Count 185 K/mm3 (150-450); RBC Distribution Width CV 18.6 % (11.6-14.6); RBC Distribution Width SD 52.6 fl (35.1-43.9); Red Blood Count 3.88 M/mm3 (4.2-5.4); White Blood Count 6.6 K/mm3 (4.4-11.0)
[2021-08-24 07:34] LABS: Anion Gap 5 (5-15); BUN 8 mg/dL (7-18); BUN/Creat Ratio 8.2 RATIO (10-20); Calcium,Total 8.2 mg/dL (8.5-10.1); Chloride 111 mmol/L (98-107); Creatinine, Serum 0.98 mg/dL (0.55-1.02); EST Glomerular Filtration Rate 58 mL/min (>60); Est Glom Filt Rate - Afr Amer 71 mL/min (>60); Estimated Creatinine Clearance 36.82 ml/min; Glucose 98 mg/dL (74-106); Sodium Level 142 mmol/L (136-145)
--- NOTE | 2021-08-24 08:48 | CT_ITS ---
STUDY: CTA HEAD AND NECK WITH CONTRAST REASON FOR EXAM: Female, 81 years old. R/O STROKE RADIATION DOSAGE (If Supplied By Facility): CTDIvol = ( 27.73 ) mGy, DLP = ( 1414.87 ) mGycm TECHNIQUE: CT angiography was performed with a multi-detector CT scanner. Data acquisition was obtained from the skull base through the vertex following intravenous administration of [id number] 100ML. MIP images were reconstructed from the axial data set. Post-processing of the angiographic images was performed, with multiplanar reformation and 3D reconstruction. Individualized dose optimization techniques were used for this CT. COMPARISON: No relevant priors. FINDINGS: Normal bilateral petrous carotid arteries. Normal right cavernous carotid artery with a normal supraclinoid bifurcation. Normal left cavernous carotid artery with a normal supraclinoid bifurcation. Normal right A1 segments of the anterior cerebral artery. Normal left A1 segments of the anterior cerebral artery. Normal intact anterior communicating artery (ACOM). Normal bilateral A2 segments of the anterior cerebral arteries. Normal right M1 and M2 segments of the middle cerebral arteries, with a normal M1 bifurcation. Normal left M1 and M2 segments of the middle cerebral arteries, with a normal M1 bifurcation. Normal right posterior communicating artery (PCOM). Normal left posterior communicating artery (PCOM). Normal bilateral vertebral arteries. Normal basilar artery with a normal basilar bifurcation. The visualized bilateral superior cerebellar (SCA) arteries are normal. Normal bilateral P1, P2 and visualized P3 segments of the posterior cerebral arteries. There is no demonstrated aneurysm of the [place]. There is no demonstrated abnormality of the visualized brain. AORTIC ARCH: Normal visualized aortic arch. Normal origins of the brachiocephalic, left common carotid, and left subclavian arteries. RIGHT CAROTID ARTERIES: Normal right common carotid artery (CCA). There is mild atherosclerotic plaque formation with minimal narrowing of the right carotid bulb. There is mild atherosclerotic plaque formation of the origin of the right internal carotid artery with less than 50% cross sectional diameter stenosis. Normal visualized cervical portion of the right internal carotid artery. Normal origin of the right external carotid artery (ECA). LEFT CAROTID ARTERIES: Normal left common carotid artery (CCA). There is mild atherosclerotic plaque formation with minimal narrowing of the left carotid bulb. There is mild atherosclerotic plaque formation of the origin of the left internal carotid artery with less than 50% cross sectional diameter stenosis. Normal visualized cervical portion of the left internal carotid artery. Normal origin of the left external carotid artery (ECA). VERTEBRAL ARTERIES: Normal bilateral vertebral arteries. IMPRESSION: 1. Normal CTA Head with contrast. 2. Mild (20%) carotid stenosis bilaterally. 3. Patent vertebral arteries bilaterally. Electronically Signed: Charles Houston MD at 9:40 EST Tel , Service support , STUDY: CT BRAIN WITHOUT CONTRAST REASON FOR EXAM: Female, 81 years old. R/O STROKE RADIATION DOSAGE (If Supplied By Facility): CTDIvol = ( ) mGy, DLP = ( ) mGycm TECHNIQUE: Transaxial CT imaging of the brain was performed without administration of intravenous contrast material. Individualized dose optimization techniques were used for this CT. COMPARISON: 08/20/2021 FINDINGS: Normal soft tissue structures. Normal calvarium. Normal size ventricles and extra-axial spaces for the patient''s age. Normal white matter tracts of the cerebral hemispheres. Normal basal ganglia and thalami. Normal brainstem. Normal cerebellum. There is no intracranial hemorrhage. There are no findings of an acute ischemic infarction. Normal visualized paranasal sinuses. CT/CTA Head AND Neck W/ Contrast IMPRESSION: Normal unenhanced CT scan of the brain. Electronically Signed: Charles Houston MD at 9:52 EST Tel , Service support ,
--- NOTE | 2021-08-24 09:50 | NURSING ---
Pt lethargic and unresponsive upon AM assessment by this RN. Sha Park, physician ophthalmologist notified and Dr. Higgins in to bedside. VS stable. Brain CT ordered.
--- NOTE | 2021-08-24 10:38 | MRI_ITS ---
STUDY: MRI BRAIN WITHOUT CONTRAST REASON FOR EXAM: Female, 81 years old. left facial droop,ams TECHNIQUE: Standardized multiplanar fat and water weighted pulse sequences were obtained. COMPARISON: 09/26/2019, CT 08/20/2021 FINDINGS: Normal size of the ventricles and extra-axial spaces for the patient''s age. Normal white matter tracts of the supratentorial brain. There is no evidence for recent intracranial ischemia or other cause of cytotoxic edema on diffusion weighted imaging (DWI). Normal T2* images of the brain without demonstrated susceptibility artifact. There is no demonstrated hemosiderin stain. Normal bilateral basal ganglia. Normal thalami. There is no extra-axial fluid accumulation. Normal flow voids within the major intracranial circulation suggesting patency by spin echo criteria. Normal sella turcica, pituitary gland, infundibular stalk, optic chiasm and hypothalamus. Normal tectal plate and pineal gland. Normal midbrain, riaz and medulla. 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 Normal basal cisterns. Normal bilateral temporal bones. Normal bilateral internal auditory canals. No demonstrated orbital abnormality, within the constraints of a routine brain study. Normal visualized paranasal sinuses. Normal calvarium and skull base. Normal visualized soft tissue structures. Normal visualized upper cervical spine. MRI/Brain without Contrast IMPRESSION: No acute abnormality. Electronically Signed: Charles Houston MD at 14:05 EST Tel , Service support ,
--- NOTE | 2021-08-24 10:41 | TELEMED_ITS ---
[facility] Tele[facility] has confirmed receipt of a request for visit. This document confirms receipt of the order initiating the consult. To find the results of the consultation, please view the patient's reports for the scanned Telemed Consult.
[2021-08-24] MEDS: Sertraline 50 MG Tablet 25 MG PO (11:05)
[2021-08-24] MEDS: Calcium Carb/Vitamin D 1 TABLET Tablet PO (11:05)
[2021-08-24] MEDS: Ranolazine 500 MG Tablet PO ×2 (11:05→22:38)
[2021-08-24] MEDS: Pantoprazole Sodium 40 MG Tablet PO (11:06)
[2021-08-24] MEDS: APIXABAN 5 MG TABLET PO ×2 (11:06→22:39)
[2021-08-24] MEDS: Multivitamins,Ther W-Minerals Tablet 1 TABLET PO (11:06)
[2021-08-24] MEDS: Ferrous Sulfate 325 MG Tablet PO (11:09)
[2021-08-24] MEDS: Aspirin 81 MG TAB.CHEW PO (11:09)
[2021-08-24] MEDS: Acetaminophen 325 MG Tablet 650 MG PO (13:08)
--- NOTE | 2021-08-24 13:29 | PN.HOSP_ITS ---
Subjective Subjective Patient seen and examined. She was responsive this morning when I reviewed her, and was arousable. She had no active complaints. However, later in the morning, she was noted to be more confused and unresponsive. I went back to review patient, and she was not very responsive. She was noted to have a left facial droop, which appeared to be new. A stat CT of the brain was ordered and was negative for stroke. CTA of the head and neck showed mild carotid stenosis (20%) bilaterally, and patent vertebral arteries bilaterally. Objective Data Objective Data Vital Signs: Vital Signs Temp Pulse Resp BP Pulse Ox 98.1 F 85 18 132/91 H 94 08/24/21 13:14 08/24/21 13:14 08/24/21 13:14 08/24/21 13:14 08/24/21 13:14 Oxygen Delivery Method Room Air Weight: 150 lb 5.684 oz Body Mass Index (BMI) 27.5 Intake & Output: Intake and Output for Last 24 Hours 08/22/21 08/23/21 08/24/21 23:59 23:59 23:59 Intake Total 1678.33 / 1678.33 3611.67 / 3611.67 1003.33 / 1003.33 Output Total 2175 / 2175 2325 / 2325 975 / 975 Balance -496.67 / -496.67 1286.67 / 1286.67 28.33 / 28.33 Lab / Micro Data Result Diagrams: 08/24/21 06:48 08/24/21 06:48 Labs: Laboratory Results - last 24 hr 08/24/21 06:48: WBC 6.6, RBC 3.88 L, Hgb 9.4 L, Hct 30.6 L, MCV 78.9 L, MCH 24.2 L, MCHC 30.7 L, RDW Std Deviation 52.6 H, RDW Coeff of Porfirio 18.6 H, Plt Count 185, MPV 10.5, Immature Gran % (Auto) 0.300, Neut % (Auto) 60.1, Lymph % (Auto) 21.5, [place] % (Auto) 13.4 H, Eos % (Auto) 3.9, Baso % (Auto) 0.8, Absolute Neuts (auto) 4.0, Absolute Lymphs (auto) 1.42, Nucleated RBC % 0 08/24/21 06:48: Sodium 142, Potassium 4.0, Chloride 111 H, Carbon Dioxide 26.0, Anion Gap 5, BUN 8, Creatinine 0.98, Estim Creat Clear Calc 36.82, Est GFR (MDRD) Af Amer 71, Est GFR (MDRD) Non-Af 58 L, BUN/Creatinine Ratio 8.2 L, Glucose 98, Calcium 8.2 L 08/24/21 10:20: Ammonia 19.0 Micro: Microbiology 08/22/21 14:35 Blood Culture (Wb) - Right Hand Blood Culture - Preliminary No growth in 48 hours. 08/22/21 14:40 Blood Culture (Wb) - Left Hand Blood Culture - Preliminary No growth in 48 hours. 08/23/21 15:15 Stool C. difficile DNA Amplification - Final 08/21/21 01:30 Urine Catheter - Jackman Urine Culture - Final Escherichia coli 08/21/21 00:50 Nasal Secretion SARS-CoV-2 Antigen (Rapid) - Final Radiography Diagnostic Testing: Radiology Impression Head/Neck CTA 08/24/21 08:48 IMPRESSION: Normal unenhanced CT scan of the brain. Electronically Signed: Charles Houston MD at 9:52 EST Tel , Service support , Physical Exam Const Constitutional Narrative: confused, altered mental status. Exam Limitations: altered mental status HEENT head/scalp atraumatic Head and Scalp: normocephalic Eyes PERRL Neck no lymphadenopathy Resp normal respiratory effort, no retractions, no use of accessory muscles and clear to auscultation bilaterally Cardio regular rate, regular rhythm, S1 normal heart sound, S2 normal heart sound and no murmurs GI normal to inspection, nondistended, normoactive bowel sounds, soft to palpation, non-tender and non-distended Extremity Peripheral Pulses: Yes pulses 2+ throughout Skin no rashes or lesions noted Neuro Neuro Narrative: left facial droop; no focal weakness noted. Assessment & Plan Assessment/Plan (1) Encephalopathy acute: (2) Acute UTI: PLAN: #Acute metabolic encephalopathy due to UTI and community acquired pneumonia * on IV ceftriaxone and azithromycin * blood and urine cultures pending. * #Left facial droop * concern for CVA this morning due to patient being very poorly responsive and having a new onset left facial droop * CT of the brain was negative for stroke, and CTA was also negative for any hemodynamically significant stenosis * MRI of the brain ordered * stat [facility] neurology consulted; I discussed with [facility] neurologist, who recommends that patient is continued on eliquis for now, whilst MRI is pending. Patient is not a candidate for tPA as patient is on eliquis. Continue statin. * NIHSS ordered * MRI negative for any evidence of stroke or any acute intracranial pathology * #Chest pain * resolved. Patient doesnt want any further workup. * cardiology reviewed patient, and recommends patient continue on metoprolol, imdur and ranexa. * follow up with cardiology on outpatient basis. * #Hyperlipidemia: on statin #Hypertension: on lisinopril and metoprolol. #Ischemic cardiomyopathy: on statin, lisinopril and metoprolol as well as imdur. DVT prophylaxis: not indicated as patient is on eliquis. Charges/Coding Visit Charges Inpatient E&M: 71189 Subs Hosp L3
--- NOTE | 2021-08-24 13:48 | PN.CARD_ITS ---
Subjective Subjective Patient has difficulty of arousal today with some weakness on the left side and flattening of the left nasolabial fold Objective Data Vital Signs: Vital Signs Temp Pulse Resp BP Pulse Ox 98.1 F 85 18 132/91 H 94 08/24/21 13:14 08/24/21 13:14 08/24/21 13:14 08/24/21 13:14 08/24/21 13:14 Oxygen Delivery Method Room Air Weight: 150 lb 5.684 oz Body Mass Index (BMI) 27.5 Intake & Output: Intake and Output for Last 24 Hours 08/22/21 08/23/21 08/24/21 23:59 23:59 23:59 Intake Total 1678.33 / 1678.33 3611.67 / 3611.67 1003.33 / 1003.33 Output Total 2175 / 2175 2325 / 2325 975 / 975 Balance -496.67 / -496.67 1286.67 / 1286.67 28.33 / 28.33 Lab / Micro Data Result Diagrams: 08/24/21 06:48 08/24/21 06:48 Labs: Laboratory Results - last 24 hr 08/24/21 06:48: WBC 6.6, RBC 3.88 L, Hgb 9.4 L, Hct 30.6 L, MCV 78.9 L, MCH 24.2 L, MCHC 30.7 L, RDW Std Deviation 52.6 H, RDW Coeff of Porfirio 18.6 H, Plt Count 185, MPV 10.5, Immature Gran % (Auto) 0.300, Neut % (Auto) 60.1, Lymph % (Auto) 21.5, [place] % (Auto) 13.4 H, Eos % (Auto) 3.9, Baso % (Auto) 0.8, Absolute Neuts (auto) 4.0, Absolute Lymphs (auto) 1.42, Nucleated RBC % 0 08/24/21 06:48: Sodium 142, Potassium 4.0, Chloride 111 H, Carbon Dioxide 26.0, Anion Gap 5, BUN 8, Creatinine 0.98, Estim Creat Clear Calc 36.82, Est GFR (MDRD) Af Amer 71, Est GFR (MDRD) Non-Af 58 L, BUN/Creatinine Ratio 8.2 L, Gl ucose 98, Calcium 8.2 L 08/24/21 10:20: Ammonia 19.0 Micro: Microbiology 08/22/21 14:35 Blood Culture (Wb) - Right Hand Blood Culture - Preliminary No growth in 48 hours. 08/22/21 14:40 Blood Culture (Wb) - Left Hand Blood Culture - Preliminary No growth in 48 hours. 08/23/21 15:15 Stool C. difficile DNA Amplification - Final 08/21/21 01:30 Urine Catheter - Jackman Urine Culture - Final Escherichia coli Cardiology Labs/Tests 08/24/21 06:48: WBC 6.6, RBC 3.88 L, Hgb 9.4 L, Hct 30.6 L, MCV 78.9 L, MCH 24.2 L, MCHC 30.7 L, Plt Count 185, MPV 10.5, Immature Gran % (Auto) 0.300, Neut % (Auto) 60.1, Lymph % (Auto) 21.5, [place] % (Auto) 13.4 H, Eos % (Auto) 3.9, Baso % (Auto) 0.8, Absolute Neuts (auto) 4.0, Nucleated RBC % 0 08/24/21 06:48: Sodium 142, Potassium 4.0, Chloride 111 H, Carbon Dioxide 26.0, Anion Gap 5, BUN 8, Creatinine 0.98, Est GFR (MDRD) Af Amer 71, Est GFR (MDRD) Non-Af 58 L, BUN/Creatinine Ratio 8.2 L, Glucose 98, Calcium 8.2 L Rhythm: Normal sinus rhythm EKG: Normal sinus rhythm with nonspecific T wave change Radiography Diagnostic Testing: Radiology Impression Head/Neck CTA 08/24/21 08:48 IMPRESSION: Normal unenhanced CT scan of the brain. Electronically Signed: Charles Houston MD at 9:52 EST Tel , Service support , Physical Exam Narrative Patient seen and evaluated at bedside today along with the nursing staff She is alert and orientated Cardiac examination; S1-S2 is regular, systolic murmur noted in the aortic valve area, no diastolic murmur, no pericardial rub or gallop Chest exam; clear to auscultation bilateral No Jekel examination; mild flattening of the left nasolabial fold noted with mild weakness of the left upper extremity.
--- NOTE | 2021-08-24 14:04 | PN.CARD_ITS ---
Subjective Subjective Patient seen and evaluated today along with the nursing staff Stroke alert was called as she has difficulty arousing the patient today with some flattening of the left leg to the labial fold and weakness of the left upper extremity. Objective Data Vital Signs: Vital Signs Temp Pulse Resp BP Pulse Ox 98.1 F 85 18 132/91 H 94 08/24/21 13:14 08/24/21 13:14 08/24/21 13:14 08/24/21 13:14 08/24/21 13:14 Oxygen Delivery Method Room Air Weight: 150 lb 5.684 oz Body Mass Index (BMI) 27.5 Intake & Output: Intake and Output for Last 24 Hours 08/22/21 08/23/21 08/24/21 23:59 23:59 23:59 Intake Total 1678.33 / 1678.33 3611.67 / 3611.67 1003.33 / 1003.33 Output Total 2175 / 2175 2325 / 2325 975 / 975 Balance -496.67 / -496.67 1286.67 / 1286.67 28.33 / 28.33 Lab / Micro Data Result Diagrams: 08/24/21 06:48 08/24/21 06:48 Labs: Laboratory Results - last 24 hr 08/24/21 06:48: WBC 6.6, RBC 3.88 L, Hgb 9.4 L, Hct 30.6 L, MCV 78.9 L, MCH 24.2 L, MCHC 30.7 L, RDW Std Deviation 52.6 H, RDW Coeff of Porfirio 18.6 H, Plt Count 185, MPV 10.5, Immature Gran % (Auto) 0.300, Neut % (Auto) 60.1, Lymph % (Auto) 21.5, [place] % (Auto) 13.4 H, Eos % (Auto) 3.9, Baso % (Auto) 0.8, Absolute Neuts (auto) 4.0, Absolute Lymphs (auto) 1.42, Nucleated RBC % 0 08/24/21 06:48: Sodium 142, Potassium 4.0, Chloride 111 H, Carbon Dioxide 26.0, Anion Gap 5, BUN 8, Creatinine 0.98, Estim Creat Clear Calc 36.82, Est GFR (MDRD) Af Amer 71, Est GFR (MDRD) Non-Af 58 L, BUN/Creatinine Ratio 8.2 L, Glucose 98, Calcium 8.2 L 08/24/21 10:20: Ammonia 19.0 Micro: Microbiology 08/22/21 14:35 Blood Culture (Wb) - Right Hand Blood Culture - Preliminary No growth in 48 hours. 08/22/21 14:40 Blood Culture (Wb) - Left Hand Blood Culture - Preliminary No growth in 48 hours. 08/23/21 15:15 Stool C. difficile DNA Amplification - Final 08/21/21 01:30 Urine Catheter - Jackman Urine Culture - Final Escherichia coli Cardiology Labs/Tests 08/24/21 06:48: WBC 6.6, RBC 3.88 L, Hgb 9.4 L, Hct 30.6 L, MCV 78.9 L, MCH 24.2 L, MCHC 30.7 L, Plt Count 185, MPV 10.5, Immature Gran % (Auto) 0.300, Neut % (Auto) 60.1, Lymph % (Auto) 21.5, [place] % (Auto) 13.4 H, Eos % (Auto) 3.9, Baso % (Auto) 0.8, Absolute Neuts (auto) 4.0, Nucleated RBC % 0 08/24/21 06:48: Sodium 142, Potassium 4.0, Chloride 111 H, Carbon Dioxide 26.0, Anion Gap 5, BUN 8, Creatinine 0.98, Est GFR (MDRD) Af Amer 71, Est GFR (MDRD) Non-Af 58 L, BUN/Creatinine Ratio 8.2 L, Glucose 98, Calcium 8.2 L Rhythm: Normal sinus rhythm EKG: Normal sinus rhythm with nonspecific T wave change Radiography Diagnostic Testing: Radiology Impression Head/Neck CTA 08/24/21 08:48 IMPRESSION: Normal unenhanced CT scan of the brain. Electronically Signed: Charles Houston MD at 9:52 EST Tel , Service support , Physical Exam Narrative Patient alert orientated Still having mild chest discomfort and weakness of the left upper extremity Cardiac examination; S1-S2 normal, soft ejection systolic murmur heard in the aortic valve area, no diastolic murmur Chest examination; clear to auscultation bilateral Central nervous system exam; mild flattening of the left nasolabial fold with mild left-sided weakness. Assessment & Plan Assessment/Plan (1) Encephalopathy acute: (2) CVA (cerebral vascular accident): QUALIFIERS: CVA mechanism: unspecified Qualified Code(s): I63.9 - Cerebral infarction, unspecified (3) NSTEMI (non-ST elevated myocardial infarction): (4) Atherosclerotic heart disease of [place] coronary artery without angina pectoris: PLAN: 81-year-old patient with history of multivessel CAD, not a candidate for CABG Patient declined further cardiac catheterization and plan of PCI and elected to continue on medical treatment for angina Today she had the event of weakness on the left side she had a history of stroke with left-sided weakness And she been on anticoagulation with the Eliquis for paroxysmal atrial fibrillation The CT scan showed no intracranial hemorrhage and there are no findings of an acute ischemic infarction and patient Been evaluated further with MRI of the head Cardiac care plan recommendation; 1. We will continue with current treatment with antianginal medication includi ng Ranexa, metoprolol and long-acting nitrate 2. In regard to the proximal atrial fibrillation patient currently in normal sinus rhythm and will continue anticoagulation with apixaban if no contraind ication in regard to her recent neurological symptoms 3. Primary tour coordinator of this patient is Dr. Mora and will follow-up clinically as an outpatient.
[2021-08-24] MEDS: Lisinopril 2.5 MG Tablet PO (14:17)
[2021-08-24] MEDS: Furosemide 20 MG Tablet PO (14:17)
[2021-08-24] MEDS: Isosorbide Mononitrate 30 MG Tablet PO (14:17)
[2021-08-24] MEDS: Metoprolol(XL)Succ 25 MG Tablet PO ×2 (14:17→22:38)
[2021-08-24] MEDS: Atorvastatin Calcium 80 MG Tablet PO (22:46)
[2021-08-24] MEDS: Ceftriaxone 1 GM/50 ML BAG IV (22:48)
[2021-08-24] MEDS: 0.9% Saline Lock 10 ML Syringe IV (22:49)
[2021-08-25] VITALS: PULSE 75
[2021-08-25 03:06] VITALS: BP 111/61; PULSE 73; RESP 15; TEMP 36.6; O2SAT 91
[2021-08-25 04:00] VITALS: PULSE 74
[2021-08-25 07:00] VITALS: PULSE 83
[2021-08-25 07:32] LABS: Basophil# 0.04 X10^3/uL; Basophil% 0.5 % (0-1); Eosinophils% 4.9 % (0-5); Hematocrit 30.9 % (37-47); Hemoglobin 9.4 g/dL (12.0-15.0); Lymphocyte % 20.7 % (19-41); Mean Corp Hgb Conc 30.4 g/dL (32-36); Mean Platelet Vol. 11.2 fl (6.2-12.0); Monocyte# 1.02 X10^3/uL; Monocyte% 12.4 % (0-10); NRBC Flagged by Analyzer 0 % (0-5); Neutrophil # 5.01 X10^3/uL (2.7-7.7); Neutrophil % 61.1 % (47-70); Platelet Count 200 K/mm3 (150-450); RBC Distribution Width CV 19.2 % (11.6-14.6); RBC Distribution Width SD 52.9 fl (35.1-43.9); Red Blood Count 3.91 M/mm3 (4.2-5.4); White Blood Count 8.2 K/mm3 (4.4-11.0)
[2021-08-25 07:52] LABS: Anion Gap 6 (5-15); BUN 11 mg/dL (7-18); BUN/Creat Ratio 10.6 RATIO (10-20); Calcium,Total 8.6 mg/dL (8.5-10.1); Chloride 109 mmol/L (98-107); Creatinine, Serum 1.04 mg/dL (0.55-1.02); EST Glomerular Filtration Rate 54 mL/min (>60); Est Glom Filt Rate - Afr Amer 66 mL/min (>60); Estimated Creatinine Clearance 34.69 ml/min; Glucose 92 mg/dL (74-106); Potassium 3.9 mmol/L (3.5-5.1); Sodium Level 141 mmol/L (136-145)
[2021-08-25 09:20] VITALS: BP 128/64; PULSE 77; RESP 16; TEMP 36.8; O2SAT 95
[2021-08-25 09:24] VITALS: PULSE 77
[2021-08-25] MEDS: Lisinopril 2.5 MG Tablet PO (09:24)
[2021-08-25] MEDS: APIXABAN 5 MG TABLET PO (09:24)
[2021-08-25] MEDS: Multivitamins,Ther W-Minerals Tablet 1 TABLET PO (09:24)
[2021-08-25] MEDS: Ranolazine 500 MG Tablet PO (09:24)
[2021-08-25] MEDS: Metoprolol(XL)Succ 25 MG Tablet PO (09:24)
[2021-08-25] MEDS: Pantoprazole Sodium 40 MG Tablet PO (09:24)
[2021-08-25] MEDS: Furosemide 20 MG Tablet PO (09:24)
[2021-08-25] MEDS: Sertraline 50 MG Tablet 25 MG PO (09:25)
[2021-08-25] MEDS: Calcium Carb/Vitamin D 1 TABLET Tablet PO (09:25)
[2021-08-25] MEDS: Isosorbide Mononitrate 30 MG Tablet PO (09:27)
--- NOTE | 2021-08-25 10:15 | CASEMGMT ---
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 DARYL faxed updates per [facility]'s request. DARYL will continue to follow. KAITLYNN Blanco
--- NOTE | 2021-08-25 11:24 | PCM.DC.SUM ---
Providers Date of Admission: 08/25/21 Primary Care Physician: Dr. Fawad Dawson MD Consultations 08/21/21 11:25 Consult: Cardiology Routine Consulting Provider: Yen Georges Reason for Consult: Maximize medical therapy EMERGENT Consult: No MD Notified: Yes Date Notified: 08/21/21 Time Notified: 12:03 Method of Notification: Text Comments:: She does not want a heart cath no stress was ordered Reason For Visit: CHEST PAIN; ACUTE ENCEPHALOPATHY Diagnosis Discharge Diagnosis (1) Encephalopathy acute: Status: Acute Code(s): G93.40 - Encephalopathy, unspecified (2) Acute UTI: Status: Acute Code(s): N39.0 - Urinary tract infection, site not specified Medications at Discharge Home Medications acetaminophen 500 mg PO Q4H PRN PRN #30 tab 06/11/16 isosorbide mononitrate 30 mg PO DAILY 06/28/17 furosemide 20 mg tablet 20 mg PO DAILY 09/22/19 sertraline 50 mg tablet 25 mg PO DAILY 09/22/19 atorvastatin 80 mg PO QHS 09/26/19 calcium carbonate-vitamin D3 1 tab PO DAILY 09/26/19 ut-hm-kakt-FA-Ca carb-vit K 1 tab PO DAILY 09/26/19 nitroglycerin 0.4 mg SL PRN PRN 07/26/20 pantoprazole 40 mg PO DAILY #30 tab 07/28/20 ferrous sulfate 325 mg (65 mg iron) tablet,delayed release 325 mg PO DAILY 10/09/20 sodium chloride 3 % nasal mist 2 spray INTRANASAL PRN PRN 10/09/20 apixaban 5 mg tablet 5 mg PO BID 04/08/21 metoprolol succinate 25 mg tablet,extended release 24 hr 25 mg PO BID #180 tab 04/08/21 cefdinir 300 mg PO BID #10 cap 08/25/21 lisinopril 2.5 mg PO DAILY #30 tab 08/25/21 ranolazine 500 mg PO BID #60 tab 08/25/21 Hospital Course Operations None Procedures None Summary of Care Provided Minutes Spent on Discharge: 45 Hospital Course: Patient is a 81-year-old female with a past medical history significant for DVT, paroxysmal atrial fibrillation and ischemic cardiomyopathy. She was admitted via the ED on 08/21/2021 with a complaint of left-sided chest pain which started a few hours before admission. Pain was sharp and radiated to her left arm and her left shoulder. She had no aggravating or relieving factors. Patient also admitted to burning with urination and increased frequency of urination. Urine was noted to be very dark and cloudy as well as a tinge of blood. She was admitted and managed for chest pain rule out ACS as well as UTI. Patient declined any further work-up for her chest pain and she says she did not want any cardiac work-up. She was started on IV ceftriaxone for UTI and cardiology was consulted. Cardiology also advocated conservative management in line with patient's wishes. Hospital course was complicated by concerns for CVA due to left facial droop and acute metabolic encephalopathy. CT of the brain done was negative for stroke and CTA was also negative for any hemodynamically significant stenosis. MRI of the brain was also negative for stroke. [facility] neurology was consulted and reviewed patient and recommended continuing her Eliquis. Blood cultures were negative and urine culture grew E. coli sensitive to ceftriaxone. Urine also gradually cleared up. She remained stable and was discharged to her SNF on 08.25.2021. She is to follow up with her PCP in 1-2 weeks. Patient seen and examined prior to discharge. She had no active complaints and felt well. REview of systems was otherwise negative. Labs and vitals reveiwed. Home meds reviewed and reconciled. Physical Exam Const alert and no apparent distress Constitutional Narrative: responsive General Appearance: cooperative Exam Limitations: no limitations HEENT normocephalic and head/scalp atraumatic Eyes PERRL, EOMs intact bilaterally and conjunctivae normal Neck no lymphadenopathy Resp normal respiratory effort, no retractions, no use of accessory muscles and clear to auscultation bilaterally Cardio regular rate, regular rhythm, S1 normal heart sound, S2 normal heart sound and no murmurs GI normal to inspection, nondistended, normoactive bowel sounds, soft to palpation, non-tender and non-distended GI Narrative: urine has cleared up significantly Extremity normal to inspection, full ROM and no clubbing, cyanosis or edema Skin no rashes or lesions noted Neuro CN's II-XII intact bilaterally and moves all extremities Sensorium / Orientation: awake and alert Psych affect normal Weight / BMI Weight Weight: 150 lb 5.684 oz Body Mass Index (BMI) 27.5 ABG / Lab / Microbiology Data Result Diagrams: 08/25/21 06:52 08/25/21 06:52 Laboratory: Laboratory Results - last 24 hr 08/25/21 06:52: WBC 8.2, RBC 3.91 L, Hgb 9.4 L, Hct 30.9 L, MCV 79.0 L, MCH 24.0 L, MCHC 30.4 L, RDW Std Deviation 52.9 H, RDW Coeff of [place]fir[place] 19.2 H, Plt Count 200, MPV 11.2, Immature Gran % (Auto) 0.400, Neut % (Auto) 61.1, Lymph % (Auto) 20.7, [place] % (Auto) 12.4 H, Eos % (Auto) 4.9, Baso % (Auto) 0.5, Absolute Neuts (auto) 5.0, Absolute Lymphs (auto) 1.70, Nucleated RBC % 0 08/25/21 06:52: Sodium 141, Potassium 3.9, Chloride 109 H, Carbon Dioxide 26.0, Anion Gap 6, BUN 11, Creatinine 1.04 H, Estim Creat Clear Calc 34.69, Est GFR (MDRD) Af Amer 66, Est GFR (MDRD) Non-Af 54 L, BUN/Creatinine Ratio 10.6, Glucose 92, Calcium 8.6 Microbiology: Microbiology 08/22/21 14:35 Blood Culture (Wb) - Right Hand Blood Culture - Preliminary No growth in 48 hours. 08/22/21 14:40 Blood Culture (Wb) - Left Hand Blood Culture - Preliminary No growth in 48 hours. 08/23/21 15:15 Stool C. difficile DNA Amplification - Final 08/21/21 01:30 Urine Catheter - Jackman Urine Culture - Final Escherichia coli 08/21/21 00:50 Nasal Secretion SARS-CoV-2 Antigen (Rapid) - Final Radiography Diagnostic Testing: Radiology Impression Brain MRI 08/24/21 10:38 IMPRESSION: No acute abnormality. Electronically Signed: Charles Houston MD at 14:05 EST Tel , Service support , D/C Instructions Discharge Diet: Low fat / Low cholesterol Discharge Activity: Return to Normal Activity Weight Bearing Status: Weight bearing as tolerated Call your doctor if you observe: Fever of 101 or Higher, Shortness of breath, Dizziness, Swelling in the ankles, Chest pain and Increased palpitations (irregular heartbeat) Meaningful Use Info Meaningful Use Diagnoses (Choose all that apply): None applicable Discharge Plan Admission Admit Date/Time: 08/25/21 08:29 Primary Reason for Your Visit: UTI, chest pain Attending Provider: Sandra Higgins Primary Care Provider: Fawad Dawson Consulting Providers: Yen Georges Discharge Orders/Prescriptions Prescriptions: New lisinopril 2.5 mg Tablet 2.5 mg PO DAILY Qty: 30 RF: 1 ranolazine 500 mg Tablet Extended Release 12 Hr 500 mg PO BID Qty: 60 RF: 1 cefdinir 300 mg capsule 300 mg PO BID Qty: 10 RF: 0 Continued furosemide [Lasix] 20 mg tablet 20 mg PO DAILY RF: 0 sertraline 50 mg tablet 25 mg PO DAILY RF: 0 ferrous sulfate 325 mg (65 mg iron) tablet,delayed release (DR/EC) 325 mg PO DAILY RF: 0 Saline Nasal Mist 3 % mist 2 spray INTRANASAL PRN PRN (Reason: Dry Nasal Passages) RF: 0 apixaban 5 mg tablet 5 mg PO BID RF: 0 metoprolol succinate 25 mg tablet extended release 24 hr 25 mg PO BID Qty: 180 RF: 3 acetaminophen 500 MG tablet 500 mg PO Q4H PRN PRN (Reason: Pain) Qty: 30 RF: 0 isosorbide mononitrate 30 MG tablet extended release 24 hr 30 mg PO DAILY RF: 0 atorvastatin 80 MG tablet 80 mg PO QHS RF: 0 calcium carbonate-vitamin D3 1 EACH tablet 1 tab PO DAILY RF: 0 nq-ng-jvhv-FA-Ca carb-vit K 1 EACH tablet 1 tab PO DAILY RF: 0 nitroglycerin 0.4 MG tablet, sublingual 0.4 mg SL PRN PRN (Reason: CHEST PAIN) RF: 0 pantoprazole 40 MG tablet 40 mg PO DAILY Qty: 30 RF: 0 Referrals / Follow Up: Fawad Dawson MD [Primary Care Provider] - Within 2 Weeks Disposition Disposition (needs filled in before D/C Order can be placed): Home, Self Care Charges/Coding Visit Charges Inpatient E&M: 17502 Disch Hosp
--- NOTE | 2021-08-25 11:50 | PCM.TXEXTCAR ---
Diet 08/21/21 04:11 Diet: Cardiac - Heart Healthy Is pt able to select menu?: Yes Routine Orders/Code Status Enema Type: Fleetz Enema Frequency: Daily PRN Suppository Type: Dulcolax 10mg Suppository Frequency: Daily PRN O2 Frequency: PRN Keep PO Greater than or Equal to (%): 90 Therapies Weight Bearing: Weight bearing as tolerated Physical Therapy: Eval and Treat Occupational Therapy: Eval and Treat Problem/Diagnosis (1) Encephalopathy acute: Status: Acute (2) Acute UTI: Status: Acute Allergies/Procedures Done in Hospital Allergies codeine Adverse Reaction (Verified 08/20/21 23:32) makes my mouth sore Procedures: None Type of Care/Length of Stay Estimated LOS: More Than 30 Days Type of Care Needed: Intermediate Rehab Potential: Fair Prognosis: Fair Additional Orders/Day of Discharge Day of Discharge: 08/25/21 Discharge Plan Admission Admit Date/Time: 08/25/21 08:29 Primary Reason for Your Visit: UTI, chest pain Attending Provider: Sandra Higgins Primary Care Provider: Fawad Dawson Consulting Providers: Yen Georges Discharge Orders/Prescriptions Prescriptions: New lisinopril 2.5 mg Tablet 2.5 mg PO DAILY Qty: 30 RF: 1 ranolazine 500 mg Tablet Extended Release 12 Hr 500 mg PO BID Qty: 60 RF: 1 cefdinir 300 mg capsule 300 mg PO BID Qty: 10 RF: 0 Continued furosemide [Lasix] 20 mg tablet 20 mg PO DAILY RF: 0 sertraline 50 mg tablet 25 mg PO DAILY RF: 0 ferrous sulfate 325 mg (65 mg iron) tablet,delayed release (DR/EC) 325 mg PO DAILY RF: 0 Saline Nasal Mist 3 % mist 2 spray INTRANASAL PRN PRN (Reason: Dry Nasal Passages) RF: 0 apixaban 5 mg tablet 5 mg PO BID RF: 0 metoprolol succinate 25 mg tablet extended release 24 hr 25 mg PO BID Qty: 180 RF: 3 acetaminophen 500 MG tablet 500 mg PO Q4H PRN PRN (Reason: Pain) Qty: 30 RF: 0 isosorbide mononitrate 30 MG tablet extended release 24 hr 30 mg PO DAILY RF: 0 atorvastatin 80 MG tablet 80 mg PO QHS RF: 0 calcium carbonate-vitamin D3 1 EACH tablet 1 tab PO DAILY RF: 0 rt-cv-sdad-FA-Ca carb-vit K 1 EACH tablet 1 tab PO DAILY RF: 0 nitroglycerin 0.4 MG tablet, sublingual 0.4 mg SL PRN PRN (Reason: CHEST PAIN) RF: 0 pantoprazole 40 MG tablet 40 mg PO DAILY Qty: 30 RF: 0 Referrals / Follow Up: Fawad Dawson MD [Primary Care Provider] - Within 2 Weeks Disposition Disposition (needs filled in before D/C Order can be placed): Home, Self Care
[2021-08-25] MEDS: Ferrous Sulfate 325 MG Tablet PO (12:01)
--- NOTE | 2021-08-25 13:27 | CASEMGMT ---
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 DARYL faxed over all discharge instructions to [facility] including negative COVID test. DARYL set up a 2:30pm ambulance. DARYL let pt's sister, pt's bedside RN, and Danielle at [facility] know time of pickup. No further needs. Pt to return to [facility], intermediate level of care, [facility] pt, this afternoon. KAITLYNN Blanco
--- NOTE | 2021-08-25 14:19 | NURSING ---
report called to Toshia at [facility], no further questions voiced at this time
== END 2021-08-25 14:44 | disposition intermediate care facility (04) | DRG 689 ==
LOC: ED 08-21 01:53 → PCU 08-21 02:06
PROVIDERS: Family Medicine; Admitting Provider Hospitalist; Emergency Provider Emergency Medicine; PCP Family Medicine; Visit Provider Student in an Organized Health Care Education/Training Program
DX: N39.0 Urinary tract infection, site not specified (principal); G93.41 Metabolic encephalopathy; J18.9 Pneumonia, unspecified organism; I69.351 Hemiplegia and hemiparesis following cerebral infarction affecting right dominant side; I11.0 Hypertensive heart disease with heart failure; I48.0 Paroxysmal atrial fibrillation; I25.119 Atherosclerotic heart disease of native coronary artery with unspecified angina pectoris; K21.9 Gastro-esophageal reflux disease without esophagitis; I25.2 Old myocardial infarction; F32.9 Major depressive disorder, single episode, unspecified; I25.5 Ischemic cardiomyopathy; F41.9 Anxiety disorder, unspecified; M19.90 Unspecified osteoarthritis, unspecified site; E78.5 Hyperlipidemia, unspecified; Z86.79 Personal history of other diseases of the circulatory system; Z79.01 Long term (current) use of anticoagulants; Z86.718 Personal history of other venous thrombosis and embolism; Z87.11 Personal history of peptic ulcer disease; M81.0 Age-related osteoporosis without current pathological fracture; R29.810 Facial weakness; Z20.822 Contact with and (suspected) exposure to COVID-19; H25.813 Combined forms of age-related cataract, bilateral
CPT/HCPCS: 36415; 70450; 70496; 70498; 70551; 71045; 80048; 80053; 80061; 81001; 82140; 82962; 84484; 85025; 85027; 87040; 87077; 87086; 87088; 87186; 87426; 87493; 93005; 97162; 97166; 99285; J7030; Q9967; A4216

== ENCOUNTER 2021-11-04 18:11 | Emergency (ER) | payer MEDICARE, MEDICAID, SELFPAY ==
[2021-11-04 18:16] VITALS: BP 101/55; PULSE 133; RESP 16; TEMP 36; O2SAT 97; BMI 23.7
[2021-11-04 18:19] VITALS: BP 101/55; PULSE 133; RESP 16; O2SAT 100
--- NOTE | 2021-11-04 18:20 | EDS_ITS ---
HPI History of Present Illness Chief Complaint: Alt LOC Detail of Chief Complaint: Unresponsiveness Informant: EMS and SNF (Spoke to Rohini the nurse that called EMS.) Limited: coma Onset/Context/Timing Onset: Hours Context: Sudden Onset Timing: Continuous Quality: Patient slumped to the left not responsive to verbal or tactile stimulus or Current Severity: Severe Maximum Severity: Severe Worsened by: Unknown Relieved by: Unknown Associated Symptoms Associated Symptoms: Unknown Narrative Narrative: Patient is an elderly woman with history of PSVT, angina pectoris, diastolic dysfunction, failure to thrive, remote GI bleed, vertebral compression fracture who suddenly became unresponsive. She slumped and was nonverbal. The nurse states she was told by 8 that patient was unresponsive. EMS was contacted. When I spoke to her she was unaware that patient was DNR Comfort Care. Prior similar symptoms: No Recent Illness/Hospitalization: No PFSH PFSH Medical History Acute embolism and thrombosis of vein Angina pectoris Anxiety Atherosclerotic heart disease of [place] coronary artery without angina pectoris Cerebral ischemia Chest pain Coagulopathy Combined forms of age-related cataract, bilateral Congestive heart disease Diastolic dysfunction Dizziness, nonspecific Failure to thrive Gastro-esophageal reflux disease without esophagitis Hematoma and contusion Hemiplegia and hemiparesis following cerebral infarction affecting right dominant side History of urinary calculi History of venous thromboembolism Hypertensive heart disease with heart failure Ischemic cardiomyopathy Major depression Non-ST elevation (NSTEMI) myocardial infarction NSTEMI (non-ST elevated myocardial infarction) Osteoarthritis Osteoporosis Paroxysmal atrial fibrillation Peptic ulcer Pure hypercholesterolemia SVT (supraventricular tachycardia) Syncope Ventricular tachycardia Vertebral compression fracture Home Medications acetaminophen 500 mg PO Q4H PRN PRN #30 tab 06/11/16 [Rx Last Taken 09/24/19] isosorbide mononitrate 30 mg PO DAILY 06/28/17 [History Last Taken 07/25/20] furosemide 20 mg tablet 20 mg PO DAILY 09/22/19 [History Last Taken 07/25/20] sertraline 50 mg tablet 25 mg PO DAILY 09/22/19 [History Last Taken 07/25/20] atorvastatin 80 mg PO QHS 09/26/19 [History Last Taken 07/25/20] calcium carbonate-vitamin D3 1 tab PO DAILY 09/26/19 [History Last Taken 07/25/20] ju-au-brgh-FA-Ca carb-vit K 1 tab PO DAILY 09/26/19 [History Last Taken 07/25/20] nitroglycerin 0.4 mg SL PRN PRN 07/26/20 [History Last Taken Unknown] pantoprazole 40 mg PO DAILY #30 tab 07/28/20 [Rx Last Taken Unknown] ferrous sulfate 325 mg (65 mg iron) tablet,delayed release 325 mg PO DAILY 10/09/20 [History Last Taken Unknown] sodium chloride 3 % nasal mist 2 spray INTRANASAL PRN PRN 10/09/20 [History Last Taken Unknown] apixaban 5 mg tablet 5 mg PO BID 04/08/21 [History Last Taken Unknown] metoprolol succinate 25 mg tablet,extended release 24 hr 25 mg PO BID #180 tab 04/08/21 [Rx Last Taken Unknown] cefdinir 300 mg PO BID #10 cap 08/25/21 [Rx Last Taken Unknown] lisinopril 2.5 mg PO DAILY #30 tab 08/25/21 [Rx Last Taken Unknown] ranolazine 500 mg PO BID #60 tab 08/25/21 [Rx Last Taken Unknown] Allergy/AdvReac Type Severity Reaction Status Date / Time codeine AdvReac makes my Verified 11/04/21 18:16 mouth sore Family History Mother Diabetes Father CAD (coronary artery disease) Brother CAD (coronary artery disease) Surgical History H/O eye surgery H/O lumpectomy History of tonsillectomy Social History (Updated 11/04/21 @ 18:[address] Pool Pradhan MD) housing: halfway Smoking Status: Never smoker alcohol intake: never caffeine: No ROS ROS ED Review of Systems ROS Unobtainable: due to mental status EXAM Physical Exam Const Vital Signs: 11/04/21 18:16 11/04/21 18:19 Temperature 96.8 F L Temperature Source Temporal Pulse Rate 133 H 133 H Respiratory Rate 16 16 Blood Pressure 101/55 L 101/55 L Blood Pressure Mean 70 70 Pulse Ox 97 100 Oxygen Delivery Method Room Air Room Air Positive well nourished and well developed General Appearance ED: well developed, NAD and other Patient slumped to the left head in a flexed position ; Negative for cyanotic or diaphoretic HEENT Reports moist mucous membranes HEENT Narrative: Nares patent. Ears normal. Negative for trauma or tenderness Eyes Eyes Narrative: Pupils are pinpoint. Sclerae anicteric. Conjunctive is pink. Neck no lymphadenopathy, supple and no JVD Resp normal respiratory effort and clear to auscultation bilaterally Cardio regular rate, regular rhythm, S1 normal heart sound, S2 normal heart sound and no murmurs GI normal to inspection, nondistended, normoactive bowel sounds Palpation: soft Neuro No oriented x3 and No CN's II-XII intact bilaterally Sensorium / Orientation: other GCS is 3 ; Negative for alert Psych Psych Narrative: Unable to determine Skin Skin Narrative: No obvious rash or evidence of trauma MDM MDM MDM Narrative Medical decision making narrative: Since patient is DNR comfort care will adhere to patient's wishes. Vital signs were checked. IV was not established. Monitoring was not established. Patient is in no discomfort. Pain medicine was not ordered because it was not needed. Contacted the nursing facility. First nurse I spoke to states she did not call the squad. I spoke to the nurse that did call the squad. That nurse, Rohini, was unaware that patient was DNR Comfort Care. Since she is DNR Comfort Care she will return to [facility]. With patient having a rapid heartbeat and slight irregularity concerned patient may have had an embolic phenomenon resulted in a massive stroke. This may represent a pontine hemorrhage or ischemic stroke since her pupils are pinpoint. Discharge Plan Triage Chief Complaint: Alt LOC ED Provider: Pool Pradhan Dx/Rx/DC Orders Clinical Impression: Acute alteration in mental status, [place]lin coma scale eye opening score 1, does not open eyes, [place] coma scale score 3-8, at hospital admission, Tachycardia Instructions: ED ALOC Prescriptions: No Action furosemide [Lasix] 20 mg tablet 20 mg PO DAILY RF: 0 sertraline 50 mg tablet 25 mg PO DAILY RF: 0 ferrous sulfate 325 mg (65 mg iron) tablet,delayed release (DR/EC) 325 mg PO DAILY RF: 0 Saline Nasal Mist 3 % mist 2 spray INTRANASAL PRN PRN (Reason: Dry Nasal Passages) RF: 0 apixaban 5 mg tablet 5 mg PO BID RF: 0 metoprolol succinate 25 mg tablet extended release 24 hr 25 mg PO BID Qty: 180 RF: 3 acetaminophen 500 MG tablet 500 mg PO Q4H PRN PRN (Reason: Pain) Qty: 30 RF: 0 isosorbide mononitrate 30 MG tablet extended release 24 hr 30 mg PO DAILY RF: 0 atorvastatin 80 MG tablet 80 mg PO QHS RF: 0 calcium carbonate-vitamin D3 1 EACH tablet 1 tab PO DAILY RF: 0 kk-sa-xpbv-FA-Ca carb-vit K 1 EACH tablet 1 tab PO DAILY RF: 0 nitroglycerin 0.4 MG tablet, sublingual 0.4 mg SL PRN PRN (Reason: CHEST PAIN) RF: 0 pantoprazole 40 MG tablet 40 mg PO DAILY Qty: 30 RF: 0 lisinopril 2.5 mg Tablet 2.5 mg PO DAILY Qty: 30 RF: 1 ranolazine 500 mg Tablet Extended Release 12 Hr 500 mg PO BID Qty: 60 RF: 1 cefdinir 300 mg capsule 300 mg PO BID Qty: 10 RF: 0 Primary Care Provider: Fawad Dawson Referrals: Fawad Dawson MD [Primary Care Provider] - As Needed Disposition Disposition: Retirement Facility Discharge [facility]: [facility]
[2021-11-04 20:45] VITALS: BP 95/55; PULSE 102; RESP 18; O2SAT 100
[2021-11-04 22:47] VITALS: BP 81/51; PULSE 98; RESP 16; O2SAT 98
== END 2021-11-04 22:49 | disposition skilled nursing facility (03) ==
PROVIDERS: Emergency Provider Emergency Medicine; PCP Family Medicine; Visit Provider Emergency Medicine
DX: R41.82 Altered mental status, unspecified (principal); I69.351 Hemiplegia and hemiparesis following cerebral infarction affecting right dominant side; I11.0 Hypertensive heart disease with heart failure; I50.9 Heart failure, unspecified; I48.0 Paroxysmal atrial fibrillation; R00.0 Tachycardia, unspecified; I25.5 Ischemic cardiomyopathy; I25.10 Atherosclerotic heart disease of native coronary artery without angina pectoris; E78.00 Pure hypercholesterolemia, unspecified; H25.813 Combined forms of age-related cataract, bilateral; K21.9 Gastro-esophageal reflux disease without esophagitis; M19.90 Unspecified osteoarthritis, unspecified site; Z79.01 Long term (current) use of anticoagulants; Z86.718 Personal history of other venous thrombosis and embolism; Z79.899 Other long term (current) drug therapy
CPT/HCPCS: 99283